=== PATIENT | female | born 1965 | race Caucasian/White ===

== ENCOUNTER 2016-08-20 13:19 | Inpatient (IN) | payer MEDICAID, OTHER ==
--- NOTE | 2016-08-20 13:56 | ED ---
General Adult HPI - General Chief complaint: Psychiatric Symptoms Stated complaint: suicidal Time Seen by Provider: 08/20/16 13:42 Source: patient, police, RN notes reviewed Mode of arrival: ambulatory - History of Present Illness Initial comments: Chief complaint history of present illness a 51-year-old female who states she is hearing voices the voices are telling her to hurt herself. The patient actually had a knife in her hand but did not hurt herself. She called 911 1 for help. Patient denies taking any drugs denies alcohol denies overdosing on aspirin or Tylenol that she has an the past taken medications. - Related Data Home Medications Medication Instructions Recorded Confirmed busPIRone HCl [Buspar] 20 mg PO TID@0800,1200,1600 03/04/16 08/20/16 traZODone HCL 150 mg PO HS 03/04/16 08/20/16 cloNIDine HCL [Catapres] 0.1 mg PO TID@0800,1200,1600 07/24/16 08/20/16 Haloperidol [Haldol] 20 mg PO HS 08/20/16 08/20/16 Multivitamins, Thera [Multivitamin] 1 tab PO DAILY@1200 08/20/16 08/20/16 Previous Rx's Medication Instructions Recorded LORazepam [Ativan] 0.5 mg PO BID #60 tab 08/01/16 Levothyroxine Sodium [Synthroid] 75 mcg PO DAILY@0630 #30 tab 08/01/16 QUEtiapine XR [SEROquel XR] 600 mg PO DAILY@1900 #120 08/01/16 tab.er.24h Venlafaxine HCl ER [Effexor XR] 112.5 mg PO DAILY #90 cap.er.24h 08/01/16 rOPINIRole HCL [Requip] 0.25 mg PO HS #30 tab 08/01/16 Allergies Allergy/AdvReac Type Severity Reaction Status Date / Time ibuprofen [From Motrin] Allergy Intermediate Rash/Hives Verified 08/20/16 13:24 tramadol HCl [From Ultram] Allergy Intermediate Itching Verified 08/20/16 13:24 Review of Systems ROS Statement: Those systems with pertinent positive or pertinent negative responses have been documented in the HPI. Review of systems. Patient denying any visual acuity or headache no chest pain shows breath GI/ problems this time no neuro deficits. Psychologically the patient reports she is depressed states she's a diagnosed schizophrenic sees a counselor. Takes several different medications which she states no significant working at this time. States that she hearing voices and the voices are telling her to herself with a knife. Patient denies taking medications. Past medical problems significant for hyperlipidemia, hypothyroidism. Patient' s had suicide attempts in the past. She's had followed by hysterectomy. The patient has ALLERGIES to ibuprofen and tramadol. Quit smoking 3 years ago denies alcohol use. States no significant family history problems. ROS Other: All systems not noted in ROS Statement are negative. Past Medical History Past Medical History: Hyperlipidemia, Thyroid Disorder Additional Past Medical History / Comment(s): suicide attempt History of Any Multi-Drug Resistant Organisms: None Reported Past Surgical History: Section, Hysterectomy Additional Past Surgical History / Comment(s): x 2; Pt. states she's had a colonoscopy done. Past Anesthesia/Blood Transfusion Reactions: No Reported Reaction Additional Past Anesthesia/Blood Transfusion Reaction / Comment(s): no previous blood transfusion Past Psychological History: Anxiety, Depression Additional Psychological History / Comment(s): Pt lives alone. She is independent. She uses no assistive devices. She has no home care agency. She has a lifelong problem with depression and has tried in the past to commit suicide with pills last time being 4 yrs ago. She has had 2 psychiatric admissions to [facility] and had been seen by Dr. Villarreal-last admission was 4 yrs ago. She is seen by Lilia Warner at [facility] a couple times a week and attends group therapy M/T/W. She did not renew her drivers license but states she has people who get her where she needs to go. She is currently trying to get disability. 07/24/16 pt. states she obtained disability in 2014; She is having auditory, command hallucinations to kill herself. Smoking Status: Former smoker Past Alcohol Use History: None Reported Additional Past Alcohol Use History / Comment(s): Pt states she quit smoking about 6 months ago. 07/24/16 pt. states she quit smoking 6 yrs. 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 at [facility] and hasn't drank since. Past Drug Use History: None Reported Additional Drug Use History / Comment(s): Pt. states she used MJ occasionally from [age] y.o. but hasn't used it since. - Past Family History Father Family Medical History: Cancer, Neurologic Disorder Additional Family Medical History / Comment(s): Pt's. father had colon cancer and Parkinson's. Mother Family Medical History: Congestive Heart Failure (CHF) Additional Family Medical History / Comment(s): states "weak heart" Sister(s) Family Medical History: Coronary Artery Disease (CAD), Myocardial Infarction ([place] ) Additional Family Medical History / Comment(s): 1 sister with hx of 2 cardiac stents, 1 other sister from heart related issues General Exam - General Exam Comments Initial Comments: General: The patient is awake and alert, appears depressed anxious and upset. Vital signs show temperature 98.5 pulse 127 respiratory rate 20 pulse ox 95% room air blood pressure elevated 160/85. The patient is anxious and upset. This be repeated. Eye: Pupils are equal, round and reactive to light, extra-ocular movements are intact ; there is normal conjunctiva bilaterally. No signs of icterus. Ears, nose, mouth and throat: There are moist mucous membranes and no oral lesions. Multiple teeth missing Neck: The neck is supple, there is no tenderness , no anterior cervical lymphadenopathy. Cardiovascular: There is a regular rate and rhythm. No murmur, rub or gallop is appreciated. Respiratory: Lungs are clear to auscultation, respirations are non-labored, breath sounds are equal. No wheezes, stridor, rales, or rhonchi. Gastrointestinal: Soft, non-distended, non-tender abdomen . There is no rebound or guarding present. No CVA tenderness. Bowel sounds are unremarkable. Back: There is no tenderness to palpation in the midline. There is no obvious deformity. No rashes noted. Musculoskeletal: Normal ROM, no tenderness, There is no pedal edema. There is no calf tenderness or swelling. Sensation intact. Pulses equal bilaterally 2+. Neurological: No complaint of any numbness or tingling. No evidence of any focal or lateralizing findings are none complained of. Skin: Skin is warm and dry and no rashes or lesions are noted. Psychiatric: Cooperative, appears depressed. States he is hearing voices, states past history of schizophrenia on medications. The voices are telling her to hurt herself. The patient states she had a knife in her hand and the voices told her to kill herself. She called 911 for help. Course Vital Signs 08/20/16 13:20 Temperature 98.5 F Pulse Rate 127 H Respiratory 20 Rate Blood Pressure 160/85 O2 Sat by Pulse 95 Oximetry Medical Decision Making - Medical Decision Making Rectal decision making. The patient's urinalysis was positive for tricyclic antidepressants, negative for aspirin or Tylenol. Patient was evaluated by psychiatric nurse. Has been decided the patient be admitted to [facility] for further evaluation for bipolar disorder with psychosis. Patient signing in voluntarily. A petition had been filled out. - Lab Data Lab Results 08/20/16 08/20/16 Range/Units 14:00 14:35 Salicylates <1.0 mg/dL Urine Opiates Screen Not Detected (NotDetected) Ur Oxycodone Screen Not Detected (NotDetected) Urine Methadone Screen Not Detected (NotDetected) Ur Propoxyphene Screen Not Detected (NotDetected) Acetaminophen <10.0 ug/mL Ur Barbiturates Screen Not Detected (NotDetected) U Tricyclic Antidepress Detected H (NotDetected) Ur Phencyclidine Scrn Not Detected (NotDetected) Ur Amphetamines Screen Not Detected (NotDetected) U Methamphetamines Scrn Not Detected (NotDetected) U Benzodiazepines Scrn Not Detected (NotDetected) Urine Cocaine Screen Not Detected (NotDetected) U Marijuana (THC) Screen Not Detected (NotDetected) Disposition Clinical Impression: Bipolar 1 disorder, depressed, Psychosis Disposition: TRANSFER TO PSYCH HOSP/UNIT Condition: Serious
[2016-08-20 14:35] LABS: Acetaminophen <10.0 ug/mL; Salicylate <1.0 mg/dL
[2016-08-20] MEDS ORDERED: LORazepam 1 MG TAB PO STA (15:22)
[2016-08-20] MEDS ORDERED: ACETAMINOPHEN TAB 325 MG TAB PO PRN (15:56)
[2016-08-20] MEDS ORDERED: MAG HYDROX/AL HYDROX/SIMETH 30 ML CUP PO PRN (15:56)
[2016-08-20] MEDS ORDERED: MAGNESIUM HYDROXIDE 2,400 MG/10 ML CUP PO PRN (15:56)
[2016-08-20] MEDS ORDERED: ZIPRASIDONE 20 MG VIAL IM PRN (15:56)
[2016-08-20 16:24] VITALS: BMI 29.7
[2016-08-20] MEDS: busPIRone HCl 10 MG TAB PO SCH (16:30)
[2016-08-20] MEDS: cloNIDine HCL 0.1 MG TAB PO SCH (16:30)
[2016-08-20] MEDS: QUEtiapine XR 200 MG TAB.ER.24H PO SCH (18:57)
[2016-08-20] MEDS: HALOPERIDOL 5 MG TAB PO SCH (21:47)
[2016-08-20] MEDS: traZODone HCL 50 MG TAB PO SCH (21:47)
[2016-08-20] MEDS: LORazepam 1 MG TAB PO PRN (21:50)
[2016-08-21] MEDS ORDERED: LEVOTHYROXINE 75 MCG TAB PO SCH (06:30)
[2016-08-21] MEDS: busPIRone HCl 10 MG TAB PO SCH ×3 (08:25→15:02)
[2016-08-21] MEDS: cloNIDine HCL 0.1 MG TAB PO SCH ×2 (08:26→12:03)
[2016-08-21] MEDS: LORazepam 1 MG TAB PO PRN ×2 (08:26→16:37)
[2016-08-21 08:59] LABS: Basophils # (A) 0.1 k/uL (0-0.2); Basophils % (A) 1 %; CH 31.8; CHCM 33.4; Eosinophils # (A) 0.1 k/uL (0-0.7); Eosinophils % (A) 2 %; HDW 2.16; HGB 15.6 gm/dL (11.4-16.0); Luc # (Auto) 0.31; Luc % (Auto) 4; Lymphocytes # (A) 3.8 k/uL (1.0-4.8); Lymphocytes % (A) 44 %; MCH 31.1 pg (25.0-35.0); MCHC 32.5 g/dL (31.0-37.0); MCV 95.7 fL (80.0-100.0); Mean Platelet Volume 7.1; Monocytes # (A) 0.6 k/uL (0-1.0); Monocytes % (A) 7 %; Neutrophils # (A) 3.8 k/uL (1.3-7.7); Neutrophils % (A) 43 %; RBC 5.01 m/uL (3.80-5.40); RDW 12.5 % (11.5-15.5); WBC 8.7 k/uL (3.8-10.6); WBC (Perox) 8.96
[2016-08-21 09:20] LABS: ALT 34 U/L (9-52); AST 32 U/L (14-36); Alkaline Phosphatase 94 U/L (38-126); Anion Gap 15 mmol/L; Blood Urea Nitrogen 15 mg/dL (7-17); Calcium 9.8 mg/dL (8.4-10.2); Carbon Dioxide 25 mmol/L (22-30); Chloride 99 mmol/L (98-107); Glucose 154 mg/dL (74-99); Non-African American GFR(MDRD) 55 (>60 ml/min/1.73 sqM); Potassium 4.6 mmol/L (3.5-5.1); Sodium 139 mmol/L (137-145); Total Bilirubin 0.8 mg/dL (0.2-1.3); Total Protein 7.8 g/dL (6.3-8.2)
[2016-08-21] MEDS: MULTIVITAMINS, THERA 1 EACH TAB PO SCH (12:03)
--- NOTE | 2016-08-21 12:53 | P.HP ---
Psychiatric H&P - . H&P Date: 08/21/16 History & Physical: IDENTIFYING DATA: Ms. Juarez is a 51-year-old woman who was discharged from this unit on 08/01/2016 with a diagnosis of major depressive disorder. HISTORY OF PRESENT ILLNESS: She presented to the unit voluntarily with complaints of auditory hallucination and suicidal ideation. She stated that she was doing well when she left the unit at the end of July. She denied that she was feeling depressed, anxious or having suicidal thoughts. She also stated that she was feeling well until 2 days prior to admission. She abruptly began experiencing a "voice" telling her to kill herself. Her description of this experience is consistent with a true auditory hallucination. However, she only experienced a single voice that only made a single statement. She denied multiple voices or an experience where "voices" were criticizing her or commenting on her behavior. She denied other psychotic symptoms such as visual or tactile hallucinations, ideas of reference, thought insertion, thought broadcasting or thought control. She feels sad (she rated her depression as a 4 on a 10 point Likert scale) but denied depressive symptoms such as pessimism, loss of pleasure, guilty feelings , self dislike, crying, loss of interest, worthlessness, loss of energy, impairment in sleep, changes in appetite, difficulty concentration were tiredness and fatigue. She feels anxious regarding the auditory experiences but denied persistent feelings of anxiety or apprehension. She denied symptoms suggestive of panic attack. She denied obsessions or compulsions. She denied recent stresses or disruptions in her relationships. She denied that she has had conflict with her children or her family. She stated that she has been compliant with her prescribed medications. She kept her initial appointment with her community mental health agency. PAST PSYCHIATRIC HISTORY: She has a history of major depressive disorder with multiple prior psychiatric hospitalizations. According to the EMR, this is her fifth admission to this unit. Her first admission of this facility was in 2011 was the result of an attempted suicide by ingesting rat poison. Her admission in December 2014 followed an overdose requiring intubation and ventilation. 2 suicide attempts appear to be related to interpersonal conflict or perceptions of abandonment. She presented voluntarily to this unit in July 2016 with complaints of increasing depression and auditory hallucination. Her discharge medications included Haldol 20 mg at bedtime, Ativan 0.5 mg twice daily, Seroquel XR 600 mg in the evening and Effexor 112.5 mg daily. PAST MEDICAL HISTORY: She has history of hyperlipidemia, thyroid disease ALLERGIES: Ibuprofen, tramadol SUBSTANCE USE HISTORY: She denied use of alcohol and drugs. She has history of alcohol use problems and was treated at [facility] in 2009. Tobacco use: She does not use tobacco products FAMILY PSYCHIATRIC/SUBSTANCE USE HISTORY: According to the record her mother may have had a history of bipolar disorder. There is no history of family suicides. LEGAL HISTORY: She is not on probation, parole or has pending charges. She has not been arrested or spent time in [facility]. SOCIAL HISTORY: She born and raised in [place] [facility] by an intact family. She graduated from high school. She began working after graduation. Her parents are . She was and twice. She has 3 children 2 by her first 1 by the second. The youngest is 14 years old. She currently lives alone in her family home. Her sister, who lives next door, is her primary support. She last worked in 2009. She is unemployed and receives security disability. MENTAL STATUS EXAM: She presented as a casually groomed short edentulous 51-year -old female who was pleasant on approach. She made eye contact and attended to the interview. She had no distinguishing features or prominent physical abnormalities. She had a sad facial expression. She was alert and oriented to person, place and time. She showed psychomotor retardation but no abnormal movements. She had an unstable gait. Her speech was spontaneous with decreased rate, rhythm and volume. Her affect was depressed but reactive. She denied current suicidal ideation or wishes. She denied homicidal ideation. She denied depressive cognitions such as hopelessness, helplessness and worthlessness. She denied obsessions or ruminations. She denied ideas of reference or paranoid ideation. Her thinking was concrete but her associations were coherent or logical. She did not demonstrate clang associations, perseveration, neologisms or blocking. She described auditory hallucinations but did not appear to be responding to internal stimuli. She described visual illusions but no depersonalization or derealization. Global impression of intellect is average to below. She is aware of her need for mental health treatment. STRENGTHS: Stable housing, stable income, supportive family, good physical health. WEAKNESSES: Chronic and recurrent mental illness. IMPRESSION: She is a 51-year-old female who presented with complaints of suicidal thoughts and command auditory hallucinations. She appears depressed but denies most of the symptoms of depression. Her descriptions of "voices" to appear consistent with true auditory hallucinations. However, she denies other symptoms of psychosis. She denied noncompliance with medication or use of alcohol or drugs. She denied specific stress or conflict preceding the recurrence of the "voices". She should best be treated on an inpatient basis with a combination of psychotropic medications and multimodal therapy. Her family may be of assistance in understanding the reason for the recurrence of her illness. 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 Hold Requip since it is a dopamine agonist and may be contributing to the psychotic symptoms. Evaluate the need for 2 antipsychotics. Suicide precautions with 15 minute checks. Interview her sister regarding her adjustment and overall functioning since her last discharge. Encourage participation in therapeutic groups and activities. Evaluate clinical status and response to treatment daily basis. Allergies Allergy/AdvReac Type Severity Reaction Status Date / Time ibuprofen [From Motrin] Allergy Intermediate Rash/Hives Verified 08/20/16 16:36 tramadol HCl [From Ultram] Allergy Intermediate Itching Verified 08/20/16 16:36 Vital Signs Temp 97.5 F L 08/21/16 06:56 Pulse 141 H 08/21/16 08:28 Resp 18 08/21/16 08:28 BP 116/56 08/21/16 08:28 Pulse Ox 95 08/20/16 16:03 Intake & Output 08/20/16 08/21/16 08/21/16 18:59 06:59 18:59 Weight 71.441 kg Laboratory Last Values WBC 8.7 k/uL (3.8-10.6) 08/21/16 08:30 RBC 5.01 m/uL (3.80-5.40) 08/21/16 08:30 Hgb 15.6 gm/dL (11.4-16.0) 08/21/16 08:30 Hct 48.0 % (34.0-46.0) H 08/21/16 08:30 MCV 95.7 fL (80.0-100.0) 08/21/16 08:30 MCH 31.1 pg (25.0-35.0) 08/21/16 08:30 MCHC 32.5 g/dL (31.0-37.0) 08/21/16 08:30 RDW 12.5 % (11.5-15.5) 08/21/16 08:30 Plt Count 347 k/uL (150-450) 08/21/16 08:30 Neutrophils % 43 % 08/21/16 08:30 Lymphocytes % 44 % 08/21/16 08:30 Monocytes % 7 % 08/21/16 08:30 Eosinophils % 2 % 08/21/16 08:30 Basophils % 1 % 08/21/16 08:30 Neutrophils # 3.8 k/uL (1.3-7.7) 08/21/16 08:30 Lymphocytes # 3.8 k/uL (1.0-4.8) 08/21/16 08:30 Monocytes # 0.6 k/uL (0-1.0) 08/21/16 08:30 Eosinophils # 0.1 k/uL (0-0.7) 08/21/16 08:30 Basophils # 0.1 k/uL (0-0.2) 08/21/16 08:30 Sodium 139 mmol/L (137-145) 08/21/16 08:30 Potassium 4.6 mmol/L (3.5-5.1) 08/21/16 08:30 Chloride 99 mmol/L (98-107) 08/21/16 08:30 Carbon Dioxide 25 mmol/L (22-30) 08/21/16 08:30 Anion Gap 15 mmol/L 08/21/16 08:30 BUN 15 mg/dL (7-17) 08/21/16 08:30 Creatinine 1.04 mg/dL (0.52-1.04) 08/21/16 08:30 Est GFR (MDRD) Af Amer >60 (>60 ml/min/1.73 sqM) 08/21/16 08:30 Est GFR (MDRD) Non-Af 55 (>60 ml/min/1.73 sqM) 08/21/16 08:30 Glucose 154 mg/dL (74-99) H 08/21/16 08:30 Calcium 9.8 mg/dL (8.4-10.2) 08/21/16 08:30 Total Bilirubin 0.8 mg/dL (0.2-1.3) 08/21/16 08:30 AST 32 U/L (14-36) 08/21/16 08:30 ALT 34 U/L (9-52) 08/21/16 08:30 Alkaline Phosphatase 94 U/L (38-126) 08/21/16 08:30 Total Protein 7.8 g/dL (6.3-8.2) 08/21/16 08:30 Albumin 4.9 g/dL (3.5-5.0) 08/21/16 08:30 TSH 12.400 mIU/L (0.465-4.680) H 08/21/16 08:30 Salicylates <1.0 mg/dL 08/20/16 14:00 Urine Opiates Screen Not Detected (NotDetected) 08/20/16 14:35 Ur Oxycodone Screen Not Detected (NotDetected) 08/20/16 14:35 Urine Methadone Screen Not Detected (NotDetected) 08/20/16 14:35 Ur Propoxyphene Screen Not Detected (NotDetected) 08/20/16 14:35 Acetaminophen <10.0 ug/mL 08/20/16 14:00 Ur Barbiturates Screen Not Detected (NotDetected) 08/20/16 14:35 U Tricyclic Antidepress Detected (NotDetected) H 08/20/16 14:35 Ur Phencyclidine Scrn Not Detected (NotDetected) 08/20/16 14:35 Ur Amphetamines Screen Not Detected (NotDetected) 08/20/16 14:35 U Methamphetamines Scrn Not Detected (NotDetected) 08/20/16 14:35 U Benzodiazepines Scrn Not Detected (NotDetected) 08/20/16 14:35 Urine Cocaine Screen Not Detected (NotDetected) 08/20/16 14:35 U Marijuana (THC) Screen Not Detected (NotDetected) 08/20/16 14:35 08/21/16 12:24
[2016-08-21] MEDS: METOPROLOL TARTRATE 50 MG TAB PO SCH ×2 (15:00→21:19)
[2016-08-21] MEDS: QUEtiapine XR 200 MG TAB.ER.24H PO SCH (18:55)
--- NOTE | 2016-08-21 19:30 | CONS ---
DATE OF CONSULTATION: REASON FOR CONSULTATION: Tachycardia and elevated TSH and patient was admitted to psychiatric floor because of suicidal ideations and acute psychosis that is being managed by psychiatry. Medicine was consulted for above-mentioned reasons as well as medical clearance. The patient is a 51 -year-old female, patient denied any fever, chills, the patient denied any nausea, vomiting, abdominal pain. The significant data I can obtain is the patient is tachycardic. I am obtaining an EKG to make sure it is sinus tachycardia and EKG results are not available yet and patient has an elevated TSH, T4 is essentially within normal limits because of which I am cutting down his thyroid medication from 75 mcg to 50 mcg. Regarding his tachycardia, patient takes clonidine appears to be secondary to blood pressure and patient is tachycardic primarily because of his anxiety along with withdrawal from clonidine, which I am switching to metoprolol as his blood pressure is on the low-normal side, considering that clonidine has multiple side effects that will be discontinued. For heart rate control I will go ahead and give him metoprolol. My suspicion is low for pulmonary embolism. ( ) probability is pretty low. PAST MEDICAL HISTORY: Significant for hypertension, hyperlipidemia, multiple anxiety, depression and psychosis in the past. History of hysterectomy, section. REVIEW OF SYSTEMS: CONSTITUTIONAL: No fever, no malaise, no fatigue. HEENT: No recent visual problems or hearing problems. Denied any sore throat. CARDIOVASCULAR: No chest pain, orthopnea, PND, no palpitations, no syncope. PULMONARY: No shortness of breath, no cough, no hemoptysis. GASTROINTESTINAL: No diarrhea, no nausea, no vomiting, no abdominal pain. Normoactive bowel sounds. NEUROLOGICAL: No headaches, no weakness, no numbness. HEMATOLOGICAL: Denies any bleeding or petechiae. GENITOURINARY: Denies any burning micturition, frequency, or urgency. MUSCULOSKELETAL/RHEUMATOLOGICAL: Denies any joint pain, swelling, or any muscle pain. ENDOCRINE: Denies any polyuria or polydipsia. The rest of the 14 point review of systems is negative. FAMILY HISTORY: Congestive heart failure. PHYSICAL EXAMINATION: Temperature 97.5, pulse of 141, her respiratory rate of 18, blood pressure is 116/56, saturating at 95% on room air. GENERAL: The patient is alert and oriented x3, not in any acute distress. Well developed, well nourished. HEENT: Pupils are round and equally reacting to light. EOMI. No scleral icterus. No conjunctival pallor. Normocephalic, atraumatic. No pharyngeal erythema. No thyromegaly. CARDIOVASCULAR: S1 and S2 present. Patient is tachycardic. No murmurs, rubs, or gallops are appreciated. PULMONARY: Chest is clear to auscultation, no wheezing or crackles. ABDOMEN: Soft, nontender, nondistended, normoactive bowel sounds. No palpable organomegaly. MUSCULOSKELETAL: No joint swelling or deformity. EXTREMITIES: No cyanosis, clubbing, or pedal edema. NEUROLOGICAL: Gross neurological examination did not reveal any focal deficits. SKIN: No rashes. LABORATORY DATA: CBC and CMP essentially within normal limits. Free T4 is 0.95. TSH is 12.4. ASSESSMENT AND PLAN: 1. Acute psychosis. Management as per primary services. 2. Hypothyroidism. Patient has elevated TSH with normal T4. I will cut down the levothyroxine to 50 mcg. 3. Tachycardia due to above-mentioned reasons. Management as mentioned above. Will continue to follow the patient on as-needed basis. ( ) if needed. Thank you for letting me participate in this patient's care. Patient's primary care physician is Dr. Chiqui Viramontes.
[2016-08-21] MEDS: traZODone HCL 50 MG TAB PO SCH (19:57)
[2016-08-21] MEDS: HALOPERIDOL 5 MG TAB PO SCH (19:57)
[2016-08-22] MEDS: LEVOTHYROXINE 50 MCG TAB PO SCH (06:01)
[2016-08-22] MEDS: METOPROLOL TARTRATE 50 MG TAB PO SCH ×2 (08:28→20:10)
[2016-08-22] MEDS: busPIRone HCl 10 MG TAB PO SCH ×3 (08:28→16:00)
[2016-08-22] MEDS: LORazepam 1 MG TAB PO PRN ×2 (08:30→16:35)
[2016-08-22] MEDS: HALOPERIDOL 5 MG TAB PO SCH ×2 (09:19→20:08)
[2016-08-22] MEDS: MULTIVITAMINS, THERA 1 EACH TAB PO SCH (13:08)
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
[2016-08-22] MEDS: traZODone HCL 50 MG TAB PO SCH (20:08)
[2016-08-22] MEDS: QUEtiapine XR 200 MG TAB.ER.24H PO SCH (20:09)
[2016-08-23] MEDS: LEVOTHYROXINE 50 MCG TAB PO SCH (06:48)
[2016-08-23] MEDS: METOPROLOL TARTRATE 50 MG TAB PO SCH ×2 (08:54→20:05)
[2016-08-23] MEDS: busPIRone HCl 10 MG TAB PO SCH ×3 (08:55→16:32)
[2016-08-23] MEDS: LORazepam 1 MG TAB PO PRN ×2 (08:56→16:32)
[2016-08-23] MEDS: VENLAFAXINE HCL ER 150 MG CAP PO SCH (10:10)
--- NOTE | 2016-08-23 12:41 | P.PN ---
Progress Note - Text SUBJECTIVE: Ms Juarez complained that she was not prescribed Effexor. She stated that she had been taking the medication after discharge and that the Effexor helped reduce her depression and anxiety. We also discussed her experience with Haldol. She described symptoms consistent with akathisia that persisted after discharge (an may have contributed to her readmission). We discussed treatment options and agreed to taper and discontinue the Haldol. She is denying experiencing auditory hallucinations. She denies feeling depressed or having thoughts of or suicide. OBJECTIVE: She presented as a casually groomed 51-year-old woman who was pleasant on approach. She made intermittent eye contact but appeared to attend to the interview. She had poor dentition but no prominent physical abnormalities. She was alert and oriented to person, place and time. She had slight psychomotor retardation but no abnormal movements. She didn't was not restless or fidgety in her chair. She is often seen pacing the unit internally preoccupied. Her speech was spontaneous with decreased rate and rhythm. Her affect appears depressed but was reactive. She denied suicidal ideation or wishes. She denied homicidal ideation. She denied depressive cognitions such as hopelessness, helplessness or worthlessness. She denied obsessions or ruminations. She denied ideas of reference and did not express paranoid ideation. Her thinking was concrete. Associations were coherent and logical. ASSESSMENT: She continues to appear depressed and expresses some symptoms of depression. She is denying auditory hallucinations or thoughts of suicide. I suspect that her rehospitalization may be related to a medication-induced akathisia. PLAN: Restart venlafaxine 150 mg daily, continue Seroquel XR 600 mg at bedtime, decrease Haldol to 5 mg at bedtime and continue to taper, encourage continued participation in therapeutic groups and activities, evaluate clinical status response to treatment on a daily basis. She may benefit from involvement in services to encourage and support social activities as an outpatient.
[2016-08-23] MEDS: MULTIVITAMINS, THERA 1 EACH TAB PO SCH (13:06)
[2016-08-23] MEDS: HALOPERIDOL 5 MG TAB PO SCH (20:05)
[2016-08-23] MEDS: QUEtiapine XR 200 MG TAB.ER.24H PO SCH (20:06)
[2016-08-23] MEDS: traZODone HCL 50 MG TAB PO SCH (20:06)
[2016-08-24] MEDS: LEVOTHYROXINE 50 MCG TAB PO SCH (05:38)
[2016-08-24] MEDS: VENLAFAXINE HCL ER 150 MG CAP PO SCH (08:25)
[2016-08-24] MEDS: busPIRone HCl 10 MG TAB PO SCH ×3 (08:25→15:39)
[2016-08-24] MEDS: METOPROLOL TARTRATE 50 MG TAB PO SCH ×2 (09:10→21:12)
[2016-08-24] MEDS: MULTIVITAMINS, THERA 1 EACH TAB PO SCH (12:51)
--- NOTE | 2016-08-24 13:42 | P.PN ---
Progress Note - Text SUBJECTIVE: Blank denied feeling depressed but described feeling anxious. She denied distinct auditory hallucination but hears "mumbling" where she is unable to identify words or sentences. She denied side effects to current medication and remains in agreement to plan to taper it and discontinue haloperidol. She denied feeling restless or having difficulty sitting still. She talked about her concerns with returning to her home. She feels her house is much too large for her and she would like to sell the home and moved to a smaller house or an apartment. She talked with her sister who is in agreement with this plan. OBJECTIVE: She presented as a neatly groomed short 51-year-old woman who was pleasant on approach. She was pacing the unit and appeared internally preoccupied. Her face brightened on approach. She maintained eye contact and attended to the interview. She had a blunted but bright facial expression. She showed slight psychomotor retardation but no abnormal involuntary movements. She had a slow but steady gait. Her speech was spontaneous with decreased volume and rhythm. Her affect was blunted but stable and appropriate. She denied suicidal ideation or wishes. She denied feelings of hopelessness or helplessness. She denied obsessions or ruminations. She denied ideas of reference and did not express paranoid ideation. Her thinking was concrete but his associations are coherent and logical. She described possible auditory hallucinations. ASSESSMENT: Overall she is improve from admission with decreased restlessness. PLAN: Discontinue haloperidol 5 mg per day, continue BuSpar 20 mg 3 times a day , lorazepam 1 mg by mouth 3 times a day when necessary, Seroquel XR 600 mg at bedtime, trazodone 150 mg at bedtime and venlafaxine ex are 150 mg daily. Encourage continued participation in therapeutic groups and activities. Evaluate clinical status response to treatment on a aily basis.
[2016-08-24] MEDS: LORazepam 1 MG TAB PO PRN (18:44)
[2016-08-24 21:11] LABS: Appearance,Urine Clear (Clear); Bacteria,Urine Many /hpf; Bilirubin,Urine Negative (Negative); Glucose,Urine (UA) Negative (Negative); Ketones,Urine Negative (Negative); Leukocyte Esterase,Urine Trace (Negative); Nitrite,Urine Negative (Negative); PH, Urine 5.5 (5.0-8.0); Particle Count 1715; Protein,Urine Negative (Negative); RBC,Urine 1 /hpf (0-5); Specific Gravity,Urine 1.008 (1.001-1.035); Squamous Epithelial Cell,Urine <1 /hpf (0-4); UA Billing (MACRO vs. MICRO) MICRO; Urobilinogen,Urine <2.0 mg/dL (<2.0); WBC,Urine 6 /hpf (0-5)
[2016-08-24] MEDS: HALOPERIDOL 5 MG TAB PO SCH (21:12)
[2016-08-24] MEDS: QUEtiapine XR 200 MG TAB.ER.24H PO SCH (21:12)
[2016-08-24] MEDS: traZODone HCL 50 MG TAB PO SCH (21:13)
[2016-08-25] MEDS: LEVOTHYROXINE 50 MCG TAB PO SCH (06:12)
[2016-08-25] MEDS: busPIRone HCl 10 MG TAB PO SCH ×3 (08:40→16:11)
[2016-08-25] MEDS: VENLAFAXINE HCL ER 150 MG CAP PO SCH (08:40)
[2016-08-25] MEDS: METOPROLOL TARTRATE 50 MG TAB PO SCH ×2 (08:41→20:31)
[2016-08-25] MEDS: MULTIVITAMINS, THERA 1 EACH TAB PO SCH (08:41)
[2016-08-25] MEDS: LORazepam 1 MG TAB PO PRN (12:24)
--- NOTE | 2016-08-25 15:49 | P.PN ---
Progress Note - Text SUBJECTIVE: I reviewed the medical record and interviewed Ms. Juarez. She is a 51-year-old woman who has a history of a recurrent depressive disorder. She presented to unit with increasing symptoms of akathisia, depression, suicidal ideation and "possible, auditory hallucinations. He been tapering her dose of haloperidol to reduce the akathisia. She complained of feeling depressed. She is unable to explain the change in her mood other than being alone when she returns home. She lives a large house along and expressed concern about being able to take care of the house. We talked about alternatives to her living alone and she stated that she couldn't live temporarily with her sister. She denied side effects from a decreased dose of haloperidol. She denied symptoms suggestive of akathisia OBJECTIVE: She presented as a casually groomed 51-year-old woman who was pleasant on approach. She was patient always and appears internally preoccupied. However, her face brightened on approach. She was not restless or agitated during interview. Her speech was not spontaneous but had normal rate, rhythm and volume. Her affect was blunted but stable and appropriate. She denied suicidal ideation or wishes. She denied depressive cognitions such as hopelessness, helplessness or worthlessness. She denied ideas of reference and did not express paranoid ideation or delusional thoughts. Her thinking was concrete but her associations were coherent and logical. She denied auditory hallucinations and did not appear to be responding to internal stimuli. Specifically, she denied hearing "voices" or "mumbling". ASSESSMENT: Overall she appears clinically improve from admission. She does not appear akathetic psychotic or overly depressed. PLAN: Discontinue Haldol, continue other medications as prescribed. Encourage participation in therapeutic groups and activities. Evaluate clinical status response to treatment on a daily basis. She asked her sister she may live with her temporarily after discharge.
[2016-08-25] MEDS: QUEtiapine XR 200 MG TAB.ER.24H PO SCH (20:31)
[2016-08-25] MEDS: traZODone HCL 50 MG TAB PO SCH (20:32)
[2016-08-26] MEDS: LEVOTHYROXINE 50 MCG TAB PO SCH (05:59)
[2016-08-26] MEDS: VENLAFAXINE HCL ER 150 MG CAP PO SCH (08:33)
[2016-08-26] MEDS: busPIRone HCl 10 MG TAB PO SCH ×3 (08:33→16:38)
[2016-08-26] MEDS: METOPROLOL TARTRATE 50 MG TAB PO SCH ×2 (08:35→21:37)
[2016-08-26] MEDS: LORazepam 1 MG TAB PO PRN ×2 (10:37→18:45)
[2016-08-26] MEDS: MULTIVITAMINS, THERA 1 EACH TAB PO SCH (12:15)
--- NOTE | 2016-08-26 14:41 | P.PN ---
Progress Note - Text SUBJECTIVE: She denied feeling depressed or having thoughts of or suicide. In her sponsor to questions about auditory hallucinations she replied that she heard a "voice earlier today." She denied experiencing auditory hallucinations during our interview. She is not spoken to her sister since our last interview. OBJECTIVE: She was neatly groomed and pleasant on approach. She is often pacing the unit and appears internally preoccupied. She had a blunted but bright facial expression. She was alert and oriented to person, place and time. She was intermittently restless but displayed no abnormal movements. Her speech was not spontaneous. Her affect was blunted but bright, stable and appropriate. She denied suicidal ideation or wishes. She denied homicidal ideation. She denied depressive cognitions such as hopelessness, helplessness and worthlessness. She did not express ideas reference or paranoid ideation. Her thinking was concrete but her associations were coherent and logical. She denied current auditory hallucinations and did not appear to be responding to internal stimuli. ASSESSMENT: She is moderately improved from admission and is denying auditory hallucinations or thoughts of or suicide. PLAN: He knew current treatment plan, social work to arrange a family meeting prior to discharge and discuss possibly living with her sister temporarily, encouraged continued participation in therapeutic groups and activities, evaluate clinical status response to treatment on a daily basis.
[2016-08-26] MEDS: traZODone HCL 50 MG TAB PO SCH (21:37)
[2016-08-26] MEDS: QUEtiapine XR 200 MG TAB.ER.24H PO SCH (21:37)
[2016-08-27] MEDS: LEVOTHYROXINE 50 MCG TAB PO SCH (06:08)
[2016-08-27] MEDS: LORazepam 1 MG TAB PO PRN ×2 (09:00→15:30)
[2016-08-27] MEDS: VENLAFAXINE HCL ER 150 MG CAP PO SCH (09:01)
[2016-08-27] MEDS: busPIRone HCl 10 MG TAB PO SCH ×3 (09:01→15:29)
[2016-08-27] MEDS: METOPROLOL TARTRATE 50 MG TAB PO SCH ×2 (09:02→20:48)
[2016-08-27] MEDS: HALOPERIDOL 5 MG TAB PO SCH (11:06)
[2016-08-27] MEDS: MULTIVITAMINS, THERA 1 EACH TAB PO SCH (12:11)
--- NOTE | 2016-08-27 14:12 | P.PN ---
Progress Note - Text SUBJECTIVE: She complained of waking up early this morning and hearing "mumbling". The experience was distressing and she was unable to return back to sleep. She denied experiencing auditory hallucinations during our interview. She denied feeling depressed or having thoughts of or suicide. She has not spoken to her sister about temporary living at her sister's home. OBJECTIVE: She presented as a casually groomed and neatly dressed 51-year-old woman with poor dentition. She is pleasant on approach and attended to the interview. She had a blunted facial expression. She was alert and oriented to person, place and time. Her speech was not spontaneous and had decreased rate, rhythm and volume. Her affect was blunted but stable and appropriate. She denied suicidal ideation or wishes. She denied depressive cognitions such as hopelessness, helplessness and worthlessness. She denied obsessions or ruminations. She did not express ideas reference or paranoid ideation. Her thinking was concrete but his associations were coherent and logical. She denied current hallucinations and did not appear to be responding to internal stimuli. We completed the [facility] Cognitive Assessment her total score was 24/30. This is below the usual threshold of 26 suggesting some cognitive impairment. She had difficulty with alternating trails but was able to copy a cube and draw the clock. She had no difficulty in naming. On the attention subcategory she was able to name 5 digits forward and 4 digits backwards. She successfully perform the vigilance test. On the serial sevens she counted backward correctly to 86. She correctly perform sentence repetition. She had very poor verbal fluency; only able to name 5 words that began with the letter "F". Abstraction was inconsistent. She provided a very concrete interpretation of the "train-bicycle " (both have wheels) similarity yet gave abstract interpretations of the "watch- ruler" similarity (both are for measurement). She named 4 out of 5 memory words. She did not know the date but knew the month, year, day, place and city. ASSESSMENT: The increase of apparent auditory hallucinations may be related to discontinuing the Haldol. She has some negative symptoms consistent with a schizophrenia. Performance on formal mental status testing is suggestive of cognitive impairment. PLAN: Restart Haldol 5 mg daily, continue other medications as prescribed (see MAR), investigated alternatives to returning to her family home at least temporarily, encourage participation in therapeutic groups and activities, evaluate clinical status response to treatment daily basis.
[2016-08-27] MEDS: traZODone HCL 50 MG TAB PO SCH (20:48)
[2016-08-27] MEDS: QUEtiapine XR 200 MG TAB.ER.24H PO SCH (20:48)
[2016-08-28] MEDS: LEVOTHYROXINE 50 MCG TAB PO SCH (05:52)
[2016-08-28] MEDS: busPIRone HCl 10 MG TAB PO SCH ×3 (09:23→16:30)
[2016-08-28] MEDS: HALOPERIDOL 5 MG TAB PO SCH (09:24)
[2016-08-28] MEDS: METOPROLOL TARTRATE 50 MG TAB PO SCH (09:24)
[2016-08-28] MEDS: VENLAFAXINE HCL ER 150 MG CAP PO SCH (09:24)
[2016-08-28] MEDS: LORazepam 1 MG TAB PO PRN ×2 (10:26→16:31)
[2016-08-28] MEDS ORDERED: METOPROLOL TARTRATE 50 MG TAB PO SCH (11:36)
[2016-08-28] MEDS: MULTIVITAMINS, THERA 1 EACH TAB PO SCH (12:14)
--- NOTE | 2016-08-28 13:36 | P.PN ---
Progress Note - Text SUBJECTIVE: Blank stated that she is "doing well". She described experiencing "mumbling" early this morning but denied that she became anxious or frightened. She feels more calm and control of her thoughts since we restarted Haldol. She spoke with her sister and they decided it would be best if she returned home rather than live with her sister temporarily. OBJECTIVE: She presented as a casually dressed and neatly groomed 51-year-old woman with poor dentition. She is pleasant on approach, maintained contact and attended the interview. She had a blunted facial expression. Her movements were slow. She had no abnormal involuntary movements. She is a slow but steady gait. Her affect was blunted. She appeared depressed but her affect brightened during the interview. She denied suicidal ideation or wishes. She denied feelings of hopelessness, helplessness or worthlessness. She denied obsessions or ruminations. She denied ideas of reference and did not express paranoid ideation. Her thinking was concrete and associations were coherent and goal directed. She denied current auditory hallucinations and did not appear to responding to internal stimuli. ASSESSMENT: She has shown a moderate response to treatment PLAN: Continue current including Haldol 5 mg daily. Continue participation in therapeutic groups and activities as tolerated. Evaluate clinical status response to treatment daily basis. Discharge on 08/29/2016 with follow-up to [facility].
[2016-08-28] MEDS: METOPROLOL TARTRATE 12.5 MG TAB PO SCH (20:41)
[2016-08-28] MEDS: QUEtiapine XR 200 MG TAB.ER.24H PO SCH (20:42)
[2016-08-28] MEDS: traZODone HCL 50 MG TAB PO SCH (20:42)
[2016-08-29 06:42] VITALS: BP 112/76; PULSE 89; RESP 20; TEMP 98.5
[2016-08-29] MEDS: LEVOTHYROXINE 50 MCG TAB PO SCH (07:55)
[2016-08-29] MEDS: busPIRone HCl 10 MG TAB PO SCH ×2 (08:30→13:28)
[2016-08-29] MEDS: HALOPERIDOL 5 MG TAB PO SCH (08:31)
[2016-08-29] MEDS: VENLAFAXINE HCL ER 150 MG CAP PO SCH (08:31)
[2016-08-29] MEDS: METOPROLOL TARTRATE 12.5 MG TAB PO SCH (08:31)
[2016-08-29] MEDS: LORazepam 1 MG TAB PO PRN (08:31)
[2016-08-29] MEDS: MULTIVITAMINS, THERA 1 EACH TAB PO SCH (13:28)
--- NOTE | 2016-08-29 14:54 | P.DS ---
Providers Date of admission: 08/20/16 15:47 Attending physician: Vasiliy Wilburn MD Consults: 08/20/16 15:56 Consult Physician Routine Consulting Provider: Kenzie Levy Consult Reason/Comments: H & P and medical care Do you want consulting provider notified?: Yes 08/28/16 11:28 Consult Physician Routine Consulting Provider: Kenzie Levy Consult Reason/Comments: Hypotension Do you want consulting provider notified?: Yes Primary care physician: Chiqui Viramontes - Discharge Diagnosis(es) (1) Schizoaffective disorder Status: Chronic Priority: Medium Hospital Course: Ms. Juarez is a 51-year-old woman who was discharged from this unit on 08/01/2016 with a diagnosis of major depressive disorder. She presented to the unit voluntarily with complaints of auditory hallucination and suicidal ideation. She stated that she was doing well when she left the unit at the end of July. She denied that she was feeling depressed, anxious or having suicidal thoughts. She also stated that she was feeling well until 2 days prior to admission. She abruptly began experiencing a "voice" telling her to kill herself. Her description of this experience is consistent with a true auditory hallucination. However, she only experienced a single voice that only made a single statement. She denied multiple voices or an experience where "voices" were criticizing her or commenting on her behavior. She denied other psychotic symptoms such as visual or tactile hallucinations, ideas of reference, thought insertion, thought broadcasting or thought control. She feels sad (she rated her depression as a 4 on a 10 point Likert scale) but denied depressive symptoms such as pessimism, loss of pleasure, guilty feelings , self dislike, crying, loss of interest, worthlessness, loss of energy, impairment in sleep, changes in appetite, difficulty concentration were tiredness and fatigue. She feels anxious regarding the auditory experiences but denied persistent feelings of anxiety or apprehension. She denied symptoms suggestive of panic attack. She denied obsessions or compulsions. She denied recent stresses or disruptions in her relationships. She denied that she has had conflict with her children or her family. She stated that she has been compliant with her prescribed medications. She kept her initial appointment with her community mental health agency. She purportedly has a history of major depressive disorder with multiple prior psychiatric hospitalizations. According to the EMR, this is her fifth admission to this unit. Her first admission of this facility was in 2011 was the result of an attempted suicide by ingesting rat poison. Her admission in December 2014 followed an overdose requiring intubation and ventilation. 2 suicide attempts appear to be related to interpersonal conflict or perceptions of abandonment. She presented voluntarily to this unit in July 2016 with complaints of increasing depression and auditory hallucination. Her discharge medications included Haldol 20 mg at bedtime, Ativan 0.5 mg twice daily, Seroquel XR 600 mg in the evening and Effexor 112.5 mg daily. Hospital Course: We admitted her to the psychiatric unit voluntarily under the care of this chief writer. We provided a biopsychosocial assessment. The consulting coil spring assembler completed the initial physical exam and medical history. He diagnosed hypothyroidism and tachycardia. We continued BuSpar 20 mg 3 times a day, Seroquel XR 600 mg and trazodone 150 mg at bedtime. We held the Requip concerned that the dopamine agonists may be contributing to her psychotic symptoms. We increasing Effexor 250 mg daily. We tapered down discontinued haloperidol concerned that her presentation may be related to akathisia. She participated in therapeutic activities and posed management problems. She reported increasing auditory hallucinations when we discontinued the Haldol. Her reported frequency of hallucinations decreased when we restarted Haldol 5 mg at bedtime. Her complaints of auditory hallucinations waxed and waned throughout the hospitalization. However, she never appeared to be responding to internal stimuli. The day of discharge she complained of increase in the auditory hallucinations. Her affect appeared more blunted than depressed. We discussed alternatives to returning to her home. She declined recommendation for placement in the adult foster [facility]. She wished to return to her home; her sister was her primary support lives next door. The time of discharge she denied thoughts of or suicide. She denied current auditory hallucinations. Her affect was flat and her thinking was concrete. She agreed to continue prescribed medications and follow-up with [facility]. Patient Condition at Discharge: Fair Plan - Discharge Summary New Discharge Prescriptions: Haloperidol [Haldol] 5 mg PO DAILY 30 Days Metoprolol Tartrate [Lopressor] 12.5 mg PO BID 30 Days Venlafaxine HCl ER [Effexor XR] 150 mg PO DAILY 30 Days Discharge Medication List busPIRone HCl [Buspar] 20 mg PO TID@0800,1200,1600 03/04/16 [History] traZODone HCL 150 mg PO HS 03/04/16 [History] Levothyroxine Sodium [Synthroid] 75 mcg PO DAILY@0630 #30 tab 08/01/16 [Rx] QUEtiapine XR [SEROquel XR] 600 mg PO DAILY@1900 #120 tab.er.24h 08/01/16 [Rx] Multivitamins, Thera [Multivitamin] 1 tab PO DAILY@1200 08/20/16 [History] Haloperidol [Haldol] 5 mg PO DAILY 30 Days 08/29/16 [Rx] Metoprolol Tartrate [Lopressor] 12.5 mg PO BID 30 Days 08/29/16 [Rx] Venlafaxine HCl ER [Effexor XR] 150 mg PO DAILY 30 Days 08/29/16 [Rx] Follow up Appointment(s)/Referral(s): [facility] [Outside] - 08/31/16 10:00 am (08/31/16 at 10 am with Jose Alexander in [facility] 09/17/16 at 3pm with Khalida Judd at [facility]) Chiqui Viramontes MD [Primary Care Provider] - 1-2 days Patient Instructions/Handouts: Depression (DC), Suicide Prevention for Adults ( DC) Activity/Diet/Wound Care/Special Instructions: No alcohol or street drugs, activity as tolerated, diet as tolerated, remove firearms from home. Follow up with outpatient counseling as set up at time of discharge, follow up with primary care physician in one week. Call crisis line number or [phone] if having thoughts to hurt self or anyone else. Discharge Disposition: HOME SELF-CARE
== END 2016-08-29 13:58 | disposition home or self-care (01) | DRG 885 ==
LOC: EC 13:19 → 3MHU 15:47
PROVIDERS: ADMIT Psychiatry & Neurology Psychiatry; ATTEND Psychiatry & Neurology Psychiatry
DX: F25.9 Schizoaffective disorder, unspecified (principal); R45.851 Suicidal ideations; I10 Essential (primary) hypertension; E03.9 Hypothyroidism, unspecified; E78.5 Hyperlipidemia, unspecified; R00.0 Tachycardia, unspecified; Z90.710 Acquired absence of both cervix and uterus; Z87.891 Personal history of nicotine dependence; F41.9 Anxiety disorder, unspecified; Z79.899 Other long term (current) drug therapy
CPT/HCPCS: 36415; 80053; 80306; 81001; 82075; 83520; 84439; 84443; 85025; 99285

== ENCOUNTER 2016-08-31 13:04 | Emergency (ER) | payer OTHER ==
--- NOTE | 2016-08-31 13:23 | ED ---
Chest Pain HPI - General Stated Complaint: chest pain Time Seen by Provider: 08/31/16 13:16 Source: patient, EMS, RN notes reviewed Mode of arrival: EMS Limitations: no limitations - History of Present Illness Initial Comments: 51-year-old female presents emergency Department chief complaint of chest pain. Patient states that this morning she started having nausea and vomiting. Patient states that she still continues to be nauseated but states after vomiting in which she states she started having chest pain. States it's pressure like. Patient denies any associated shortness of breath, diaphoretic episodes, paresthesias. Patient states that she's had chest pain in the past in which she was admitted last March 08. She states that she had a stress test , echo and was cleared by cardiology. Patient states that she is a smoker and has a history of hyperlipidemia but denies hypertension diabetes. Patient states that she just feels very anxious and believes this is mostly issue that she nor takes Ativan has not taken them. Patient had a chest pain prior to going to her [facility] appointment states he got worse so they called EMS. Patient denies any suicidal or homicidal thoughts. She does have a history of depression and anxiety. - Related Data Home Medications Medication Instructions Recorded Confirmed busPIRone HCl [Buspar] 20 mg PO TID@0800,1200,1600 03/04/16 08/31/16 traZODone HCL 150 mg PO HS 03/04/16 08/31/16 Multivitamins, Thera [Multivitamin] 1 tab PO DAILY@1200 08/20/16 08/31/16 Previous Rx's Medication Instructions Recorded Levothyroxine Sodium [Synthroid] 75 mcg PO DAILY@0630 #30 tab 08/01/16 QUEtiapine XR [SEROquel XR] 600 mg PO DAILY@1900 #120 08/01/16 tab.er.24h Haloperidol [Haldol] 5 mg PO DAILY 30 Days 08/29/16 Metoprolol Tartrate [Lopressor] 12.5 mg PO BID 30 Days 08/29/16 Venlafaxine HCl ER [Effexor XR] 150 mg PO DAILY 30 Days 08/29/16 Ondansetron Odt [Zofran Odt] 4 mg PO Q8HR PRN #10 tab 08/31/16 Allergies Allergy/AdvReac Type Severity Reaction Status Date / Time ibuprofen [From Motrin] Allergy Intermediate Rash/Hives Verified 08/31/16 13:40 tramadol HCl [From Ultram] Allergy Intermediate Itching Verified 08/31/16 13:40 Review of Systems ROS Statement: Those systems with pertinent positive or pertinent negative responses have been documented in the HPI. ROS Other: All systems not noted in ROS Statement are negative. EKG Findings - EKG Comments: EKG Findings:: EKG performed at 13:47 sinus tachycardia with a rate of 104 WV interval 154, QRS duration 66, QT/QTC 338/444 Past Medical History Past Medical History: Hyperlipidemia, Thyroid Disorder Additional Past Medical History / Comment(s): suicide attempt History of Any Multi-Drug Resistant Organisms: None Reported Past Surgical History: Section, Hysterectomy Additional Past Surgical History / Comment(s): x 2; Pt. states she's had a colonoscopy done. Past Anesthesia/Blood Transfusion Reactions: No Reported Reaction Additional Past Anesthesia/Blood Transfusion Reaction / Comment(s): no previous blood transfusion Past Psychological History: Anxiety, Depression Additional Psychological History / Comment(s): Pt lives alone. She is independent. She uses no assistive devices. She has no home care agency. She has a lifelong problem with depression and has tried in the past to commit suicide with pills last time being 4 yrs ago. She has had [address] [facility] [place] and had been seen by Dr. Villarreal-last admission was 4 yrs ago. She is seen by Lilia Warner at [facility] a couple times a week and attends group therapy M/T/W. She did not renew her drivers license but states she has people who get her where she needs to go. She is currently trying to get disability. 07/24/16 pt. states she obtained disability in 2014; She is having auditory, command hallucinations to kill herself. Smoking Status: Former smoker Past Alcohol Use History: None Reported Additional Past Alcohol Use History / Comment(s): Pt states she quit smoking about 6 months ago. 07/24/16 pt. states she quit smoking 6 yrs. 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 at [place] and hasn't drank since. Past Drug Use History: None Reported Additional Drug Use History / Comment(s): Pt. states she used MJ occasionally from [age] y.o. but hasn't used it since. - Past Family History Father Family Medical History: Cancer, Neurologic Disorder Additional Family Medical History / Comment(s): Pt's. father had colon cancer and Parkinson's. Mother Family Medical History: Congestive Heart Failure (CHF) Additional Family Medical History / Comment(s): states "weak heart" Sister(s) Family Medical History: Coronary Artery Disease (CAD), Myocardial Infarction ([place] ) Additional Family Medical History / Comment(s): 1 sister with hx of 2 cardiac stents, 1 other sister from heart related issues General Exam General appearance: alert, in no apparent distress, anxious Head exam: Present: atraumatic, normocephalic, normal inspection ENT exam: Present: mucous membranes moist. Absent: normal exam, normal oropharynx (Edentulous) Neck exam: Present: normal inspection, full ROM. Absent: tenderness, meningismus, lymphadenopathy Respiratory exam: Present: normal lung sounds bilaterally, chest wall tenderness (Moderate anterior chest wall tenderness). Absent: respiratory distress, wheezes, rales, rhonchi, stridor Cardiovascular Exam: Present: regular rate, normal rhythm, normal heart sounds. Absent: systolic murmur, diastolic murmur, rubs, gallop, clicks GI/Abdominal exam: Present: soft, tenderness (Mild epigastric), normal bowel sounds. Absent: distended, guarding, rebound, rigid Skin exam: Present: warm, dry, intact, normal color. Absent: rash Course Vital Signs 08/31/16 08/31/16 08/31/16 13:13 14:03 14:27 Temperature 97.0 F L Pulse Rate 110 H 101 H Pulse Rate [ 100 Environmental Monitoring Specialist ] Respiratory 18 15 15 Rate Blood Pressure 120/75 143/65 O2 Sat by Pulse 98 98 Oximetry - Reevaluation(s) Reevaluation #1: 08/31/16 14:48 Patient was reevaluated. She states that her anxiety is much improved. She states her nausea is resolved and most of her chest pain though she states she still has some burning sensation. Patient was given GI cocktail and she is requesting IV pain meds. Patient was given morphine at this time. Patient was updated on results Chest Pain [facility] 51-year-old female presented emergency department for nausea vomiting chest discomfort. Patient said recent cardiac workup included SS/Rx echo which was normal. Patient's EKG unchanged. Patient states pain is reproducible over her chest wall is her only after her episodes of vomiting. Patient will be discharged at this time return parameters were discussed patient agrees to plan. Disposition Clinical Impression: Chest wall pain, Nausea & vomiting Disposition: HOME SELF-CARE Condition: Stable Instructions: Acute Nausea and Vomiting (ED) Additional Instructions: Please return to the Emergency Department if symptoms worsen or any other concerns. Prescriptions: Ondansetron Odt [Zofran Odt] 4 mg PO Q8HR PRN #10 tab PRN Reason: Nausea Time of Disposition: 14:50
[2016-08-31] MEDS: LORazepam 2 MG/ML SYRINGE IV STA (13:39)
[2016-08-31] MEDS: ONDANSETRON 4 MG/2 ML VIAL IVP STA (13:39)
[2016-08-31 14:02] LABS: Basophils # (A) 0.2 k/uL (0-0.2); Basophils % (A) 2 %; CH 32.1; CHCM 34.3; Eosinophils # (A) 0.1 k/uL (0-0.7); Eosinophils % (A) 1 %; HCT 43.4 % (34.0-46.0); HDW 2.35; HGB 14.4 gm/dL (11.4-16.0); Luc # (Auto) 0.15; Luc % (Auto) 2; Lymphocytes # (A) 1.7 k/uL (1.0-4.8); Lymphocytes % (A) 17 %; MCH 31.2 pg (25.0-35.0); MCHC 33.1 g/dL (31.0-37.0); MCV 94.2 fL (80.0-100.0); Mean Platelet Volume 8.1; Monocytes # (A) 0.5 k/uL (0-1.0); Monocytes % (A) 5 %; Neutrophils # (A) 7.5 k/uL (1.3-7.7); Neutrophils % (A) 74 %; RBC 4.61 m/uL (3.80-5.40); RDW 12.8 % (11.5-15.5); WBC 10.1 k/uL (3.8-10.6); WBC (Perox) 10.34
[2016-08-31 14:06] LABS: INR 1.1 (<1.1); Partial Thromboplastin Time 23.2 sec (22.0-30.0); Prothrombin Time 10.8 sec (9.0-12.0)
[2016-08-31 14:07] LABS: ALT 51 U/L (9-52); AST 50 U/L (14-36); Alkaline Phosphatase 90 U/L (38-126); Anion Gap 15 mmol/L; Blood Urea Nitrogen 12 mg/dL (7-17); Calcium 10.1 mg/dL (8.4-10.2); Carbon Dioxide 24 mmol/L (22-30); Chloride 103 mmol/L (98-107); Glucose 116 mg/dL (74-99); Magnesium 1.8 mg/dL (1.6-2.3); Non-African American GFR(MDRD) >60 (>60 ml/min/1.73 sqM); Potassium 4.8 mmol/L (3.5-5.1); Sodium 142 mmol/L (137-145); Total Bilirubin 0.4 mg/dL (0.2-1.3); Total Protein 7.6 g/dL (6.3-8.2)
[2016-08-31 14:19] LABS: Creatine Kinase 526 U/L (30-135)
[2016-08-31 14:32] LABS: Troponin I <0.012 ng/mL (0.000-0.034)
[2016-08-31 14:41] LABS: Creatine Kinase MB 6.5 ng/mL (0.0-2.4)
--- NOTE | 2016-08-31 14:41 | XR ---
EXAMINATION TYPE: XR chest 2V DATE OF EXAM: 08/31/2016 2:24 PM COMPARISON: 03/04/2016 HISTORY: Chest pain FINDINGS: The lungs are clear and there is no pneumothorax, pleural effusion, or focal pneumonia. Hyperinflati on suggests COPD. No overt failure. Hypertrophic change of the spine. IMPRESSION: 1. No acute process.
[2016-08-31 15:00] VITALS: PULSE 107; TEMP 98
[2016-08-31] MEDS: MAG HYDROX/AL HYDROX/SIMETH 30 ML, HYOSCYAMINE ELIXIR 10 ML, CIMETIDINE HCL 300 MG PO STA ×3 (15:22)
[2016-08-31] MEDS: MORPHINE SULFATE 4 MG/ML SYRINGE IVP STA (15:23)
[2016-08-31 15:32] VITALS: BP 158/91; RESP 15
== END 2016-08-31 15:45 | disposition home or self-care (01) ==
LOC: EC 13:04
DX: R07.89 Other chest pain (principal); R11.2 Nausea with vomiting, unspecified; F41.9 Anxiety disorder, unspecified; F32.9 Major depressive disorder, single episode, unspecified; Z87.891 Personal history of nicotine dependence; Z79.899 Other long term (current) drug therapy; Z88.8 Allergy status to other drugs, medicaments and biological substances; Z91.5 Personal history of self-harm
CPT/HCPCS: 36415; 93005; 80053; 82550; 82553; 83690; 83735; 84484; 85025; 85610; 85730; 71020; 96374; 96375 ×2; 99285; J2060; J2270; J2405

== ENCOUNTER 2016-09-01 16:54 | Emergency (ER) | payer OTHER ==
[2016-09-01] MEDS ORDERED: SODIUM CHLORIDE 0.9% 1,000 ML IV STA (16:56)
[2016-09-01] MEDS ORDERED: ONDANSETRON 4 MG/2 ML VIAL IVP STA (16:56)
[2016-09-01] MEDS ORDERED: RX INFO: IV CONTRAST WAS GIVEN 1 EACH MISC MISCELLANE PRN (16:56)
[2016-09-01] MEDS ORDERED: PANTOPRAZOLE 40 MG/10 ML VIAL IVP STA (16:59)
[2016-09-01 17:01] VITALS: RESP 16
--- NOTE | 2016-09-01 17:01 | ED ---
Abdominal Pain HPI - General Stated Complaint: abd pain Time Seen by Provider: 09/01/16 16:55 Source: patient, EMS, RN notes reviewed Mode of arrival: EMS Limitations: no limitations - History of Present Illness Initial Comments: 51-year-old female presents emergency department via EMS chief complaint abdominal pain, vomiting. Patient states started at 8 AM this morning. Though she has not vomited recently. Patient was seen in emergency department yesterday for chest pain, vomiting. Patient lab work or within normal limits yesterday. She's had a recent stress test, stress echo. Patient states that she does have some burning again after she vomited. Patient states she tried a Zofran states it did not help initially. Patient denies fever, chills, dysuria , hematuria. Patient states she believes that she vomited one time and there was bright red blood. Patient states she's had prior hysterectomy. Patient also complains of anxiety though she was given anti-anxiety medication just.. - Related Data Home Medications Medication Instructions Recorded Confirmed busPIRone HCl [Buspar] 20 mg PO TID@0800,1200,1600 03/04/16 09/01/16 traZODone HCL 150 mg PO HS 03/04/16 09/01/16 Multivitamins, Thera [Multivitamin] 1 tab PO DAILY@1200 08/20/16 09/01/16 Previous Rx's Medication Instructions Recorded Levothyroxine Sodium [Synthroid] 75 mcg PO DAILY@0630 #30 tab 08/01/16 QUEtiapine XR [SEROquel XR] 600 mg PO DAILY@1900 #120 08/01/16 tab.er.24h Haloperidol [Haldol] 5 mg PO DAILY 30 Days 08/29/16 Metoprolol Tartrate [Lopressor] 12.5 mg PO BID 30 Days 08/29/16 Venlafaxine HCl ER [Effexor XR] 150 mg PO DAILY 30 Days 08/29/16 LORazepam [Ativan] 0.5 mg PO BID #6 tab 08/31/16 Ondansetron Odt [Zofran Odt] 4 mg PO Q8HR PRN #10 tab 08/31/16 Ranitidine HCl [Zantac] 150 mg PO BID #28 tab 09/01/16 Allergies Allergy/AdvReac Type Severity Reaction Status Date / Time ibuprofen [From Motrin] Allergy Intermediate Rash/Hives Verified 09/01/16 17:16 tramadol HCl [From Ultram] Allergy Intermediate Itching Verified 09/01/16 17:16 Review of Systems ROS Statement: Those systems with pertinent positive or pertinent negative responses have been documented in the HPI. ROS Other: All systems not noted in ROS Statement are negative. Past Medical History Past Medical History: Hyperlipidemia, Thyroid Disorder Additional Past Medical History / Comment(s): suicide attempt History of Any Multi-Drug Resistant Organisms: None Reported Past Surgical History: Section, Hysterectomy Additional Past Surgical History / Comment(s): x 2; Pt. states she's had a colonoscopy done. Past Anesthesia/Blood Transfusion Reactions: No Reported Reaction Additional Past Anesthesia/Blood Transfusion Reaction / Comment(s): no previous blood transfusion Past Psychological History: Anxiety, Depression Additional Psychological History / Comment(s): Pt lives alone. She is independent. She uses no assistive devices. She has no home care agency. She has a lifelong problem with depression and has tried in the past to commit suicide with pills last time being 4 yrs ago. She has had 2 psychiatric admissions to [facility] and had been seen by Dr. Villarreal-last admission was 4 yrs ago. She is seen by Lilia Warner at [facility] a couple times a week and attends group therapy M/T/W. She did not renew her drivers license but states she has people who get her where she needs to go. She is currently trying to get disability. 07/24/16 pt. states she obtained disability in 2014; She is having auditory, command hallucinations to kill herself. Smoking Status: Former smoker Past Alcohol Use History: None Reported Additional Past Alcohol Use History / Comment(s): Pt states she quit smoking about 6 months ago. 07/24/16 pt. states she quit smoking 6 yrs. 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 at [place] and hasn't drank since. Past Drug Use History: None Reported Additional Drug Use History / Comment(s): Pt. states she used MJ occasionally from [age] y.o. but hasn't used it since. - Past Family History Father Family Medical History: Cancer, Neurologic Disorder Additional Family Medical History / Comment(s): Pt's. father had colon cancer and Parkinson's. Mother Family Medical History: Congestive Heart Failure (CHF) Additional Family Medical History / Comment(s): states "weak heart" Sister(s) Family Medical History: Coronary Artery Disease (CAD), Myocardial Infarction ([place] ) Additional Family Medical History / Comment(s): 1 sister with hx of 2 cardiac stents, 1 other sister from heart related issues General Exam General appearance: alert, in no apparent distress Head exam: Present: atraumatic, normocephalic, normal inspection Respiratory exam: Present: normal lung sounds bilaterally. Absent: respiratory distress, wheezes, rales, rhonchi, stridor Cardiovascular Exam: Present: regular rate, normal rhythm, normal heart sounds. Absent: systolic murmur, diastolic murmur, rubs, gallop, clicks GI/Abdominal exam: Present: soft, tenderness (Minimal diffuse), normal bowel sounds. Absent: distended, guarding, rebound, rigid Back exam: Absent: CVA tenderness (R), CVA tenderness (L) Skin exam: Present: warm, dry, intact, normal color. Absent: rash Course Vital Signs 09/01/16 16:56 Temperature 97.1 F L Pulse Rate 90 Respiratory 16 Rate Blood Pressure 146/74 O2 Sat by Pulse 97 Oximetry Medical Decision Making - Medical Decision Making 51-year-old female presents emergency Department chief complaint abdominal pain. Patient's lab work, CT was normal limits. Patient states that she thought she had some blood in her vomit though she's had no emesis here. Patient abdomen is very minimally tender. Patient we discharged with he and antacids at this time with follow-up with GI if symptoms persist. Return parameters were discussed. - Lab Data Result diagrams: 09/01/16 17:16 09/01/16 17:16 Lab Results 09/01/16 09/01/16 09/01/16 Range/Units 17:16 17:16 17:16 WBC 10.2 (3.8-10.6) k/uL RBC 4.43 (3.80-5.40) m/uL Hgb 13.9 (11.4-16.0) gm/dL Hct 41.1 (34.0-46.0) % MCV 92.7 (80.0-100.0) fL MCH 31.4 (25.0-35.0) pg MCHC 33.9 (31.0-37.0) g/dL RDW 12.7 (11.5-15.5) % Plt Count 301 (150-450) k/uL Neutrophils % 64 % Lymphocytes % 27 % Monocytes % 7 % Eosinophils % 1 % Basophils % 1 % Neutrophils # 6.5 (1.3-7.7) k/uL Lymphocytes # 2.8 (1.0-4.8) k/uL Monocytes # 0.7 (0-1.0) k/uL Eosinophils # 0.1 (0-0.7) k/uL Basophils # 0.1 (0-0.2) k/uL PT 10.8 (9.0-12.0) sec INR 1.1 (<1.1) APTT 24.0 (22.0-30.0) sec Sodium 138 (137-145) mmol/L Potassium 4.4 (3.5-5.1) mmol/L Chloride 100 (98-107) mmol/L Carbon Dioxide 24 (22-30) mmol/L Anion Gap 14 mmol/L BUN 11 (7-17) mg/dL Creatinine 0.97 (0.52-1.04) mg/dL Est GFR (MDRD) Af Amer >60 (>60 ml/min/1.73 sqM) Est GFR (MDRD) Non-Af >60 (>60 ml/min/1.73 sqM) Glucose 101 H (74-99) mg/dL Calcium 9.7 (8.4-10.2) mg/dL Total Bilirubin 0.6 (0.2-1.3) mg/dL AST 48 H (14-36) U/L ALT 52 (9-52) U/L Alkaline Phosphatase 79 (38-126) U/L Total Protein 7.5 (6.3-8.2) g/dL Albumin 4.6 (3.5-5.0) g/dL Amylase 94 (30-110) U/L Lipase 137 (23-300) U/L Urine Color Urine Appearance (Clear) Urine pH (5.0-8.0) Ur Specific [place] (1.001-1.035) Urine Protein (Negative) Urine Glucose (UA) (Negative) Urine Ketones (Negative) Urine Blood (Negative) Urine Nitrate (Negative) Urine Bilirubin (Negative) Urine Urobilinogen (<2.0) mg/dL Ur Leukocyte Esterase (Negative) 09/01/16 Range/Units 17:16 WBC (3.8-10.6) k/uL RBC (3.80-5.40) m/uL Hgb (11.4-16.0) gm/dL Hct (34.0-46.0) % MCV (80.0-100.0) fL MCH (25.0-35.0) pg MCHC (31.0-37.0) g/dL RDW (11.5-15.5) % Plt Count (150-450) k/uL Neutrophils % % Lymphocytes % % Monocytes % % Eosinophils % % Basophils % % Neutrophils # (1.3-7.7) k/uL Lymphocytes # (1.0-4.8) k/uL Monocytes # (0-1.0) k/uL Eosinophils # (0-0.7) k/uL Basophils # (0-0.2) k/uL PT (9.0-12.0) sec INR (<1.1) APTT (22.0-30.0) sec Sodium (137-145) mmol/L Potassium (3.5-5.1) mmol/L Chloride (98-107) mmol/L Carbon Dioxide (22-30) mmol/L Anion Gap mmol/L BUN (7-17) mg/dL Creatinine (0.52-1.04) mg/dL Est GFR (MDRD) Af Amer (>60 ml/min/1.73 sqM) Est GFR (MDRD) Non-Af (>60 ml/min/1.73 sqM) Glucose (74-99) mg/dL Calcium (8.4-10.2) mg/dL Total Bilirubin (0.2-1.3) mg/dL AST (14-36) U/L ALT (9-52) U/L Alkaline Phosphatase (38-126) U/L Total Protein (6.3-8.2) g/dL Albumin (3.5-5.0) g/dL Amylase (30-110) U/L Lipase (23-300) U/L Urine Color Light Yellow Urine Appearance Clear (Clear) Urine pH 5.5 (5.0-8.0) Ur Specific [place] 1.008 (1.001-1.035) Urine Protein Negative (Negative) Urine Glucose (UA) Negative (Negative) Urine Ketones Negative (Negative) Urine Blood Negative (Negative) Urine Nitrate Negative (Negative) Urine Bilirubin Negative (Negative) Urine Urobilinogen <2.0 (<2.0) mg/dL Ur Leukocyte Esterase Negative (Negative) Disposition Clinical Impression: Abdominal pain, Nausea & vomiting Disposition: HOME SELF-CARE Condition: Stable Instructions: Abdominal Pain (ED) Additional Instructions: Please return to the Emergency Department if symptoms worsen or any other concerns. Prescriptions: Ranitidine HCl [Zantac] 150 mg PO BID #28 tab Referrals: Chiqui Viramontes MD [Primary Care Provider] - 1-2 days Lauren Villeda MD [STAFF PHYSICIAN] - 1-2 days Time of Disposition: 18:01
[2016-09-01 17:28] LABS: Appearance,Urine Clear (Clear); Bilirubin,Urine Negative (Negative); Glucose,Urine (UA) Negative (Negative); Ketones,Urine Negative (Negative); Leukocyte Esterase,Urine Negative (Negative); Nitrite,Urine Negative (Negative); PH, Urine 5.5 (5.0-8.0); Protein,Urine Negative (Negative); Specific Gravity,Urine 1.008 (1.001-1.035); UA Billing (MACRO vs. MICRO) CHEM; Urobilinogen,Urine <2.0 mg/dL (<2.0)
[2016-09-01 17:29] LABS: Basophils # (A) 0.1 k/uL (0-0.2); Basophils % (A) 1 %; CHCM 34.7; Eosinophils # (A) 0.1 k/uL (0-0.7); Eosinophils % (A) 1 %; HCT 41.1 % (34.0-46.0); HGB 13.9 gm/dL (11.4-16.0); Luc # (Auto) 0.15; Luc % (Auto) 2; Lymphocytes # (A) 2.8 k/uL (1.0-4.8); Lymphocytes % (A) 27 %; MCH 31.4 pg (25.0-35.0); MCHC 33.9 g/dL (31.0-37.0); MCV 92.7 fL (80.0-100.0); Mean Platelet Volume 7.8; Monocytes # (A) 0.7 k/uL (0-1.0); Monocytes % (A) 7 %; Neutrophils # (A) 6.5 k/uL (1.3-7.7); Neutrophils % (A) 64 %; RBC 4.43 m/uL (3.80-5.40); RDW 12.7 % (11.5-15.5); WBC 10.2 k/uL (3.8-10.6); WBC (Perox) 9.84
[2016-09-01 17:37] LABS: ALT 52 U/L (9-52); AST 48 U/L (14-36); Alkaline Phosphatase 79 U/L (38-126); Amylase 94 U/L (30-110); Anion Gap 14 mmol/L; Blood Urea Nitrogen 11 mg/dL (7-17); Calcium 9.7 mg/dL (8.4-10.2); Carbon Dioxide 24 mmol/L (22-30); Chloride 100 mmol/L (98-107); Glucose 101 mg/dL (74-99); Non-African American GFR(MDRD) >60 (>60 ml/min/1.73 sqM); Potassium 4.4 mmol/L (3.5-5.1); Sodium 138 mmol/L (137-145); Total Bilirubin 0.6 mg/dL (0.2-1.3); Total Protein 7.5 g/dL (6.3-8.2)
[2016-09-01 17:39] LABS: INR 1.1 (<1.1); Prothrombin Time 10.8 sec (9.0-12.0)
--- NOTE | 2016-09-01 17:52 | CT ---
EXAMINATION TYPE: CT abdomen pelvis w con DATE OF EXAM: 09/01/2016 5:42 PM COMPARISON: NONE HISTORY: Patient complains of RLQ pain, nausea, and vomiting. CT DLP: 447.5 mGycm Automated exposure control for dose reduction was used. TECHNIQUE: Helical acquisition of images was performed from the lung bases through the pelvis. CONTRAST: Performed without Oral Contrast and with IV Contrast, patient injected with 100 mL of Omnipaque 300. FINDINGS: Lung bases are clear. There is no pleural effusion. Heart size is normal. Liver spleen pancreas gallbladder appear normal. Bile ducts are not dilated. There is no adrenal mass . Kidneys show satisfactory contrast opacification. There is no hydronephrosis. There is no retroperi toneal adenopathy. There is a retroperitoneal 3 mm calcification adjacent to the right psoas muscle t hat is thought to be a phlebolith. This is seen on image 44. There is a small umbilical hernia that contains omental fat. Appendix appears normal. I see no intest inal wall thickening. There are no dilated loops. There is no evidence of a bowel obstruction. There is no ascites. Bladder distends smoothly. There is no sign of a pelvic mass. I see no bony destructiv e process. IMPRESSION: NO SIGN OF ACUTE ABDOMEN AND PELVIS. NO RENAL STONE OR OBSTRUCTION. NORMAL APPENDIX. UMBILICAL HERNIA NOTED.
[2016-09-01] MEDS ORDERED: Acetaminophen-Codeine 300-30mg TAB PO STA (18:04)
[2016-09-01 18:14] VITALS: BP 138/87; PULSE 88; TEMP 97.4
== END 2016-09-01 18:13 | disposition home or self-care (01) ==
LOC: EC 16:54
DX: R10.9 Unspecified abdominal pain (principal); R11.2 Nausea with vomiting, unspecified; K42.9 Umbilical hernia without obstruction or gangrene; F41.9 Anxiety disorder, unspecified; F32.9 Major depressive disorder, single episode, unspecified; Z79.899 Other long term (current) drug therapy; Z88.5 Allergy status to narcotic agent; E07.9 Disorder of thyroid, unspecified; Z88.6 Allergy status to analgesic agent; Z87.891 Personal history of nicotine dependence
CPT/HCPCS: 36415; 80053; 82150; 83690; 85025; 85610; 85730; 81003; 74177; 99284; 96374; 96375; 96361; J2405; Q9967; C9113

== ENCOUNTER 2016-09-06 23:22 | Emergency (ER) | payer OTHER ==
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
[2016-09-07 01:11] VITALS: BP 121/65; PULSE 89; RESP 20; TEMP 97.5
== END 2016-09-07 01:11 | disposition home or self-care (01) ==
LOC: EC 23:22
DX: F15.10 Other stimulant abuse, uncomplicated (principal); F31.9 Bipolar disorder, unspecified; F41.9 Anxiety disorder, unspecified; E07.9 Disorder of thyroid, unspecified; Z79.899 Other long term (current) drug therapy; Z88.5 Allergy status to narcotic agent; Z88.6 Allergy status to analgesic agent; Z91.5 Personal history of self-harm; Z87.891 Personal history of nicotine dependence
CPT/HCPCS: 80306; 82075; 99284

== ENCOUNTER 2016-09-07 03:46 | Emergency (ER) | payer OTHER ==
[2016-09-07 04:11] VITALS: TEMP 97.9
--- NOTE | 2016-09-07 04:20 | ED ---
General Adult HPI - General Chief complaint: Psychiatric Symptoms Stated complaint: mental health Time Seen by Provider: 09/07/16 04:00 Source: patient, EMS, RN notes reviewed Mode of arrival: EMS - History of Present Illness Initial comments: This is a 51-year-old female presents to the emergency department stating that she has been suicidal all day. Patient states she came to the emergency room earlier and they discharged her home. Patient states she still is feeling suicidal when she got home and she wanted to cut her throat so she came in to get help before she cut her throat. Patient denies any actual attempt. Patient denies any drug use per patient denies any alcohol use. Patient denies any physical complaints today. Patient denies headache patient denies numbness weakness. Patient denies chest pain palpitations difficulty breathing shortness of breath per patient denies abdominal pain patient denies nausea vomiting or diarrhea. - Related Data Home Medications Medication Instructions Recorded Confirmed busPIRone HCl [Buspar] 20 mg PO TID@0800,1200,1600 03/04/16 09/06/16 traZODone HCL 150 mg PO HS 03/04/16 09/06/16 Multivitamins, Thera [Multivitamin] 1 tab PO DAILY@1200 08/20/16 09/06/16 Previous Rx's Medication Instructions Recorded Levothyroxine Sodium [Synthroid] 75 mcg PO DAILY@0630 #30 tab 08/01/16 QUEtiapine XR [SEROquel XR] 600 mg PO DAILY@1900 #120 08/01/16 tab.er.24h Haloperidol [Haldol] 5 mg PO DAILY 30 Days 08/29/16 Metoprolol Tartrate [Lopressor] 12.5 mg PO BID 30 Days 08/29/16 Venlafaxine HCl ER [Effexor XR] 150 mg PO DAILY 30 Days 08/29/16 LORazepam [Ativan] 0.5 mg PO BID #6 tab 08/31/16 Ondansetron Odt [Zofran Odt] 4 mg PO Q8HR PRN #10 tab 08/31/16 Ranitidine HCl [Zantac] 150 mg PO BID #28 tab 09/01/16 Allergies Allergy/AdvReac Type Severity Reaction Status Date / Time ibuprofen [From Motrin] Allergy Intermediate Rash/Hives Verified 09/06/16 23:39 tramadol HCl [From Ultram] Allergy Intermediate Itching Verified 09/06/16 23:39 Review of Systems ROS Statement: Those systems with pertinent positive or pertinent negative responses have been documented in the HPI. ROS Other: All systems not noted in ROS Statement are negative. Past Medical History Past Medical History: Hyperlipidemia, Thyroid Disorder Additional Past Medical History / Comment(s): suicide attempt History of Any Multi-Drug Resistant Organisms: None Reported Past Surgical History: Section, Hysterectomy Additional Past Surgical History / Comment(s): x 2; Pt. states she's had a colonoscopy done. Past Anesthesia/Blood Transfusion Reactions: No Reported Reaction Additional Past Anesthesia/Blood Transfusion Reaction / Comment(s): no previous blood transfusion Past Psychological History: Anxiety, Bipolar, Depression Additional Psychological History / Comment(s): Pt lives alone. She is independent. She uses no assistive devices. She has no home care agency. She has a lifelong problem with depression and has tried in the past to commit suicide with pills last time being 4 yrs ago. She has had 2 psychiatric admissions to [facility] and had been seen by Dr. Villarreal-last admission was 4 yrs ago. She is seen by Lilia Warner at [facility] a couple times a week and attends group therapy M/T/W. She did not renew her drivers license but states she has people who get her where she needs to go. She is currently trying to get disability. 07/24/16 pt. states she obtained disability in 2014; She is having auditory, command hallucinations to kill herself. Smoking Status: Former smoker Past Alcohol Use History: None Reported Additional Past Alcohol Use History / Comment(s): Pt states she quit smoking about 6 months ago. 07/24/16 pt. states she quit smoking 6 yrs. 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 at [place] and hasn't drank since. Past Drug Use History: None Reported Additional Drug Use History / Comment(s): Pt. states she used MJ occasionally from [age] y.o. but hasn't used it since. - Past Family History Father Family Medical History: Cancer, Neurologic Disorder Additional Family Medical History / Comment(s): Pt's. father had colon cancer and Parkinson's. Mother Family Medical History: Congestive Heart Failure (CHF) Additional Family Medical History / Comment(s): states "weak heart" Sister(s) Family Medical History: Coronary Artery Disease (CAD), Myocardial Infarction ([place] ) Additional Family Medical History / Comment(s): 1 sister with hx of 2 cardiac stents, 1 other sister from heart related issues General Exam - General Exam Comments Initial Comments: GENERAL: Patient is well-developed and well-nourished. Patient is nontoxic and well- hydrated and is in no acute distress. ENT: Neck is soft and supple. No significant lymphadenopathy is noted. Oropharynx is clear. Moist mucous membranes. Neck has full range of motion without eliciting any pain. EYES: The sclera were anicteric and conjunctiva were pink and moist. Extraocular movements were intact and pupils were equal round and reactive to light. Eyelids were unremarkable. PULMONARY: Unlabored respirations. Good breath sounds bilaterally. No audible rales rhonchi or wheezing was noted. CARDIOVASCULAR: There is a regular rate and rhythm without any murmurs gallops or rubs. ABDOMEN: Soft and nontender with normal bowel sounds. SKIN: Skin is clear with no lesions or rashes and otherwise unremarkable. NEUROLOGIC: Patient is alert and oriented x3. Cranial nerves II through XII are grossly intact. Motor and sensory are also intact. MUSCULOSKELETAL: Normal extremities with adequate strength and full range of motion. PSYCHIATRIC: Patient states she is depressed and wants to kill herself. Course Vital Signs 09/07/16 09/07/16 04:08 05:22 Temperature 97.9 F Pulse Rate 88 81 Respiratory 16 16 Rate Blood Pressure 148/78 129/77 O2 Sat by Pulse 97 95 Oximetry Procedures - Restraint - Face to Face Restraint Occurrence 1 Patient's Immediate Situation: Endangers self safety, Endangers others' safety, Endangers staff safety Patient's Reaction to the Intervention: Uncooperative, Other (see comment) ( Patient was trying to escape the ER after she indicated she was suicidal) Patient's Medical & Behavioral Condition: Awake, Alert, Suicidal thoughts Face to Face Eval of Restraint Date: 09/07/16 Face to Face Eval of Restraint Time: 04:35 Medical Decision Making - Lab Data Lab Results 09/07/16 Range/Units 04:20 Urine Opiates Screen Not Detected (NotDetected) Ur Oxycodone Screen Not Detected (NotDetected) Urine Methadone Screen Not Detected (NotDetected) Ur Propoxyphene Screen Not Detected (NotDetected) Ur Barbiturates Screen Not Detected (NotDetected) U Tricyclic Antidepress Not Detected (NotDetected) Ur Phencyclidine Scrn Not Detected (NotDetected) Ur Amphetamines Screen Not Detected (NotDetected) U Methamphetamines Scrn Not Detected (NotDetected) U Benzodiazepines Scrn Not Detected (NotDetected) Urine Cocaine Screen Not Detected (NotDetected) U Marijuana (THC) Screen Not Detected (NotDetected) Disposition Clinical Impression: Situational depression Disposition: HOME SELF-CARE Referrals: Chiqui Viramontes MD [Primary Care Provider] - 1-2 days Time of Disposition: 06:18
[2016-09-07 11:03] VITALS: BP 124/70; PULSE 87; RESP 18
== END 2016-09-07 11:03 | disposition home or self-care (01) ==
LOC: EC 03:46
DX: F43.21 Adjustment disorder with depressed mood (principal); F32.9 Major depressive disorder, single episode, unspecified; F41.9 Anxiety disorder, unspecified; Z88.5 Allergy status to narcotic agent; E78.5 Hyperlipidemia, unspecified; E07.9 Disorder of thyroid, unspecified; Z87.891 Personal history of nicotine dependence; Z79.899 Other long term (current) drug therapy; Z88.6 Allergy status to analgesic agent
CPT/HCPCS: 80306; 82075; 99285

== ENCOUNTER 2016-10-28 11:21 | Inpatient (IN) | payer MEDICAID, OTHER ==
[2016-10-28] MEDS ORDERED: SODIUM CHLORIDE 0.9% 1,000 ML IV STA (11:53)
[2016-10-28 12:07] LABS: Basophils # (A) 0.1 k/uL (0-0.2); Basophils % (A) 1 %; CH 31.8; CHCM 33.9; Eosinophils # (A) 0.1 k/uL (0-0.7); Eosinophils % (A) 1 %; HCT 46.5 % (34.0-46.0); HDW 2.43; Luc # (Auto) 0.19; Luc % (Auto) 2; Lymphocytes # (A) 1.9 k/uL (1.0-4.8); Lymphocytes % (A) 24 %; MCH 32.4 pg (25.0-35.0); MCHC 34.3 g/dL (31.0-37.0); MCV 94.3 fL (80.0-100.0); Mean Platelet Volume 8.5; Monocytes # (A) 0.3 k/uL (0-1.0); Monocytes % (A) 4 %; Neutrophils # (A) 5.2 k/uL (1.3-7.7); Neutrophils % (A) 68 %; RBC 4.93 m/uL (3.80-5.40); WBC 7.8 k/uL (3.8-10.6); WBC (Perox) 7.42
[2016-10-28 12:30] LABS: ALT 27 U/L (9-52); AST 29 U/L (14-36); Alcohol <10 mg/dL; Alkaline Phosphatase 79 U/L (38-126); Anion Gap 15 mmol/L; Blood Urea Nitrogen 11 mg/dL (7-17); Calcium 10.3 mg/dL (8.4-10.2); Carbon Dioxide 23 mmol/L (22-30); Chloride 105 mmol/L (98-107); Glucose 123 mg/dL (74-99); Non-African American GFR(MDRD) 56 (>60 ml/min/1.73 sqM); Salicylate <1.0 mg/dL; Sodium 143 mmol/L (137-145); Total Bilirubin 0.6 mg/dL (0.2-1.3); Total Protein 7.9 g/dL (6.3-8.2)
[2016-10-28 12:35] LABS: Acetaminophen 44.1 ug/mL
--- NOTE | 2016-10-28 14:50 | ED ---
Overdose HPI - General Chief Complaint: Overdose Stated Complaint: Overdose Time Seen by Provider: 10/28/16 11:49 Source: patient Mode of arrival: ambulatory - History of Present Illness Initial Comments: He been feeling depressed, wanted to end her life in the suicidal ideation got worse over the last 2 days and she drank 2 bottles of NyQuil she denies any alcohol there are no street drugs on the board and she denies any triggering factor is no fight with them the family as she does have a history of psych disorders and now had tried to harming herself in the past. Denies any headaches no chest pain or shortness of breath no abdominal pain no frequency urgency dysuria - Related Data Previous Rx's Medication Instructions Recorded Atorvastatin [Lipitor] 40 mg PO DAILY 30 Days 11/28/16 Gabapentin [Neurontin] 300 mg PO AC-BRKFST 30 Days 11/28/16 Gabapentin [Neurontin] 300 mg PO AC-LUNCH 30 Days 11/28/16 Gabapentin [Neurontin] 600 mg PO HS 30 Days 11/28/16 Levothyroxine Sodium [Synthroid] 100 mcg PO DAILY@0630 30 Days 11/28/16 Gravity Carbonate 300 mg PO TID 30 Days 11/28/16 Nicotine 14Mg/24Hr Patch [Habitrol] 1 patch TRANSDERM DAILY 14 Days 11/28/16 QUEtiapine XR [SEROquel XR] 600 mg PO DAILY@1900 30 Days 11/28/16 buPROPion XL [Wellbutrin XL] 300 mg PO DAILY 30 Days 11/28/16 Allergies Allergy/AdvReac Type Severity Reaction Status Date / Time ibuprofen [From Motrin] Allergy Intermediate Rash/Hives Verified 10/29/16 10:33 tramadol HCl [From Ultram] Allergy Intermediate Itching Verified 10/29/16 10:33 Review of Systems ROS Statement: Those systems with pertinent positive or pertinent negative responses have been documented in the HPI. ROS Other: All systems not noted in ROS Statement are negative. Past Medical History Past Medical History: Hyperlipidemia, Thyroid Disorder Additional Past Medical History / Comment(s): suicide attempt History of Any Multi-Drug Resistant Organisms: None Reported Past Surgical History: Section, Hysterectomy Additional Past Surgical History / Comment(s): x 2; Pt. states she's had a colonoscopy done. Past Anesthesia/Blood Transfusion Reactions: No Reported Reaction Additional Past Anesthesia/Blood Transfusion Reaction / Comment(s): no previous blood transfusion Past Psychological History: Anxiety, Bipolar, Depression Additional Psychological History / Comment(s): Pt lives alone. She is independent. She uses no assistive devices. She has no home care agency. She has a lifelong problem with depression and has tried in the past to commit suicide with pills last time being 4 yrs ago. She has had [address] [facility] [place] and had been seen by Dr. Villarreal-last admission was 4 yrs ago. She is seen by Lilia Warner at [facility] a couple times a week and attends group therapy M/T/W. She did not renew her drivers license but states she has people who get her where she needs to go. She is currently trying to get disability. 07/24/16 pt. states she obtained disability in 2014; She is having auditory, command hallucinations to kill herself. Smoking Status: Former smoker Past Alcohol Use History: Abuse, Daily Additional Past Alcohol Use History / Comment(s): Pt states she quit smoking about 6 months ago. 07/24/16 pt. states she quit smoking 6 yrs. 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 at [place] and hasn't drank since. Past Drug Use History: None Reported Additional Drug Use History / Comment(s): Pt. states she used MJ occasionally from [age] y.o. but hasn't used it since. - Past Family History Father Family Medical History: Cancer, Neurologic Disorder Additional Family Medical History / Comment(s): Pt's. father had colon cancer and Parkinson's. Mother Family Medical History: Congestive Heart Failure (CHF) Additional Family Medical History / Comment(s): states "weak heart" Sister(s) Family Medical History: Coronary Artery Disease (CAD), Myocardial Infarction (IA ) Additional Family Medical History / Comment(s): 1 sister with hx of 2 cardiac stents, 1 other sister from heart related issues General Exam - General Exam Comments Initial Comments: General: The patient is awake and alert, in no distress, and does not appear acutely ill. GCS is 15 Skin: Skin is warm and dry and no rashes or lesions are noted. Eye: Pupils are equal, round and reactive to light, extra-ocular movements are intact; there is normal conjunctiva bilaterally. Ears, nose, mouth and throat: There are moist mucous membranes and no oral lesions. Neck: The neck is supple, there is no tenderness or JVD. Cardiovascular: There is a regular rate and rhythm. No murmur, rub or gallop is appreciated. Respiratory: To auscultation bilateral, no wheezing no rhonchi no distress respiratory murray noticed Gastrointestinal: Soft, non-distended, non-tender abdomen without masses or organomegaly noted. There is no rebound or guarding present. Bowel sounds are unremarkable. Back: There is no tenderness to palpation in the midline. There is no obvious deformity. Musculoskeletal: Normal ROM, no tenderness, There is no pedal edema. There is no calf tenderness or swelling. No cords were appreciated. Neurological: CN II-XII intact, Cranial nerves III through XII are intact. There are no obvious motor or sensory deficits. Coordination appears grossly intact. Speech is normal. Psychiatric: Cooperative, he does admit that she wants to end her life and she does admit that she took those medications with intention to harm herself Course Vital Signs 10/28/16 10/28/16 10/28/16 11:52 12:21 12:51 Temperature 97.8 F Pulse Rate 113 H 94 88 Respiratory 16 18 18 Rate Blood Pressure 154/77 149/72 134/76 O2 Sat by Pulse 100 97 97 Oximetry 10/28/16 10/28/16 10/28/16 13:57 15:28 16:45 Temperature 98.2 F Pulse Rate 84 84 89 Respiratory 18 20 20 Rate Blood Pressure 150/71 133/65 136/69 O2 Sat by Pulse 97 98 97 Oximetry EKG is sinus tachycardia at rate is 1:30 MI interval is 152 QRS duration is 66 QT/QTc is 332/455 review of this EKG reveal no ST elevation or ST depression Will call consult psychiatry for their input Medical Decision Making - Lab Data Result diagrams: 10/28/16 11:45 10/30/16 09:21 Lab Results 10/28/16 10/28/16 10/28/16 Range/Units 11:45 11:45 11:45 WBC 7.8 (3.8-10.6) k/uL RBC 4.93 (3.80-5.40) m/uL Hgb 16.0 (11.4-16.0) gm/dL Hct 46.5 H (34.0-46.0) % MCV 94.3 (80.0-100.0) fL MCH 32.4 (25.0-35.0) pg MCHC 34.3 (31.0-37.0) g/dL RDW 13.0 (11.5-15.5) % Plt Count 294 (150-450) k/uL Neutrophils % 68 % Lymphocytes % 24 % Monocytes % 4 % Eosinophils % 1 % Basophils % 1 % Neutrophils # 5.2 (1.3-7.7) k/uL Lymphocytes # 1.9 (1.0-4.8) k/uL Monocytes # 0.3 (0-1.0) k/uL Eosinophils # 0.1 (0-0.7) k/uL Basophils # 0.1 (0-0.2) k/uL Sodium 143 (137-145) mmol/L Potassium 4.0 (3.5-5.1) mmol/L Chloride 105 (98-107) mmol/L Carbon Dioxide 23 (22-30) mmol/L Anion Gap 15 mmol/L BUN 11 (7-17) mg/dL Creatinine 1.03 (0.52-1.04) mg/dL Est GFR (MDRD) Af Amer >60 (>60 ml/min/1.73 sqM) Est GFR (MDRD) Non-Af 56 (>60 ml/min/1.73 sqM) Glucose 123 H (74-99) mg/dL Calcium 10.3 H (8.4-10.2) mg/dL Total Bilirubin 0.6 (0.2-1.3) mg/dL AST 29 (14-36) U/L ALT 27 (9-52) U/L Alkaline Phosphatase 79 (38-126) U/L Total Protein 7.9 (6.3-8.2) g/dL Albumin 4.9 (3.5-5.0) g/dL TSH 40.900 H (0.465-4.680) mIU/L Urine Color Urine Appearance (Clear) Urine pH (5.0-8.0) Ur Specific [place] (1.001-1.035) Urine Protein (Negative) Urine Glucose (UA) (Negative) Urine Ketones (Negative) Urine Blood (Negative) Urine Nitrite (Negative) Urine Bilirubin (Negative) Urine Urobilinogen (<2.0) mg/dL Ur Leukocyte Esterase (Negative) Urine RBC (0-5) /hpf Ur Squamous Epith Cells (0-4) /hpf Calcium Oxalate Crystal (None) /hpf Urine Bacteria (None) /hpf Hyaline Casts (0-2) /lpf Urine Mucus (None) /hpf Urine HCG, Qual (Not Detectd) Salicylates <1.0 mg/dL Urine Opiates Screen (NotDetected) Ur Oxycodone Screen (NotDetected) Urine Methadone Screen (NotDetected) Ur Propoxyphene Screen (NotDetected) Acetaminophen 44.1 H* ug/mL Ur Barbiturates Screen (NotDetected) U Tricyclic Antidepress (NotDetected) Ur Phencyclidine Scrn (NotDetected) Ur Amphetamines Screen (NotDetected) U Methamphetamines Scrn (NotDetected) U Benzodiazepines Scrn (NotDetected) Urine Cocaine Screen (NotDetected) U Marijuana (THC) Screen (NotDetected) Serum Alcohol <10 mg/dL 10/28/16 10/28/16 10/28/16 Range/Units 12:55 12:55 12:55 WBC (3.8-10.6) k/uL RBC (3.80-5.40) m/uL Hgb (11.4-16.0) gm/dL Hct (34.0-46.0) % MCV (80.0-100.0) fL MCH (25.0-35.0) pg MCHC (31.0-37.0) g/dL RDW (11.5-15.5) % Plt Count (150-450) k/uL Neutrophils % % Lymphocytes % % Monocytes % % Eosinophils % % Basophils % % Neutrophils # (1.3-7.7) k/uL Lymphocytes # (1.0-4.8) k/uL Monocytes # (0-1.0) k/uL Eosinophils # (0-0.7) k/uL Basophils # (0-0.2) k/uL Sodium (137-145) mmol/L Potassium (3.5-5.1) mmol/L Chloride (98-107) mmol/L Carbon Dioxide (22-30) mmol/L Anion Gap mmol/L BUN (7-17) mg/dL Creatinine (0.52-1.04) mg/dL Est GFR (MDRD) Af Amer (>60 ml/min/1.73 sqM) Est GFR (MDRD) Non-Af (>60 ml/min/1.73 sqM) Glucose (74-99) mg/dL Calcium (8.4-10.2) mg/dL Total Bilirubin (0.2-1.3) mg/dL AST (14-36) U/L ALT (9-52) U/L Alkaline Phosphatase (38-126) U/L Total Protein (6.3-8.2) g/dL Albumin (3.5-5.0) g/dL TSH (0.465-4.680) mIU/L Urine Color Yellow Urine Appearance Slightly Cloudy H (Clear) Urine pH 5.5 (5.0-8.0) Ur Specific [place] 1.045 H (1.001-1.035) Urine Protein 1+ H (Negative) Urine Glucose (UA) Negative (Negative) Urine Ketones Negative (Negative) Urine Blood Negative (Negative) Urine Nitrite Negative (Negative) Urine Bilirubin Negative (Negative) Urine Urobilinogen <2.0 (<2.0) mg/dL Ur Leukocyte Esterase Negative (Negative) Urine RBC 6 H (0-5) /hpf Ur Squamous Epith Cells 15 H (0-4) /hpf Calcium Oxalate Crystal Many H (None) /hpf Urine Bacteria Moderate H (None) /hpf Hyaline Casts 4 H (0-2) /lpf Urine Mucus Rare H (None) /hpf Urine HCG, Qual Not Detected (Not Detectd) Salicylates mg/dL Urine Opiates Screen Detected H (NotDetected) Ur Oxycodone Screen Not Detected (NotDetected) Urine Methadone Screen Not Detected (NotDetected) Ur Propoxyphene Screen Not Detected (NotDetected) Acetaminophen ug/mL Ur Barbiturates Screen Not Detected (NotDetected) U Tricyclic Antidepress Detected H (NotDetected) Ur Phencyclidine Scrn Not Detected (NotDetected) Ur Amphetamines Screen Not Detected (NotDetected) U Methamphetamines Scrn Not Detected (NotDetected) U Benzodiazepines Scrn Not Detected (NotDetected) Urine Cocaine Screen Not Detected (NotDetected) U Marijuana (THC) Screen Not Detected (NotDetected) Serum Alcohol mg/dL 10/28/16 Range/Units 15:00 WBC (3.8-10.6) k/uL RBC (3.80-5.40) m/uL Hgb (11.4-16.0) gm/dL Hct (34.0-46.0) % MCV (80.0-100.0) fL MCH (25.0-35.0) pg MCHC (31.0-37.0) g/dL RDW (11.5-15.5) % Plt Count (150-450) k/uL Neutrophils % % Lymphocytes % % Monocytes % % Eosinophils % % Basophils % % Neutrophils # (1.3-7.7) k/uL Lymphocytes # (1.0-4.8) k/uL Monocytes # (0-1.0) k/uL Eosinophils # (0-0.7) k/uL Basophils # (0-0.2) k/uL Sodium (137-145) mmol/L Potassium (3.5-5.1) mmol/L Chloride (98-107) mmol/L Carbon Dioxide (22-30) mmol/L Anion Gap mmol/L BUN (7-17) mg/dL Creatinine (0.52-1.04) mg/dL Est GFR (MDRD) Af Amer (>60 ml/min/1.73 sqM) Est GFR (MDRD) Non-Af (>60 ml/min/1.73 sqM) Glucose (74-99) mg/dL Calcium (8.4-10.2) mg/dL Total Bilirubin (0.2-1.3) mg/dL AST (14-36) U/L ALT (9-52) U/L Alkaline Phosphatase (38-126) U/L Total Protein (6.3-8.2) g/dL Albumin (3.5-5.0) g/dL TSH (0.465-4.680) mIU/L Urine Color Urine Appearance (Clear) Urine pH (5.0-8.0) Ur Specific [place] (1.001-1.035) Urine Protein (Negative) Urine Glucose (UA) (Negative) Urine Ketones (Negative) Urine Blood (Negative) Urine Nitrite (Negative) Urine Bilirubin (Negative) Urine Urobilinogen (<2.0) mg/dL Ur Leukocyte Esterase (Negative) Urine RBC (0-5) /hpf Ur Squamous Epith Cells (0-4) /hpf Calcium Oxalate Crystal (None) /hpf Urine Bacteria (None) /hpf Hyaline Casts (0-2) /lpf Urine Mucus (None) /hpf Urine HCG, Qual (Not Detectd) Salicylates mg/dL Urine Opiates Screen (NotDetected) Ur Oxycodone Screen (NotDetected) Urine Methadone Screen (NotDetected) Ur Propoxyphene Screen (NotDetected) Acetaminophen 27.6 ug/mL Ur Barbiturates Screen (NotDetected) U Tricyclic Antidepress (NotDetected) Ur Phencyclidine Scrn (NotDetected) Ur Amphetamines Screen (NotDetected) U Methamphetamines Scrn (NotDetected) U Benzodiazepines Scrn (NotDetected) Urine Cocaine Screen (NotDetected) U Marijuana (THC) Screen (NotDetected) Serum Alcohol mg/dL Disposition Clinical Impression: Suicidal ideation, Planning to commit suicide, Suicide attempt Disposition: TRANSFER TO PSYCH HOSP/UNIT
[2016-10-28] MEDS ORDERED: ACETAMINOPHEN TAB 325 MG TAB PO PRN (17:04)
[2016-10-28] MEDS ORDERED: MAG HYDROX/AL HYDROX/SIMETH 30 ML CUP PO PRN (17:04)
[2016-10-28] MEDS ORDERED: MAGNESIUM HYDROXIDE 2,400 MG/10 ML CUP PO PRN (17:04)
[2016-10-28] MEDS ORDERED: FAMOTIDINE 20 MG TAB PO SCH (17:30)
[2016-10-28] MEDS: NICOTINE 14MG/24HR PATCH TRANSDERM SCH (17:33)
[2016-10-28] MEDS ORDERED: LORazepam 2 MG/ML SYRINGE IM PRN (17:42)
[2016-10-28] MEDS ORDERED: ZIPRASIDONE 20 MG VIAL IM PRN (17:44)
[2016-10-28 19:00] LABS: Bacteria,Urine Moderate /hpf; Calcium Oxalate Crystals,Urine Many /hpf; Mucus,Urine Rare /hpf; Particle Count 17797; RBC,Urine 6 /hpf (0-5); Squamous Epithelial Cell,Urine 15 /hpf (0-4)
[2016-10-28] MEDS: QUEtiapine XR 200 MG TAB.ER.24H PO SCH (19:12)
[2016-10-28 19:35] LABS: Appearance,Urine Slightly Cloudy (Clear); PH, Urine 5.5 (5.0-8.0); Protein,Urine 1+ (Negative); Specific Gravity,Urine 1.045 (1.001-1.035)
[2016-10-28 19:36] LABS: Bilirubin,Urine Negative (Negative); Glucose,Urine (UA) Negative (Negative); Ketones,Urine Negative (Negative)
[2016-10-28 19:37] LABS: Nitrite,Urine Negative (Negative); Urobilinogen,Urine <2.0 mg/dL (<2.0)
[2016-10-28 19:38] LABS: Leukocyte Esterase,Urine Negative (Negative); UA Billing (MACRO vs. MICRO) MICRO
[2016-10-28] MEDS ORDERED: METOPROLOL TARTRATE 12.5 MG TAB PO SCH (21:00)
[2016-10-28] MEDS: traZODone HCL 50 MG TAB PO SCH (21:13)
[2016-10-29] MEDS ORDERED: LEVOTHYROXINE 75 MCG TAB PO SCH (06:30)
[2016-10-29] MEDS ORDERED: busPIRone HCl 10 MG TAB PO SCH (08:00)
[2016-10-29] MEDS: NICOTINE 14MG/24HR PATCH TRANSDERM SCH (08:12)
[2016-10-29] MEDS: VENLAFAXINE HCL ER 150 MG CAP PO SCH (08:12)
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
[2016-10-29] MEDS: MULTIVITAMINS, THERA 1 EACH TAB PO SCH (14:45)
[2016-10-29] MEDS: QUEtiapine XR 200 MG TAB.ER.24H PO SCH (18:47)
[2016-10-29] MEDS: traZODone HCL 50 MG TAB PO SCH (20:59)
[2016-10-30] MEDS ORDERED: LEVOTHYROXINE 75 MCG TAB PO SCH (06:30)
[2016-10-30] MEDS: LEVOTHYROXINE 100 MCG TAB PO SCH (07:00)
[2016-10-30] MEDS: NICOTINE 14MG/24HR PATCH TRANSDERM SCH (08:47)
[2016-10-30] MEDS: VENLAFAXINE HCL ER 150 MG CAP PO SCH (08:47)
[2016-10-30] MEDS: GABAPENTIN 300 MG CAP PO SCH ×3 (08:48→20:50)
[2016-10-30 10:09] LABS: ALT 24 U/L (9-52); AST 24 U/L (14-36); Acetaminophen <10.0 ug/mL; Alkaline Phosphatase 64 U/L (38-126); Anion Gap 9 mmol/L; Blood Urea Nitrogen 18 mg/dL (7-17); Calcium 9.5 mg/dL (8.4-10.2); Carbon Dioxide 27 mmol/L (22-30); Chloride 105 mmol/L (98-107); Glucose 95 mg/dL (74-99); Non-African American GFR(MDRD) >60 (>60 ml/min/1.73 sqM); Potassium 4.4 mmol/L (3.5-5.1); Sodium 141 mmol/L (137-145); Total Bilirubin 0.6 mg/dL (0.2-1.3); Total Protein 6.6 g/dL (6.3-8.2)
--- NOTE | 2016-10-30 10:09 | CONS ---
DATE OF CONSULTATION: REASON FOR CONSULTATION: Medical management of Tylenol overdose and hypothyroidism and other medical problems. HISTORY OF PRESENT ILLNESS: Ms. Juarez is a 51-year-old female with known history of hypothyroidism, major depression disorder and history of suicide attempt in the past presented to the ER via ambulance and after she took a handful of Tylenol pills as well as NyQuil syrup. Patient drank 2 bottles of NyQuil syrup. Patient says that she felt very depressed and wanted to end her life. No ( ) as per the patient. Patient was found to have elevated acetaminophen level at 44.1 on admission, improved to 27.6 now. Patient also has elevated TSH level of 40.9. Currently patient denied any complaints of chest pain or short of breath. No nausea or vomiting, abdominal pain. No dysuria. Patient admits to weight gain and feels very depressed. REVIEW OF SYSTEMS: CONSTITUTIONAL: No fever. No chills. RESPIRATORY: No cough or sputum production. CARDIOVASCULAR: No chest pain or short of breath. ABDOMEN: No nausea, vomiting or abdominal pain. GENITOURINARY: Negative. ENDOCRINE: Patient does have ( ). PSYCHIATRY: Patient seems very depressed. PAST MEDICAL HISTORY: Hypothyroidism, hyperlipidemia, history of suicide attempt, major depressive disorder. PSYCHOSOCIAL HISTORY: Depression, bipolar, anxiety. PAST SURGICAL HISTORY: x2 and hysterectomy and also colonoscopy. SOCIAL HISTORY: Patient lives alone, independent. Patient is a former smoker. She says she quit smoking about 6 months ago. Patient also has alcohol abuse from 2008 to 2009, but she went to rehab at [facility] and has not drank since. Remote history of marijuana use. FAMILY HISTORY: Father had colon cancer and Parkinson's disease. Mother has congestive heart failure. Sister has coronary artery disease with stent placement and myocardial infarction. Allergies include IBUPROFEN and TRAMADOL. HOME MEDICATIONS: 1. BuSpar. 2. Trazodone. 3. Multivitamins. 4. Levothyroxine. 5. Seroquel. 6. Haloperidol. 7. Metoprolol. 8. Venlafaxine, Effexor. 9. Ativan. 10. Ondansetron. 11. Ranitidine. PHYSICAL EXAMINATION: A 51-year-old female sitting on the chair comfortably; awake, alert, oriented x3. Appears to be in no apparent distress. VITALS: Blood pressure is 150/85, pulse is 89, respirations 15, temperature afebrile, pulse ox 95% on room air. HEENT: Atraumatic, normocephalic. Neck is supple. No JVD. CVS EXAM: S1, S2 heard. No murmurs, no gallop. LUNGS: Bilateral air entry is present. No wheezing, no crackles. ABDOMEN: Soft, nontender. Bowel sounds present. [employer]NF[employer]CEMENT: Awake, alert and oriented x3. No focal deficit. EXTREMITIES: No edema. Pulses palpable bilaterally. No clubbing or cyanosis. PSYCHIATRIC: Cooperative. Patient seems depressed. Denied any suicidal ideation now. LABORATORY DATA: WBC 7.8, hemoglobin 16.0, platelets 294. Sodium 143, potassium 4.0, chloride 105, bicarb is 23, BUN 1, creatinine 1.03. Calcium 10.3. AST 29, ALT 27, alk phos 79. TSH level 40.9. UA possible contaminant sample, negative for infection. UDS is positive for opiates and tricyclic antidepressants. Alcohol level is less 10. Acetaminophen level is 44.1 and 27.6. IMPRESSION: 1. Acute Tylenol and cough syrup, NyQuil, overdose. Acetaminophen level is trending downwards at 27.6. Will follow up acetaminophen level tomorrow. No elevated liver enzymes. No complaints of abdominal pain. Will follow up closely. 2. Hypothyroidism with elevated TSH level to 40.9. Will increase dose to ( ) mcg daily and repeat TSH level in 6 weeks. 3. Hyperlipidemia. 4. Major depressive disorder. 5. Acute suicide attempt. 6. History of suicide attempt in the past. 7. Schizoaffective disorder. DISCUSSION AND PLAN: Patient acetaminophen level will be ordered for tomorrow. Increase the dose of levothyroxine. The patient is noncompliant at home. Continue with the psychiatric management and follow up closely. Further recommendations based on clinical course. Thank you for the consult.
--- NOTE | 2016-10-30 11:47 | P.PN ---
Progress Note - Text SUBJECTIVE: I reviewed the medical record, interviewed Blank and discussed her treatment and treatment plan during team meeting. She continues to feel depressed and sad. "I don't want to be here anymore." She was much more communicative today than yesterday. She talked about feeling alone. She felt less alone when she was in the substance abuse rehabilitation program and while she is on the psychiatric unit. She talked about her youngest daughter who lives with the daughter's father. Although she is frequently speaks to her daughter on the telephone her daughter seldom visits because of Blank's mental illness; "she was afraid of me." She complained of anxiety. She reported benefit from Neurontin prescribed for her anxiety at the rehabilitation program. She requested to restart the Neurontin. OBJECTIVE: She presented as a disheveled appearing edentulous 51-year-old moderately obese woman who was pleasant on approach. She made intermittent eye contact. She had a depressed facial expression and cried intermittently during the interview. She rocked back and forth in her seat. Her speech was spontaneous with decreased rate, rhythm and volume. She had no articulation difficulties. Her affect was depressed and not reactive. She describes suicidal ideation and wishes. She denied current plan or intent. She described depressive cognitions including hopelessness, helplessness and worthlessness. She ruminated about her anxiety and feelings of hopelessness and helplessness. She did not express ideas reference or paranoid ideation. Her thinking was concrete but her associations were coherent and logical. She did not demonstrate perseveration, neologisms or blocking. She denied current hallucinations and did not appear to be responding to internal stimuli. ASSESSMENT: She continues to report suicidal ideation without intent or plan. She continues to feel depressed, anxious, hopeless and helpless. Overall, she is severely mentally ill and minimally improve from admission. PLAN: Continue inpatient psychiatric hospitalization. Continue suicide precautions with 15 minute checks. Continue Seroquel XR 600 mg at bedtime and venlafaxine ex are 150 mg daily. Taper then discontinue trazodone. Restart gabapentin 300 mg before breakfast and lunch and 600 mg at bedtime. Encourage participation in therapeutic groups and activities. Evaluate clinical status response to treatment daily basis.
[2016-10-30] MEDS: MULTIVITAMINS, THERA 1 EACH TAB PO SCH (12:36)
[2016-10-30] MEDS: QUEtiapine XR 200 MG TAB.ER.24H PO SCH (18:36)
[2016-10-30] MEDS ORDERED: traZODone HCL 100 MG TAB PO SCH (21:00)
[2016-10-31] MEDS: LEVOTHYROXINE 100 MCG TAB PO SCH (05:48)
[2016-10-31] MEDS: VENLAFAXINE HCL ER 150 MG CAP PO SCH (08:18)
[2016-10-31] MEDS: GABAPENTIN 300 MG CAP PO SCH ×3 (08:18→20:34)
[2016-10-31] MEDS: NICOTINE 14MG/24HR PATCH TRANSDERM SCH (08:18)
--- NOTE | 2016-10-31 11:55 | P.PN ---
Progress Note - Text SUBJECTIVE: I reviewed the medical record, interviewed Blank and discussed her treatment and treatment plan during team meeting. She complained of continued feelings depression and thoughts of suicide. She described recurrent thought that she "does not want to be here." She denied specific suicidal intent or plan. She rated her depression as a "8" and her anxiety as a "5" on a 10 point Likert scale. She completed the Vu Depression Inventory. Her Total Score was 30 consistent with severe symptoms of depression. On the Inventory she indicated sadness, pessimism, past failure, loss of pleasure, guilty feelings, punishment feelings , self dislike, self criticalness, suicidal thoughts or wishes, crying, agitation, loss of interest, indecisiveness, worthlessness, loss of energy, changes in sleeping pattern, irritability, changes in appetite, concentration difficulty, tiredness or fatigue and loss of interest in sex. On the Suicidal Thoughts or Wishes question she responded "I would like to kill myself." She denied psychotic symptoms such as auditory or visual hallucinations, ideas reference, thought insertion, thought broadcasting or thought control. She described anxiety but denied symptoms consistent with panic attack. There are anxiety symptoms including subjective feelings of anxiety as well as restlessness. She talked about the effect of her illness on friends or family. Both her son and youngest daughter are "afraid" of her. Apparently both children have witnessed past suicide attempts. Her daughter will only visit if she is accompanied by another sibling. Likewise, friends have distanced himself from her due to her suicidal behaviors. We discussed treatment options and agreed to a trial of Wellbutrin. She reported a moderate risk decrease of anxiety with gabapentin at the current dose. OBJECTIVE: She presented as a casually groomed edentulous 51-year-old moderately obese woman who was pleasant on approach. She made eye contact and attended to the interview . She had a depressed facial expression. As during prior interviews, she rocked back and forth in her seat. Her speech was spontaneous with decreased rate, rhythm and volume. She had no articulation difficulties. Her affect was depressed and not reactive. She describes suicidal ideation and wishes. She denied current plan or intent. She described depressive cognitions including hopelessness, helplessness and worthlessness. She ruminated about her anxiety and feelings of hopelessness and helplessness. She did not express ideas reference or paranoid ideation. Her thinking was concrete but her associations were coherent and logical. She did not demonstrate perseveration, neologisms or blocking. She denied current hallucinations and did not appear to be responding to internal stimuli. ASSESSMENT: She has severe symptoms of depression with continued suicidal ideation. There is no current evidence of psychosis. Overall, she is severely mentally ill and minimally improve from admission. PLAN: Continue inpatient psychiatric hospitalization. Continue suicide precautions with 15 minute checks. Continue Seroquel XR 600 mg at bedtime. Begin Wellbutrin XL 150 mg daily and titrated according to clinical response and tolerance. Taper then discontinue Effexor. Continue to taper trazodone. Restart gabapentin 300 mg before breakfast and lunch and 600 mg at bedtime. Encourage participation in therapeutic groups and activities. Evaluate clinical status response to treatment daily basis.
[2016-10-31] MEDS: MULTIVITAMINS, THERA 1 EACH TAB PO SCH (11:57)
[2016-10-31] MEDS: QUEtiapine XR 200 MG TAB.ER.24H PO SCH (18:33)
[2016-10-31] MEDS: traZODone HCL 50 MG TAB PO SCH (20:34)
[2016-11-01] MEDS: LEVOTHYROXINE 100 MCG TAB PO SCH (05:57)
[2016-11-01] MEDS: GABAPENTIN 300 MG CAP PO SCH ×3 (08:18→20:11)
[2016-11-01] MEDS: NICOTINE 14MG/24HR PATCH TRANSDERM SCH (08:18)
[2016-11-01] MEDS: buPROPion XL 150 MG TAB.ER.24H PO SCH (08:18)
[2016-11-01] MEDS: VENLAFAXINE HCL ER 75 MG CAP PO SCH (08:18)
[2016-11-01] MEDS: MULTIVITAMINS, THERA 1 EACH TAB PO SCH (12:27)
[2016-11-01] MEDS: CIPROFLOXACIN HCL 500 MG TAB PO SCH ×2 (13:47→20:11)
--- NOTE | 2016-11-01 13:52 | P.PN ---
Progress Note - Text SUBJECTIVE: I reviewed the medical record, interviewed Blank and discussed her treatment and treatment plan during team meeting. The patient stated that she is feeling "a bit" better today. She finds it easier to concentrate and attend when she speaks with others or participates in therapeutic groups and activities. She described "occasional" thoughts of suicide were she has the thought "I wish I were ." She denied suicidal intent or plan. However, she continues to feel "anxious and worthlessness." She is feeling more hopeful that she would recover and be able to return to her former life. We talked about ECT. She stated that she is aware of the treatment because one of her friends has received ECT for chronic and severe depression. OBJECTIVE: She presented as a casually groomed edentulous 51-year-old moderately obese woman who was pleasant on approach. She made eye contact and appeared to attendt o the interview. She had a depressed facial expression. As during prior interviews, she rocked back and forth in her seat. Her speech was spontaneous with decreased rate, rhythm and volume. She had no articulation difficulties. Her affect was depressed and not reactive. She describes suicidal ideation and wishes. She denied current plan or intent. She described depressive cognitions including helplessness and worthlessness. She ruminated about her anxiety and feelings of hopelessness and helplessness. She did not express ideas reference or paranoid ideation. Her thinking was concrete but her associations were coherent and logical. She did not demonstrate perseveration, neologisms or blocking. She denied current hallucinations and did not appear to be responding to internal stimuli. ASSESSMENT: She has severe symptoms of depression with continued suicidal ideation. There is no current evidence of psychosis. Overall, she is severely mentally ill and minimally improve from admission. PLAN: Continue inpatient psychiatric hospitalization. Continue suicide precautions with 15 minute checks. Continue Seroquel XR 600 mg at bedtime. Continue Wellbutrin XL 150 mg daily and titrated according to clinical response and tolerance. Taper then discontinue Effexor. Continue to taper trazodone. Continue gabapentin 300 mg before breakfast and lunch and 600 mg at bedtime. Encourage participation in therapeutic groups and activities. Evaluate clinical status response to treatment daily basis.
[2016-11-01] MEDS: QUEtiapine XR 200 MG TAB.ER.24H PO SCH (18:28)
[2016-11-01] MEDS: traZODone HCL 50 MG TAB PO SCH (20:11)
[2016-11-02] MEDS: LEVOTHYROXINE 100 MCG TAB PO SCH (05:39)
[2016-11-02] MEDS: GABAPENTIN 300 MG CAP PO SCH ×3 (08:41→21:08)
[2016-11-02] MEDS: CIPROFLOXACIN HCL 500 MG TAB PO SCH ×2 (08:41→21:08)
[2016-11-02] MEDS: VENLAFAXINE HCL ER 75 MG CAP PO SCH (08:41)
[2016-11-02] MEDS: NICOTINE 14MG/24HR PATCH TRANSDERM SCH (08:41)
[2016-11-02] MEDS: buPROPion XL 150 MG TAB.ER.24H PO SCH (08:41)
[2016-11-02] MEDS: MULTIVITAMINS, THERA 1 EACH TAB PO SCH (12:31)
--- NOTE | 2016-11-02 16:15 | P.PN ---
Progress Note - Text SUBJECTIVE: I reviewed the medical record, interviewed Blank and discussed her treatment and treatment plan during team meeting. She reported that she is feeling less depressed. Her appetite is returning. However, she described experiencing visual hallucinations. She talked about seeing her mother and friends who are . She alleged the visual experiences are identical to a visual perception. She "sees" her mother and her friend's standing in a room or in the hallways looking at her. She described occasional thoughts of suicide but again take the form of an intrusive thought where she wishes that she were or that she would join her friends. She denied side effects to the Wellbutrin. OBJECTIVE: She presented as a casually groomed edentulous 51-year-old moderately obese woman who was pleasant on approach. She made eye contact and appeared to attend to the interview. She had a depressed facial expression. As during prior interviews, she rocked back and forth in her seat. Her speech was spontaneous with decreased rate, rhythm and volume. She had no articulation difficulties. Her affect was depressed but more reactive than on prior interviews . She described suicidal ideation and wishes. She denied current plan or intent. She described depressive cognitions including helplessness and worthlessness. She did not express ideas reference or paranoid ideation. Her thinking was concrete but her associations were coherent and logical. She did not demonstrate perseveration, neologisms or blocking. She denied current hallucinations and did not appear to be responding to internal stimuli. ASSESSMENT: She has psychotic symptoms, continued symptoms of depression and continued suicidal ideation. Overall, she is moderately mentally ill and moderately improve from admission. PLAN: Continue inpatient psychiatric hospitalization. Continue suicide precautions with 15 minute checks. Continue Seroquel XR 600 mg at bedtime. Continue Wellbutrin XL 150 mg daily and titrated according to clinical response and tolerance. Taper then discontinue Effexor. Discontinue trazodone. Continue gabapentin 300 mg before breakfast and lunch and 600 mg at bedtime. Encourage participation in therapeutic groups and activities. Evaluate clinical status response to treatment daily basis.
[2016-11-02] MEDS: QUEtiapine XR 200 MG TAB.ER.24H PO SCH (18:42)
[2016-11-03] MEDS: LEVOTHYROXINE 100 MCG TAB PO SCH (06:04)
[2016-11-03] MEDS: buPROPion XL 150 MG TAB.ER.24H PO SCH (08:50)
[2016-11-03] MEDS: GABAPENTIN 300 MG CAP PO SCH ×3 (08:50→20:19)
[2016-11-03] MEDS: CIPROFLOXACIN HCL 500 MG TAB PO SCH ×2 (08:50→20:19)
[2016-11-03] MEDS: NICOTINE 14MG/24HR PATCH TRANSDERM SCH (08:50)
[2016-11-03] MEDS: VENLAFAXINE HCL ER 75 MG CAP PO SCH (08:50)
[2016-11-03] MEDS ORDERED: buPROPion XL 300 MG TAB.ER.24H PO SCH (12:21)
[2016-11-03] MEDS ORDERED: buPROPion XL 150 MG TAB.ER.24H PO ONE (12:30)
[2016-11-03] MEDS: MULTIVITAMINS, THERA 1 EACH TAB PO SCH (12:46)
--- NOTE | 2016-11-03 17:43 | P.PN ---
Progress Note - Text SUBJECTIVE: I reviewed the medical record and interviewed Blank. She stated that she continues to feel "a little" depressed and suicidal. She again experienced visual hallucinations yesterday evening where she saw her mother and friends standing always in her room looking at her. On a 10 point Likert scale she rated her depression as a "7" and her anxiety is a "5". She denied side effects to the Wellbutrin. OBJECTIVE: She presented as a casually groomed edentulous 51-year-old woman who was pleasant on approach. She made eye contact and appeared to attend to the interview. She had a depressed facial expression. As during prior interviews, she rocked back and forth in her seat. Her speech was spontaneous with decreased rate, rhythm and volume. She had no articulation difficulties. Her affect was depressed but more reactive than on prior interviews . She described suicidal ideation and wishes. She denied current plan or intent. She described depressive cognitions including helplessness and worthlessness. She did not express ideas reference or paranoid ideation. Her thinking was concrete but her associations were coherent and logical. She did not demonstrate perseveration, neologisms or blocking. She denied current hallucinations and did not appear to be responding to internal stimuli. ASSESSMENT: She continued to described psychotic symptoms, depression and continued suicidal ideation. Overall, she is moderately mentally ill and moderately improve from admission. PLAN: Continue inpatient psychiatric hospitalization. Continue suicide precautions with 15 minute checks. Continue Seroquel XR 600 mg at bedtime. Increase Wellbutrin XL to 300 mg daily and discontinue Effexor. Continue gabapentin 300 mg before breakfast and lunch and 600 mg at bedtime. Encourage participation in therapeutic groups and activities. Evaluate clinical status response to treatment daily basis.
[2016-11-03] MEDS: QUEtiapine XR 200 MG TAB.ER.24H PO SCH (18:41)
[2016-11-04] MEDS: LEVOTHYROXINE 100 MCG TAB PO SCH (06:27)
[2016-11-04] MEDS: GABAPENTIN 300 MG CAP PO SCH ×3 (08:44→21:39)
[2016-11-04] MEDS: buPROPion XL 300 MG TAB.ER.24H PO SCH (08:44)
[2016-11-04] MEDS: CIPROFLOXACIN HCL 500 MG TAB PO SCH ×2 (08:44→21:39)
[2016-11-04] MEDS: NICOTINE 14MG/24HR PATCH TRANSDERM SCH (08:45)
--- NOTE | 2016-11-04 10:09 | P.PN ---
Progress Note - Text SUBJECTIVE: I reviewed the medical record and interviewed Blank. She stated that she continues to feel depressed and have thoughts of suicide. The suicidal thoughts take the form "I wish I were ". She feels hopeless and worthless. She again experienced visual hallucinations yesterday evening where she saw her mother standing in her room looking at her. She denied side effects to the increased dose of Wellbutrin. OBJECTIVE: She presented as a casually groomed edentulous 51-year-old woman who was pleasant on approach. She made eye contact and appeared to attend to the interview. She had a depressed facial expression. As during prior interviews, she rocked back and forth in her seat. Her speech was spontaneous with decreased rate, rhythm and volume. She had no articulation difficulties. Her affect was depressed but more reactive. She described suicidal ideation and wishes. She denied current plan or intent. She described depressive cognitions including helplessness and worthlessness. She did not express ideas reference or paranoid ideation. Her thinking was concrete but her associations were coherent and logical. She did not demonstrate perseveration, neologisms or blocking. She denied current hallucinations and did not appear to be responding to internal stimuli. ASSESSMENT: She continued to described psychotic symptoms, depression and continued suicidal ideation. Overall, she is moderately to severely mentally ill and moderately improved from admission. PLAN: Continue inpatient psychiatric hospitalization. Continue suicide precautions with 15 minute checks. Continue Seroquel XR 600 mg at bedtime. Continue Wellbutrin XL 300 mg daily. Continue gabapentin 300 mg before breakfast and lunch and 600 mg at bedtime. Consider referral for ECT. Encourage participation in therapeutic groups and activities. Evaluate clinical status response to treatment daily basis.
[2016-11-04] MEDS: MULTIVITAMINS, THERA 1 EACH TAB PO SCH (13:25)
[2016-11-04] MEDS: QUEtiapine XR 200 MG TAB.ER.24H PO SCH (18:25)
[2016-11-05] MEDS: LEVOTHYROXINE 100 MCG TAB PO SCH (05:50)
[2016-11-05] MEDS: GABAPENTIN 300 MG CAP PO SCH ×4 (08:54→20:33)
[2016-11-05] MEDS: NICOTINE 14MG/24HR PATCH TRANSDERM SCH (08:54)
[2016-11-05] MEDS: buPROPion XL 300 MG TAB.ER.24H PO SCH (08:55)
[2016-11-05] MEDS: CIPROFLOXACIN HCL 500 MG TAB PO SCH ×2 (08:55→20:33)
[2016-11-05] MEDS: MULTIVITAMINS, THERA 1 EACH TAB PO SCH (12:14)
--- NOTE | 2016-11-05 12:33 | P.PN ---
Progress Note - Text SUBJECTIVE: I reviewed the medical record, discussed her treatment and treatment plan during team meeting and interviewed Blank. She complained of feeling anxious and restless. She talked about having a nightmare last night where she saw herself lying in a coffin. She feels hopeless, helpless and described continued thoughts of suicide. The suicidal thoughts take the form " I wish I were ". She feels hopeless and worthless. She described a experiencing "voices" that tell her "just do it" (attempt suicide). We discussed treatment options. She consented to a referral for ECT and a trial of lithium. She denied side effects to the increased dose of Wellbutrin. OBJECTIVE: She presented as a casually groomed edentulous 51-year-old woman who was pleasant on approach. She made eye contact and appeared to attend to the interview. She had a depressed facial expression. As during prior interviews, she rocked back and forth in her seat. Her speech was spontaneous with decreased rate, rhythm and volume. She had no articulation difficulties. Her affect was depressed but more reactive. She described suicidal ideation and wishes. She denied current plan or intent. She described depressive cognitions including helplessness and worthlessness. She did not express ideas reference or paranoid ideation. Her thinking was concrete but her associations were coherent and logical. She did not demonstrate perseveration, neologisms or blocking. She denied current hallucinations and did not appear to be responding to internal stimuli. ASSESSMENT: She continued have psychotic symptoms, depression and suicidal ideation. Overall, she is moderately to severely mentally ill and moderately improved from admission. PLAN: Continue inpatient psychiatric hospitalization. Continue suicide precautions with 15 minute checks. Begin lithium 300mgs by mouth twice a day and titrated according to clinical effect and tolerance. Continue Seroquel XR 600 mg at bedtime, Wellbutrin XL 300 mg daily, gabapentin 300 mg before breakfast and lunch and 600 mg at bedtime. athletic turf worker to contact [facility] regarding referral for ECT. Encourage participation in therapeutic groups and activities. Evaluate clinical status response to treatment daily basis.
[2016-11-05] MEDS: QUEtiapine XR 200 MG TAB.ER.24H PO SCH (18:48)
[2016-11-05] MEDS: LITHIUM CARBONATE 300 MG CAP PO SCH (20:34)
[2016-11-06] MEDS: LEVOTHYROXINE 100 MCG TAB PO SCH (05:46)
[2016-11-06] MEDS: buPROPion XL 300 MG TAB.ER.24H PO SCH (09:17)
[2016-11-06] MEDS: NICOTINE 14MG/24HR PATCH TRANSDERM SCH (09:17)
[2016-11-06] MEDS: LITHIUM CARBONATE 300 MG CAP PO SCH ×2 (09:18→21:00)
[2016-11-06] MEDS: CIPROFLOXACIN HCL 500 MG TAB PO SCH ×2 (09:18→20:59)
[2016-11-06] MEDS: GABAPENTIN 300 MG CAP PO SCH ×2 (12:16→20:59)
[2016-11-06] MEDS: MULTIVITAMINS, THERA 1 EACH TAB PO SCH (12:16)
--- NOTE | 2016-11-06 13:45 | P.PN ---
Progress Note - Text SUBJECTIVE: I reviewed the medical record, discussed her treatment and treatment plan during team meeting and interviewed Blank. She stated that she is "feeling better"; "I'm beginning to feel emotions again." She reported a decrease in suicidal thoughts and the "voices" instructing her to "just do it ( kill herself)". She again alleged she saw her mother and her friend standing alf yesterday evening. She slept well and denied side effects to the lithium. She talked about wanting to live with her daughter temporarily after discharge. She remains opposed to placement in an [facility]. She thinks she may not need ECT because she is feeling better with the lithium. OBJECTIVE: She presented as a casually groomed edentulous 51-year-old woman who was pleasant on approach. She were was wearing eye shadow. She made eye contact and appeared to attend to the interview. She had a depressed facial expression. She did not correct [id number] chair and she done during prior interviews.. Her speech was spontaneous with decreased rate, rhythm and volume. She had no articulation difficulties. Her affect was depressed but more reactive. She continues to have suicidal ideation and wishes. She denied current plan or intent. She feels less hopeless and helpless. She did not express ideas reference or paranoid ideation. Her thinking was concrete but her associations were coherent and logical. She did not demonstrate perseveration, neologisms or blocking. She denied current hallucinations and did not appear to be responding to internal stimuli. ASSESSMENT: She appears to have had initial positive response to the addition of lithium to her current psychopharmacology regimen. Overall, she is moderately to severely mentally ill and moderately improved from admission. PLAN: Continue inpatient psychiatric hospitalization. Continue suicide precautions with 15 minute checks. Continue lithium 300mgs by mouth twice a day and obtain a lithium level on Saturday.. Continue Seroquel XR 600 mg at bedtime, Wellbutrin XL 300 mg daily, gabapentin 300 mg before breakfast and lunch and 600 mg at bedtime. grommet worker to contact [facility] regarding referral for ECT. Encourage participation in therapeutic groups and activities. Evaluate clinical status response to treatment daily basis.
[2016-11-06] MEDS: QUEtiapine XR 200 MG TAB.ER.24H PO SCH (18:23)
[2016-11-07] MEDS: LEVOTHYROXINE 100 MCG TAB PO SCH (06:33)
[2016-11-07] MEDS: buPROPion XL 300 MG TAB.ER.24H PO SCH (09:25)
[2016-11-07] MEDS: GABAPENTIN 300 MG CAP PO SCH ×3 (09:25→20:45)
[2016-11-07] MEDS: NICOTINE 14MG/24HR PATCH TRANSDERM SCH (09:25)
[2016-11-07] MEDS: CIPROFLOXACIN HCL 500 MG TAB PO SCH ×2 (09:25→20:45)
[2016-11-07] MEDS: LITHIUM CARBONATE 300 MG CAP PO SCH ×2 (09:25→20:45)
[2016-11-07] MEDS: MULTIVITAMINS, THERA 1 EACH TAB PO SCH (13:07)
--- NOTE | 2016-11-07 15:46 | P.PN ---
Progress Note - Text SUBJECTIVE: I reviewed the medical record, discussed her treatment and treatment plan during team meeting and interviewed Blank. She stated that she is feeling better. She talked about enjoying a [employer] game yesterday evening. "I'm starting to feel emotions again." She is no longer interested in referral for ECT. I attempted to engage her discussion about interventions to prevent recurrence of her depression and rehospitalizationn. She declined consideration of an [facility] home. She wishes to return back to her house and reengage with [facility]. She believes that the addition of lithium to her current medications is adequate to prevent recurrence of depression and rehospitalization. OBJECTIVE: She presented as a casually groomed 51-year-old woman who was pleasant on approach. She were was wearing eye shadow. She made eye contact and appeared to attend to the interview. She had a blunted but bright facial expression. She did not rock [id number] chair and she done during prior interviews. Her speech was more assertive. She had no articulation difficulties. Her affect was depressed but more reactive. She continues to have suicidal ideation and wishes. She denied current plan or intent. She feels less hopeless and helpless. She did not express ideas reference or paranoid ideation. Her thinking was concrete but her associations were coherent and logical. She did not demonstrate perseveration, neologisms or blocking. She denied current hallucinations and did not appear to be responding to internal stimuli. The social secretary contacted the [facility] line and was informed that we would have to arrange a referral for ECT through [facility] medical equipment technician. ASSESSMENT: She is reporting significant improvement of depressive symptoms. Overall, she is moderately to severely mentally ill and moderately improved from admission. PLAN: Continue inpatient psychiatric hospitalization. Continue suicide precautions with 15 minute checks. Continue lithium 300mgs by mouth twice a day and obtain a lithium level on Saturday. Continue Seroquel XR 600 mg at bedtime, Wellbutrin XL 300 mg daily, gabapentin 300 mg before breakfast and lunch and 600 mg at bedtime. Discontinue referral for ECT. Encourage participation in therapeutic groups and activities. Evaluate clinical status response to treatment daily basis.
[2016-11-07] MEDS: QUEtiapine XR 200 MG TAB.ER.24H PO SCH (18:34)
[2016-11-08] MEDS: LEVOTHYROXINE 100 MCG TAB PO SCH (06:03)
[2016-11-08] MEDS: GABAPENTIN 300 MG CAP PO SCH ×3 (08:49→20:42)
[2016-11-08] MEDS: CIPROFLOXACIN HCL 500 MG TAB PO SCH ×2 (08:49→20:42)
[2016-11-08] MEDS: LITHIUM CARBONATE 300 MG CAP PO SCH ×2 (08:49→20:42)
[2016-11-08] MEDS: NICOTINE 14MG/24HR PATCH TRANSDERM SCH (08:49)
[2016-11-08] MEDS: buPROPion XL 300 MG TAB.ER.24H PO SCH (08:49)
[2016-11-08] MEDS: MULTIVITAMINS, THERA 1 EACH TAB PO SCH (13:09)
--- NOTE | 2016-11-08 14:56 | P.PN ---
Progress Note - Text SUBJECTIVE: I reviewed the medical record, discussed her treatment and treatment plan during team meeting and interviewed Blank. She feels much better. "I don't feel numb like I did before. ... I'm starting to feel emotions again." In response to questions about depression and suicidality she replied "a little bit". She states she occasionally has thoughts of suicide but they are not persistent. Similarly, the "auditory hallucinations" and the "visions" of her mother and girlfriend are infrequent and not persistent. She stated she spoke with her sister yesterday. Her sister told her that she thinks she should go to a custodial temporarily before she comes home. She announced that she is willing to consider a custodial. OBJECTIVE: She presented as a casually groomed 51-year-old woman who was pleasant on approach. She were was wearing eye shadow. She made eye contact and appeared to attend to the interview. She had a blunted but bright facial expression. She did not rock [id number] chair and she done during prior interviews. Her speech was more assertive. She had no articulation difficulties. Her affect was blunted but bright. She continues to have suicidal ideation and wishes. But thoughts are fleeting. She feels less hopeless and helpless. She did not express ideas reference or paranoid ideation. Her thinking was concrete but her associations were coherent and logical. She did not demonstrate perseveration, neologisms or blocking. She denied current hallucinations and did not appear to be responding to internal stimuli. I spoke with social work nurse. Patient will need to reengage with [facility] to be eligible for one of their group homes. ASSESSMENT: She is reporting significant improvement of depressive symptoms. Overall, she is moderately to severely mentally ill and moderately improved from admission. PLAN: Continue inpatient psychiatric hospitalization. Continue suicide precautions with 15 minute checks. Continue lithium 300mgs by mouth twice a day and obtain a lithium level on Saturday. Continue Seroquel XR 600 mg at bedtime, Wellbutrin XL 300 mg daily, gabapentin 300 mg before breakfast and lunch and 600 mg at bedtime. housekeeping worker to refer her to [facility] and request custodial placement. Encourage participation in therapeutic groups and activities. Evaluate clinical status response to treatment daily basis.
[2016-11-08] MEDS: QUEtiapine XR 200 MG TAB.ER.24H PO SCH (18:28)
[2016-11-09] MEDS: LEVOTHYROXINE 100 MCG TAB PO SCH (06:01)
[2016-11-09] MEDS: buPROPion XL 300 MG TAB.ER.24H PO SCH (09:11)
[2016-11-09] MEDS: CIPROFLOXACIN HCL 500 MG TAB PO SCH ×2 (09:11→20:30)
[2016-11-09] MEDS: NICOTINE 14MG/24HR PATCH TRANSDERM SCH (09:11)
[2016-11-09] MEDS: GABAPENTIN 300 MG CAP PO SCH ×3 (09:11→20:30)
[2016-11-09] MEDS: LITHIUM CARBONATE 300 MG CAP PO SCH ×2 (09:12→20:30)
[2016-11-09] MEDS: MULTIVITAMINS, THERA 1 EACH TAB PO SCH (12:30)
[2016-11-09] MEDS ORDERED: BACLOFEN 10 MG TAB PO PRN (15:05)
--- NOTE | 2016-11-09 16:05 | P.PN ---
Progress Note - Text SUBJECTIVE: I reviewed the medical record, discussed her treatment and treatment plan during team meeting and interviewed Blank. She again stated that she feels much better. "I'm starting to feel emotions again. ... I cried yesterday something I haven't done in a while " In response to questions about depression and suicidality she replied "a little bit ... Nothing like I used to ". She states she occasionally has thoughts of suicide but they are not persistent. Similarly, She denied "visions" or "voices". We talked about the referral to a penitentiary. Since she is not enrolled with [facility] we do not have access to a penitentiary. OBJECTIVE: She presented as a casually groomed 51-year-old woman who was pleasant on approach. She were was wearing eye shadow and lipstick. She made eye contact and appeared to attend to the interview. She had a blunted but bright facial expression. She showed no abnormality of psychomotor activity. Her speech was assertive. She had no articulation difficulties. Her affect was blunted but bright. She continues to have suicidal ideation and wishes. But thoughts are fleeting. She feels less hopeless and helpless. She did not express ideas reference or paranoid ideation. Her thinking was concrete but her associations were coherent and logical. She did not demonstrate perseveration, neologisms or blocking. She denied current hallucinations and did not appear to be responding to internal stimuli. ASSESSMENT: She is reporting significant improvement of depressive symptoms. Overall, she is minimally to moderately ill and watch improved from admission. PLAN: Continue inpatient psychiatric hospitalization. Continue suicide precautions with 15 minute checks. Continue lithium 300mgs by mouth twice a day and obtain a lithium level on Saturday. Continue Seroquel XR 600 mg at bedtime, Wellbutrin XL 300 mg daily, gabapentin 300 mg before breakfast and lunch and 600 mg at bedtime. housekeeping laundry worker to refer her to [facility] and request penitentiary placement. Encourage participation in therapeutic groups and activities. Evaluate clinical status response to treatment daily basis.
[2016-11-09] MEDS: QUEtiapine XR 200 MG TAB.ER.24H PO SCH (18:00)
[2016-11-10] MEDS: LEVOTHYROXINE 100 MCG TAB PO SCH (06:31)
[2016-11-10] MEDS: NICOTINE 14MG/24HR PATCH TRANSDERM SCH (08:35)
[2016-11-10] MEDS: buPROPion XL 300 MG TAB.ER.24H PO SCH (08:35)
[2016-11-10] MEDS: GABAPENTIN 300 MG CAP PO SCH ×3 (08:35→20:49)
[2016-11-10] MEDS: CIPROFLOXACIN HCL 500 MG TAB PO SCH ×2 (08:36→20:49)
[2016-11-10] MEDS: LITHIUM CARBONATE 300 MG CAP PO SCH ×2 (08:36→20:49)
[2016-11-10] MEDS: MULTIVITAMINS, THERA 1 EACH TAB PO SCH (12:31)
[2016-11-10] MEDS: QUEtiapine XR 200 MG TAB.ER.24H PO SCH (18:00)
--- NOTE | 2016-11-10 19:01 | P.PN ---
Progress Note - Text Date of service: 11/10/2016 Chief complaint: "I feel slightly better" Subjective: The patient has been seeing today as follow-up, chart reviewed, case discussed with the treatment team. Patient reported to still feeling depressed and at times feels hopeless with intermittent suicidal ideation. She reports her anxiety is about 6 out of 10 with 10 the worst. She reports has poor sleep, but her appetite is average. The patient denies any manic symptoms including sustained period of time with elevated or irritable mood. The patient denies any auditory or visual hallucinations. Also the patient denies any paranoid ideation. Review of other systems: Patient denies any physical symptoms besides what has been mentioned above. No problems was presenting no chest pain reported today. Objective: Vitals has been reviewed. Mental status examination; Appearance: The patient appears stated age, adequately groomed and dressed, no specific features. Gait/posture: Normal gait and posture, Normal arm was swinging: No abnormal movements. Attitude and behavior: engaged, cooperative, normal eye contact. Motor activity: No psychomotor agitation or perturbation Speech: Soft, slow, not pressured . Mood: Depressed, anxious Affect: Constricted Thought form: goal-directed, linear, coherent. Thought content: Non-delusional, denies suicidal thoughts, denies homicidal thoughts, denies intentions or plans. Perception: Denies any auditory or visual hallucinations Attention: No impairment. Patient was able to repeat serial 7. Orientation: Patient patient was fully oriented to time place person and situation. Insight: Patient has limited insight about his psychiatric disorder. Judgment: Patient has limited judgment about his psychiatric treatment. Assessment: Schizoaffective disorder,depressive type Plan: Continue current management. Wellbutrin for depression symptoms. [place] and Seroquel as a mood stabilizers Neurontin for pain and anxiety.
[2016-11-11] MEDS: LEVOTHYROXINE 100 MCG TAB PO SCH (06:44)
[2016-11-11] MEDS: CIPROFLOXACIN HCL 500 MG TAB PO SCH ×2 (09:01→20:44)
[2016-11-11] MEDS: NICOTINE 14MG/24HR PATCH TRANSDERM SCH (09:01)
[2016-11-11] MEDS: buPROPion XL 300 MG TAB.ER.24H PO SCH (09:01)
[2016-11-11] MEDS: LITHIUM CARBONATE 300 MG CAP PO SCH ×2 (09:01→20:44)
[2016-11-11] MEDS: GABAPENTIN 300 MG CAP PO SCH ×3 (09:01→20:44)
[2016-11-11] MEDS: MULTIVITAMINS, THERA 1 EACH TAB PO SCH (12:00)
--- NOTE | 2016-11-11 16:31 | P.PN ---
Progress Note - Text Date of service: 11/11/2016 Chief complaint: "I still have suicidal ideation" Subjective: The patient has been seen today as follow-up, chart reviewed, case discussed with the treatment team. Patient reports is still feeling depressed and has intermittent suicidal ideation. She denies any auditory hallucination but reports sometimes see people. Patient denies paranoid ideation, and he denies any severe mood swings or severe agitation. Patient reports poor sleep last night and wake up frequently. Patient denies any appetite problems. Review of other systems: Patient denies any physical symptoms besides what has been mentioned above. No breathing problems, no chest pain reported today. Objective: Vitals has been reviewed. Mental status examination; Appearance: The patient appears stated age, adequately groomed and dressed, no specific features. Gait/posture: Normal gait and posture, Normal arm was swinging: No abnormal movements. Attitude and behavior: engaged, cooperative, normal eye contact. Motor activity: No psychomotor agitation or perturbation Speech: Soft, slow, not pressured . Mood: Depressed, anxious Affect: Constricted Thought form: goal-directed, linear, coherent. Thought content: Non-delusional, intermittent suicidal thoughts, denies homicidal thoughts, denies intentions or plans. Perception: Denies any auditory or visual hallucinations Attention: No impairment. Patient was able to repeat serial 7. Orientation: Patient patient was fully oriented to time place person and situation. Insight: Patient has limited insight about his psychiatric disorder. Judgment: Patient has limited judgment about his psychiatric treatment. Assessment: Schizoaffective disorder,depressive type Plan: Continue current management. Wellbutrin for depression symptoms. [place] and Seroquel as a mood stabilizers Neurontin for pain and anxiety. Start trazodone 50 mg by mouth at bedtime when necessary for insomnia
[2016-11-11] MEDS: QUEtiapine XR 200 MG TAB.ER.24H PO SCH (18:08)
[2016-11-11] MEDS: traZODone HCL 50 MG TAB PO PRN (20:45)
[2016-11-12] MEDS: LEVOTHYROXINE 100 MCG TAB PO SCH (06:12)
[2016-11-12] MEDS: CIPROFLOXACIN HCL 500 MG TAB PO SCH ×2 (08:41→21:05)
[2016-11-12] MEDS: buPROPion XL 300 MG TAB.ER.24H PO SCH (08:41)
[2016-11-12] MEDS: GABAPENTIN 300 MG CAP PO SCH ×3 (08:41→21:05)
[2016-11-12] MEDS: NICOTINE 14MG/24HR PATCH TRANSDERM SCH (08:41)
[2016-11-12] MEDS: LITHIUM CARBONATE 300 MG CAP PO SCH ×3 (08:41→21:05)
[2016-11-12] MEDS: MULTIVITAMINS, THERA 1 EACH TAB PO SCH (12:19)
--- NOTE | 2016-11-12 15:28 | P.PN ---
Progress Note - Text SUBJECTIVE: I reviewed the medical record, discussed her treatment and treatment plan during team meeting and interviewed Blank. She feels much less depressed and again talked about being able to experience emotions. She has occasional thoughts of suicide but denied plan or intent. She alleged that she "occasionally" hears a voice telling her to "do it" and has "visions" where she sees her mother standing in the hallway smiling. OBJECTIVE: She presented as a casually groomed 51-year-old woman who was pleasant on approach. She made eye contact and appeared to attend to the interview. She had a blunted but bright facial expression. She showed no abnormality of psychomotor activity. Her speech was spontaneous with decreased rate, rhythm and volume.. She had no articulation difficulties. Her affect was blunted but bright. She continues to have suicidal ideation and wishes. But thoughts are fleeting. She feels less hopeless and helpless. She did not express ideas reference or paranoid ideation. Her thinking was concrete but her associations were coherent and logical. She did not demonstrate perseveration, neologisms or blocking. She denied current hallucinations and did not appear to be responding to internal stimuli. [place] level 0.5 ASSESSMENT: She continues to express feelings of depression and intermittent psychotic symptoms. Overall, she is minimally to moderately ill and much improved from admission. PLAN: Continue inpatient psychiatric hospitalization. Continue suicide precautions with 15 minute checks. [place] lithium 300mgs by mouth 3 times a day. Continue Seroquel XR 600 mg at bedtime, Wellbutrin XL 300 mg daily, gabapentin 300 mg before breakfast and lunch and 600 mg at bedtime. fly worker to refer her to [facility] and request custodial placement. Encourage participation in therapeutic groups and activities. Evaluate clinical status response to treatment daily basis.
[2016-11-12] MEDS: QUEtiapine XR 200 MG TAB.ER.24H PO SCH (18:51)
[2016-11-12] MEDS: traZODone HCL 50 MG TAB PO PRN (21:05)
[2016-11-13] MEDS: LEVOTHYROXINE 100 MCG TAB PO SCH (06:42)
[2016-11-13] MEDS: GABAPENTIN 300 MG CAP PO SCH ×3 (09:18→21:11)
[2016-11-13] MEDS: LITHIUM CARBONATE 300 MG CAP PO SCH ×3 (09:18→21:38)
[2016-11-13] MEDS: CIPROFLOXACIN HCL 500 MG TAB PO SCH (09:18)
[2016-11-13] MEDS: buPROPion XL 300 MG TAB.ER.24H PO SCH (09:18)
[2016-11-13] MEDS: NICOTINE 14MG/24HR PATCH TRANSDERM SCH (09:18)
[2016-11-13] MEDS: MULTIVITAMINS, THERA 1 EACH TAB PO SCH (13:05)
--- NOTE | 2016-11-13 15:36 | P.PN ---
Progress Note - Text SUBJECTIVE: I reviewed the medical record, discussed her treatment and treatment plan during team meeting and interviewed Blank. Similar to yesterday , Blank stated that she is feeling better. However, she does not feel "back to normal." She described "occasional" thoughts of suicide but denied intent or plan. She was ambivalent today about temporary placement in a residential. He also talked about a referral to a partial hospital program. OBJECTIVE: She presented as a casually groomed 51-year-old woman who was pleasant on approach. She made eye contact and appeared to attend to the interview. She had a blunted but bright facial expression. She showed no abnormality of psychomotor activity. Her speech was spontaneous with decreased rate, rhythm and volume. She had no articulation difficulties. Her affect was blunted but bright. She continues to have suicidal ideation and wishes. But the thoughts are fleeting. She feels less hopeless and helpless. She did not express ideas reference or paranoid ideation. Her thinking was concrete but her associations were coherent and logical. She did not demonstrate perseveration, neologisms or blocking. She denied current hallucinations and did not appear to be responding to internal stimuli. ASSESSMENT: She continues to express feelings of depression and intermittent psychotic symptoms. Overall, she is minimally to moderately ill and much improved from admission. PLAN: Continue inpatient psychiatric hospitalization. Continue suicide precautions with 15 minute checks. Continue lithium 300mgs by mouth 3 times a day. Continue Seroquel XR 600 mg at bedtime, Wellbutrin XL 300 mg daily, gabapentin 300 mg before breakfast and lunch and 600 mg at bedtime. Possible placement [facility] temporarily after discharge also consider referral to partial hospital. Encourage participation in therapeutic groups and activities. Evaluate clinical status response to treatment daily basis.
[2016-11-13] MEDS: QUEtiapine XR 200 MG TAB.ER.24H PO SCH (18:02)
[2016-11-13] MEDS: traZODone HCL 50 MG TAB PO PRN (21:12)
[2016-11-14] MEDS: LEVOTHYROXINE 100 MCG TAB PO SCH (06:13)
[2016-11-14] MEDS: GABAPENTIN 300 MG CAP PO SCH ×3 (09:33→20:02)
[2016-11-14] MEDS: LITHIUM CARBONATE 300 MG CAP PO SCH ×3 (09:33→21:31)
[2016-11-14] MEDS: buPROPion XL 300 MG TAB.ER.24H PO SCH (09:33)
[2016-11-14] MEDS: NICOTINE 14MG/24HR PATCH TRANSDERM SCH (09:34)
[2016-11-14] MEDS: MULTIVITAMINS, THERA 1 EACH TAB PO SCH (12:48)
--- NOTE | 2016-11-14 15:10 | P.PN ---
Progress Note - Text SUBJECTIVE: I reviewed the medical record, discussed her treatment and treatment plan during team meeting and interviewed Blank. Similar to yesterday , Blank stated that she is feeling better but no "back to normal." She described "occasional" thoughts of suicide but denied intent or plan. She spoke with the liaison to [facility] about temporary halfway placement. She stated that she would be interested in the halfway as long as she can afford the room and board. If the halfway is not an option than she is interested in the partial hospital program. OBJECTIVE: She presented as a casually groomed 51-year-old woman who was pleasant on approach. She made eye contact and appeared to attend to the interview. She had a blunted but bright facial expression. She showed no abnormality of psychomotor activity. Her speech was spontaneous with normal rate , rhythm and volume. She had no articulation difficulties. Her affect was blunted but bright. She continues to report suicidal ideation and wishes but the thoughts "are fleeting". She feels less hopeless and helpless. She did not express ideas reference or paranoid ideation. Her thinking was concrete but her associations were coherent and logical. She did not demonstrate perseveration, neologisms or blocking. She denied current hallucinations and did not appear to be responding to internal stimuli. ASSESSMENT: She continues to express feelings of depression and intermittent psychotic symptoms. Overall, she is minimally to moderately ill and much improved from admission. PLAN: Continue inpatient psychiatric hospitalization. Continue suicide precautions with 15 minute checks. Continue lithium 300mgs by mouth 3 times a day; repeat the lithium level on 11/18/2016. Continue Seroquel XR 600 mg at bedtime, Wellbutrin XL 300 mg daily, gabapentin 300 mg before breakfast and lunch and 600 mg at bedtime. Possible placement [facility] temporarily after discharge; also consider referral to [facility]. Encourage participation in therapeutic groups and activities. Evaluate clinical status response to treatment daily basis.
[2016-11-14] MEDS: QUEtiapine XR 200 MG TAB.ER.24H PO SCH (18:47)
[2016-11-15] MEDS: LEVOTHYROXINE 100 MCG TAB PO SCH (06:09)
[2016-11-15] MEDS: LITHIUM CARBONATE 300 MG CAP PO SCH ×3 (08:16→20:18)
[2016-11-15] MEDS: GABAPENTIN 300 MG CAP PO SCH ×3 (08:16→20:19)
[2016-11-15] MEDS: buPROPion XL 300 MG TAB.ER.24H PO SCH (08:16)
[2016-11-15] MEDS: NICOTINE 14MG/24HR PATCH TRANSDERM SCH (08:17)
--- NOTE | 2016-11-15 12:28 | P.PN ---
Progress Note - Text SUBJECTIVE: I reviewed the medical record, discussed her treatment and treatment plan during team meeting and interviewed Blank. Similar to yesterday , Blank stated that she is feeling better but not "back to normal." She described "occasional" thoughts of suicide but denied intent or plan. She is most interested in temporary long-term placement. She was awaiting feedback from [facility] about the possibility. She completed the Vu Depression Inventory her total sleep core was 31 consistent with severe symptoms of depression. This score is unchanged from . On the suicidal thoughts or wishes question she replied "I have thoughts of killing myself, but I would not carry them out." OBJECTIVE: She presented as a casually groomed 51-year-old woman who was pleasant on approach. She made eye contact and appeared to attend to the interview. She had a blunted but bright facial expression. She showed no abnormality of psychomotor activity. Her speech was spontaneous with normal rate , rhythm and volume. She had no articulation difficulties. Her affect was blunted but bright. She continues to report suicidal ideation and wishes but the thoughts "are fleeting". She feels less hopeless and helpless. She did not express ideas reference or paranoid ideation. Her thinking was concrete but her associations were coherent and logical. She did not demonstrate perseveration, neologisms or blocking. She denied current hallucinations and did not appear to be responding to internal stimuli. ASSESSMENT: She continues to have significant symptoms of depression. Overall, she is moderately ill and much moderately from admission. PLAN: Continue inpatient psychiatric hospitalization. Continue suicide precautions with 15 minute checks. Continue lithium 300mgs by mouth 3 times a day; repeat the lithium level on 11/18/2016. Continue Seroquel XR 600 mg at bedtime, Wellbutrin XL 300 mg daily, gabapentin 300 mg before breakfast and lunch and 600 mg at bedtime. [facility]. Encourage participation in therapeutic groups and activities. Evaluate clinical status response to treatment daily basis.
[2016-11-15] MEDS: MULTIVITAMINS, THERA 1 EACH TAB PO SCH (13:09)
[2016-11-15] MEDS: QUEtiapine XR 200 MG TAB.ER.24H PO SCH (18:56)
[2016-11-16] MEDS: LEVOTHYROXINE 100 MCG TAB PO SCH (06:02)
[2016-11-16] MEDS: buPROPion XL 300 MG TAB.ER.24H PO SCH (08:45)
[2016-11-16] MEDS: LITHIUM CARBONATE 300 MG CAP PO SCH ×3 (08:45→20:52)
[2016-11-16] MEDS: GABAPENTIN 300 MG CAP PO SCH ×3 (08:45→20:52)
[2016-11-16] MEDS: NICOTINE 14MG/24HR PATCH TRANSDERM SCH (08:46)
--- NOTE | 2016-11-16 11:23 | P.PN ---
Progress Note - Text SUBJECTIVE: I reviewed the medical record, discussed her treatment and treatment plan during team meeting and interviewed Blank. She remains interested in retirement placement. She spoke with the liaison to [facility] this morning regarding placement. She described feeling depressed much of the time but the severity of the depressive feelings have lessened from admission. She feels anxious about the future but denied feeling helpless. She is able to enjoy herself and enjoys socializing with staff and peers and participating in therapeutic groups and activities. She denied problems with sleep. OBJECTIVE: She presented as a casually groomed 51-year-old woman who was pleasant on approach. She made eye contact and appeared to attend to the interview. She had a blunted but facial expression. She showed no abnormality of psychomotor activity. Her speech was spontaneous with normal rate, rhythm and volume. She had no articulation difficulties. Her affect was depressed but reactive. She has intermittent suicidal ideation and wishes but the thoughts "are fleeting". She feels less hopeless and helpless. She did not express ideas reference or paranoid ideation. Her thinking was concrete but her associations were coherent and logical. She did not demonstrate perseveration, neologisms or blocking. She denied current hallucinations and did not appear to be responding to internal stimuli. ASSESSMENT: She continues to have symptoms of depression, thoughts of suicide but no suicide intent or plan. Overall, she is moderately ill and much moderately from admission. PLAN: Continue inpatient psychiatric hospitalization. Continue suicide precautions with 15 minute checks. Continue lithium 300mgs by mouth 3 times a day; repeat the lithium level on 11/18/2016. Continue Seroquel XR 600 mg at bedtime, Wellbutrin XL 300 mg daily, gabapentin 300 mg before breakfast and lunch and 600 mg at bedtime. [facility]. Encourage participation in therapeutic groups and activities. Evaluate clinical status response to treatment daily basis.
[2016-11-16] MEDS: MULTIVITAMINS, THERA 1 EACH TAB PO SCH (12:15)
[2016-11-16] MEDS: QUEtiapine XR 200 MG TAB.ER.24H PO SCH (18:54)
[2016-11-16] MEDS: traZODone HCL 50 MG TAB PO PRN (20:52)
[2016-11-17] MEDS: LEVOTHYROXINE 100 MCG TAB PO SCH (05:50)
[2016-11-17] MEDS: GABAPENTIN 300 MG CAP PO SCH ×3 (09:22→20:51)
[2016-11-17] MEDS: LITHIUM CARBONATE 300 MG CAP PO SCH ×3 (09:23→20:51)
[2016-11-17] MEDS: NICOTINE 14MG/24HR PATCH TRANSDERM SCH (09:23)
[2016-11-17] MEDS: buPROPion XL 300 MG TAB.ER.24H PO SCH (09:23)
[2016-11-17] MEDS: MULTIVITAMINS, THERA 1 EACH TAB PO SCH (12:56)
[2016-11-17] MEDS: QUEtiapine XR 200 MG TAB.ER.24H PO SCH (19:15)
[2016-11-17] MEDS: traZODone HCL 50 MG TAB PO PRN (20:51)
--- NOTE | 2016-11-17 21:33 | P.PN ---
Progress Note - Text Interval history: Patient is seen in cross coverage today for Dr. Wilburn. She relays that she is sleeping okay and is taking the trazodone only as needed. She seems to be eating well. She does describe that she's had some on and off thoughts of suicide today, when she has a thoughts of suicide she is able to distract herself and forget about it. She has been attending groups. She feels like her thoughts of suicide are less frequent than they were when she was admitted. Mental status exam: She is alert and cooperative with the interview. Her speech is fluent, rapid or pressured. Her thought processes are organized. She admits to some on and off thoughts of suicide today but reports she feels safe on the unit. She denies any thoughts of harm to others. No evidence of psychosis or agitation. Plan: Patient will be maintained on current psychotropic medication regimen. She will be monitored for any medication side effects. Continue to cover for Dr. Wilburn through the weekend.
[2016-11-18] MEDS: LEVOTHYROXINE 100 MCG TAB PO SCH (06:11)
[2016-11-18] MEDS: GABAPENTIN 300 MG CAP PO SCH ×4 (08:51→20:10)
[2016-11-18] MEDS: NICOTINE 14MG/24HR PATCH TRANSDERM SCH (08:51)
[2016-11-18] MEDS: LITHIUM CARBONATE 300 MG CAP PO SCH ×3 (08:51→20:07)
[2016-11-18] MEDS: buPROPion XL 300 MG TAB.ER.24H PO SCH (08:51)
[2016-11-18] MEDS: MULTIVITAMINS, THERA 1 EACH TAB PO SCH (12:00)
--- NOTE | 2016-11-18 12:13 | P.PN ---
Progress Note - Text Interval history: Patient states her sleep is somewhat interrupted last night. She says she would wake up and then she would be able to fall back asleep. She does not seem to voice any adverse psychotropic medication side effects. She does state that she has for the trazodone last night. She does plan on eating lunch. She is seen in cross coverage today for Dr. Wilburn. Mental status exam: She is alert and cooperative with the interview. She describes her mood is feeling like she is not here. She says she has had this feeling before. She admits to having some thoughts of suicide earlier this morning but distracted herself from that and denies any current thoughts of suicide. She denies any thoughts of harm to others. No evidence of psychosis or agitation. Plan: We'll maintain current psychotropic medications. We'll monitor for any medication side effects and continue to monitor regarding thoughts of suicide. Dr. Wilburn will be resuming care this patient starting tomorrow.
[2016-11-18] MEDS: QUEtiapine XR 200 MG TAB.ER.24H PO SCH (20:06)
[2016-11-19] MEDS: LEVOTHYROXINE 100 MCG TAB PO SCH (06:41)
[2016-11-19] MEDS: NICOTINE 14MG/24HR PATCH TRANSDERM SCH (09:23)
[2016-11-19] MEDS: buPROPion XL 300 MG TAB.ER.24H PO SCH (09:23)
[2016-11-19] MEDS: LITHIUM CARBONATE 300 MG CAP PO SCH ×3 (09:23→20:15)
[2016-11-19] MEDS: GABAPENTIN 300 MG CAP PO SCH ×3 (09:28→20:15)
[2016-11-19] MEDS: MULTIVITAMINS, THERA 1 EACH TAB PO SCH (12:00)
--- NOTE | 2016-11-19 14:47 | P.PN ---
Progress Note - Text SUBJECTIVE: I reviewed the medical record, discussed her treatment and treatment plan during team meeting and interviewed Blank. She is less depressed than on admission but has "occasional" thoughts of suicide. She feels anxious about the future but denied feeling helpless. She is able to enjoy herself and enjoys socializing with staff and peers and participating in therapeutic groups and activities. She denied problems with sleep. She perseverated on placement at the [facility]. She would not agree to plan to discharge her home, refer to a partial hospital program and be placed from home when a vacancy is available at the [facility] OBJECTIVE: She presented as a casually groomed 51-year-old woman who was pleasant on approach. She made eye contact and appeared to attend to the interview. She had a blunted but facial expression. She showed no abnormality of psychomotor activity. Her speech was spontaneous with normal rate, rhythm and volume. She had no articulation difficulties. Her affect was depressed but reactive. She has intermittent suicidal ideation and wishes but the thoughts "are fleeting". She feels less hopeless and helpless. She did not express ideas reference or paranoid ideation. Her thinking was concrete but her associations were coherent and logical. She did not demonstrate perseveration, neologisms or blocking. She denied current hallucinations and did not appear to be responding to internal stimuli. ASSESSMENT: She continues to report suicidal thoughts. Overall, she is moderately ill and much moderately from admission. PLAN: Continue inpatient psychiatric hospitalization. Continue suicide precautions with 15 minute checks. Continue lithium 300mgs by mouth 3 times a day; repeat the lithium level on 11/18/2016. Continue Seroquel XR 600 mg at bedtime, Wellbutrin XL 300 mg daily, gabapentin 300 mg before breakfast and lunch and 600 mg at bedtime. Discharge to the [facility] when a vacancy is available. Encourage participation in therapeutic groups and activities. Evaluate clinical status response to treatment daily basis.
[2016-11-19] MEDS: QUEtiapine XR 200 MG TAB.ER.24H PO SCH (21:04)
[2016-11-19] MEDS: traZODone HCL 50 MG TAB PO PRN (21:05)
[2016-11-20] MEDS: LEVOTHYROXINE 100 MCG TAB PO SCH (06:25)
[2016-11-20] MEDS: NICOTINE 14MG/24HR PATCH TRANSDERM SCH (09:17)
[2016-11-20] MEDS: buPROPion XL 300 MG TAB.ER.24H PO SCH (09:17)
[2016-11-20] MEDS: LITHIUM CARBONATE 300 MG CAP PO SCH ×3 (09:17→20:38)
[2016-11-20] MEDS: GABAPENTIN 300 MG CAP PO SCH ×3 (09:17→20:38)
[2016-11-20] MEDS: MULTIVITAMINS, THERA 1 EACH TAB PO SCH (12:06)
--- NOTE | 2016-11-20 13:36 | P.PN ---
Progress Note - Text SUBJECTIVE: I reviewed the medical record, discussed her treatment and treatment plan during team meeting and interviewed Blank. She stated that she "continues to to better" but has "occasional" thoughts of suicide. She has a heart set on entering the [facility] after discharge but understands the difficulty with placement. She is able to enjoy herself and enjoys socializing with staff and peers and participating in therapeutic groups and activities. She denied problems with sleep. He does not want to attend the [facility] hospital program. She will return home and continue with outpatient treatment through [facility] waiting for a bed open at [facility] OBJECTIVE: She presented as a casually groomed 51-year-old woman who was pleasant on approach. She made eye contact and appeared to attend to the interview. She had a blunted but facial expression. She showed no abnormality of psychomotor activity. Her speech was spontaneous with normal rate, rhythm and volume. She had no articulation difficulties. Her affect was depressed but reactive. She has intermittent suicidal ideation and wishes but the thoughts "are fleeting". She feels less hopeless and helpless. She did not express ideas reference or paranoid ideation. Her thinking was concrete but her associations were coherent and logical. She did not demonstrate perseveration, neologisms or blocking. She denied current hallucinations and did not appear to be responding to internal stimuli. ASSESSMENT: She continues to report suicidal thoughts. Overall, she is moderately ill and much moderately from admission. PLAN: Continue inpatient psychiatric hospitalization. Continue suicide precautions with 15 minute checks. Continue lithium 300mgs by mouth 3 times a day. Continue Seroquel XR 600 mg at bedtime, Wellbutrin XL 300 mg daily, gabapentin 300 mg before breakfast and lunch and 600 mg at bedtime. Discharge to the [facility] when a vacancy is available. Encourage participation in therapeutic groups and activities. Evaluate clinical status response to treatment daily basis.
[2016-11-20] MEDS: QUEtiapine XR 200 MG TAB.ER.24H PO SCH (19:00)
[2016-11-20] MEDS: traZODone HCL 50 MG TAB PO PRN (20:39)
[2016-11-21] MEDS: LEVOTHYROXINE 100 MCG TAB PO SCH (06:02)
[2016-11-21] MEDS: LITHIUM CARBONATE 300 MG CAP PO SCH ×3 (08:56→21:04)
[2016-11-21] MEDS: NICOTINE 14MG/24HR PATCH TRANSDERM SCH (08:56)
[2016-11-21] MEDS: buPROPion XL 300 MG TAB.ER.24H PO SCH (08:56)
[2016-11-21] MEDS: GABAPENTIN 300 MG CAP PO SCH ×3 (08:56→20:10)
[2016-11-21] MEDS: MULTIVITAMINS, THERA 1 EACH TAB PO SCH (12:31)
--- NOTE | 2016-11-21 13:27 | P.PN ---
Progress Note - Text SUBJECTIVE: I reviewed the medical record, discussed her treatment and treatment plan during team meeting and interviewed Blank. Her subjective reports are unchanged from yesterday her prior meetings; she feels better but continues to have "occasional" thoughts of suicide. She wishes to remain in the hospital until Saturday because the patient security representative from [facility] told her that "there is a good chance" that she would be admitted to the [facility] by Saturday. She talked about how her sister and her children want her to be discharged to the correction. She also talked about long-term planning will begin to a single bedroom apartment near where her daughter lives. She is able to enjoy herself and enjoys socializing with staff and peers and participating in therapeutic groups and activities. She denied problems with sleep. OBJECTIVE: She presented as a casually groomed 51-year-old woman who was pleasant on approach. She made eye contact and appeared to attend to the interview. She had a depressed facial expression. She showed no abnormality of psychomotor activity. Her speech was spontaneous with normal rate, rhythm and volume. She had no articulation difficulties. Her affect was depressed but reactive. She has intermittent suicidal ideation and wishes but the thoughts "are fleeting". She feels less hopeless and helpless. She did not express ideas reference or paranoid ideation. Her thinking was concrete but her associations were coherent and logical. She did not demonstrate perseveration, neologisms or blocking. She denied current hallucinations and did not appear to be responding to internal stimuli. ASSESSMENT: She continues to report suicidal thoughts. Overall, she is moderately ill and much moderately from admission. PLAN: Continue inpatient psychiatric hospitalization. Continue suicide precautions with 15 minute checks. Continue lithium 300mgs by mouth 3 times a day. Continue Seroquel XR 600 mg at bedtime, Wellbutrin XL 300 mg daily, gabapentin 300 mg before breakfast and lunch and 600 mg at bedtime. Discharge to the [facility] when a vacancy is available. Encourage participation in therapeutic groups and activities. Evaluate clinical status response to treatment daily basis.
[2016-11-21] MEDS: QUEtiapine XR 200 MG TAB.ER.24H PO SCH (18:46)
[2016-11-21] MEDS: traZODone HCL 50 MG TAB PO PRN (20:10)
[2016-11-22] MEDS: LEVOTHYROXINE 100 MCG TAB PO SCH (06:11)
[2016-11-22] MEDS: GABAPENTIN 300 MG CAP PO SCH ×3 (08:40→21:11)
[2016-11-22] MEDS: LITHIUM CARBONATE 300 MG CAP PO SCH ×3 (08:40→21:11)
[2016-11-22] MEDS: buPROPion XL 300 MG TAB.ER.24H PO SCH (08:40)
[2016-11-22] MEDS: NICOTINE 14MG/24HR PATCH TRANSDERM SCH (08:40)
[2016-11-22] MEDS: MULTIVITAMINS, THERA 1 EACH TAB PO SCH (12:23)
--- NOTE | 2016-11-22 13:56 | P.PN ---
Progress Note - Text SUBJECTIVE: Her mental health social worker and met with her. I reviewed the medical record and discussed her treatment and treatment plan during team meeting. We met with her to discuss discharge and discharge planning. We explained that we have no control over retirement placement. We attempted to engage her in a discussion of alternatives to have her weight in the hospital on 2 able to find a retirement. She maintained position that she would not be safe if she returned home. She stated she has no one with whom she may live or good comfortable home to care for her. OBJECTIVE: She presented as a casually groomed 51-year-old woman who was pleasant on approach. She made eye contact and appeared to attend to the interview. She had a depressed facial expression. She showed no abnormality of psychomotor activity. Her speech was spontaneous with normal rate, rhythm and volume. She had no articulation difficulties. Her affect was depressed but reactive. She continues to report intermittent suicidal ideation and wishes. She feels less hopeless and helpless. She did not express ideas reference or paranoid ideation. Her thinking was concrete but her associations were coherent and logical. She did not demonstrate perseveration, neologisms or blocking. She denied current hallucinations and did not appear to be responding to internal stimuli. ASSESSMENT: She continues to report suicidal thoughts. Overall, she is moderately ill and much moderately from admission. PLAN: Continue inpatient psychiatric hospitalization. Continue suicide precautions with 15 minute checks. Continue lithium 300mgs by mouth 3 times a day. Continue Seroquel XR 600 mg at bedtime, Wellbutrin XL 300 mg daily, gabapentin 300 mg before breakfast and lunch and 600 mg at bedtime. Discharge to the [facility] when a vacancy is available. Encourage participation in therapeutic groups and activities. Evaluate clinical status response to treatment daily basis.
[2016-11-22] MEDS: QUEtiapine XR 200 MG TAB.ER.24H PO SCH (19:08)
[2016-11-22] MEDS: traZODone HCL 50 MG TAB PO PRN (21:46)
[2016-11-23] MEDS: LEVOTHYROXINE 100 MCG TAB PO SCH (05:39)
[2016-11-23] MEDS: NICOTINE 14MG/24HR PATCH TRANSDERM SCH (08:55)
[2016-11-23] MEDS: LITHIUM CARBONATE 300 MG CAP PO SCH ×3 (08:55→20:42)
[2016-11-23] MEDS: buPROPion XL 300 MG TAB.ER.24H PO SCH (08:55)
[2016-11-23] MEDS: GABAPENTIN 300 MG CAP PO SCH ×3 (08:55→20:42)
[2016-11-23] MEDS: MULTIVITAMINS, THERA 1 EACH TAB PO SCH (11:59)
--- NOTE | 2016-11-23 14:22 | P.PN ---
Progress Note - Text SUBJECTIVE: Her executive secretary social welfare and met with her. I reviewed the medical record and discussed her treatment and treatment plan during team meeting. She stated that she is feeling better. She believes that her mood has improved since she started lithium. We talked about nursing home placement. She understands that unless she is admitted to [facility] on Saturday we plan to discharge her home. She agreed to the recommendation for partial hospitalization. OBJECTIVE: She presented as a casually groomed 51-year-old woman who was pleasant on approach. She made eye contact and appeared to attend to the interview. She had a sad facial expression. She showed no abnormality of psychomotor activity. Her speech was spontaneous with normal rate, rhythm and volume. She had no articulation difficulties. Her affect was depressed but reactive. She continues to report intermittent suicidal ideation and wishes. She did not express ideas reference or paranoid ideation. Her thinking was concrete but her associations were coherent and logical. She did not demonstrate perseveration, neologisms or blocking. She denied current hallucinations and did not appear to be responding to internal stimuli. ASSESSMENT: She continues to report suicidal thoughts but denies plan or intent. Overall, she is moderately ill and much moderately from admission. PLAN: Continue inpatient psychiatric hospitalization. Continue suicide precautions with 15 minute checks. Continue lithium 300mgs by mouth 3 times a day. Continue Seroquel XR 600 mg at bedtime, Wellbutrin XL 300 mg daily, gabapentin 300 mg before breakfast and lunch and 600 mg at bedtime. Unless a bed at the [facility] is available on 11/26/2016 discharged home with referral to a partial hospital program. Encourage participation in therapeutic groups and activities. Evaluate clinical status response to treatment daily basis.
[2016-11-23] MEDS: QUEtiapine XR 200 MG TAB.ER.24H PO SCH (18:13)
[2016-11-23] MEDS: traZODone HCL 50 MG TAB PO PRN (20:42)
[2016-11-24] MEDS: LEVOTHYROXINE 100 MCG TAB PO SCH (06:35)
[2016-11-24 07:44] VITALS: BMI 31.9
[2016-11-24] MEDS: NICOTINE 14MG/24HR PATCH TRANSDERM SCH (09:06)
[2016-11-24] MEDS: GABAPENTIN 300 MG CAP PO SCH ×3 (09:06→20:38)
[2016-11-24] MEDS: LORazepam 1 MG TAB PO PRN ×2 (09:06→17:44)
[2016-11-24] MEDS: buPROPion XL 300 MG TAB.ER.24H PO SCH (09:06)
[2016-11-24] MEDS: LITHIUM CARBONATE 300 MG CAP PO SCH ×3 (09:06→20:39)
[2016-11-24] MEDS: MULTIVITAMINS, THERA 1 EACH TAB PO SCH (12:11)
[2016-11-24] MEDS: QUEtiapine XR 200 MG TAB.ER.24H PO SCH (18:49)
[2016-11-24] MEDS: traZODone HCL 50 MG TAB PO PRN (20:39)
[2016-11-25] MEDS: LEVOTHYROXINE 100 MCG TAB PO SCH (06:42)
[2016-11-25] MEDS: NICOTINE 14MG/24HR PATCH TRANSDERM SCH (08:45)
[2016-11-25] MEDS: LITHIUM CARBONATE 300 MG CAP PO SCH ×3 (08:45→20:50)
[2016-11-25] MEDS: LORazepam 1 MG TAB PO PRN ×2 (08:45→17:19)
[2016-11-25] MEDS: buPROPion XL 300 MG TAB.ER.24H PO SCH (08:45)
[2016-11-25] MEDS: GABAPENTIN 300 MG CAP PO SCH ×3 (08:46→20:50)
--- NOTE | 2016-11-25 10:35 | PN ---
DATE OF SERVICE: 11/24/2016 CHIEF COMPLAINT: The patient was admitted due to depression with suicidal thinking. She drank 2 bottles of Nyquil. She had alcohol and other drug use. She had a report of trauma all leading up to her hospitalization. INTERVAL HISTORY: Patient has been doing fairly well. She had a quiet evening last night. She reports sleeping fairly well. She has been attending groups. She comes out in the day area. She does not interact too much with others. She reports that her mood has been improving. She is hopeful to be discharged early in the week. She has not had problems with her medications. She has been cooperative with care. She has not had change in her general health. She tolerates her psychotropic medications. MENTAL STATUS: Patient had fair eye contact. Psychomotor activity was a little slow. Speech was somewhat monotone. She answered questions with brief responses. Her thoughts were clear. She was not spontaneous or too interactive. Her affect was a little constricted, though not significantly so. Her mood was quiet. She did not appear to be distressed. She was pleasant in her manner. ASSESSMENT: I will continue the current diagnosis and treatment plan. Will continue to make efforts to engage the patient in individual and group therapeutic activities. She will continue psychotropic medications the same. We will continue to monitor for mood-related issues. We will focus on stabilization and discharge planning.
[2016-11-25] MEDS: MULTIVITAMINS, THERA 1 EACH TAB PO SCH (12:23)
[2016-11-25] MEDS: QUEtiapine XR 200 MG TAB.ER.24H PO SCH (18:58)
[2016-11-25] MEDS: traZODone HCL 50 MG TAB PO PRN (21:27)
[2016-11-26] MEDS: LEVOTHYROXINE 100 MCG TAB PO SCH (06:26)
[2016-11-26] MEDS: buPROPion XL 300 MG TAB.ER.24H PO SCH (09:08)
[2016-11-26] MEDS: LITHIUM CARBONATE 300 MG CAP PO SCH ×3 (09:08→20:07)
[2016-11-26] MEDS: NICOTINE 14MG/24HR PATCH TRANSDERM SCH (09:08)
[2016-11-26] MEDS: LORazepam 1 MG TAB PO PRN ×2 (09:08→17:19)
[2016-11-26] MEDS: GABAPENTIN 300 MG CAP PO SCH ×3 (09:08→20:07)
--- NOTE | 2016-11-26 09:23 | PN ---
DATE OF SERVICE: 11/25/2016 CHIEF COMPLAINT: The patient was admitted due to depression with suicidal thinking. She had trauma leading to her hospitalization. INTERVAL HISTORY: Patient has been doing fairly well overall by her report. She says that she had some thoughts of suicide coming to her head today. She cannot identify anything that set it off. She said that is not uncommon for her. That kind of thinking will "pop in my head." When I saw her later in the day, she said she was doing fine. She was not having thoughts of self-harm. She denied any impulses in that direction. She feels that she has been making progress. She sees her mood as improving. She seems to have more energy. She gets out on the unit. She has been attending groups. She slept well last night. She has not had change in her general health. She tolerates her psychotropic medications. MENTAL STATUS: Patient gave fairly good eye contact. Psychomotor activity was a little restless. Speech was clear. She answered questions with direct responses. She was somewhat spontaneous. Her affect was in a reasonable range. She smiled a little. Her mood was even. She did not appear to be distressed. There was no outward evidence of thought disorder. ASSESSMENT: I will continue the current diagnosis and treatment plan. Will continue psychotropic medications the same. Patient appears to be making progress it is unclear what the issues seemed to relate to when she describes suicide thinking just invading her consciousness. This may be something to be worked on in outpatient therapy. Will continue to focus on stabilization and discharge planning.
[2016-11-26] MEDS: MULTIVITAMINS, THERA 1 EACH TAB PO SCH (12:19)
--- NOTE | 2016-11-26 15:06 | P.PN ---
Progress Note - Text SUBJECTIVE: I reviewed the medical record, interviewed Ms. Juarez and discussed her treatment and treatment plan during team meeting. On Saturday we had met and agreed to a discharge for today. If a bed is not available at the [facility] then she would go home and participate in the [facility] hospital program. I wrote the discharge orders the morning anticipating to follow through with this plan. When I spoke to this afternoon she was acutely distraught. She cried and stated that she "cannot go home". She talked about having more suicidal thoughts when she returns home and struggles with her urge to use alcohol. When I told her that if she finds that she could not manage at home she could return to the hospital she replied "I'm not coming back to the hospital." When I asked her to explain herself she began to bawl and talked about suicidal thoughts. OBJECTIVE: She presented as a casually groomed 51-year-old woman who was pleasant on approach. She did not make eye contact. She rocked back and forth in her seat. She cried throughout the interview. She described continued thoughts of suicide. She perseverated on the topic that she could not go home and that she cannot live alone. ASSESSMENT: She appears to have regressed to her status at time of admission. PLAN: Discontinue discharge. Continue with current medications and review of discharge plan tomorrow.
[2016-11-26] MEDS: QUEtiapine XR 200 MG TAB.ER.24H PO SCH (19:06)
[2016-11-26] MEDS: traZODone HCL 50 MG TAB PO PRN (20:07)
[2016-11-27 06:41] VITALS: RESP 16
[2016-11-27] MEDS: LEVOTHYROXINE 100 MCG TAB PO SCH (07:01)
[2016-11-27] MEDS: NICOTINE 14MG/24HR PATCH TRANSDERM SCH (09:41)
[2016-11-27] MEDS: GABAPENTIN 300 MG CAP PO SCH ×3 (09:41→21:06)
[2016-11-27] MEDS: LORazepam 1 MG TAB PO PRN ×2 (09:42→18:55)
[2016-11-27] MEDS: buPROPion XL 300 MG TAB.ER.24H PO SCH (09:42)
[2016-11-27] MEDS: LITHIUM CARBONATE 300 MG CAP PO SCH ×3 (09:42→21:06)
[2016-11-27] MEDS: MULTIVITAMINS, THERA 1 EACH TAB PO SCH (12:52)
--- NOTE | 2016-11-27 14:46 | P.PN ---
Progress Note - Text SUBJECTIVE: I reviewed the medical record, interviewed Mr. Juarez and discussed her treatment and treatment plan during team meeting. Because of failed discharge yesterday the clinical social worker, Nuvia, and our [facility] liaison, Maryan, met with her to discuss treatment, discharge planning and aftercare. Blank cried during most of the interview and repeatedly stated that she could not go home. When we asked why she could not go home she replied that she is afraid. Maryan explained that a fci bed is not imminent because she is not enrolled in [facility] services. After discharge and once she reestablish with [facility] she would have access to the full spectrum of services including fci placement. Nuvia reviewed the costs of a private AFC home. Vanesa stated that she and her family would notafford the cost of a private AFC home. We informed her that if she does not wish to return home and has no family or friends with whom she may live, the only option would be a detention. She replied that she "cannot go to a detention." She would not engage in discussion about aftercare planning or development of a safety plan. She told the clinical social worker and the liaison that they should develop the safety plan and given to her. OBJECTIVE: She presented as a casually groomed angry and distressed 51-year- old female. She made little eye contact. However, she appeared to attend to the interview. She had a distressed facial expression and cried frequently during the interview. She showed psychomotor retardation but no abnormal involuntary movements. Her speech was not spontaneous. Her affect was dysphoric, labile, depressed and angry. She did not express suicidal ideation or wishes. She feels hopeless and helpless. She ruminated about discharge and aftercare particularly her inability to return to her home. She did not express ideas reference or paranoid ideation. Her thinking was concrete. Associations were logical. She denied hallucinations and did not appear to be responding to internal stimuli. ASSESSMENT: She is angry that she is unable to be discharged to a fci. She is refusing to return to her home, cannot live with friends or family and refusing discharged to a detention. PLAN: Continue inpatient psychiatric hospitalization until we find some resolution of the failed discharge. Continue baclofen 5 mg 4 times a day when necessary for pain. Continue Wellbutrin XL 300 mg daily, Neurontin 300 mg twice a day and 600 mg at bedtime, Synthroid 100 mg daily, lithium 300 mg 3 times a day, Seroquel XR 600 mg daily and trazodone 50 mg at bedtime when necessary for sleep. The clinical social worker and [facility] liaison to meet with her to develop a safety plan. If she will not return to her home we may have to discharge her to a detention. Encourage participation in group therapeutic groups and activities as tolerated. Evaluate clinical status response to treatment on a daily basis.
[2016-11-27] MEDS: QUEtiapine XR 200 MG TAB.ER.24H PO SCH (18:07)
[2016-11-27] MEDS: traZODone HCL 50 MG TAB PO PRN (21:06)
[2016-11-28 05:01] VITALS: BP 99/52; PULSE 74; TEMP 98.2
[2016-11-28] MEDS: LEVOTHYROXINE 100 MCG TAB PO SCH (05:31)
[2016-11-28] MEDS: GABAPENTIN 300 MG CAP PO SCH ×2 (08:16→14:04)
[2016-11-28] MEDS: LITHIUM CARBONATE 300 MG CAP PO SCH (09:08)
[2016-11-28] MEDS: buPROPion XL 300 MG TAB.ER.24H PO SCH (09:08)
[2016-11-28] MEDS: NICOTINE 14MG/24HR PATCH TRANSDERM SCH (09:09)
[2016-11-28] MEDS: LORazepam 1 MG TAB PO PRN (09:11)
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
[2016-11-28] MEDS: MULTIVITAMINS, THERA 1 EACH TAB PO SCH (14:04)
== END 2016-11-28 16:28 | disposition home or self-care (01) | DRG 885 ==
LOC: EC 11:21 → 3MHU 16:26 → UNDODISIN 11-28 14:15
PROVIDERS: ADMIT Psychiatry & Neurology Psychiatry; ATTEND Psychiatry & Neurology Psychiatry
DX: F33.2 Major depressive disorder, recurrent severe without psychotic features (principal); Z91.19 Patient's noncompliance with other medical treatment and regimen; E03.9 Hypothyroidism, unspecified; T39.1X2A Poisoning by 4-Aminophenol derivatives, intentional self-harm, initial encounter; T48.4X2A Poisoning by expectorants, intentional self-harm, initial encounter; T14.91 Suicide attempt; F15.90 Other stimulant use, unspecified, uncomplicated; F10.10 Alcohol abuse, uncomplicated; F60.9 Personality disorder, unspecified; E78.5 Hyperlipidemia, unspecified; Z87.891 Personal history of nicotine dependence; Z90.710 Acquired absence of both cervix and uterus; Z91.5 Personal history of self-harm; Z79.899 Other long term (current) drug therapy
CPT/HCPCS: 36415; 80053; 80178; 80306; 80320; 81001; 81025; 83520; 84443; 85025; 87077; 87086; 87186; 93005; 96360; 96361; 99285

== ENCOUNTER → 2017-03-26 | Outpatient (CLI) | payer OTHER ==
[2017-03-26 13:18] LABS: Basophils % (A) 1 %; CH 30.8; CHCM 32.4; Eosinophils # (A) 0.4 k/uL (0-0.7); Eosinophils % (A) 4 %; HCT 38.9 % (34.0-46.0); HDW 2.31; HGB 12.8 gm/dL (11.4-16.0); Luc # (Auto) 0.27; Luc % (Auto) 3; Lymphocytes # (A) 2.1 k/uL (1.0-4.8); Lymphocytes % (A) 26 %; MCH 31.4 pg (25.0-35.0); MCHC 32.9 g/dL (31.0-37.0); MCV 95.7 fL (80.0-100.0); Mean Platelet Volume 7.6; Monocytes # (A) 0.5 k/uL (0-1.0); Monocytes % (A) 5 %; Neutrophils % (A) 61 %; RBC 4.06 m/uL (3.80-5.40); RDW 13.3 % (11.5-15.5); WBC 8.3 k/uL (3.8-10.6); WBC (Perox) 8.81
[2017-03-26 13:27] LABS: Lithium 0.9 mmol/L
== END | disposition home or self-care (01) ==
LOC: LABWHC1 13:00
PROVIDERS: ATTEND Internal Medicine
DX: Z51.81 Encounter for therapeutic drug level monitoring (principal); Z79.899 Other long term (current) drug therapy
CPT/HCPCS: 36415; 80178; 82565; 84439; 84443; 84520; 85025

== ENCOUNTER 2017-04-30 06:15 | Observation (INO) | payer OTHER ==
--- NOTE | 2017-04-30 06:50 | ED ---
Chest Pain HPI - General Source: EMS Mode of arrival: EMS Limitations: no limitations <Pablito Anglin - Last Filed: 04/30/17 07:08> <Ramez Andres - Last Filed: 04/30/17 10:33> - General Chief Complaint: Chest Pain Stated Complaint: nausea,vomiting,chest pain Time Seen by Provider: 04/30/17 06:32 - History of Present Illness Initial Comments: 52 years old female chest pain, it started around 1 AM she is also complaining about shortness of breath and shortness of breath is worse with a deep breaths. She been feeling nauseous for the last 2 days since she vomited 4 times every day for the last 3 days. Eyes any headache no neck stiffness or chest pain and shortness of breath no abdominal pain no frequency urgency dysuria. No symptoms of TIA or CVA (Pablito Anglin) - Related Data Home Medications Medication Instructions Recorded Confirmed Gabapentin [Neurontin] 300 mg PO BID@0700,1200 04/30/17 04/30/17 [place] Carbonate 300 mg PO HS 04/30/17 04/30/17 QUEtiapine FUMARATE [Seroquel Xr] 600 mg PO DAILY@1900 04/30/17 04/30/17 Previous Rx's Medication Instructions Recorded Atorvastatin [Lipitor] 40 mg PO DAILY 30 Days 11/28/16 Gabapentin [Neurontin] 600 mg PO HS 30 Days 11/28/16 Levothyroxine Sodium [Synthroid] 100 mcg PO DAILY@0630 30 Days 11/28/16 buPROPion XL [Wellbutrin XL] 300 mg PO DAILY 30 Days 11/28/16 Allergies Allergy/AdvReac Type Severity Reaction Status Date / Time ibuprofen [From Motrin] Allergy Intermediate Rash/Hives Verified 04/30/17 07:10 tramadol HCl [From Ultram] Allergy Intermediate Itching Verified 04/30/17 07:10 Review of Systems ROS Other: All systems not noted in ROS Statement are negative. <Pablito Anglin - Last Filed: 04/30/17 07:08> ROS Other: All systems not noted in ROS Statement are negative. <Ramez Andres - Last Filed: 04/30/17 10:33> ROS Statement: Those systems with pertinent positive or pertinent negative responses have been documented in the HPI. EKG Findings - EKG Comments: EKG Findings:: EKG is normal sinus rhythm ventricular rate is 68 UT interval is 142 QRS duration is 64 QT/QTc is 46/431, review of this EKG reveals flattening of the T-wave in lead [address] elevation or ST depression noticed the rest of the leads <DerrekPablito - Last Filed: 04/30/17 07:08> Past Medical History Past Medical History: Hyperlipidemia, Thyroid Disorder Additional Past Medical History / Comment(s): suicide attempt History of Any Multi-Drug Resistant Organisms: None Reported Past Surgical History: Section, Hysterectomy Additional Past Surgical History / Comment(s): x 2; Pt. states she's had a colonoscopy done. Past Anesthesia/Blood Transfusion Reactions: No Reported Reaction Additional Past Anesthesia/Blood Transfusion Reaction / Comment(s): no previous blood transfusion Past Psychological History: Anxiety, Bipolar, Depression Smoking Status: Former smoker Past Alcohol Use History: Abuse Past Drug Use History: None Reported - Past Family History Father Family Medical History: Cancer, Neurologic Disorder Additional Family Medical History / Comment(s): Pt's. father had colon cancer and Parkinson's. Mother Family Medical History: Congestive Heart Failure (CHF) Additional Family Medical History / Comment(s): states "weak heart" Sister(s) Family Medical History: Coronary Artery Disease (CAD), Myocardial Infarction ([place] ) Additional Family Medical History / Comment(s): 1 sister with hx of 2 cardiac stents, 1 other sister from heart related issues <Derrek,Pablito - Last Filed: 04/30/17 07:08> General Exam Limitations: no limitations <Derrek,Pablito - Last Filed: 04/30/17 07:08> General appearance: alert, in no apparent distress Head exam: Present: atraumatic, normocephalic, normal inspection Eye exam: Present: normal appearance, PERRL, EOMI. Absent: scleral icterus, conjunctival injection, periorbital swelling ENT exam: Present: normal exam, mucous membranes moist Neck exam: Present: normal inspection. Absent: tenderness, meningismus, lymphadenopathy Respiratory exam: Present: normal lung sounds bilaterally. Absent: respiratory distress, wheezes, rales, rhonchi, stridor Cardiovascular Exam: Present: regular rate, normal rhythm, normal heart sounds. Absent: systolic murmur, diastolic murmur, rubs, gallop, clicks GI/Abdominal exam: Present: soft, normal bowel sounds. Absent: distended, tenderness, guarding, rebound, rigid Extremities exam: Present: normal inspection, full ROM, normal capillary refill. Absent: tenderness, pedal edema, joint swelling, calf tenderness Back exam: Present: normal inspection Neurological exam: Present: alert, oriented X3, CN II-XII intact Psychiatric exam: Present: normal affect, normal mood Skin exam: Present: warm, dry, intact, normal color. Absent: rash <Ramez Andres - Last Filed: 04/30/17 10:33> - General Exam Comments Initial Comments: General: The patient is awake and alert, in no distress, and does not appear acutely ill. Is quite anxious Skin: Skin is warm and dry and no rashes or lesions are noted. Eye: Pupils are equal, round and reactive to light, extra-ocular movements are intact; there is normal conjunctiva bilaterally. Ears, nose, mouth and throat: There are moist mucous membranes and no oral lesions. Neck: The neck is supple, there is no tenderness or JVD. Cardiovascular: There is a regular rate and rhythm. No murmur, rub or gallop is appreciated. Respiratory: To auscultation bilateral, noticed decreased breath sounds at the bases Gastrointestinal: Soft, non-distended, non-tender abdomen without masses or organomegaly noted. There is no rebound or guarding present. Bowel sounds are unremarkable. Back: There is no tenderness to palpation in the midline. There is no obvious deformity. Musculoskeletal: Normal ROM, no tenderness, There is no pedal edema. There is no calf tenderness or swelling. No cords were appreciated. Neurological: CN II-XII intact, Cranial nerves III through XII are intact. There are no obvious motor or sensory deficits. Coordination appears grossly intact. Speech is normal. Psychiatric: Cooperative, appropriate mood & affect, normal judgment. (Pablito Anglin) Course <Pablito Anglin - Last Filed: 04/30/17 07:08> <Ramez Andres - Last Filed: 04/30/17 10:33> Vital Signs 04/30/17 04/30/17 04/30/17 06:18 07:15 08:35 Temperature 98.1 F Pulse Rate 72 63 55 L Respiratory 18 17 17 Rate Blood Pressure 155/68 128/58 131/60 O2 Sat by Pulse 100 100 100 Oximetry 04/30/17 09:24 Temperature Pulse Rate 61 Respiratory 17 Rate Blood Pressure 125/65 O2 Sat by Pulse 100 Oximetry Patient is endorsed to Dr. Moscoso called morning doctor to follow-up with the labs and imaging (Pablito Anglin) - Reevaluation(s) Reevaluation #1: 04/30/17 10:33 [place] today patient still is chest pain at this time, states she feels, he does not feel herself (Ramez Andres) Chest Pain MDM <Pablito Anglin - Last Filed: 04/30/17 07:08> <Ramez Andres - Last Filed: 04/30/17 10:33> - MDM 52-year-old female here for evaluation of chest pain. Patient has continued chest pain at this time. (Ramez Andres) Critical Care Time Critical Care Time: Yes Total Critical Care Time: 31 <Ramez Andres - Last Filed: 04/30/17 10:33> Disposition <Pablito Anglin - Last Filed: 04/30/17 07:08> <Ramez Andres - Last Filed: 04/30/17 10:33> Clinical Impression: Chest pain, Pleuritic chest pain Disposition: ADMITTED IP TO THIS [facility] Condition: Fair Referrals: None,Stated [REFERRING] - 1-2 days
[2017-04-30] MEDS ORDERED: SODIUM CHLORIDE 0.9% 1,000 ML IV STA (08:10)
[2017-04-30] MEDS ORDERED: ONDANSETRON 4 MG/2 ML VIAL IVP STA (08:37)
[2017-04-30] MEDS ORDERED: MORPHINE SULFATE 4 MG/ML SYRINGE IVP STA (08:37)
[2017-04-30 08:43] LABS: Basophils % (A) 1 %; CH 32.1; CHCM 33.3; Eosinophils # (A) 0.1 k/uL (0-0.7); Eosinophils % (A) 1 %; HCT 43.1 % (34.0-46.0); HDW 2.38; HGB 14.1 gm/dL (11.4-16.0); Luc # (Auto) 0.07; Luc % (Auto) 1; Lymphocytes # (A) 1.6 k/uL (1.0-4.8); Lymphocytes % (A) 20 %; MCH 31.7 pg (25.0-35.0); MCHC 32.6 g/dL (31.0-37.0); Mean Platelet Volume 8.1; Monocytes # (A) 0.4 k/uL (0-1.0); Monocytes % (A) 5 %; Neutrophils # (A) 5.8 k/uL (1.3-7.7); Neutrophils % (A) 72 %; RBC 4.45 m/uL (3.80-5.40); RDW 13.4 % (11.5-15.5); WBC (Perox) 8.26
[2017-04-30 08:53] LABS: ALT 42 U/L (9-52); AST 24 U/L (14-36); Alkaline Phosphatase 77 U/L (38-126); Anion Gap 12 mmol/L; Blood Urea Nitrogen 7 mg/dL (7-17); Calcium 9.5 mg/dL (8.4-10.2); Carbon Dioxide 19 mmol/L (22-30); Chloride 111 mmol/L (98-107); Glucose 91 mg/dL (74-99); Magnesium 2.1 mg/dL (1.6-2.3); Non-African American GFR(MDRD) 57 (>60 ml/min/1.73 sqM); Potassium 4.1 mmol/L (3.5-5.1); Sodium 142 mmol/L (137-145); Total Bilirubin 0.4 mg/dL (0.2-1.3); Total Protein 6.7 g/dL (6.3-8.2)
[2017-04-30 08:56] LABS: INR 1.1 (<1.2); Partial Thromboplastin Time 23.6 sec (22.0-30.0); Prothrombin Time 11.1 sec (9.0-12.0)
--- NOTE | 2017-04-30 09:06 | XR ---
EXAMINATION TYPE: XR chest 2V DATE OF EXAM: 04/30/2017 COMPARISON: Chest x-ray August 31, 2016. HISTORY: Chest pain with nausea TECHNIQUE: Frontal and lateral views of the chest are obtained. FINDINGS: There is chronic left basilar opacity or scarring. There is no new air space opacity, pleu ral effusion, or pneumothorax seen. The cardiac silhouette size is within normal limits. The osseo us structures are intact. IMPRESSION: No acute cardiopulmonary process. No significant change from prior.
[2017-04-30 09:13] LABS: Creatine Kinase 150 U/L (30-135)
[2017-04-30 09:26] LABS: Troponin I <0.012 ng/mL (0.000-0.034)
[2017-04-30] MEDS ORDERED: NITROGLYCERIN SL TABS 0.4 MG TAB SUBLINGUAL PRN (10:27)
[2017-04-30] MEDS ORDERED: HEPARIN SODIUM,PORCINE 5,000 UNIT/ML 1 ML VIAL IV ONE (10:27)
[2017-04-30] MEDS ORDERED: HEPARIN SODIUM,PORCINE 5,000 UNIT/ML 1 ML VIAL IV PRN (10:27)
[2017-04-30] MEDS ORDERED: HEPARIN SODIUM,PORCINE/D5W PMX 25,000 UNIT in DEXTROSE/WATER 1 500ML.BAG IV SCH (10:30)
[2017-04-30] MEDS ORDERED: SODIUM CHLORIDE 0.9% 1,000 ML IV SCH (10:30)
[2017-04-30 14:24] VITALS: RESP 16
--- NOTE | 2017-04-30 15:06 | P.HPIM ---
History of Present Illness Patient is a 52-year-old pleasant female came in with compensative chest pain which started around 1 AM today morning woke up from sleep pressure-like centered sensation retrosternal, nonradiating associated with some nausea denied any lightheadedness denied any diaphoresis, about 7 x 10 in severity constant lasted for 3 hours still has the chest pain no aggravating or relieving factors. Doesn't change with movement, does have some pleuritic competent although d-dimer and chest x-ray are essentially within normal limits denied any shortness of breath. Patient denied any fever chills cough. Patient had a stress test about any ago which was essentially within normal limits patient does have family history of premature coronary artery disease in her sister and had coronary artery disease history in mother patient is not a smoker although is on multiple antipsychotic medications and patient is also on lithium carbonate for bipolar disorder. Patient first the 2 sets of troponins are negative EKG did not show any acute ST-T wave changes Review of Systems REVIEW OF SYSTEMS: CONSTITUTIONAL: No fever, no malaise, no fatigue. HEENT: No recent visual problems or hearing problems. Denied any sore throat. CARDIOVASCULAR: No chest pain, orthopnea, PND, no palpitations, no syncope. PULMONARY: No shortness of breath, no cough, no hemoptysis. GASTROINTESTINAL: No diarrhea, no nausea, no vomiting, no abdominal pain. Normoactive bowel sounds. NEUROLOGICAL: No headaches, no weakness, no numbness. HEMATOLOGICAL: Denies any bleeding or petechiae. GENITOURINARY: Denies any burning micturition, frequency, or urgency. MUSCULOSKELETAL/RHEUMATOLOGICAL: Denies any joint pain, swelling, or any muscle pain. ENDOCRINE: Denies any polyuria or polydipsia. The rest of the 14-point review of systems is negative. Past Medical History Past Medical History: Hyperlipidemia, Thyroid Disorder Additional Past Medical History / Comment(s): suicide attempt History of Any Multi-Drug Resistant Organisms: None Reported Past Surgical History: Section, Hysterectomy Additional Past Surgical History / Comment(s): x 2; Pt. states she's had a colonoscopy done. Past Anesthesia/Blood Transfusion Reactions: No Reported Reaction Additional Past Anesthesia/Blood Transfusion Reaction / Comment(s): no previous blood transfusion Smoking Status: Former smoker - Past Family History Father Family Medical History: Cancer, Neurologic Disorder Additional Family Medical History / Comment(s): Pt's. father had colon cancer and Parkinson's. Father at the age of 80yrs. Mother Family Medical History: Congestive Heart Failure (CHF) Additional Family Medical History / Comment(s): states "weak heart" Mother at the age of 90yrs. Sister(s) Family Medical History: Coronary Artery Disease (CAD), Myocardial Infarction ([place] ) Additional Family Medical History / Comment(s): 1 sister with hx of 2 cardiac stents, 1 other sister from heart related issues Medications and Allergies Home Medications Medication Instructions Recorded Confirmed Type Atorvastatin [Lipitor] 40 mg PO DAILY 30 Days 11/28/16 04/30/17 Rx Gabapentin [Neurontin] 600 mg PO HS 30 Days 11/28/16 04/30/17 Rx Levothyroxine Sodium [Synthroid] 100 mcg PO DAILY@0630 30 Days 11/28/16 Rx buPROPion XL [Wellbutrin XL] 300 mg PO DAILY 30 Days 11/28/16 04/30/17 Rx Gabapentin [Neurontin] 300 mg PO BID@0700,1200 04/30/17 04/30/17 History [place] Carbonate 300 mg PO HS 04/30/17 04/30/17 History QUEtiapine FUMARATE [Seroquel Xr] 600 mg PO DAILY@1900 04/30/17 04/30/17 History Allergies Allergy/AdvReac Type Severity Reaction Status Date / Time ibuprofen [From Motrin] Allergy Intermediate Rash/Hives Verified 04/30/17 07:10 tramadol HCl [From Ultram] Allergy Intermediate Itching Verified 04/30/17 07:10 Physical Exam Vitals: Vital Signs Temp Pulse Pulse Resp BP BP Pulse Ox 04/30/17 14:22 98 F 62 16 135/52 100 04/30/17 12:51 97.9 F 64 18 128/59 99 04/30/17 11:11 66 18 140/63 99 04/30/17 09:24 61 17 125/65 100 04/30/17 08:35 55 L 17 131/60 100 04/30/17 07:15 63 17 128/58 100 04/30/17 06:18 98.1 F 72 18 155/68 100 Intake and Output 09/26/17 09/26/17 09/26/17 06:59 14:59 22:59 Other: Weight 65.771 kg PHYSICAL EXAMINATION: GENERAL: The patient is alert and oriented x3, not in any acute distress. Well developed, well nourished. HEENT: Pupils are round and equally reacting to light. EOMI. No scleral icterus. No conjunctival pallor. Normocephalic, atraumatic. No pharyngeal erythema. No thyromegaly. CARDIOVASCULAR: S1 and S2 present. No murmurs, rubs, or gallops. PULMONARY: Chest is clear to auscultation, no wheezing or crackles. ABDOMEN: Soft, nontender, nondistended, normoactive bowel sounds. No palpable organomegaly. MUSCULOSKELETAL: No joint swelling or deformity. EXTREMITIES: No cyanosis, clubbing, or pedal edema. NEUROLOGICAL: Gross neurological examination did not reveal any focal deficits. SKIN: No rashes. Results CBC & Chem 7: 04/30/17 08:33 04/30/17 08:33 Labs: Abnormal Lab Results - Last 24 Hours (Table) 04/30/17 04/30/17 Range/Units 08:33 08:33 Chloride 111 H (98-107) mmol/L Carbon Dioxide 19 L (22-30) mmol/L Total Creatine Kinase 150 H (30-135) U/L Thrombosis Risk Factor Assmnt - Choose All That Apply Any of the Below Risk Factors Present?: Yes Each Factor Represents 1 point: Age 41-60 years, Obesity (BMI >25) Other Risk Factors: No Other congenital or acquired thrombophilia - If yes, enter type in comment: No Thrombosis Risk Factor Assessment Total Risk Factor Score: 2 Thrombosis Risk Factor Assessment Level: Low Risk Assessment and Plan Plan: #1 chest pain, constant May be musculoskeletal unsure of the exact etiology at this point of time will rule out acute coronary syndromes and unstable angina 1 more set of troponin cardiology was consulted. May need a stress test #2 non-anion gap metabolic acidosis: Secondary to hyperchloremia IV fluids will be discussed in your. #3 hyperlipidemia #4 hypothyroidism #5 bipolar disorder For above-mentioned chronic medical problems patient will be started at back on her home medications
[2017-04-30 16:32] LABS: Creatine Kinase 118 U/L (30-135)
[2017-04-30 16:46] LABS: Creatine Kinase MB 1.5 ng/mL (0.0-2.4); Troponin I <0.012 ng/mL (0.000-0.034)
[2017-04-30] MEDS: MORPHINE SULFATE 4 MG/ML SYRINGE IV PRN ×2 (17:18→20:35)
[2017-04-30 20:46] LABS: Creatine Kinase 120 U/L (30-135)
[2017-04-30 20:59] LABS: Creatine Kinase MB 1.6 ng/mL (0.0-2.4); Troponin I <0.012 ng/mL (0.000-0.034)
[2017-04-30] MEDS ORDERED: GABAPENTIN 300 MG CAP PO SCH (21:00)
[2017-04-30] MEDS ORDERED: LITHIUM CARBONATE 300 MG CAP PO SCH (21:00)
[2017-05-01] MEDS ORDERED: LEVOTHYROXINE 100 MCG TAB PO SCH (06:30)
[2017-05-01 08:02] LABS: Cholesterol 165 mg/dL (<200); HDL Cholesterol 50 mg/dL (40-60)
--- NOTE | 2017-05-01 08:48 | P.CRDCN ---
History of Present Illness History of present illness: Patient interviewed and examined. Presenting with atypical localized chest discomfort that gets better when she takes a deep breath. Recurrent in nature. 3 normal cardiac enzymes. ECG is normal Heart sounds are normal no murmurs or gallops. Due to his stress echo last year was normal. She has a history of dyslipidemia but is compliant with atorvastatin. Nondiabetic, current smoker Suggest Stop heparin after 3 normal cardiac enzymes No nitroglycerin If patient has any chest discomfort a repeat ECG stat should be performed and compared to the baseline If there are any ECG changes we will repeat a dobutamine stress echo Past Medical History Past Medical History: Hyperlipidemia, Thyroid Disorder Additional Past Medical History / Comment(s): suicide attempt History of Any Multi-Drug Resistant Organisms: None Reported Past Surgical History: Section, Hysterectomy Additional Past Surgical History / Comment(s): x 2; Pt. states she's had a colonoscopy done. Past Anesthesia/Blood Transfusion Reactions: No Reported Reaction Additional Past Anesthesia/Blood Transfusion Reaction / Comment(s): no previous blood transfusion Smoking Status: Former smoker - Past Family History Father Family Medical History: Cancer, Neurologic Disorder Additional Family Medical History / Comment(s): Pt's. father had colon cancer and Parkinson's. Father at the age of 80yrs. Mother Family Medical History: Congestive Heart Failure (CHF) Additional Family Medical History / Comment(s): states "weak heart" Mother at the age of 90yrs. Sister(s) Family Medical History: Coronary Artery Disease (CAD), Myocardial Infarction ([place] ) Additional Family Medical History / Comment(s): 1 sister with hx of 2 cardiac stents, 1 other sister from heart related issues Medications and Allergies Home Medications Medication Instructions Recorded Confirmed Type Atorvastatin [Lipitor] 40 mg PO DAILY 30 Days 11/28/16 04/30/17 Rx Gabapentin [Neurontin] 600 mg PO HS 30 Days 11/28/16 04/30/17 Rx Levothyroxine Sodium [Synthroid] 100 mcg PO DAILY@0630 30 Days 11/28/16 Rx buPROPion XL [Wellbutrin XL] 300 mg PO DAILY 30 Days 11/28/16 04/30/17 Rx Gabapentin [Neurontin] 300 mg PO BID@0700,1200 04/30/17 04/30/17 History [place] Carbonate 300 mg PO HS 04/30/17 04/30/17 History QUEtiapine FUMARATE [Seroquel Xr] 600 mg PO DAILY@1900 04/30/17 04/30/17 History Allergies Allergy/AdvReac Type Severity Reaction Status Date / Time ibuprofen [From Motrin] Allergy Intermediate Rash/Hives Verified 04/30/17 07:10 tramadol HCl [From Ultram] Allergy Intermediate Itching Verified 04/30/17 07:10 Physical Exam Vitals: Vital Signs Temp Pulse Pulse Resp BP BP Pulse Ox 05/01/17 08:00 97.6 F 60 16 106/68 99 05/01/17 04:00 66 16 83/49 100 05/01/17 00:00 16 04/30/17 23:50 97.7 F 72 16 127/68 98 04/30/17 20:00 16 04/30/17 19:40 97.9 F 47 L 16 130/62 98 04/30/17 14:22 98 F 62 16 135/52 100 04/30/17 12:51 97.9 F 64 18 128/59 99 04/30/17 11:11 66 18 140/63 99 04/30/17 09:24 61 17 125/65 100 Intake and Output 04/30/17 05/01/17 05/01/17 22:59 06:59 14:59 Intake Total 309.695 Balance 309.695 Intake: Intake, IV Titration 69.695 Amount Heparin Sodium,Porcine/ 69.695 D5w Pmx 25,000 unit In Dextrose/Water 1 500ml. bag @ 12 UNITS/KG/HR 15. 78 mls/hr IV .Q24H [facility] Rx #:[id number] Oral 240 Other: Voiding Method Toilet Toilet Results 05/01/17 06:46 04/30/17 08:33 Cardiac Enzymes 04/30/17 04/30/17 04/30/17 Range/Units 08:33 08:33 15:47 AST 24 (14-36) U/L CK-MB (CK-2) 2.0 1.5 (0.0-2.4) ng/mL Troponin I <0.012 <0.012 (0.000-0.034) ng/mL 04/30/17 Range/Units 20:10 AST (14-36) U/L CK-MB (CK-2) 1.6 (0.0-2.4) ng/mL Troponin I <0.012 (0.000-0.034) ng/mL Coagulation 04/30/17 04/30/17 04/30/17 Range/Units 08:33 15:47 23:26 PT 11.1 (9.0-12.0) sec APTT 23.6 124.6 H* 49.2 H (22.0-30.0) sec Lipids 05/01/17 Range/Units 06:34 Triglycerides 146 (<150) mg/dL Cholesterol 165 (<200) mg/dL HDL Cholesterol 50 (40-60) mg/dL CBC 05/01/17 Range/Units 06:46 Plt Count 245 (150-450) k/uL Comprehensive Metabolic Panel 04/30/17 Range/Units 08:33 Sodium 142 (137-145) mmol/L Potassium 4.1 (3.5-5.1) mmol/L Chloride 111 H (98-107) mmol/L Carbon Dioxide 19 L (22-30) mmol/L BUN 7 (7-17) mg/dL Creatinine 1.01 (0.52-1.04) mg/dL Glucose 91 (74-99) mg/dL Calcium 9.5 (8.4-10.2) mg/dL AST 24 (14-36) U/L ALT 42 (9-52) U/L Alkaline Phosphatase 77 (38-126) U/L Total Protein 6.7 (6.3-8.2) g/dL Albumin 4.2 (3.5-5.0) g/dL Current Medications Generic Name Dose Route Start Last Admin Trade Name Freq PRN Reason Stop Dose Admin Aspirin 325 mg 05/01/17 09:00 Aspirin PO DAILY [facility] Atorvastatin Calcium 40 mg 05/01/17 09:00 Lipitor PO DAILY [facility] Bupropion HCl 300 mg 05/01/17 09:00 Wellbutrin Xl PO DAILY [facility] Gabapentin 300 mg 05/01/17 07:00 Neurontin PO BID@0700,1200 [facility] Gabapentin 600 mg 04/30/17 21:00 04/30/17 20:35 Neurontin PO 600 mg HS [facility] Administration Heparin Sodium (Porcine) 0 unit 04/30/17 10:27 Heparin IV Q6HR PRN Low PTT Protocol Levothyroxine Sodium 100 mcg 05/01/17 06:30 05/01/17 06:03 Synthroid PO 100 mcg DAILY@0630 [facility] Administration [place] Carbonate 300 mg 04/30/17 21:00 04/30/17 20:35 [place] Carbonate PO 300 mg HS [facility] Administration Nitroglycerin 0.4 mg 04/30/17 10:27 Nitrostat SUBLINGUAL Q5M PRN Chest Pain Quetiapine Fumarate 600 mg 04/30/17 19:00 04/30/17 20:35 Seroquel Xr PO 600 mg DAILY@1900 [facility] Administration Intake and Output 04/30/17 05/01/17 05/01/17 22:59 06:59 14:59 Intake Total 309.695 Balance 309.695 Intake: Intake, IV Titration 69.695 Amount Heparin Sodium,Porcine/ 69.695 D5w Pmx 25,000 unit In Dextrose/Water 1 500ml. bag @ 12 UNITS/KG/HR 15. 78 mls/hr IV .Q24H [facility] Rx #:[id number] Oral 240 Other: Voiding Method Toilet Toilet 05/01/17 06:46 04/30/17 08:33
[2017-05-01] MEDS ORDERED: ATORVASTATIN 40 MG TAB PO SCH (09:00)
[2017-05-01] MEDS ORDERED: ASPIRIN 325 MG TAB PO SCH (09:00)
[2017-05-01] MEDS ORDERED: buPROPion XL 300 MG TAB.ER.24H PO SCH (09:00)
[2017-05-01] MEDS: GABAPENTIN 300 MG CAP PO SCH ×2 (09:36→14:39)
[2017-05-01 12:25] VITALS: BP 95/54; PULSE 87; TEMP 97.4
--- NOTE | 2017-05-01 13:21 | P.CRDCN ---
History of Present Illness Consult date: 05/01/17 History of present illness: This is a 52-year-old female. She presents with complaints of chest tightness midsternal region. This first occurred while she was sleeping and woke her up out of sleep. The pain persisted for a few hours and subsided on its own. It is recurrent in nature with no specific aggravating or alleviating factors verbalized. The pain actually gets better when she takes a deep breath. Troponin normal 3 EKG indicates sinus mechanism. She has a history of hyperlipidemia and takes Lipitor daily. Review of Systems Extensive review of systems performed, negative except mentioned in HPI. Past Medical History Past Medical History: Hyperlipidemia, Thyroid Disorder Additional Past Medical History / Comment(s): suicide attempt History of Any Multi-Drug Resistant Organisms: None Reported Past Surgical History: Section, Hysterectomy Additional Past Surgical History / Comment(s): x 2; Pt. states she's had a colonoscopy done. Past Anesthesia/Blood Transfusion Reactions: No Reported Reaction Additional Past Anesthesia/Blood Transfusion Reaction / Comment(s): no previous blood transfusion Smoking Status: Former smoker - Past Family History Father Family Medical History: Cancer, Neurologic Disorder Additional Family Medical History / Comment(s): Pt's. father had colon cancer and Parkinson's. Father at the age of 80yrs. Mother Family Medical History: Congestive Heart Failure (CHF) Additional Family Medical History / Comment(s): states "weak heart" Mother at the age of 90yrs. Sister(s) Family Medical History: Coronary Artery Disease (CAD), Myocardial Infarction ([place] ) Additional Family Medical History / Comment(s): 1 sister with hx of 2 cardiac stents, 1 other sister from heart related issues Medications and Allergies Home Medications Medication Instructions Recorded Confirmed Type Atorvastatin [Lipitor] 40 mg PO DAILY 30 Days 11/28/16 04/30/17 Rx Gabapentin [Neurontin] 600 mg PO HS 30 Days 11/28/16 04/30/17 Rx Levothyroxine Sodium [Synthroid] 100 mcg PO DAILY@0630 30 Days 11/28/16 Rx buPROPion XL [Wellbutrin XL] 300 mg PO DAILY 30 Days 11/28/16 04/30/17 Rx Gabapentin [Neurontin] 300 mg PO BID@0700,1200 04/30/17 04/30/17 History [place] Carbonate 300 mg PO HS 04/30/17 04/30/17 History QUEtiapine FUMARATE [Seroquel Xr] 600 mg PO DAILY@1900 04/30/17 04/30/17 History Allergies Allergy/AdvReac Type Severity Reaction Status Date / Time ibuprofen [From Motrin] Allergy Intermediate Rash/Hives Verified 04/30/17 07:10 tramadol HCl [From Ultram] Allergy Intermediate Itching Verified 04/30/17 07:10 Physical Exam Vitals: Vital Signs Temp Pulse Resp BP Pulse Ox 05/01/17 12:00 97.4 F L 87 16 95/54 97 05/01/17 08:00 97.6 F 60 16 106/68 99 05/01/17 04:00 66 16 83/49 100 05/01/17 00:00 16 04/30/17 23:50 97.7 F 72 16 127/68 98 04/30/17 20:00 16 04/30/17 19:40 97.9 F 47 L 16 130/62 98 04/30/17 14:22 98 F 62 16 135/52 100 Intake and Output 04/30/17 05/01/17 05/01/17 22:59 06:59 14:59 Intake Total 309.695 640 Balance 309.695 640 Intake: Intake, IV Titration 69.695 Amount Heparin Sodium,Porcine/ 69.695 D5w Pmx 25,000 unit In Dextrose/Water 1 500ml. bag @ 12 UNITS/KG/HR 15. 78 mls/hr IV .Q24H [facility] Rx #:[id number] Oral 240 640 Other: Voiding Method Toilet Toilet Toilet GENERAL: This is a 52-year-old female in no apparent distress at the time of my examination. HEENT: Head is atraumatic, normocephalic. Pupils are equal, round. Sclerae anicteric. Conjunctivae are clear. Mucous membranes of the mouth are moist. Neck is supple. There is no jugular venous distention. No carotid bruit is heard. LUNGS: Clear to auscultation no wheezes, rales or rhonchi. No chest wall tenderness is noted on palpation or with deep breathing. HEART: Regular rate and rhythm without murmurs, rubs or gallops. S1 and S2 heard. ABDOMEN: Soft, nontender. Bowel sounds are heard. No organomegaly noted. EXTREMITIES: 2+ peripheral pulses with no evidence of peripheral edema and no calf tenderness noted. NEUROLOGIC: Patient is awake, alert and oriented x3. Results 05/01/17 06:46 04/30/17 08:33 Cardiac Enzymes 04/30/17 04/30/17 Range/Units 15:47 20:10 CK-MB (CK-2) 1.5 1.6 (0.0-2.4) ng/mL Troponin I <0.012 <0.012 (0.000-0.034) ng/mL Coagulation 04/30/17 04/30/17 Range/Units 15:47 23:26 APTT 124.6 H* 49.2 H (22.0-30.0) sec Lipids 05/01/17 Range/Units 06:34 Triglycerides 146 (<150) mg/dL Cholesterol 165 (<200) mg/dL HDL Cholesterol 50 (40-60) mg/dL CBC 05/01/17 Range/Units 06:46 Plt Count 245 (150-450) k/uL Current Medications Generic Name Dose Route Start Last Admin Trade Name Freq PRN Reason Stop Dose Admin Aspirin 325 mg 05/01/17 09:00 05/01/17 09:36 Aspirin PO 325 mg DAILY [facility]AN Administration Atorvastatin Calcium 40 mg 05/01/17 09:00 05/01/17 09:36 Lipitor PO 40 mg DAILY MIAN Administration Bupropion HCl 300 mg 05/01/17 09:00 05/01/17 09:36 Wellbutrin Xl PO 300 mg DAILY MIAN Administration Gabapentin 300 mg 05/01/17 07:00 05/01/17 09:36 Neurontin PO 300 mg BID@0700,1200 [facility] Administration Gabapentin 600 mg 04/30/17 21:00 04/30/17 20:35 Neurontin PO 600 mg HS MIAN Administration Heparin Sodium (Porcine) 0 unit 04/30/17 10:27 Heparin IV Q6HR PRN Low PTT Protocol Levothyroxine Sodium 100 mcg 05/01/17 06:30 05/01/17 06:03 Synthroid PO 100 mcg DAILY@0630 MIAN Administration [place] Carbonate 300 mg 04/30/17 21:00 04/30/17 20:35 [place] Carbonate PO 300 mg HS MIAN Administration Nitroglycerin 0.4 mg 04/30/17 10:27 Nitrostat SUBLINGUAL Q5M PRN Chest Pain Quetiapine Fumarate 600 mg 04/30/17 19:00 04/30/17 20:35 Seroquel Xr PO 600 mg DAILY@1900 MIAN Administration Intake and Output 04/30/17 05/01/17 05/01/17 22:59 06:59 14:59 Intake Total 309.695 640 Balance 309.695 640 Intake: Intake, IV Titration 69.695 Amount Heparin Sodium,Porcine/ 69.695 D5w Pmx 25,000 unit In Dextrose/Water 1 500ml. bag @ 12 UNITS/KG/HR 15. 78 mls/hr IV .Q24H [facility] Rx #:[id number] Oral 240 640 Other: Voiding Method Toilet Toilet Toilet 05/01/17 06:46 04/30/17 08:33 EKG Interpretations (text) EKG indicates sinus mechanism with no acute ST or T-wave abnormalities. Assessment and Plan Plan: ASSESSMENT 1. Chest pain, atypical 2. Dyslipidemia 3. Tobacco abuse PLAN Discontinue heparin and remove nitroglycerin patch. Continue to observe patient for the next few hours and advised her to increase her activity. If she should experience any further episodes of chest pain a stat EKG should be performed. If there are any EKG changes we'll repeat a dobutamine stress echo. If she continues to be chest pain-free from a cardiac standpoint she is stable for discharge home to follow-up with her primary care doctor. Smoking cessation was discussed at length. Nurse Practitioner note has been reviewed, I agree with a documented findings and plan of care. Patient was seen and examined.
--- NOTE | 2017-05-01 13:29 | P.DS ---
Providers Date of admission: 04/30/17 10:31 Attending physician: Kenzie Levy Consults: 04/30/17 10:27 Consult Physician Urgent Consulting Provider: Crow Resendiz Consult Reason/Comments: cp Do you want consulting provider notified?: Yes Primary care physician: Chiqui Viramontes [facility] Course: 52-year-old female was admitted for chest pain rule out acute coronary syndromes rule out acute coronary syndromes and unstable angina and cardiology valid the patient and patient appears to have your musculoskeletal chest pain are her chest pain may be psychosomatic in nature she is still complaining of chest and was asked to take Tylenol at home for pain and patient will be discharged today. PHYSICAL EXAMINATION: GENERAL: The patient is alert and oriented x3, not in any acute distress. Well developed, well nourished. HEENT: Pupils are round and equally reacting to light. EOMI. No scleral icterus. No conjunctival pallor. Normocephalic, atraumatic. No pharyngeal erythema. No thyromegaly. CARDIOVASCULAR: S1 and S2 present. No murmurs, rubs, or gallops. PULMONARY: Chest is clear to auscultation, no wheezing or crackles. ABDOMEN: Soft, nontender, nondistended, normoactive bowel sounds. No palpable organomegaly. MUSCULOSKELETAL: No joint swelling or deformity. EXTREMITIES: No cyanosis, clubbing, or pedal edema. NEUROLOGICAL: Gross neurological examination did not reveal any focal deficits. SKIN: No rashes. #1 chest pain, May be musculoskeletal patient was evaluated by cardiology #2 non-anion gap metabolic acidosis: Due to hyperchloremia #3 hyperlipidemia #4 hypothyroidism #5 bipolar disorder Patient Condition at Discharge: Fair Plan - Discharge Summary New Discharge Prescriptions: No Action Atorvastatin [Lipitor] 40 mg PO DAILY 30 Days Gabapentin [Neurontin] 600 mg PO HS 30 Days Levothyroxine Sodium [Synthroid] 100 mcg PO DAILY@0630 30 Days buPROPion XL [Wellbutrin XL] 300 mg PO DAILY 30 Days QUEtiapine FUMARATE [Seroquel Xr] 600 mg PO DAILY@1900 [place] Carbonate 300 mg PO HS Gabapentin [Neurontin] 300 mg PO BID@0700,1200 Discharge Medication List Atorvastatin [Lipitor] 40 mg PO DAILY 30 Days 11/28/16 [Rx] Gabapentin [Neurontin] 600 mg PO HS 30 Days 11/28/16 [Rx] Levothyroxine Sodium [Synthroid] 100 mcg PO DAILY@0630 30 Days 11/28/16 [Rx] buPROPion XL [Wellbutrin XL] 300 mg PO DAILY 30 Days 11/28/16 [Rx] Gabapentin [Neurontin] 300 mg PO BID@0700,1200 04/30/17 [History] [place] Carbonate 300 mg PO HS 04/30/17 [History] QUEtiapine FUMARATE [Seroquel Xr] 600 mg PO DAILY@1900 04/30/17 [History] Follow up Appointment(s)/Referral(s): None,Stated [REFERRING] - 1-2 days Discharge Disposition: HOME SELF-CARE
== END 2017-05-01 14:44 | disposition home or self-care (01) ==
LOC: EC 06:15 → 3OBS 10:31
PROVIDERS: ADMIT Hospitalist; ATTEND Hospitalist
DX: R07.89 Other chest pain (principal); R07.81 Pleurodynia; E87.2 Acidosis; E87.8 Other disorders of electrolyte and fluid balance, not elsewhere classified; E78.5 Hyperlipidemia, unspecified; E03.9 Hypothyroidism, unspecified; F31.9 Bipolar disorder, unspecified; F17.200 Nicotine dependence, unspecified, uncomplicated; E66.9 Obesity, unspecified; Z68.27 Body mass index [BMI] 27.0-27.9, adult; Z79.899 Other long term (current) drug therapy; Z88.8 Allergy status to other drugs, medicaments and biological substances; Z88.5 Allergy status to narcotic agent; F10.10 Alcohol abuse, uncomplicated; Z82.0 Family history of epilepsy and other diseases of the nervous system; Z80.0 Family history of malignant neoplasm of digestive organs; Z82.49 Family history of ischemic heart disease and other diseases of the circulatory system
CPT/HCPCS: 36415; 71020; 80053; 80061; 80178; 82550; 82553; 83690; 83735; 84484; 85025; 85049; 85379; 85610; 85730; 93005; 96365; 96366; 96375; 96376; 99291

== ENCOUNTER 2019-01-22 08:48 | Emergency (ER) | payer OTHER ==
[2019-01-22] MEDS ORDERED: PANTOPRAZOLE 40 MG/10 ML VIAL IVP STA (08:57)
[2019-01-22] MEDS ORDERED: MAG HYDROX/AL HYDROX/SIMETH 30 ML, HYOSCYAMINE ELIXIR 10 ML, CIMETIDINE HCL 300 MG, LID... PO STA ×4 (08:57)
[2019-01-22] MEDS ORDERED: SODIUM CHLORIDE 0.9% 1,000 ML IV STA (08:57)
--- NOTE | 2019-01-22 09:27 | ED ---
Abdominal Pain HPI - General Chief Complaint: Abdominal Pain Stated Complaint: Epigastric Pain Time Seen by Provider: 01/22/19 08:54 Source: patient, EMS, RN notes reviewed Mode of arrival: EMS Limitations: no limitations - History of Present Illness Initial Comments: 53-year-old female presents emergency department via EMS chief complaint abdominal pain, nausea. Patient that she had this pain a few days ago and alleviated but returned this morning. Patient states that she had no vomiting today but did have vomiting the past. She's had normal bowel movements denies constipation, diarrhea, dysuria or hematuria. Patient has no current complaints of chest pain, shortness breath, headache, focal weakness. She was dizzy a few days ago but that also has resolved. Patient was given Zofran by EMS which has helped. - Related Data Home Medications Medication Instructions Recorded Confirmed Gabapentin [Neurontin] 300 mg PO BID@0700,1200 04/30/17 01/22/19 [place] Carbonate 300 mg PO HS 04/30/17 01/22/19 QUEtiapine FUMARATE [Seroquel Xr] 600 mg PO DAILY@1900 04/30/17 01/22/19 Previous Rx's Medication Instructions Recorded Atorvastatin [Lipitor] 40 mg PO DAILY 30 Days tab 11/28/16 Gabapentin [Neurontin] 600 mg PO HS 30 Days cap 11/28/16 Levothyroxine Sodium [Synthroid] 100 mcg PO DAILY@0630 30 Days tab 11/28/16 buPROPion XL [Wellbutrin XL] 300 mg PO DAILY 30 Days tab.er.24h 11/28/16 Cephalexin [Keflex] 500 mg PO Q8HR #21 cap 01/22/19 Omeprazole 40 mg PO DAILY #14 capsule. 01/22/19 Ondansetron Odt [Zofran Odt] 4 mg PO Q8HR PRN #10 tab 01/22/19 Allergies Allergy/AdvReac Type Severity Reaction Status Date / Time ibuprofen [From Motrin] Allergy Intermediate Rash/Hives Verified 01/22/19 09:18 tramadol HCl [From Ultram] Allergy Intermediate Itching Verified 01/22/19 09:18 Review of Systems ROS Statement: Those systems with pertinent positive or pertinent negative responses have been documented in the HPI. ROS Other: All systems not noted in ROS Statement are negative. Past Medical History Past Medical History: Hyperlipidemia, Thyroid Disorder Additional Past Medical History / Comment(s): suicide attempt History of Any Multi-Drug Resistant Organisms: None Reported Past Surgical History: Section, Hysterectomy Additional Past Surgical History / Comment(s): x 2; Pt. states she's had a colonoscopy done. Past Anesthesia/Blood Transfusion Reactions: No Reported Reaction Additional Past Anesthesia/Blood Transfusion Reaction / Comment(s): no previous blood transfusion Past Psychological History: Anxiety, Bipolar, Depression Smoking Status: Former smoker - Past Family History Father Family Medical History: Cancer, Neurologic Disorder Additional Family Medical History / Comment(s): Pt's. father had colon cancer and Parkinson's. Father at the age of 80yrs. Mother Family Medical History: Congestive Heart Failure (CHF) Additional Family Medical History / Comment(s): states "weak heart" Mother at the age of 90yrs. Sister(s) Family Medical History: Coronary Artery Disease (CAD), Myocardial Infarction ([place]) Additional Family Medical History / Comment(s): 1 sister with hx of 2 cardiac stents, 1 other sister from heart related issues General Exam Limitations: no limitations General appearance: alert, in no apparent distress Head exam: Present: atraumatic, normocephalic, normal inspection Eye exam: Present: normal appearance, PERRL, EOMI. Absent: scleral icterus, conjunctival injection, periorbital swelling ENT exam: Present: mucous membranes moist. Absent: normal exam, normal oropharynx (Edentulous) Neck exam: Present: normal inspection, full ROM. Absent: tenderness, meningismus, lymphadenopathy Respiratory exam: Present: normal lung sounds bilaterally. Absent: respiratory distress, wheezes, rales, rhonchi, stridor Cardiovascular Exam: Present: regular rate, normal rhythm, normal heart sounds. Absent: systolic murmur, diastolic murmur, rubs, gallop, clicks GI/Abdominal exam: Present: soft, tenderness (Left upper quadrant, epigastric tenderness), normal bowel sounds. Absent: distended, guarding, rebound, rigid Back exam: Absent: CVA tenderness (R), CVA tenderness (L) Neurological exam: Present: alert, oriented X3, CN II-XII intact Skin exam: Present: warm, dry, intact, normal color. Absent: rash Course Vital Signs 01/22/19 09:07 Temperature 98.0 F Pulse Rate 85 Respiratory 16 Rate Blood Pressure 116/67 O2 Sat by Pulse 98 Oximetry Medical Decision Making - Medical Decision Making 53-year-old female presented from it went of abdominal pain. Patient lab, x-ray urinalysis. X-ray shows moderate stool burden, urinalysis reveals evidence of urinary tract infection and patient clinically has symptoms of gastritis. Patient will be discharged with antiemetics, antibiotics. Patient return for any worsening symptoms or follow-up PCP in 2 days. - Lab Data Result diagrams: 01/22/19 09:00 01/22/19 09:00 Lab Results 01/22/19 01/22/19 01/22/19 Range/Units 09:00 09:00 09:00 WBC 9.7 (3.8-10.6) k/uL RBC 3.97 (3.80-5.40) m/uL Hgb 12.3 (11.4-16.0) gm/dL Hct 38.1 (34.0-46.0) % MCV 96.0 (80.0-100.0) fL MCH 30.9 (25.0-35.0) pg MCHC 32.2 (31.0-37.0) g/dL RDW 13.6 (11.5-15.5) % Plt Count 329 (150-450) k/uL Neutrophils % 79 % Lymphocytes % 12 % Monocytes % 5 % Eosinophils % 3 % Basophils % 0 % Neutrophils # 7.7 (1.3-7.7) k/uL Lymphocytes # 1.1 (1.0-4.8) k/uL Monocytes # 0.5 (0-1.0) k/uL Eosinophils # 0.3 (0-0.7) k/uL Basophils # 0.0 (0-0.2) k/uL Sodium 142 (137-145) mmol/L Potassium 4.2 (3.5-5.1) mmol/L Chloride 111 H (98-107) mmol/L Carbon Dioxide 22 (22-30) mmol/L Anion Gap 9 mmol/L BUN 22 H (7-17) mg/dL Creatinine 1.24 H (0.52-1.04) mg/dL Est GFR (CKD-EPI)AfAm 57 (>60 ml/min/1.73 sqM) Est GFR (CKD-EPI)NonAf 49 (>60 ml/min/1.73 sqM) Glucose 102 H (74-99) mg/dL Calcium 9.9 (8.4-10.2) mg/dL Magnesium 2.0 (1.6-2.3) mg/dL Total Bilirubin 0.3 (0.2-1.3) mg/dL AST 34 (14-36) U/L ALT 47 (9-52) U/L Alkaline Phosphatase 74 (38-126) U/L Troponin I (0.000-0.034) ng/mL Total Protein 7.1 (6.3-8.2) g/dL Albumin 4.5 (3.5-5.0) g/dL Amylase 125 H (30-110) U/L Lipase 236 (23-300) U/L Urine Color Colorless Urine Appearance Clear (Clear) Urine pH 6.5 (5.0-8.0) Ur Specific [place] 1.008 (1.001-1.035) Urine Protein Negative (Negative) Urine Glucose (UA) Negative (Negative) Urine Ketones Negative (Negative) Urine Blood Negative (Negative) Urine Nitrite Negative (Negative) Urine Bilirubin Negative (Negative) Urine Urobilinogen <2.0 (<2.0) mg/dL Ur Leukocyte Esterase Large H (Negative) Urine RBC <1 (0-5) /hpf Urine WBC 93 H (0-5) /hpf Ur Squamous Epith Cells <1 (0-4) /hpf Urine Bacteria Many H (None) /hpf 01/22/19 Range/Units 09:00 WBC (3.8-10.6) k/uL RBC (3.80-5.40) m/uL Hgb (11.4-16.0) gm/dL Hct (34.0-46.0) % MCV (80.0-100.0) fL MCH (25.0-35.0) pg MCHC (31.0-37.0) g/dL RDW (11.5-15.5) % Plt Count (150-450) k/uL Neutrophils % % Lymphocytes % % Monocytes % % Eosinophils % % Basophils % % Neutrophils # (1.3-7.7) k/uL Lymphocytes # (1.0-4.8) k/uL Monocytes # (0-1.0) k/uL Eosinophils # (0-0.7) k/uL Basophils # (0-0.2) k/uL Sodium (137-145) mmol/L Potassium (3.5-5.1) mmol/L Chloride (98-107) mmol/L Carbon Dioxide (22-30) mmol/L Anion Gap mmol/L BUN (7-17) mg/dL Creatinine (0.52-1.04) mg/dL Est GFR (CKD-EPI)AfAm (>60 ml/min/1.73 sqM) Est GFR (CKD-EPI)NonAf (>60 ml/min/1.73 sqM) Glucose (74-99) mg/dL Calcium (8.4-10.2) mg/dL Magnesium (1.6-2.3) mg/dL Total Bilirubin (0.2-1.3) mg/dL AST (14-36) U/L ALT (9-52) U/L Alkaline Phosphatase (38-126) U/L Troponin I <0.012 (0.000-0.034) ng/mL Total Protein (6.3-8.2) g/dL Albumin (3.5-5.0) g/dL Amylase (30-110) U/L Lipase (23-300) U/L Urine Color Urine Appearance (Clear) Urine pH (5.0-8.0) Ur Specific [place] (1.001-1.035) Urine Protein (Negative) Urine Glucose (UA) (Negative) Urine Ketones (Negative) Urine Blood (Negative) Urine Nitrite (Negative) Urine Bilirubin (Negative) Urine Urobilinogen (<2.0) mg/dL Ur Leukocyte Esterase (Negative) Urine RBC (0-5) /hpf Urine WBC (0-5) /hpf Ur Squamous Epith Cells (0-4) /hpf Urine Bacteria (None) /hpf - EKG Data EKG Comments: EKG performed at 9:13 normal sinus rhythm rate of 94 MI 186 QRS 74 QT/QTC 386/482 Disposition Clinical Impression: UTI (urinary tract infection), Abdominal pain, Gastritis Disposition: HOME SELF-CARE Condition: Stable Instructions (If sedation given, give patient instructions): Abdominal Pain (ED) Additional Instructions: Please return to the Emergency Department if symptoms worsen or any other concerns. Prescriptions: Cephalexin [Keflex] 500 mg PO Q8HR #21 cap Omeprazole 40 mg PO DAILY #14 capsule. Ondansetron Odt [Zofran Odt] 4 mg PO Q8HR PRN #10 tab PRN Reason: Nausea Is patient prescribed a controlled substance at d/c from ED?: No Referrals: Chiqui Viramontes MD [Primary Care Provider] - 1-2 days Time of Disposition: 11:37
--- NOTE | 2019-01-22 09:44 | XR ---
EXAMINATION TYPE: XR KUB DATE OF EXAM: 01/22/2019 COMPARISON: NONE HISTORY: Chest pain and vomiting TECHNIQUE: One view abdominal series FINDINGS: Left lower lobe consolidation noted. Calcification the right abdomen measuring 3 mm could be related to renal stone. Hypertrophic and degenerative changes spine. Bowel gas pattern nonspecific. IMPRESSION: 1. Correlate for left lower lobe pneumonia. 2. Possible small right renal stone.
[2019-01-22 09:46] LABS: Basophils % (A) 0 %; Eosinophils # (A) 0.3 k/uL (0-0.7); Eosinophils % (A) 3 %; HCT 38.1 % (34.0-46.0); HGB 12.3 gm/dL (11.4-16.0); Lymphocytes # (A) 1.1 k/uL (1.0-4.8); Lymphocytes % (A) 12 %; MCH 30.9 pg (25.0-35.0); MCHC 32.2 g/dL (31.0-37.0); Mean Platelet Volume 7.6; Monocytes # (A) 0.5 k/uL (0-1.0); Monocytes % (A) 5 %; Neutrophils # (A) 7.7 k/uL (1.3-7.7); Neutrophils % (A) 79 %; Platelet Count 329 k/uL (150-450); RBC 3.97 m/uL (3.80-5.40); RDW 13.6 % (11.5-15.5); WBC 9.7 k/uL (3.8-10.6)
[2019-01-22 09:52] LABS: Appearance,Urine Clear (Clear); Bacteria,Urine Many /hpf; Bilirubin,Urine Negative (Negative); Blood,Urine Negative (Negative); Color,Urine Colorless; Glucose,Urine (UA) Negative (Negative); Ketones,Urine Negative (Negative); Leukocyte Esterase,Urine Large (Negative); Nitrite,Urine Negative (Negative); PH, Urine 6.5 (5.0-8.0); Protein,Urine Negative (Negative); RBC,Urine <1 /hpf (0-5); Specific Gravity,Urine 1.008 (1.001-1.035); Squamous Epithelial Cell,Urine <1 /hpf (0-4); Urobilinogen,Urine <2.0 mg/dL (<2.0); WBC,Urine 93 /hpf (0-5)
[2019-01-22] MEDS ORDERED: cefTRIAXone IN SWFI 1,000 MG/10 ML SYRINGE IVP STA (09:53)
[2019-01-22 10:10] LABS: Albumin 4.5 g/dL (3.5-5.0); Calcium 9.9 mg/dL (8.4-10.2); Potassium 4.2 mmol/L (3.5-5.1); Total Bilirubin 0.3 mg/dL (0.2-1.3); Total Protein 7.1 g/dL (6.3-8.2)
[2019-01-22 11:53] VITALS: BP 125/69; PULSE 91; RESP 18; TEMP 97.8
== END 2019-01-22 11:52 | disposition home or self-care (01) ==
LOC: EC 08:48
DX: K29.70 Gastritis, unspecified, without bleeding (principal); N39.0 Urinary tract infection, site not specified; F31.9 Bipolar disorder, unspecified; F41.9 Anxiety disorder, unspecified; Z87.891 Personal history of nicotine dependence; Z88.5 Allergy status to narcotic agent; Z88.6 Allergy status to analgesic agent; Z79.899 Other long term (current) drug therapy; Z80.0 Family history of malignant neoplasm of digestive organs
CPT/HCPCS: 36415; 93005; 80053; 82150; 83690; 83735; 84484; 85025; 81001; 87086; 74018; 99284; 96374; 96375; 96361; J0696; C9113

== ENCOUNTER 2019-06-04 10:13 | Emergency (ER) | payer OTHER ==
[2019-06-04 10:21] VITALS: BP 133/64; PULSE 83; RESP 20; TEMP 97.7
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
--- NOTE | 2019-06-04 11:28 | XR ---
EXAMINATION TYPE: XR chest 2V DATE OF EXAM: 06/04/2019 COMPARISON: 04/30/17 HISTORY: Shortness of breath TECHNIQUE: Frontal and lateral views of the chest are obtained. FINDINGS: Scattered senescent parenchymal changes noted. Hyperinflation compatible with COPD. No evidence for infiltrate. No evidence for atelectasis. Heart size is stable. Mediastinal structures are stable and grossly unremarkable. No evidence for hilar prominence. Degenerative changes dorsal spine. IMPRESSION: 1. No evidence for acute pulmonary disease.
[2019-06-04] MEDS ORDERED: LIDOCAINE 5% PATCH TOPICAL STA (11:55)
== END 2019-06-04 12:00 | disposition home or self-care (01) ==
LOC: EC 10:13
DX: S20.212A Contusion of left front wall of thorax, initial encounter (principal); E78.5 Hyperlipidemia, unspecified; E07.9 Disorder of thyroid, unspecified; F41.9 Anxiety disorder, unspecified; F31.9 Bipolar disorder, unspecified; Z79.890 Hormone replacement therapy; Z79.899 Other long term (current) drug therapy; Z88.5 Allergy status to narcotic agent; Z88.6 Allergy status to analgesic agent; Z87.891 Personal history of nicotine dependence; W51.XXXA Accidental striking against or bumped into by another person, initial encounter; Y92.512 Supermarket, store or market as the place of occurrence of the external cause
CPT/HCPCS: 71046; 93005; 99285

== ENCOUNTER 2019-06-04 16:39 | Emergency (ER) | payer OTHER ==
[2019-06-04] MEDS ORDERED: SODIUM CHLORIDE 0.9% 500 ML 500 ML IV STA (17:02)
[2019-06-04 18:04] LABS: Basophils # (A) 0.1 k/uL (0-0.2); Basophils % (A) 1 %; Eosinophils # (A) 0.3 k/uL (0-0.7); Eosinophils % (A) 4 %; HGB 13.8 gm/dL (11.4-16.0); Lymphocytes # (A) 1.7 k/uL (1.0-4.8); Lymphocytes % (A) 25 %; MCH 31.8 pg (25.0-35.0); MCHC 32.9 g/dL (31.0-37.0); MCV 96.5 fL (80.0-100.0); Mean Platelet Volume 7.1; Monocytes # (A) 0.5 k/uL (0-1.0); Monocytes % (A) 7 %; Neutrophils # (A) 4.2 k/uL (1.3-7.7); Neutrophils % (A) 61 %; Platelet Count 335 k/uL (150-450); RBC 4.36 m/uL (3.80-5.40); RDW 12.4 % (11.5-15.5); WBC 6.9 k/uL (3.8-10.6)
[2019-06-04 18:17] LABS: D-Dimer <0.17 mg/L FEU (<0.60); Partial Thromboplastin Time 23.6 sec (22.0-30.0); Prothrombin Time 10.4 sec (9.0-12.0)
[2019-06-04 18:18] LABS: Albumin 4.5 g/dL (3.5-5.0); Calcium 11.4 mg/dL (8.4-10.2); Potassium 4.1 mmol/L (3.5-5.1); Total Bilirubin 0.3 mg/dL (0.2-1.3); Total Protein 7.4 g/dL (6.3-8.2)
--- NOTE | 2019-06-04 18:51 | XR ---
EXAMINATION TYPE: XR chest 2V DATE OF EXAM: 06/04/2019 COMPARISON: Today HISTORY: Left-sided rib pain TECHNIQUE: Frontal and lateral views of the chest are obtained. FINDINGS: Heart and mediastinum are normal. There is small linear density at the left lung base. The re is no pleural effusion or pneumothorax. There are chest leads. I see no definite rib fracture. IMPRESSION: Minimal subsegmental atelectasis left lung base unchanged. Normal heart. No pneumothorax .
[2019-06-04] MEDS ORDERED: Acetaminophen-Codeine 300-30mg TAB PO STA (19:35)
[2019-06-04] MEDS ORDERED: ACET/COD 300 MG/30 MG STARTER PACK 6 TAB BTL PO STA (19:35)
--- NOTE | 2019-06-04 19:41 | ED ---
General Adult HPI - General Chief complaint: Recheck/Abnormal Lab/Rx Stated complaint: RIB PAIN Time Seen by Provider: 06/04/19 16:44 Source: patient, RN notes reviewed, old records reviewed Mode of arrival: EMS Limitations: no limitations - History of Present Illness Initial comments: 54 old female patient presents ED chief complaint of pain, hematemesis. Patient reports that yesterday she stumbled in a store, fell into a shelving unit. Patient has pain in that region on her left parasternal left rib region. Patient was that she was seen here earlier today and had a negative x-ray and EKG. Patient puts that she went home, felt nauseous had approximately 2 episodes of nausea vomiting. Patient proceeded this is blood streaked. Patient denies any other complaints. Patient was of the pain she is experiencing is reproducible and it is in the area of the minor trauma she experienced. Systemic: Pt denies fatigue, fever/chills, rash. Pt denies weakness, night sweats, weight loss. Neuro: Pt denies headache, visual disturbances, syncope or pre-syncope. HEENT: Pt denies ocular discharge or irritation, otalgia, rhinorrhea, pharyngitis or notable lymphadenopathy. Cardiopulmonary: Pt denies SOB, heart palpitations, dyspnea on exertion. Abdominal/GI: Pt denies abdominal pain, n/v/d. : Pt denies dysuria, burning w/ urination, frequency/urgency. Denies new onset urinary or bowel incontinence. MSK: Pt denies myalgia, loss of strength or function in extremities. Neuro: Pt denies new onset weakness, paresthesias. - Related Data Home Medications Medication Instructions Recorded Confirmed Gabapentin [Neurontin] 300 mg PO TID 04/30/17 06/04/19 [place] Carbonate 300 mg PO TID 04/30/17 06/04/19 QUEtiapine FUMARATE [Seroquel Xr] 600 mg PO HS 04/30/17 06/04/19 Albuterol Nebulized [Ventolin 2.5 mg INHALATION RT-Q6H PRN 06/04/19 06/04/19 Nebulized] Atorvastatin [Lipitor] 40 mg PO HS 06/04/19 06/04/19 Levothyroxine Sodium [Synthroid] 125 mcg PO DAILY 06/04/19 06/04/19 cloNIDine HCL [Catapres] 0.1 mg PO DAILY PRN 06/04/19 06/04/19 Previous Rx's Medication Instructions Recorded buPROPion XL [Wellbutrin XL] 300 mg PO DAILY 30 Days tab.er.24h 11/28/16 valACYclovir HCL [Valtrex] 1,000 mg PO Q8HR 7 Days #21 tablet 06/04/19 Allergies Allergy/AdvReac Type Severity Reaction Status Date / Time ibuprofen [From Motrin] Allergy Intermediate Rash/Hives Verified 06/04/19 10:42 tramadol HCl [From Ultram] Allergy Intermediate Itching Verified 06/04/19 10:42 Review of Systems ROS Statement: Those systems with pertinent positive or pertinent negative responses have been documented in the HPI. ROS Other: All systems not noted in ROS Statement are negative. Past Medical History Past Medical History: Hyperlipidemia, Thyroid Disorder Additional Past Medical History / Comment(s): suicide attempt History of Any Multi-Drug Resistant Organisms: None Reported Past Surgical History: Section, Hysterectomy Additional Past Surgical History / Comment(s): x 2; Pt. states she's h ad a colonoscopy done. Past Anesthesia/Blood Transfusion Reactions: No Reported Reaction Additional Past Anesthesia/Blood Transfusion Reaction / Comment(s): no previous blood transfusion Past Psychological History: Anxiety, Bipolar, Depression Smoking Status: Former smoker Past Alcohol Use History: None Reported Past Drug Use History: None Reported - Past Family History Father Family Medical History: Cancer, Neurologic Disorder Additional Family Medical History / Comment(s): Pt's. father had colon cancer and Parkinson's. Father at the age of 80yrs. Mother Family Medical History: Congestive Heart Failure (CHF) Additional Family Medical History / Comment(s): states "weak heart" Mother at the age of 90yrs. Sister(s) Family Medical History: Coronary Artery Disease (CAD), Myocardial Infarction ([place]) Additional Family Medical History / Comment(s): 1 sister with hx of 2 cardiac stents, 1 other sister from heart related issues General Exam - General Exam Comments Initial Comments: Constitutional: NAD, AOX3, Pt has pleasant affect. HEENT: NC/AT, trachea midline, neck supple, no lymphadenopathy. Posterior pharynx non erythematous, without exudates. External ears appear normal, without discharge. Mucous membranes moist. Eyes PERRLA, EOM intact. There is no scleral icterus. No pallor noted. Cardiopulmonary: RRR, no murmurs, rubs or gallops, no JVD noted. Lungs CTAB in anterior and posterior celeste. No peripheral edema. Pain reproducible upon palpation. Patient was that this is the pain that she is experiencing. Abdominal exam: Abdomen soft and non-distended. Abdomen non-tender to palpation in all 4 quadrants. Bowel sounds active in LLQ. No hepatosplenomegaly. No ecchymosis Neuro: CN II-XII grossly intact. No nuchal rigidity. No raccon eyes, no basilio sign, no hemotympanum. No cervical spinal tenderness. MSK: No posterior calf tenderness bilaterally, homans sign negative bilaterally. Posterior tibialis and radial pulse +2 bilaterally. Sensation intact in upper and lower extremities. Full active ROM in upper and lower extremities, 5/5 stregnth. Limitations: no limitations Course Vital Signs 06/04/19 06/04/19 16:41 19:42 Temperature 98.0 F 98.1 F Pulse Rate 88 71 Respiratory 20 17 Rate Blood Pressure 153/81 148/92 O2 Sat by Pulse 99 100 Oximetry Medical Decision Making - Medical Decision Making 54-year-old female patient in chief complaint of pain after stumbling into a shelving unit yesterday. Patient reports that the pain that she is having is strictly in the area where she ran into the shelving unit. Denies any pain in any other regions. Patient reports that this pain has been going on since this morning. Patient was seen previously that had a negative chest x-ray and EKG. Physical exam displayed a physical pain. Vital signs are stable. Vital signs blood mild hypercalcemia of 11.4. Patient bolused. 4 negative. D-dimer undetectable. EKG nonischemic. Chest x-ray negative. Patient likely experiencing musculoskeletal pain. Patient was offered admission the hospital for serial troponins. Patient declined. Chart review from previous physician that saw patient reveal that patient did have a rash. This rash was examined. Consistent with shingles. This is the area where patient is complaining of pain. This likely etiology for patient's pain as well as possible muscular skeletal pain from minor trauma. Patient will be treated for shingles. Will be discharged with follow-up with primary care provider. Case discussed with Dr. Cabrera. - Lab Data Result diagrams: 06/04/19 17:49 06/04/19 17:49 Lab Results 06/04/19 06/04/19 06/04/19 Range/Units 17:49 17:49 17:49 WBC 6.9 (3.8-10.6) k/uL RBC 4.36 (3.80-5.40) m/uL Hgb 13.8 (11.4-16.0) gm/dL Hct 42.0 (34.0-46.0) % MCV 96.5 (80.0-100.0) fL MCH 31.8 (25.0-35.0) pg MCHC 32.9 (31.0-37.0) g/dL RDW 12.4 (11.5-15.5) % Plt Count 335 (150-450) k/uL Neutrophils % 61 % Lymphocytes % 25 % Monocytes % 7 % Eosinophils % 4 % Basophils % 1 % Neutrophils # 4.2 (1.3-7.7) k/uL Lymphocytes # 1.7 (1.0-4.8) k/uL Monocytes # 0.5 (0-1.0) k/uL Eosinophils # 0.3 (0-0.7) k/uL Basophils # 0.1 (0-0.2) k/uL PT 10.4 (9.0-12.0) sec INR 1.0 (<1.2) APTT 23.6 (22.0-30.0) sec D-Dimer <0.17 (<0.60) mg/L FEU Sodium 142 (137-145) mmol/L Potassium 4.1 (3.5-5.1) mmol/L Chloride 107 (98-107) mmol/L Carbon Dioxide 27 (22-30) mmol/L Anion Gap 8 mmol/L BUN 10 (7-17) mg/dL Creatinine 1.02 (0.52-1.04) mg/dL Est GFR (CKD-EPI)AfAm 71 (>60 ml/min/1.73 sqM) Est GFR (CKD-EPI)NonAf 62 (>60 ml/min/1.73 sqM) Glucose 93 (74-99) mg/dL Calcium 11.4 H (8.4-10.2) mg/dL Magnesium 2.0 (1.6-2.3) mg/dL Total Bilirubin 0.3 (0.2-1.3) mg/dL AST 28 (14-36) U/L ALT 37 (9-52) U/L Alkaline Phosphatase 89 (38-126) U/L Troponin I (0.000-0.034) ng/mL Total Protein 7.4 (6.3-8.2) g/dL Albumin 4.5 (3.5-5.0) g/dL 06/04/19 Range/Units 17:49 WBC (3.8-10.6) k/uL RBC (3.80-5.40) m/uL Hgb (11.4-16.0) gm/dL Hct (34.0-46.0) % MCV (80.0-100.0) fL MCH (25.0-35.0) pg MCHC (31.0-37.0) g/dL RDW (11.5-15.5) % Plt Count (150-450) k/uL Neutrophils % % Lymphocytes % % Monocytes % % Eosinophils % % Basophils % % Neutrophils # (1.3-7.7) k/uL Lymphocytes # (1.0-4.8) k/uL Monocytes # (0-1.0) k/uL Eosinophils # (0-0.7) k/uL Basophils # (0-0.2) k/uL PT (9.0-12.0) sec INR (<1.2) APTT (22.0-30.0) sec D-Dimer (<0.60) mg/L FEU Sodium (137-145) mmol/L Potassium (3.5-5.1) mmol/L Chloride (98-107) mmol/L Carbon Dioxide (22-30) mmol/L Anion Gap mmol/L BUN (7-17) mg/dL Creatinine (0.52-1.04) mg/dL Est GFR (CKD-EPI)AfAm (>60 ml/min/1.73 sqM) Est GFR (CKD-EPI)NonAf (>60 ml/min/1.73 sqM) Glucose (74-99) mg/dL Calcium (8.4-10.2) mg/dL Magnesium (1.6-2.3) mg/dL Total Bilirubin (0.2-1.3) mg/dL AST (14-36) U/L ALT (9-52) U/L Alkaline Phosphatase (38-126) U/L Troponin I <0.012 (0.000-0.034) ng/mL Total Protein (6.3-8.2) g/dL Albumin (3.5-5.0) g/dL - EKG Data -: EKG Interpreted by Me (and Dr. Cabrera ) EKG Comments: Ventricular rate 71, SOLOMON 160, QRS 68, QTC/QTc 386/419. Normal sensory rhythm. Low voltage QRS, borderline ekg. No concern for acute ischemia. Disposition Clinical Impression: Musculoskeletal pain, Shingles Disposition: HOME SELF-CARE Condition: Stable Instructions (If sedation given, give patient instructions): Musculoskeletal Pain (ED), Shingles (ED) Additional Instructions: Patient to adhere to previously discussed treatment plan and will take medication(s) as directed. Patient to follow up with PCP in 1-2 days. Patient to return to ED if symptoms do not improve. Follow up with primary care provider tomorrow. Return immediately to ER if condition worsens. Prescriptions: valACYclovir HCL [Valtrex] 1,000 mg PO Q8HR 7 Days #21 tablet Is patient prescribed a controlled substance at d/c from ED?: No Referrals: Chiqui Viramontes MD [Primary Care Provider] - 1-2 days
[2019-06-04 19:42] VITALS: BP 148/92; PULSE 71; RESP 17; TEMP 98.1
== END 2019-06-04 20:34 | disposition home or self-care (01) ==
LOC: EC 16:39
DX: B02.9 Zoster without complications (principal); R07.81 Pleurodynia; E83.52 Hypercalcemia; K92.0 Hematemesis; E78.5 Hyperlipidemia, unspecified; E07.9 Disorder of thyroid, unspecified; F31.9 Bipolar disorder, unspecified; F41.9 Anxiety disorder, unspecified; Z82.49 Family history of ischemic heart disease and other diseases of the circulatory system; Z80.0 Family history of malignant neoplasm of digestive organs; Z87.891 Personal history of nicotine dependence; Z88.5 Allergy status to narcotic agent; Z88.6 Allergy status to analgesic agent; Z79.890 Hormone replacement therapy; Z79.899 Other long term (current) drug therapy; W01.198A Fall on same level from slipping, tripping and stumbling with subsequent striking against other object, initial encounter; Y92.512 Supermarket, store or market as the place of occurrence of the external cause
CPT/HCPCS: 36415; 71046; 80053; 83735; 84484; 85025; 85379; 85610; 85730; 93005; 96360; 99284

== ENCOUNTER 2021-08-22 06:56 | Observation (INO) | payer OTHER ==
[2021-08-22] MEDS ORDERED: PANTOPRAZOLE 40 MG/10 ML VIAL IVP STA (07:15)
--- NOTE | 2021-08-22 07:21 | ED ---
General Adult HPI - General Chief complaint: Chest Pain Stated complaint: Chest pain Time Seen by Provider: 08/22/21 07:04 Source: patient, EMS Mode of arrival: EMS Limitations: no limitations - History of Present Illness Initial comments: Dictation was produced using Yidio dictation software. please excuse any grammatical, word or spelling errors. Chief Complaint: Patient is a 56-year-old female presents with multiple complaints History of Present Illness: Patient is a 56-year-old female with alleged history of bipolar disease, dyslipidemia and thyroid disorder. Patient states she was complaining of chest pain for the last 48 hours. She is brought in by EMS. Patient states that she lives at home by herself. States that she has difficulty taking care of herself due to solitary living situation. Patient may complaints include chest pain, left chest numbness, paresthesias to the left lower extremity, hematemesis. EMS was called by the patient. Patient was very by EMS. She was given nitroglycerin and aspirin. Patient denies any history of heart attacks. She states that she does have some chest pain. States that it's achy pain that radiates down her bilateral upper extremities. States that this pain has been ongoing for the last 48 hours. No associated diaphoresis. She does complain of nausea. She had 2 bouts of hematemesis this morning. She states that it was mahesh blood. She also complains of left abdominal pain. The ROS documented in this emergency department record has been reviewed and con firmed by me. Those systems with pertinent positive or negative responses have been documented in the HPI. All other systems are other negative and/or noncontributory. PHYSICAL EXAM: General Impression: Alert and oriented x3, not in acute distress, malodorous, disheveled, skin covered in dirt HEENT: Normocephalic atraumatic, extra-ocular movements intact, pupils equal and reactive to light bilaterally, mucous membranes moist, poor dentition Cardiovascular: Heart regular rate and rhythm Chest: Able to complete full sentences, no retractions, no tachypnea Abdomen: abdomen soft, mild palpatory tenderness to the left quadrants, non- distended, no organomegaly Musculoskeletal: Pulses present and equal in all extremities, no peripheral edema Motor: no focal deficits noted Neurological: CN II-XII grossly intact, patient states she has diminished light touch to her entire left side of her body. Skin: Intact with no visualized rashes Psych: Normal affect and mood ED course: 52-year-old well-appearing female presents to the emergency department for multiple complaints. Vital signs upon arrival are within acceptable limits. Physical examination is benign. Chart review was performed. Patient was admitted to the hospital with cardiology consultation for ACS symptoms back in 2017. She was admitted to the hospital and seen by cardiology discharged. Patient had stress echo from 2016 that was negative.Patient reports she does have a primary care physician. Patient has multiple complaints. She has complaints of chest pain concerning for ACS, hematemesis and left-sided paresthesias. EKG interpretation: Ventricular rate 61, normal sinus rhythm, SC interval 166, QRS 76, QTC 424. No SC prolongation, no QTC prolongation, no ST or T-wave changes noted. EKG compared to 06/04/2019 showing no changes. Overall, this EKG is unremarkable Was notified by nurse at 7:40 AM the patient states that her leg is improving however she started here voices telling her to harm herself. At 8:15 AM patient refused computed tomography scan of the brain to evaluate for paresthesias of the left side of the body. Laboratory evaluation obtained. CBC, coag panel is unremarkable. Metabolic panel shows mild non-gap acidosis. Creatinine is 1.5. Rest was within acceptable limits. Chest x-ray is nonacute. Patient be admitted to the hospital for cardiac monitoring, serial troponins, cardiology consultation and psychiatric consultation for chest pain and suicidal ideation. - Related Data Home Medications Medication Instructions Recorded Confirmed Gabapentin [Neurontin] 300 mg PO QID 04/30/17 08/22/21 [place] Carbonate 300 mg PO DAILY 04/30/17 08/22/21 Levothyroxine Sodium [Synthroid] 125 mcg PO DAILY 06/04/19 08/22/21 cloNIDine HCL [Catapres] 0.05 - 0.1 mg PO BID PRN 06/04/19 08/22/21 [place] Carbonate 600 mg PO HS 08/22/21 08/22/21 Multivitamins, Thera [Multivitamin 1 tab PO DAILY 08/22/21 08/22/21 (formulary)] Previous Rx's Medication Instructions Recorded buPROPion XL [Wellbutrin XL] 300 mg PO DAILY 30 Days tab.er.24h 11/28/16 Allergies Allergy/AdvReac Type Severity Reaction Status Date / Time ibuprofen [From Motrin] Allergy Intermediate Rash/Hives Verified 08/22/21 08:52 tramadol HCl [From Ultram] Allergy Intermediate Itching Verified 08/22/21 08:52 Review of Systems ROS Statement: Those systems with pertinent positive or pertinent negative responses have been documented in the HPI. ROS Other: All systems not noted in ROS Statement are negative. Past Medical History Past Medical History: Hyperlipidemia, Thyroid Disorder Additional Past Medical History / Comment(s): suicide attempt History of Any Multi-Drug Resistant Organisms: None Reported Past Surgical History: Section, Hysterectomy Additional Past Surgical History / Comment(s): x 2; Pt. states she's had a colonoscopy done. Past Anesthesia/Blood Transfusion Reactions: No Reported Reaction Additional Past Anesthesia/Blood Transfusion Reaction / Comment(s): no previous blood transfusion Past Psychological History: Anxiety, Bipolar, Depression Smoking Status: Former smoker Past Alcohol Use History: None Reported Past Drug Use History: None Reported - Past Family History Father Family Medical History: Cancer, Neurologic Disorder Additional Family Medical History / Comment(s): Pt's. father had colon cancer and Parkinson's. Father at the age of 80yrs. Mother Family Medical History: Congestive Heart Failure (CHF) Additional Family Medical History / Comment(s): states "weak heart" Mother at the age of 90yrs. Sister(s) Family Medical History: Coronary Artery Disease (CAD), Myocardial Infarction ([place]) Additional Family Medical History / Comment(s): 1 sister with hx of 2 cardiac s tents, 1 other sister from heart related issues General Exam Limitations: no limitations Course Vital Signs 08/22/21 08/22/21 06:57 07:36 Temperature 98.3 F Pulse Rate 60 Pulse Rate [ 54 L Bug Trimmer ] Respiratory 18 Rate Blood Pressure 133/74 O2 Sat by Pulse 100 Oximetry Medical Decision Making - Lab Data Result diagrams: 08/22/21 07:29 08/22/21 07:29 Lab Results 08/22/21 08/22/21 08/22/21 Range/Units 07:29 07:29 07:29 WBC 9.2 (3.8-10.6) k/uL RBC 3.67 L (3.80-5.40) m/uL Hgb 12.1 (11.4-16.0) gm/dL Hct 36.9 (34.0-46.0) % MCV 100.4 H (80.0-100.0) fL MCH 33.0 (25.0-35.0) pg MCHC 32.9 (31.0-37.0) g/dL RDW 14.2 (11.5-15.5) % Plt Count 271 (150-450) k/uL MPV 8.5 Neutrophils % 74 % Lymphocytes % 17 % Monocytes % 5 % Eosinophils % 3 % Basophils % 0 % Neutrophils # 6.7 (1.3-7.7) k/uL Lymphocytes # 1.5 (1.0-4.8) k/uL Monocytes # 0.5 (0-1.0) k/uL Eosinophils # 0.2 (0-0.7) k/uL Basophils # 0.0 (0-0.2) k/uL Macrocytosis Slight PT 11.6 (9.0-12.0) sec INR 1.1 (<1.2) APTT 21.1 L (22.0-30.0) sec Sodium 137 (137-145) mmol/L Potassium 3.9 (3.5-5.1) mmol/L Chloride 109 H (98-107) mmol/L Carbon Dioxide 16 L (22-30) mmol/L Anion Gap 12 mmol/L BUN 9 (7-17) mg/dL Creatinine 1.50 H (0.52-1.04) mg/dL Est GFR (CKD-EPI)AfAm 44 (>60 ml/min/1.73 sqM) Est GFR (CKD-EPI)NonAf 38 (>60 ml/min/1.73 sqM) Glucose 104 H (74-99) mg/dL Calcium 10.0 (8.4-10.2) mg/dL Magnesium 2.0 (1.6-2.3) mg/dL Total Bilirubin 1.0 (0.2-1.3) mg/dL AST 25 (14-36) U/L ALT 21 (4-34) U/L Alkaline Phosphatase 77 (38-126) U/L Troponin I (0.000-0.034) ng/mL Total Protein 7.1 (6.3-8.2) g/dL Albumin 4.3 (3.5-5.0) g/dL Lipase 415 H (23-300) U/L Blood Type Blood Type Recheck Bld Type Recheck Status Antibody Screen Spec Expiration Date 08/22/21 08/22/21 Range/Units 07:29 07:29 WBC (3.8-10.6) k/uL RBC (3.80-5.40) m/uL Hgb (11.4-16.0) gm/dL Hct (34.0-46.0) % MCV (80.0-100.0) fL MCH (25.0-35.0) pg MCHC (31.0-37.0) g/dL RDW (11.5-15.5) % Plt Count (150-450) k/uL MPV Neutrophils % % Lymphocytes % % Monocytes % % Eosinophils % % Basophils % % Neutrophils # (1.3-7.7) k/uL Lymphocytes # (1.0-4.8) k/uL Monocytes # (0-1.0) k/uL Eosinophils # (0-0.7) k/uL Basophils # (0-0.2) k/uL Macrocytosis PT (9.0-12.0) sec INR (<1.2) APTT (22.0-30.0) sec Sodium (137-145) mmol/L Potassium (3.5-5.1) mmol/L Chloride (98-107) mmol/L Carbon Dioxide (22-30) mmol/L Anion Gap mmol/L BUN (7-17) mg/dL Creatinine (0.52-1.04) mg/dL Est GFR (CKD-EPI)AfAm (>60 ml/min/1.73 sqM) Est GFR (CKD-EPI)NonAf (>60 ml/min/1.73 sqM) Glucose (74-99) mg/dL Calcium (8.4-10.2) mg/dL Magnesium (1.6-2.3) mg/dL Total Bilirubin (0.2-1.3) mg/dL AST (14-36) U/L ALT (4-34) U/L Alkaline Phosphatase (38-126) U/L Troponin I <0.012 (0.000-0.034) ng/mL Total Protein (6.3-8.2) g/dL Albumin (3.5-5.0) g/dL Lipase (23-300) U/L Blood Type A Positive Blood Type Recheck A Pos Bld Type Recheck Status No Antibody Screen NEGATIVE Spec Expiration Date 08/25/20212328 Disposition Clinical Impression: Chest pain, Suicidal ideation Disposition: ADMITTED IP TO THIS [facility] Condition: Fair Referrals: None,Stated [Primary Care Provider] - 1-2 days
[2021-08-22 07:44] LABS: Basophils % (A) 0 %; Eosinophils # (A) 0.2 k/uL (0-0.7); Eosinophils % (A) 3 %; HCT 36.9 % (34.0-46.0); HGB 12.1 gm/dL (11.4-16.0); Lymphocytes # (A) 1.5 k/uL (1.0-4.8); Lymphocytes % (A) 17 %; MCHC 32.9 g/dL (31.0-37.0); MCV 100.4 fL (80.0-100.0); Macrocytosis Slight; Mean Platelet Volume 8.5; Monocytes # (A) 0.5 k/uL (0-1.0); Monocytes % (A) 5 %; Neutrophils # (A) 6.7 k/uL (1.3-7.7); Neutrophils % (A) 74 %; Platelet Count 271 k/uL (150-450); RBC 3.67 m/uL (3.80-5.40); RDW 14.2 % (11.5-15.5); WBC 9.2 k/uL (3.8-10.6)
--- NOTE | 2021-08-22 07:51 | XR ---
EXAMINATION TYPE: XR chest 1V portable DATE OF EXAM: 08/22/2021 COMPARISON: Chest x-ray June 04, 2019 HISTORY: Chest pain this morning TECHNIQUE: Single frontal view of the chest is obtained. FINDINGS: There is no suspicious new focal air space opacity, pleural effusion, or pneumothorax seen . The cardiac silhouette size remains within normal limits. The osseous structures are intact. IMPRESSION: No acute process. No significant change from prior.
[2021-08-22 07:56] LABS: Albumin 4.3 g/dL (3.5-5.0); Potassium 3.9 mmol/L (3.5-5.1); Total Protein 7.1 g/dL (6.3-8.2)
[2021-08-22 08:03] LABS: INR 1.1 (<1.2); Prothrombin Time 11.6 sec (9.0-12.0)
[2021-08-22 08:09] LABS: Partial Thromboplastin Time 21.1 sec (22.0-30.0)
[2021-08-22] MEDS ORDERED: NITROGLYCERIN SL TABS 0.4 MG TAB SUBLINGUAL PRN (09:18)
[2021-08-22 10:01] LABS: Amphetamine Screen,Urine Not Detected (NotDetected); Barbiturate Screen,Urine Not Detected (NotDetected); Benzodiazepines Screen,Urine Not Detected (NotDetected); Cocaine Screen,Urine Not Detected (NotDetected); Methadone Screen, Urine Not Detected (NotDetected); Opiate Screen,Urine Not Detected (NotDetected); Oxycodone Screen, Urine Not Detected (NotDetected); Phencyclidine Screen,Urine Not Detected (NotDetected); Tricyclic Antidepressant,Urine Not Detected (NotDetected); Urn Cannabinoid Scrn Not Detected (NotDetected)
--- NOTE | 2021-08-22 11:38 | P.CRDCN ---
History of Present Illness Consult date: 08/22/21 History of present illness: HISTORY OF PRESENT ILLNESS: This is a 56-year-old female with a past medical history significant for hypothyroidism, anxiety, bipolar disorder, and depression. Patient does not follow with a retail sales consultant. We have been asked to see the patient in consultation for chest pain. Patient apparently presented to the hospital due to chest pain and left sided numbness. She has also developed suicidal ideations while in the emergency room. Patient examined at the bedside in the emergency room. The patient states she was having chest discomfort yesterday. She denies having any chest pain or pressure at the time of my examination. She denied any shortness of breath. Denied any radiation of the pain yesterday. She denies any previous cardiac history. She did undergo a dobutamine stress test in 2016 which was negative for ischemia. EKG reveals sinus mechanism with no signs of acute ischemia. Low voltage QRS. Chest xray no acute process. Laboratory data: WBC 9.2. Hemoglobin 12.1. Platelet count 271. Sodium 137. Potassium 3.9. BUN 9. Creatinine 1.50. Magnesium 2.0. Troponin negative 2. Current home cardiac medications include none REVIEW OF SYSTEMS: At the time of my exam: CONSTITUTIONAL: Denies fever or chills. HEENT: Denies blurred vision, vision changes, or eye pain. Denies hemoptysis CARDIOVASCULAR: Denies chest pain. Denies orthopnea. Denies PND. Denies palpitations RESPIRATORY: Denies shortness of breath. GASTROINTESTINAL: Denies abdominal pain. Denies nausea or vomiting. HEMATOLOGIC: Denies bleeding disorders. GENITOURINARY: Denies any blood in urine. SKIN: Denies pruitis. Denies rash. PHYSICAL EXAM: VITAL SIGNS: Reviewed. GENERAL: Well-developed in no acute distress. HEENT: Head is normocephalic. Pupils are equal, round. Sclerae anicteric. Mucous membranes of the mouth are moist. Neck supple. No JVD or thyromegaly LUNGS: Respirations even and unlabored. Lungs essentially clear to auscultation bilaterally. HEART: Regular rate and rhythm. S1 and S2 heard. ABDOMEN: Soft. Nondistended. Nontender. EXTREMITIES: Normal range of motion. No clubbing or cyanosis. Peripheral pulses intact. No lower extremity edema NEUROLOGIC: Awake and alert. Oriented x 3. ASSESSMENT: Chest pain, troponin negative x 2 Left-sided paresthesias Acute kidney injury Suicidal ideation Hypothyroidism Anxiety Bipolar disorder Depression PLAN: An acute coronary event has been ruled out Decrease aspirin to 81mg daily Obtain 2D echo to assess cardiac structure and function Management of MARK per internal medicine. Recommend IVF. If 2D echo does not reveal any significant abnormalities, no further inpatient recommendations from a cardiac standpoint Patient may follow up in the office for possible outpatient stress testing Nurse practitioner note has been reviewed by physician. Signing provider agrees with the documented findings, assessment, and plan of care. Past Medical History Past Medical History: Hyperlipidemia, Thyroid Disorder Additional Past Medical History / Comment(s): suicide attempt History of Any Multi-Drug Resistant Organisms: None Reported Past Surgical History: Section, Hysterectomy Additional Past Surgical History / Comment(s): x 2; Pt. states she's had a colonoscopy done. Past Anesthesia/Blood Transfusion Reactions: No Reported Reaction Additional Past Anesthesia/Blood Transfusion Reaction / Comment(s): no previous blood transfusion Past Psychological History: Anxiety, Bipolar, Depression Smoking Status: Former smoker Past Alcohol Use History: None Reported Past Drug Use History: None Reported - Past Family History Father Family Medical History: Cancer, Neurologic Disorder Additional Family Medical History / Comment(s): Pt's. father had colon cancer and Parkinson's. Father at the age of 80yrs. Mother Family Medical History: Congestive Heart Failure (CHF) Additional Family Medical History / Comment(s): states "weak heart" Mother at the age of 90yrs. Sister(s) Family Medical History: Coronary Artery Disease (CAD), Myocardial Infarction ([place]) Additional Family Medical History / Comment(s): 1 sister with hx of 2 cardiac stents, 1 other sister from heart related issues Medications and Allergies Home Medications Medication Instructions Recorded Confirmed Type buPROPion XL [Wellbutrin XL] 300 mg PO DAILY 30 Days tab.er.24h 11/28/16 08/22/21 Rx Gabapentin [Neurontin] 300 mg PO QID 04/30/17 08/22/21 History [place] Carbonate 300 mg PO DAILY 04/30/17 08/22/21 History Levothyroxine Sodium [Synthroid] 125 mcg PO DAILY 06/04/19 08/22/21 History cloNIDine HCL [Catapres] 0.05 - 0.1 mg PO BID PRN 06/04/19 08/22/21 History [place] Carbonate 600 mg PO HS 08/22/21 08/22/21 History Multivitamins, Thera [Multivitamin 1 tab PO DAILY 08/22/21 08/22/21 History (formulary)] Allergies Allergy/AdvReac Type Severity Reaction Status Date / Time ibuprofen [From Motrin] Allergy Intermediate Rash/Hives Verified 08/22/21 08:52 tramadol HCl [From Ultram] Allergy Intermediate Itching Verified 08/22/21 08:52 Physical Exam Vitals: Vital Signs Temp Pulse Pulse Resp BP Pulse Ox 08/22/21 07:36 54 L 08/22/21 06:57 98.3 F 60 18 133/74 100 Intake and Output 08/21/21 08/22/21 08/22/21 22:59 06:59 14:59 Other: Weight 64.41 kg Results 08/22/21 07:29 08/22/21 07:29 Cardiac Enzymes 08/22/21 08/22/21 08/22/21 Range/Units 07:29 07:29 09:56 AST 25 (14-36) U/L Troponin I <0.012 <0.012 (0.000-0.034) ng/mL Coagulation 08/22/21 Range/Units 07:29 PT 11.6 (9.0-12.0) sec APTT 21.1 L (22.0-30.0) sec CBC 08/22/21 Range/Units 07:29 WBC 9.2 (3.8-10.6) k/uL RBC 3.67 L (3.80-5.40) m/uL Hgb 12.1 (11.4-16.0) gm/dL Hct 36.9 (34.0-46.0) % Plt Count 271 (150-450) k/uL Comprehensive Metabolic Panel 08/22/21 Range/Units 07:29 Sodium 137 (137-145) mmol/L Potassium 3.9 (3.5-5.1) mmol/L Chloride 109 H (98-107) mmol/L Carbon Dioxide 16 L (22-30) mmol/L BUN 9 (7-17) mg/dL Creatinine 1.50 H (0.52-1.04) mg/dL Glucose 104 H (74-99) mg/dL Calcium 10.0 (8.4-10.2) mg/dL AST 25 (14-36) U/L ALT 21 (4-34) U/L Alkaline Phosphatase 77 (38-126) U/L Total Protein 7.1 (6.3-8.2) g/dL Albumin 4.3 (3.5-5.0) g/dL Current Medications Generic Name Dose Route Start Last Admin Trade Name Freq PRN Reason Stop Dose Admin Aspirin 81 mg 08/23/21 09:00 Aspirin 81 Mg PO DAILY MIAN Nitroglycerin 0.4 mg 08/22/21 09:18 Nitroglycerin Sl Tabs 0.4 Mg Tab SUBLINGUAL Q5M PRN Chest Pain Intake and Output 08/21/21 08/22/21 08/22/21 22:59 06:59 14:59 Other: Weight 64.41 kg 08/22/21 07:29 08/22/21 07:29
--- NOTE | 2021-08-22 14:30 | ECHOF ---
Referral Reason:lv function MEASUREMENTS -------- HEIGHT: 154.9 cm WEIGHT: 64.4 kg BP: 133/74 RVIDd: 2.7 cm (< 3.3) IVSd: 1.1 cm (0.6 - 1.1) LVIDd: 3.7 cm (3.9 - 5.3) LVPWd: 0.9 cm (0.6 - 1.1) IVSs: 1.5 cm LVIDs: 2.0 cm LVPWs: 1.4 cm LAESV Index (A-L): 17.40 ml/m Ao Diam: 2.6 cm (2.0 - 3.7) AV Cusp: 1.8 cm (1.5 - 2.6) LA Diam: 2.9 cm (2.7 - 3.8) MV EXCURSION: 16.486 mm (> 18.000) MV EF SLOPE: 45 mm/s (70 - 150) EPSS: 0.3 cm MV E Brandan: 0.83 m/s MV DecT: 221 ms MV A Brandan: 0.73 m/s MV E/A Ratio: 1.15 RAP: 5.00 mmHg RVSP: 20.74 mmHg FINDINGS -------- Sinus rhythm. This was a technically adequate study. The left ventricular size is normal. Left ventricular wall thickness is normal. Overall left vent ricular systolic function is normal with, an EF between 55 - 60 %. The diastolic filling pattern is normal for the age of the patient 9.55. The right ventricle is normal in size. Normal LA size by volume 22+/-6 ml/m2. The right atrial size is normal. Interatrial and interventricular septum intact. The aortic valve is trileaflet and appears structurally normal. There is no evidence of aortic regu rgitation. There is no evidence of aortic stenosis. Mild mitral regurgitation is present. Mild tricuspid regurgitation present. Trace/mild (physiologic) pulmonic regurgitation. The aortic root size is normal. IVC Not well visulized. There is no pericardial effusion. CONCLUSIONS -------- 1. The left ventricular size is normal. 2. Left ventricular wall thickness is normal. 3. Overall left ventricular systolic function is normal with, an EF between 55 - 60 %. 4. The diastolic filling pattern is normal for the age of the patient 9.55 5. Mild mitral regurgitation is present. 6. Mild tricuspid regurgitation present. 7. Trace/mild (physiologic) pulmonic regurgitation. PUBLIC HEALTH ENGINEER: Kim Gan RDCS
[2021-08-22] MEDS ORDERED: OLANZapine 5 MG TAB PO ONE (14:35)
--- NOTE | 2021-08-22 14:45 | P.CN ---
Psychiatric Consult - . Consult date: 08/22/21 Consult:: 08/22/21 13:19 IDENTIFYING DATA: This patient is a 56-year-old female with a history of depression and anxiety and multiple suicide attempts, currently lives alone in a house is single as 3 kids currently collects disability. REASON FOR REFERRAL: Psychiatry was consulted for "hearing voices". HISTORY OF PRESENT ILLNESS: The patient presented to the hospital on for chest pain. Apparently patient was having chest pain for the past 48 hours before coming into the hospital. She also endorses paresthesias and hematemesis. Patient also endorsed having difficulty taking care of herself at home. She was seen by cardiology and cleared and began having and stating that she was having thoughts of suicide. She claims that the voices were telling her to harm herself. She was unable to contract for safety. She claims that she refused the computed tomography scan of her head. She patient was seen at the bedside and was clenching her stomach. She claims that she is feeling agitated and anxious. She states that she was dealing with a lot of "psychic stuff". She is fairly nonspecific and vague. She claims that she has been having thoughts of wanting to hang herself at home. She states that she has been hearing voices and seeing things. She claims that the voice of an telling her to kill herself for the past several days. She states that "it's hard to explain". She states that she is having severe anxiety at this time. She claims that she's been having poor sleep and has been taking her medications. Fair appetite. Endorsing paranoia. Denying any triggers or stressors at home. At this time patient denies any homical ideations, intent or plan. Patient denies any visual hallucinations. Patients admits to using no recreational drugs or cigarettes PAST PSYCHIATRIC HISTORY: Patient has a a history of bipolar, anxiety. Patient was previously on lithium. She has been admitted psychiatrically several times in the past the last admission to the mental health unit isn't 2017. She claims that she has been following up at [facility] in [place]. She claims that she has had multiple overdoses and suicide attempts in the past. PAST MEDICAL HISTORY: Hyperlipidemia, Thyroid Disorder ALLERGIES: as per EMR. CHEMICAL DEPENDENCY HISTORY: as per HPI. FAMILY PSYCHIATRIC/SUBSTANCE USE HISTORY: denies SOCIAL HISTORY: Patient was born and raised in [place]. She states that she played high school. She denies any legal history. 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 She currently lives alone is single and a house. She has 3 kids. She collects Social Security disability MENTAL STATUS EXAM: General Appearance: Patient appears to be overweight, short in stature, stated age is alert, anxious and in distress. Patient appears to have poor hygiene and grooming wearing hospital gown with poor eye contact. Behavior: Anxious and in distress. Agitated. Speech: Patient's speech is fluent and nonpressured. [place] Mood/Affect: Patient reports their mood is "depressed and anxious", affect is congruent Suicidality/Homicidality: Patient denies having any homicidal ideation intent or plan. Endorsing suicidal thoughts with a plan to hang herself. Perceptions: Patient denies any visual hallucinations and endorsing auditory hallucinations telling her to kill herself. Though content/process: There is no evidence of any delusional thought content and thought process is linear and goal-directed. Memory and concentration: AOX3, grossly intact for the purposes of this session. Can spell "WORLD" backwards Judgment and insight: poor IMPRESSIONS: Bipolar disorder, current episode depressed Generalized anxiety disorder PLAN: -At this time patient DOES meet criteria for inpatient psychiatric admission. -Would recommend the following medication changes/additions: Zyprexa 5 mg 1 dose now, 5 mg daily at bedtime for mood stabilization/psychosis. Continue with lithium 300 mg daily +600 mg daily at bedtime. -Start one-to-one sitter for safety. Informed nurse and placed order. -Cannot leave AMA at this time. Patient will need a petition and certification if attempting to leave AMA. -When medically stable, patient is eligible for transfer to a psych bed when available. -Communicated plan to patient's nurse -Psychiatry will sign off at this time -Please contact with any questions. 08/22/21 14:37
[2021-08-22] MEDS ORDERED: LITHIUM CARBONATE 150 MG CAP PO SCH (15:00)
[2021-08-22 19:13] VITALS: BP 105/70; PULSE 58; RESP 16; TEMP 99
--- NOTE | 2021-08-22 19:51 | HP ---
HISTORY AND PHYSICAL This is a 56-year-old white female with a history of hypothyroidism, anxiety, bipolar depression. She does not follow with a school commissioner. She came in with atypical chest pain, has left-sided numbness, suicidal ideations in the ER. Cardiology saw her test and she had a stress test last in 2016. EKG shows sinus rhythm. Chest x-ray is negative. LABS: Sodium 137, potassium 3.9, BUN , creatinine 1.5, magnesium 2.0. Troponins are negative. REVIEW OF SYSTEMS: Fourteen-point review of systems negative except for suicidal ideations. PHYSICAL EXAMINATION: Vital signs reviewed. Head normocephalic, atraumatic. Lungs clear. GI soft. Hematology negative Homans. Psych fair mood and affect. ASSESSMENT: 1. Atypical chest pain. 2. Left-sided paresthesia. 3. Acute kidney injury. 4. Suicidal ideation. 5. Hypothyroid. 6. Anxiety. 7. Bipolar depression. Acute coronary event has been ruled out. Cardiology cut her aspirin to 81 mg. They are going to do an echo. Acute kidney injury possibly rehydrate with IV fluids. Check echo. Possible psych consult for psychiatric admission, as she is suicidal at times. MMODL / IJN: [id number] /
[2021-08-22] MEDS ORDERED: OLANZapine 5 MG TAB PO SCH (21:00)
[2021-08-23] MEDS ORDERED: ASPIRIN 325 MG TAB PO SCH (09:00)
[2021-08-23] MEDS ORDERED: ASPIRIN 81 MG PO SCH (09:00)
== END 2021-08-22 21:17 ==
LOC: EC 06:56 → 6NMEDSUR 09:20
PROVIDERS: ADMIT Family Medicine; ATTEND Family Medicine
DX: R07.89 Other chest pain (principal); R20.0 Anesthesia of skin; R20.2 Paresthesia of skin; N17.9 Acute kidney failure, unspecified; R45.851 Suicidal ideations; F31.30 Bipolar disorder, current episode depressed, mild or moderate severity, unspecified; F41.1 Generalized anxiety disorder; K92.0 Hematemesis; R10.9 Unspecified abdominal pain; F22 Delusional disorders; E78.5 Hyperlipidemia, unspecified; G47.9 Sleep disorder, unspecified; E03.9 Hypothyroidism, unspecified; E87.2 Acidosis; I08.1 Rheumatic disorders of both mitral and tricuspid valves; Z60.2 Problems related to living alone; Z91.51 Personal history of suicidal behavior; Z20.822 Contact with and (suspected) exposure to COVID-19; Z74.3 Need for continuous supervision; Z87.891 Personal history of nicotine dependence; Z90.710 Acquired absence of both cervix and uterus; Z79.899 Other long term (current) drug therapy; Z79.890 Hormone replacement therapy; Z88.5 Allergy status to narcotic agent; Z88.8 Allergy status to other drugs, medicaments and biological substances; Z80.0 Family history of malignant neoplasm of digestive organs; Z82.0 Family history of epilepsy and other diseases of the nervous system; Z82.49 Family history of ischemic heart disease and other diseases of the circulatory system
CPT/HCPCS: 82075; 96374; 99285; 36415; 93005; 93306; 86900; 86901; 80053; 83690; 83735; 84484; 85025; 85610; 85730; 86850; 80306; 87635; 71045; G0378; C9113

== ENCOUNTER 2021-08-22 20:14 | Inpatient (IN) | payer MEDICAID, OTHER ==
[2021-08-22] MEDS ORDERED: MAG HYDROX/AL HYDROX/SIMETH 30 ML CUP PO PRN (20:25)
[2021-08-22] MEDS ORDERED: MAGNESIUM HYDROXIDE 2,400 MG/10 ML CUP PO PRN (20:25)
[2021-08-22] MEDS ORDERED: ACETAMINOPHEN TAB 325 MG TAB PO PRN (20:25)
[2021-08-22] MEDS ORDERED: LORazepam 1 MG TAB PO PRN (20:25)
[2021-08-22] MEDS ORDERED: HALOPERIDOL LACTATE 5 MG/ML 1 ML VIAL IM PRN (20:25)
[2021-08-22] MEDS ORDERED: LORazepam 2 MG/ML INJ IM PRN (20:27)
[2021-08-22] MEDS ORDERED: haloperidoL 5 MG TAB PO PRN (20:27)
[2021-08-22] MEDS ORDERED: OLANZapine 5 MG TAB PO SCH (21:00)
[2021-08-22 21:26] VITALS: BP 113/61
[2021-08-23] MEDS: LITHIUM CARBONATE 150 MG CAP PO SCH ×3 (00:47→20:49)
[2021-08-23] MEDS: GABAPENTIN 300 MG CAP PO SCH ×5 (00:47→20:49)
[2021-08-23] MEDS: LEVOTHYROXINE 125 MCG TAB PO SCH (06:29)
[2021-08-23] MEDS: ASPIRIN 81 MG PO SCH (08:12)
[2021-08-23] MEDS: MULTIVITAMINS, THERA 1 EACH TAB PO SCH (08:13)
[2021-08-23] MEDS: DULoxetine HCL 30 MG CAPSULE.DR PO SCH (13:25)
--- NOTE | 2021-08-23 13:43 | P.HP ---
Psychiatric H&P - . H&P Date: 08/23/21 History & Physical: Allergies Allergy/AdvReac Type Severity Reaction Status Date / Time ibuprofen [From Motrin] Allergy Intermediate Rash/Hives Verified 08/22/21 08:52 tramadol HCl [From Ultram] Allergy Intermediate Itching Verified 08/22/21 08:52 Vital Signs Temp 98.7 F 08/22/21 21:21 Pulse 63 08/22/21 21:21 Resp 18 08/22/21 21:21 BP 113/61 08/22/21 21:21 Pulse Ox Intake & Output 08/22/21 08/23/21 08/23/21 18:59 06:59 18:59 Weight 63.503 kg Laboratory Last Values Estimated Ave Glu mg/dL 115 08/22/21 17:01 Hemoglobin A1c 5.6 % (0.0-6.0) 08/22/21 17:01 TSH >100.000 mIU/L (0.465-4.680) H 08/22/21 17:01 08/23/21 12:04 IDENTIFYING DATA: This patient is a 56-year-old female with a history of depression and anxiety and multiple suicide attempts, currently lives alone in a house is single as 3 kids currently collects disability. HISTORY OF PRESENT ILLNESS: The patient presented to the hospital on 08/22 for chest pain. Apparently patient was having chest pain for the past 48 hours before coming into the hospital. She also endorses paresthesias and hematemesis. Patient also endorsed having difficulty taking care of herself at home. She was seen by cardiology and cleared and began having and stating that she was having thoughts of suicide. She claims that the voices were telling her to harm herself. She was unable to contract for safety. She claims that she refused the computed tomography scan of her head. She patient was seen at the bedside and was clenching her stomach. She claims that she is feeling agitated and anxious. She states that she was dealing with a lot of "psychic stuff". She is fairly nonspecific and vague. She claims that she has been having thoughts of wanting to hang herself at home. She states that she has been hearing voices and seeing things. She claims that the voice of an telling her to kill herself for the past several days. She states that "it's hard to explain". She states that she is having severe anxiety at this time. She claims that she's been having poor sleep and has been taking her medications. Fair appetite. Endorsing paranoia. Denying any triggers or stressors at home. Patient was cleared by Cardiology and medicine and admitted to the MHU on voluntary status. Patient was seen again this morning and agreeable to speak to leader writer. Patient appears to be less anxious and agitated today. She was calm and directable. She claims that she feels a bit better today overall. She continues to endorse some depression and significant anxiety. She states that she was only on Wellbutrin in the past and has not tried any other antidepressant. She is agreeable to take Cymbalta today. She states that she slept significantly during the day yesterday after taking Zyprexa and also throughout the night. She claims she has a fair appetite. She is not having any more chest pain. At this time patient denies any homical ideations, intent or plan. She claims that she is still having some suicidal thoughts however these have been decreasing in nature. No intent or plan. She states that she does still hear voices however they have become "quieter". Patient denies any visual hallucinations. Patients admits to using no recreational drugs or cigarettes PAST PSYCHIATRIC HISTORY: Patient has a a history of bipolar, anxiety. Patient was previously on lithium. She has been admitted psychiatrically several times in the past the last admission to the mental health unit isn't 2017. She claims that she has been following up at [facility] in [place] with Khalida Judd. last seen in june 2021. She claims that she has had multiple overdoses and suicide attempts in the past. PAST MEDICAL HISTORY: Hyperlipidemia, Thyroid Disorder ALLERGIES: as per EMR. CHEMICAL DEPENDENCY HISTORY: as per HPI. FAMILY PSYCHIATRIC/SUBSTANCE USE HISTORY: denies SOCIAL HISTORY: Patient was born and raised in [facility]. She states that she played high school. She denies any legal history. 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 She currently lives alone is single and a house. She has 3 kids. She collects Social Security disability MENTAL STATUS EXAM: General Appearance: Patient appears to be overweight, short in stature, stated age is alert, less anxious today, directable. Patient appears to have poor hygiene and grooming wearing hospital gown with poor eye contact. Behavior: Patient is sitting in chair, appears less anxious and in distress today. More directable today. Speech: Patient's speech is fluent and nonpressured. [place] Mood/Affect: Patient reports their mood is "a bit better", affect is congruent Suicidality/Homicidality: Patient denies having any homicidal ideation intent or plan. Endorsing suicidal thoughts with a plan to hang herself. Perceptions: Patient denies any visual hallucinations and endorsing auditory hallucinations telling her to kill herself. Though content/process: There is no evidence of any delusional thought content and thought process is linear and goal-directed. Focused on her symptoms. Memory and concentration: AOX3, grossly intact for the purposes of this session. Can spell "WORLD" backwards Judgment and insight: poor STRENGTHS/WEAKNESSES: strength is that patient is [resilient]. Weakness is that patient [has poor judgment and is impulsive] INTELLECT: [average] IMPRESSIONS: Major depressive disorder, severe, recurrent with psychotic features borderline personality disorder Generalized anxiety disorder PLAN: -Patient is admitted under [voluntary] status to MHU for stabilization of psychiatric symptoms and safety. Patient has signed [adult voluntary form and] [medication consent] and is placed in patient's chart. -Medications : Will start patient on cymbalta 30 mg daily for mood/anxiety. continue with lithium 450 mg bid for mood stabilization/suicidal thoughts. zyprexa increased to 7.5 mg qhs for mood stabilization/psychosis. -Ativan [and Haldol] PRN for agitation/aggression -TSH came back elevated over 100, restarted back on synthroid 125 mcg daily. -Patient was informed of the risks, benefits and side effects of the medication and patient verbally consented to taking the medications. Patient signed med consent form and was placed in chart. -Internal Medicine consult to perform medical evaluation and physical. -NRT - not needed as patient does not smoke. -SW on board for discharge planning. Encourage patient to participate in groups to work on coping skills. 08/23/21 13:42 08/23/21 13:42
[2021-08-23] MEDS: OLANZapine 7.5 MG TAB PO SCH (20:49)
[2021-08-24] MEDS: LEVOTHYROXINE 125 MCG TAB PO SCH (06:39)
[2021-08-24] MEDS: MULTIVITAMINS, THERA 1 EACH TAB PO SCH (08:07)
[2021-08-24] MEDS: ASPIRIN 81 MG PO SCH (08:07)
[2021-08-24] MEDS: GABAPENTIN 300 MG CAP PO SCH ×4 (08:07→21:08)
[2021-08-24] MEDS: LITHIUM CARBONATE 150 MG CAP PO SCH ×2 (08:07→21:08)
[2021-08-24] MEDS: DULoxetine HCL 30 MG CAPSULE.DR PO SCH (08:07)
--- NOTE | 2021-08-24 10:03 | P.PN ---
Progress Note - Text Progress Note Date: 08/24/21 Interval History: Patient was seen sitting in on group today and was directable and agreeable to speak with junior copywriter in the office. She claims that she feels a bit better with regarding her depression. She states that her anxiety is still elevated. She claims that she has been trying to go to groups and participate as best as she can. She states that she does not feel safe to go home today. She claims that she has been taking the medications and denying any side effects. She states that she was able to sleep fairly well throughout the night. She claims that the voices have been gradually decreasing. She has a fair appetite. At this time patient denies any homical ideations, intent or plan. Patient denies any visual hallucinations and denies any paranoia or delusions. She did state that she does have mild suicidal thoughts today however no intent or plan. Patient denies any side effects from the medications and has been compliant with meds. Mental Status Exam: General Appearance: Patient appears to be overweight, short in stature, stated age is alert, less anxious today, directable. Patient appears to have improving hygiene and grooming wearing hospital gown with improving eye contact. Behavior: Patient is sitting in chair, appears less anxious. More directable today. Speech: Patient's speech is fluent and nonpressured. [place] Mood/Affect: Patient reports their mood is "better", affect is congruent and constricted Suicidality/Homicidality: Patient denies having any homicidal ideation intent or plan. Endorsing suicidal thoughts with a plan to hang herself. Perceptions: Patient denies any visual hallucinations and improving auditory hallucinations. Though content/process: There is no evidence of any delusional thought content and thought process is linear and goal-directed. Memory and concentration: AOX3, grossly intact for the purposes of this session. Judgment and insight: Improving mildly Assessment Major depressive disorder, severe, recurrent with psychotic features borderline personality disorder Generalized anxiety disorder Hypothyroidism Plan: -Patient continues to meet criteria for inpatient psychiatric admission for symptom stabilization and safety. Patient has signed adult voluntary form and medication consent and was placed in patient's chart. -Medications: Increase Cymbalta to 60 mg daily for mood/anxiety. [place] 450 mg twice a day for mood stabilization/suicidal thoughts. Zyprexa 7.5 mg daily at bedtime for mood stabilization/psychosis. -When necessary Ativan and Haldol for agitation/aggression. -NRT - not needed as patient does not smoke. -SW on board for discharge planning. Encouraged the patient to participate in yesi. Likely discharge tomorrow.
[2021-08-24] MEDS: OLANZapine 7.5 MG TAB PO SCH (21:08)
--- NOTE | 2021-08-25 02:45 | P.CONS ---
History of Present Illness - Reason for Consult Consult date: 08/24/21 - History of Present Illness This is a 56-year-old female with a PMH of hypothyroidism, hyperlipidemia, and depression who presented to the emergency room with complaints of chest pain and depression and suicidal ideation. The patient was admitted to the medical unit and was seen by cardiology and was subsequently transferred to the mental health unit where she was seen and evaluated. The patient reports that she has been struggling with her mental health for the past several years and that it has been difficult for her to cope recently. She denied any specific plans to harm herself. She reports taking her medications at home including her levothyroxine and never missing a dose. She denied chest, shortness of breath, fever, chills, cough, nausea, vomiting, abdominal pain, diarrhea. Laboratory evaluation was reviewed with TSH greater than 100 and free T4 0.29. Review of systems: Pertinent positives and negatives as discussed in HPI, a complete review of systems was performed and all other systems are negative. Physical examination: General: non toxic, no distress, appears at stated age, normal weight Derm: no unusual rashes/lesions no unusual ecchymoses, warm, dry Head: atraumatic, normocephalic, symmetric Eyes: EOMI, no lid lag, anicteric sclera, pupils equal round reactive to light ENT: Nose and ears atraumatic, no thrush, no pharyngeal erythema Neck: No thyromegaly, no cervical lymphadenopathy, trachea midline, supple Mouth: no lip lesion, mucus membranes moist Cardiovascular: S1S2 reg, no murmur, positive posterior tibial pulse bilateral, no edema, capillary refill less than 2 seconds Lungs: CTA bilateral, no rhonchi, no rales , no accessory muscle use Abdominal: soft, nontender to palpation, no guarding, no appreciable organomegaly, normal bowel sounds Ext: no gross muscle atrophy, muscle strength 5 out of 5 in all 4 extremities grossly, no contractures, Neuro: CN II-XI grossly intact, light touch intact all 4 extremities, finger to nose within normal limits, Psych: Alert, oriented, appropriate affect Assessment/plan Hypothyroidism, currently on levothyroxine -Increase dose to 200 mcg Depression with suicidal ideation -As per psychiatry Past Medical History Past Medical History: Chest Pain / Angina, Hyperlipidemia, Thyroid Disorder Additional Past Medical History / Comment(s): suicide attempt History of Any Multi-Drug Resistant Organisms: None Reported Past Surgical History: Section, Hysterectomy Additional Past Surgical History / Comment(s): x 2, colonoscopy Past Anesthesia/Blood Transfusion Reactions: No Reported Reaction Additional Past Anesthesia/Blood Transfusion Reaction / Comm: no previous blood transfusion Smoking Status: Former smoker - Past Family History Father Family Medical History: Cancer, Neurologic Disorder Additional Family Medical History / Comment(s): Pt's. father had colon cancer and Parkinson's. Father at the age of 80yrs. Mother Family Medical History: Congestive Heart Failure (CHF) Additional Family Medical History / Comment(s): states "weak heart" Mother at the age of 90yrs. Sister(s) Family Medical History: Coronary Artery Disease (CAD), Myocardial Infarction (MS) Additional Family Medical History / Comment(s): 1 sister with hx of 2 cardiac stents, 1 other sister from heart related issues Medications and Allergies Home Medications Medication Instructions Recorded Confirmed Type buPROPion XL [Wellbutrin XL] 300 mg PO DAILY 30 Days tab.er.24h 11/28/16 08/22/21 Rx Gabapentin [Neurontin] 300 mg PO QID 04/30/17 08/22/21 History [place] Carbonate 300 mg PO DAILY 04/30/17 08/22/21 History Levothyroxine Sodium [Synthroid] 125 mcg PO DAILY 06/04/19 08/22/21 History cloNIDine HCL [Catapres] 0.05 - 0.1 mg PO BID PRN 06/04/19 08/22/21 History [place] Carbonate 600 mg PO HS 08/22/21 08/22/21 History Multivitamins, Thera [Multivitamin 1 tab PO DAILY 08/22/21 08/22/21 History (formulary)] Allergies Allergy/AdvReac Type Severity Reaction Status Date / Time ibuprofen [From Motrin] Allergy Intermediate Rash/Hives Verified 08/22/21 08:52 tramadol HCl [From Ultram] Allergy Intermediate Itching Verified 08/22/21 08:52 Results Labs: Abnormal Lab Results - Last 24 Hours (Table) 08/22/21 Range/Units 17:01 Free T4 0.29 L (0.78-2.19) ng/dL
[2021-08-25] MEDS ORDERED: LEVOTHYROXINE 100 MCG TAB PO SCH (06:30)
[2021-08-25] MEDS: ASPIRIN 81 MG PO SCH (07:58)
[2021-08-25] MEDS: MULTIVITAMINS, THERA 1 EACH TAB PO SCH (07:58)
[2021-08-25] MEDS: LITHIUM CARBONATE 150 MG CAP PO SCH (07:58)
[2021-08-25] MEDS: GABAPENTIN 300 MG CAP PO SCH ×2 (07:58→12:29)
[2021-08-25] MEDS ORDERED: DULoxetine HCL 60 MG CAPSULE.DR PO SCH (09:00)
--- NOTE | 2021-08-25 09:59 | P.DS ---
Providers Date of admission: 08/22/21 21:18 Expected date of discharge: 08/25/21 Attending physician: Sang Ricci MD Consults: 08/22/21 20:25 Consult Physician Routine Consulting Provider: Sanna Physician Consult Reason/Comments: H&P and medical Do you want consulting provider notified?: Yes Primary care physician: Stated None - Discharge Diagnosis(es) (1) Major depressive disorder, recurrent, severe with psychotic features Current Visit: Yes Status: Acute Priority: High (2) Borderline personality disorder Current Visit: Yes Status: Acute Priority: Medium (3) Generalized anxiety disorder Current Visit: Yes Status: Acute Priority: Medium (4) Hypothyroidism Current Visit: Yes Status: Acute Priority: Medium Hospital Course: Admission HPI: Admission note was completed by clinical writer "This patient is a 56-year-old female with a history of depression and anxiety and multiple suicide attempts, currently lives alone in a house is single as 3 kids currently collects disability. The patient presented to the hospital on 08/22 for chest pain. Apparently patient was having chest pain for the past 48 hours before coming into the hospital. She also endorses paresthesias and hematemesis. Patient also endorsed having difficulty taking care of herself at home. She was seen by cardiology and cleared and began having and stating that she was having thoughts of suicide. She claims that the voices were telling her to harm herself. She was unable to contract for safety. She claims that she refused the computed tomography scan of her head. She patient was seen at the bedside and was clenching her stomach. She claims that she is feeling agitated and anxious. She states that she was dealing with a lot of "psychic stuff". She is fairly nonspecific and vague. She claims that she has been having thoughts of wanting to hang herself at home. She states that she has been hearing voices and seeing things. She claims that the voice of an telling her to kill herself for the past several days. She states that "it's hard to explain". She states that she is having severe anxiety at this time. She claims that she's been having poor sleep and has been taking her medications. Fair appetite. Endorsing paranoia. Denying any triggers or stressors at home. Patient was cleared by Cardiology and medicine and admitted to the MHU on voluntary status. Patient was seen again this morning and agreeable to speak to clinical writer. Patient appears to be less anxious and agitated today. She was calm and directable. She claims that she feels a bit better today overall. She continues to endorse some depression and significant anxiety. She states that she was only on Wellbutrin in the past and has not tried any other antidepressant. She is agreeable to take Cymbalta today. She states that she slept significantly during the day yesterday after taking Zyprexa and also throughout the night. She claims she has a fair appetite. She is not having any more chest pain. At this time patient denies any homical ideations, intent or plan. She claims that she is still having some suicidal thoughts however these have been decreasing in nature. No intent or plan. She states that she does still hear voices however they have become "quieter". Patient denies any visual hallucinations. Patients admits to using no recreational drugs or cigarettes" Hospital course: Upon admission to the unit patient was directable and agreeable to commence treatment and signed adult voluntary form. Patient got along well with other patients on the unit and followed unit protocol. Patient was compliant with the medications and denied any side effects throughout hospital course. Patient was started on Cymbalta and increased to a dose of 60 mg daily for mood/anxiety. Sw itch lithium to 450 mg twice a day for mood stabilization/suicidal thoughts. Increase Zyprexa to 7.5 mg daily at bedtime for mood stabilization/psychosis. Patient spoke of her stressors and engaged in therapy both group and individual. Patient was also seen by medical team for history and physical exam. Throughout the course of the hospitalization patient gradually improved with regards to mood, anxiety, sleep and became more future oriented with improved insight and judgment. On the day of discharge patient denied any suicidal or homicidal ideations intent or plan denied any auditory or visual hallucinations. Patient endorsed wanting to live for her health and her future. The patient denied any access to guns or weapons. Patient denied any paranoia and did not endorse any delusions. Patient does not have a significant history of substance abuse however was counseled on abstaining from all substances including alcohol and marijuana. Patient was also counseled on the medications and need for regular compliance and was encouraged to follow-up with their outpatient appointment for mental health and also for primary care. Prior to discharge a family meeting will be arranged by high school social studies teacher to answer any questions and ensure safety upon discharge. Mental status exam: General Appearance: Patient appears to be short in stature, stated age is alert, pleasant, and cooperative. Patient is in no acute distress and has improved hygiene and grooming Behavior: Patient is calmly seated without any agitated behavior. Speech: Patient's speech is fluent and nonpressured. Mood/Affect: Patient reports their mood is "much better", affect is congruent and euthymic. Suicidality/Homicidality: Patient denies having any suicidal or homicidal ideation intent or plan. Perceptions: Patient denies any auditory or visual hallucinations. Though content/process: There is no evidence of any delusional thought content and thought process is linear and goal-directed. more future oriented Memory and concentration: AOX3, grossly intact for the purposes of this session. Can spell "WORLD" backwards correctly. Judgment and insight: chronically poor, however has improved with guarded prognosis Impression: Major depressive disorder, severe, recurrent with psychotic features Borderline personality disorder Generalized anxiety disorder Hypothyroidism Plan: -Continue with discharge today as patient has improved and stabilized psychiatrically and is not currently an imminent threat to herself and/or others. -Continue medications: Zyprexa 7.5 mg daily at bedtime for mood stabili zation/psychosis. Cymbalta 60 mg daily for mood/anxiety, lithium 450 mg twice a day for mood stabilization/suicidal thoughts. -Patient was counseled on the need for medication compliance and appropriate follow-up at mental health and also primary care for medical issues. Patient verbalized understanding and agreed. -Social work to arrange for and conduct family meeting to ensure safety upon discharge and answer any questions/concerns. Social work also to arrange for patients follow up appointments with [facility] for psychiatric care along with follow up with primary care provider. -Patient counseled on abstaining from recreational drugs and marijuana and alcohol. Was informed/educated on the adverse effects on their physical and mental health. Patient verbally agreed and understood. -Patient was instructed to return to the hospital or seek immediate medical care if their psychiatric or medical symptoms do worsen or reoccur. Allergies Allergy/AdvReac Type Severity Reaction Status Date / Time ibuprofen [From Motrin] Allergy Intermediate Rash/Hives Verified 08/22/21 08:52 tramadol HCl [From Ultram] Allergy Intermediate Itching Verified 08/22/21 08:[address] Glu mg/dL 115 08/22/21 17:01 Hemoglobin A1c 5.6 % (0.0-6.0) 08/22/21 17:01 TSH >100.000 mIU/L (0.465-4.680) H 08/22/21 17:01 Free T4 0.29 ng/dL (0.78-2.19) L 08/22/21 17:01 Vital Signs Temp 98.7 F 08/22/21 21:21 Pulse 63 08/22/21 21:21 Resp 18 08/22/21 21:21 BP 113/61 08/22/21 21:21 Pulse Ox Patient Condition at Discharge: Stable Plan - Discharge Summary Discharge Rx Participant: No New Discharge Prescriptions: New Aspirin 81 mg PO DAILY tab DULoxetine HCL [Cymbalta] 60 mg PO DAILY 30 Days capsule [place] Carbonate 450 mg PO BID 30 Days cap OLANZapine [ZyPREXA] 7.5 mg PO HS 30 Days tab Continue Gabapentin [Neurontin] 300 mg PO QID Multivitamins, Thera [Multivitamin (formulary)] 1 tab PO DAILY Levothyroxine Sodium [Synthroid] 125 mcg PO DAILY 30 Days tab Discontinued buPROPion XL [Wellbutrin XL] 300 mg PO DAILY 30 Days tab.er.24h [place] Carbonate 300 mg PO DAILY cloNIDine HCL [Catapres] 0.05 - 0.1 mg PO BID PRN PRN Reason: Anxiety [place] Carbonate 600 mg PO HS Discharge Medication List Gabapentin [Neurontin] 300 mg PO QID 04/30/17 [History] Multivitamins, Thera [Multivitamin (formulary)] 1 tab PO DAILY 08/22/21 [History] Aspirin 81 mg PO DAILY tab 08/25/21 [Rx] DULoxetine HCL [Cymbalta] 60 mg PO DAILY 30 Days capsule 08/25/21 [Rx] Levothyroxine Sodium [Synthroid] 125 mcg PO DAILY 30 Days tab 08/25/21 [Rx] [place] Carbonate 450 mg PO BID 30 Days cap 08/25/21 [Rx] OLANZapine [ZyPREXA] 7.5 mg PO HS 30 Days tab 08/25/21 [Rx] Follow up Appointment(s)/Referral(s): [facility] [place] [Outside] - 08/28/21 1:00 pm (08-28-21 @ 1:00 group with Bunny at [place] office 09-06-21 @ 12:30 with SHERRON Judd at [place] Office ) [facility] [NON-STAFF] - 1 Week Patient Instructions/Handouts: Depression (DC) Activity/Diet/Wound Care/Special Instructions: Activity and diet as tolerated. Avoid the use of street drugs and alcohol. Take all medications as prescribed. When you are in need of refills on your medications please contact your medical provider and/or outpatient psychiatrist to have this done. Please go to scheduled outpatient appointment for aftercare treatment. If symptoms return or become worse, call the crisis line at and/or go to the nearest emergency room for evaluation Discharge Disposition: HOME SELF-CARE
[2021-08-25 12:16] VITALS: PULSE 113; RESP 16; TEMP 98.6
== END 2021-08-25 14:05 | disposition home or self-care (01) | DRG 885 ==
LOC: 3MHU 21:18
PROVIDERS: ADMIT Psychiatry & Neurology Psychiatry; ATTEND Psychiatry & Neurology Psychiatry
DX: F33.3 Major depressive disorder, recurrent, severe with psychotic symptoms (principal); K92.0 Hematemesis; R45.851 Suicidal ideations; E03.9 Hypothyroidism, unspecified; E78.5 Hyperlipidemia, unspecified; F41.1 Generalized anxiety disorder; F60.3 Borderline personality disorder; Z79.890 Hormone replacement therapy; Z79.899 Other long term (current) drug therapy; Z80.0 Family history of malignant neoplasm of digestive organs; Z82.0 Family history of epilepsy and other diseases of the nervous system; Z82.49 Family history of ischemic heart disease and other diseases of the circulatory system; Z87.891 Personal history of nicotine dependence; Z90.710 Acquired absence of both cervix and uterus; Z60.2 Problems related to living alone; Z88.6 Allergy status to analgesic agent; Z88.5 Allergy status to narcotic agent; Z79.82 Long term (current) use of aspirin; Z98.890 Other specified postprocedural states
CPT/HCPCS: 83036; 84439; 84443

== ENCOUNTER 2021-09-04 06:54 | Inpatient (IN) | payer MEDICAID, OTHER ==
--- NOTE | 2021-09-04 07:00 | ED ---
Psych HPI - General Stated Complaint: Mental Health Time Seen by Provider: 09/04/21 06:55 Source: patient, RN notes reviewed Mode of arrival: ambulatory Limitations: no limitations - History of Present Illness Initial Comments: 56-year-old female presents emergency department via EMS for psychiatric evaluation. Patient was recently admitted started a new medications. Patient states that she's been hearing voices which are getting worse telling her to harm herself. She has not tried to harm herself in any way she is concerned that his been worse and she does not feel safe at home. Patient has a history of bipolar schizophrenia. Patient denies any physical complaints. Patient denies here shows cough congestion or complaints. - Related Data Home Medications Medication Instructions Recorded Confirmed Gabapentin [Neurontin] 300 mg PO QID 04/30/17 09/04/21 Multivitamins, Thera [Multivitamin 1 tab PO DAILY 08/22/21 09/04/21 (formulary)] [place] Carbonate 450 mg PO DIRECTED 09/04/21 09/04/21 Previous Rx's Medication Instructions Recorded Aspirin 81 mg PO DAILY tab 08/25/21 DULoxetine HCL [Cymbalta] 60 mg PO DAILY 30 Days capsule 08/25/21 Levothyroxine Sodium [Synthroid] 125 mcg PO DAILY 30 Days tab 08/25/21 OLANZapine [ZyPREXA] 7.5 mg PO HS 30 Days tab 08/25/21 Allergies Allergy/AdvReac Type Severity Reaction Status Date / Time ibuprofen [From Motrin] Allergy Intermediate Rash/Hives Verified 08/22/21 08:52 tramadol HCl [From Ultram] Allergy Intermediate Itching Verified 08/22/21 08:52 Review of Systems ROS Statement: Those systems with pertinent positive or pertinent negative responses have been documented in the HPI. ROS Other: All systems not noted in ROS Statement are negative. Past Medical History Past Medical History: Chest Pain / Angina, Hyperlipidemia, Thyroid Disorder Additional Past Medical History / Comment(s): suicide attempt History of Any Multi-Drug Resistant Organisms: None Reported Past Surgical History: Section, Hysterectomy Additional Past Surgical History / Comment(s): x 2, colonoscopy Past Anesthesia/Blood Transfusion Reactions: No Reported Reaction Additional Past Anesthesia/Blood Transfusion Reaction / Comment(s): no previous blood transfusion Smoking Status: Former smoker - Past Family History Father Family Medical History: Cancer, Neurologic Disorder Additional Family Medical History / Comment(s): Pt's. father had colon cancer and Parkinson's. Father at the age of 80yrs. Mother Family Medical History: Congestive Heart Failure (CHF) Additional Family Medical History / Comment(s): states "weak heart" Mother at the age of 90yrs. Sister(s) Family Medical History: Coronary Artery Disease (CAD), Myocardial Infarction ([place]) Additional Family Medical History / Comment(s): 1 sister with hx of 2 cardiac stents, 1 other sister from heart related issues General Exam General appearance: alert, in no apparent distress Head exam: Present: atraumatic, normocephalic, normal inspection Eye exam: Present: normal appearance, PERRL, EOMI. Absent: scleral icterus, conjunctival injection, periorbital swelling ENT exam: Present: mucous membranes moist. Absent: normal exam, normal oropharynx (Poor dentition) Neck exam: Present: normal inspection, full ROM. Absent: tenderness, meningismus, lymphadenopathy Respiratory exam: Present: normal lung sounds bilaterally. Absent: respiratory distress, wheezes, rales, rhonchi, stridor Cardiovascular Exam: Present: regular rate, normal rhythm, normal heart sounds. Absent: systolic murmur, diastolic murmur, rubs, gallop, clicks Neurological exam: Present: alert, oriented X3 Psychiatric exam: Present: depressed, flat affect Course Vital Signs 09/04/21 09/04/21 07:26 15:30 Temperature 97.5 F L 98.7 F Pulse Rate 96 72 Respiratory 16 16 Rate Blood Pressure 139/81 111/56 O2 Sat by Pulse 99 97 Oximetry Medical Decision Making - Lab Data Result diagrams: 09/04/21 09:29 09/04/21 09:29 Lab Results 09/04/21 09/04/21 09/04/21 Range/Units 09:29 09:29 09:29 WBC 10.6 (3.8-10.6) k/uL RBC 3.93 (3.80-5.40) m/uL Hgb 13.0 (11.4-16.0) gm/dL Hct 39.5 (34.0-46.0) % MCV 100.6 H (80.0-100.0) fL MCH 33.0 (25.0-35.0) pg MCHC 32.8 (31.0-37.0) g/dL RDW 13.4 (11.5-15.5) % Plt Count 296 (150-450) k/uL MPV 9.2 Neutrophils % 76 % Lymphocytes % 16 % Monocytes % 6 % Eosinophils % 1 % Basophils % 0 % Neutrophils # 8.0 H (1.3-7.7) k/uL Lymphocytes # 1.7 (1.0-4.8) k/uL Monocytes # 0.6 (0-1.0) k/uL Eosinophils # 0.1 (0-0.7) k/uL Basophils # 0.0 (0-0.2) k/uL Macrocytosis Slight Sodium (137-145) mmol/L Potassium (3.5-5.1) mmol/L Chloride (98-107) mmol/L Carbon Dioxide (22-30) mmol/L Anion Gap mmol/L BUN (7-17) mg/dL Creatinine (0.52-1.04) mg/dL Est GFR (CKD-EPI)AfAm (>60 ml/min/1.73 sqM) Est GFR (CKD-EPI)NonAf (>60 ml/min/1.73 sqM) Glucose (74-99) mg/dL Calcium (8.4-10.2) mg/dL Total Bilirubin (0.2-1.3) mg/dL AST (14-36) U/L ALT (4-34) U/L Alkaline Phosphatase (38-126) U/L Total Protein (6.3-8.2) g/dL Albumin (3.5-5.0) g/dL Urine Opiates Screen Not Detected (NotDetected) Ur Oxycodone Screen Not Detected (NotDetected) Urine Methadone Screen Not Detected (NotDetected) Ur Propoxyphene Screen Not Detected (NotDetected) Ur Barbiturates Screen Not Detected (NotDetected) U Tricyclic Antidepress Not Detected (NotDetected) Ur Phencyclidine Scrn Not Detected (NotDetected) Ur Amphetamines Screen Not Detected (NotDetected) U Methamphetamines Scrn Not Detected (NotDetected) U Benzodiazepines Scrn Not Detected (NotDetected) [place] mmol/L Urine Cocaine Screen Not Detected (NotDetected) U Marijuana (THC) Screen Not Detected (NotDetected) Coronavirus (PCR) Not Detected (Not Detectd) 09/04/21 Range/Units 09:29 WBC (3.8-10.6) k/uL RBC (3.80-5.40) m/uL Hgb (11.4-16.0) gm/dL Hct (34.0-46.0) % MCV (80.0-100.0) fL MCH (25.0-35.0) pg MCHC (31.0-37.0) g/dL RDW (11.5-15.5) % Plt Count (150-450) k/uL MPV Neutrophils % % Lymphocytes % % Monocytes % % Eosinophils % % Basophils % % Neutrophils # (1.3-7.7) k/uL Lymphocytes # (1.0-4.8) k/uL Monocytes # (0-1.0) k/uL Eosinophils # (0-0.7) k/uL Basophils # (0-0.2) k/uL Macrocytosis Sodium 139 (137-145) mmol/L Potassium 3.7 (3.5-5.1) mmol/L Chloride 109 H (98-107) mmol/L Carbon Dioxide 21 L (22-30) mmol/L Anion Gap 9 mmol/L BUN 9 (7-17) mg/dL Creatinine 0.83 (0.52-1.04) mg/dL Est GFR (CKD-EPI)AfAm >90 (>60 ml/min/1.73 sqM) Est GFR (CKD-EPI)NonAf 78 (>60 ml/min/1.73 sqM) Glucose 96 (74-99) mg/dL Calcium 10.8 H (8.4-10.2) mg/dL Total Bilirubin 0.5 (0.2-1.3) mg/dL AST 24 (14-36) U/L ALT 22 (4-34) U/L Alkaline Phosphatase 70 (38-126) U/L Total Protein 7.3 (6.3-8.2) g/dL Albumin 4.5 (3.5-5.0) g/dL Urine Opiates Screen (NotDetected) Ur Oxycodone Screen (NotDetected) Urine Methadone Screen (NotDetected) Ur Propoxyphene Screen (NotDetected) Ur Barbiturates Screen (NotDetected) U Tricyclic Antidepress (NotDetected) Ur Phencyclidine Scrn (NotDetected) Ur Amphetamines Screen (NotDetected) U Methamphetamines Scrn (NotDetected) U Benzodiazepines Scrn (NotDetected) [place] 1.0 mmol/L Urine Cocaine Screen (NotDetected) U Marijuana (THC) Screen (NotDetected) Coronavirus (PCR) (Not Detectd) Disposition Clinical Impression: Psychosis, Bipolar 1 disorder, depressed, Schizoaffective disorder Disposition: TRANSFER TO PSYCH HOSP/UNIT Referrals: None,Stated [Primary Care Provider] - 1-2 days
[2021-09-04 09:58] LABS: Basophils % (A) 0 %; Eosinophils # (A) 0.1 k/uL (0-0.7); Eosinophils % (A) 1 %; HCT 39.5 % (34.0-46.0); Lymphocytes # (A) 1.7 k/uL (1.0-4.8); Lymphocytes % (A) 16 %; MCHC 32.8 g/dL (31.0-37.0); MCV 100.6 fL (80.0-100.0); Macrocytosis Slight; Mean Platelet Volume 9.2; Monocytes # (A) 0.6 k/uL (0-1.0); Monocytes % (A) 6 %; Neutrophils % (A) 76 %; Platelet Count 296 k/uL (150-450); RBC 3.93 m/uL (3.80-5.40); RDW 13.4 % (11.5-15.5); WBC 10.6 k/uL (3.8-10.6)
[2021-09-04 10:12] LABS: ALT 22 U/L (4-34); AST 24 U/L (14-36); African American GFR (CKD) >90 (>60 ml/min/1.73 sqM); Albumin 4.5 g/dL (3.5-5.0); Alkaline Phosphatase 70 U/L (38-126); Anion Gap 9 mmol/L; Blood Urea Nitrogen 9 mg/dL (7-17); Calcium 10.8 mg/dL (8.4-10.2); Carbon Dioxide 21 mmol/L (22-30); Chloride 109 mmol/L (98-107); Glucose 96 mg/dL (74-99); Non-African American GFR(CKD) 78 (>60 ml/min/1.73 sqM); Potassium 3.7 mmol/L (3.5-5.1); Sodium 139 mmol/L (137-145); Total Bilirubin 0.5 mg/dL (0.2-1.3); Total Protein 7.3 g/dL (6.3-8.2)
[2021-09-04 10:14] LABS: Amphetamine Screen,Urine Not Detected (NotDetected); Barbiturate Screen,Urine Not Detected (NotDetected); Benzodiazepines Screen,Urine Not Detected (NotDetected); Cocaine Screen,Urine Not Detected (NotDetected); Methadone Screen, Urine Not Detected (NotDetected); Opiate Screen,Urine Not Detected (NotDetected); Oxycodone Screen, Urine Not Detected (NotDetected); Phencyclidine Screen,Urine Not Detected (NotDetected); Tricyclic Antidepressant,Urine Not Detected (NotDetected); Urn Cannabinoid Scrn Not Detected (NotDetected)
[2021-09-04] MEDS ORDERED: LORazepam 2 MG/ML INJ IM PRN (16:38)
[2021-09-04] MEDS ORDERED: ACETAMINOPHEN TAB 325 MG TAB PO PRN (16:40)
[2021-09-04] MEDS ORDERED: MAGNESIUM HYDROXIDE 2,400 MG/10 ML CUP PO PRN (16:40)
[2021-09-04] MEDS ORDERED: MAG HYDROX/AL HYDROX/SIMETH 30 ML CUP PO PRN (16:40)
[2021-09-04] MEDS: GABAPENTIN 300 MG CAP PO SCH ×2 (17:35→21:26)
[2021-09-04] MEDS ORDERED: OLANZapine 7.5 MG TAB PO SCH (21:00)
[2021-09-04] MEDS: LITHIUM CARBONATE ER 450 MG TABLET.ER PO SCH (21:26)
--- NOTE | 2021-09-04 23:27 | P.CONS ---
History of Present Illness - Reason for Consult Consult date: 09/04/21 - History of Present Illness Patient is a 56-year-old female with a PMH of depression, hyperlipidemia, and hypothyroidism who had presented to the emergency room with complaints of depression with suicidal ideation. The patient reports that she had been struggling with multiple social issues which have caused her mental health to deteriorate. She was unwilling to go into further detail with regards to the exact issues. The patient denied any physical complaints however. She denied chest discomfort, shortness of breath, fever, chills, cough, nausea, vomiting, abdominal pain, diarrhea. Review of systems: Pertinent positives and negatives as discussed in HPI, a complete review of systems was performed and all other systems are negative. Physical examination: General: non toxic, no distress, appears at stated age, normal weight Derm: no unusual rashes/lesions no unusual ecchymoses, warm, dry Head: atraumatic, normocephalic, symmetric Eyes: EOMI, no lid lag, anicteric sclera, pupils equal round reactive to light ENT: Nose and ears atraumatic, no thrush, no pharyngeal erythema Neck: No thyromegaly, no cervical lymphadenopathy, trachea midline, supple Mouth: no lip lesion, mucus membranes moist Cardiovascular: S1S2 reg, no murmur, positive posterior tibial pulse bilateral, no edema, capillary refill less than 2 seconds Lungs: CTA bilateral, no rhonchi, no rales , no accessory muscle use Abdominal: soft, nontender to palpation, no guarding, no appreciable organomegaly, normal bowel sounds Ext: no gross muscle atrophy, muscle strength 5 out of 5 in all 4 extremities grossly, no contractures, Neuro: CN II-XI grossly intact, light touch intact all 4 extremities, finger to nose within normal limits, Psych: Alert, oriented, appropriate affect Assessment/plan Hypothyroidism -Patient reports compliance with her levothyroxine at home -Obtain repeat TSH due to significantly elevated TSH levels on previous admission -Continue with home levothyroxine dose at this time Hyperlipidemia -Continue with home meds Depression and suicidal ideation -As per psychiatry Thank you for allowing us to participate in the care of this patient. We will follow peripherally. Do not hesitate to contact us with questions. Someone can be reached from the [facility] hospitalist group at all hours of the day at [phone]. Past Medical History Past Medical History: Chest Pain / Angina, Hyperlipidemia, Thyroid Disorder Additional Past Medical History / Comment(s): suicide attempt History of Any Multi-Drug Resistant Organisms: None Reported Past Surgical History: Section, Hysterectomy Additional Past Surgical History / Comment(s): x 2, colonoscopy Past Anesthesia/Blood Transfusion Reactions: No Reported Reaction Additional Past Anesthesia/Blood Transfusion Reaction / Comm: no previous blood transfusion Past Psychological History: Anxiety, Bipolar, Depression Additional Psychological History / Comment(s): pt reports that she lives by herself at home. pt states that she is afraid to be at home alone right now as she is concerned that she may act on suicidal thoughts. pt reports auditory hallucinations that are also command in nature telling her to harm herself. Smoking Status: Never smoker Past Alcohol Use History: None Reported Additional Past Alcohol Use History / Comment(s): pt states that she used to drink, but has not had alcohol in almost 5 years. 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 - Past Family History Father Family Medical History: Cancer, Neurologic Disorder Additional Family Medical History / Comment(s): Pt's. father had colon cancer and Parkinson's. Father at the age of 80yrs. Mother Family Medical History: Congestive Heart Failure (CHF) Additional Family Medical History / Comment(s): states "weak heart" Mother at the age of 90yrs. Sister(s) Family Medical History: Coronary Artery Disease (CAD), Myocardial Infarction ([place]) Additional Family Medical History / Comment(s): 1 sister with hx of 2 cardiac stents, 1 other sister from heart related issues Medications and Allergies Home Medications Medication Instructions Recorded Confirmed Type Gabapentin [Neurontin] 300 mg PO QID 04/30/17 09/04/21 History Multivitamins, Thera [Multivitamin 1 tab PO DAILY 08/22/21 09/04/21 History (formulary)] Aspirin 81 mg PO DAILY tab 08/25/21 09/04/21 Rx DULoxetine HCL [Cymbalta] 60 mg PO DAILY 30 Days capsule 08/25/21 09/04/21 Rx Levothyroxine Sodium [Synthroid] 125 mcg PO DAILY 30 Days tab 08/25/21 09/04/21 Rx OLANZapine [ZyPREXA] 7.5 mg PO HS 30 Days tab 08/25/21 09/04/21 Rx [place] Carbonate 450 mg PO DIRECTED 09/04/21 09/04/21 History Allergies Allergy/AdvReac Type Severity Reaction Status Date / Time ibuprofen [From Motrin] Allergy Intermediate Rash/Hives Verified 08/22/21 08:52 tramadol HCl [From Ultram] Allergy Intermediate Itching Verified 08/22/21 08:52 Physical Exam Vitals: Vital Signs Temp Pulse Pulse Resp BP BP Pulse Ox 09/04/21 17:49 97.7 F 99 22 118/62 98 09/04/21 15:30 98.7 F 72 16 111/56 97 09/04/21 07:26 97.5 F L 96 16 139/81 99 Intake and Output 09/04/21 09/04/21 09/05/21 14:59 22:59 06:59 Other: Weight 64.436 kg 63.049 kg Results CBC & Chem 7: 09/04/21 09:29 09/04/21 09:29 Labs: Abnormal Lab Results - Last 24 Hours (Table) 09/04/21 09/04/21 Range/Units 09:29 09:29 MCV 100.6 H (80.0-100.0) fL Neutrophils # 8.0 H (1.3-7.7) k/uL Chloride 109 H (98-107) mmol/L Carbon Dioxide 21 L (22-30) mmol/L Calcium 10.8 H (8.4-10.2) mg/dL
[2021-09-05] MEDS: LEVOTHYROXINE 125 MCG TAB PO SCH (06:40)
[2021-09-05] MEDS: MULTIVITAMINS, THERA 1 EACH TAB PO SCH (08:26)
[2021-09-05] MEDS: ASPIRIN 81 MG PO SCH (08:26)
[2021-09-05] MEDS: GABAPENTIN 300 MG CAP PO SCH ×4 (08:26→21:15)
[2021-09-05] MEDS: LITHIUM CARBONATE ER 450 MG TABLET.ER PO SCH ×2 (08:26→21:14)
[2021-09-05] MEDS ORDERED: DULoxetine HCL 60 MG CAPSULE.DR PO SCH (09:00)
[2021-09-05 09:22] LABS: Chol/HDL Ratio 6.54 Ratio; LDL Cholesterol,Calculated 184.8 mg/dL (0.0-131.0)
--- NOTE | 2021-09-05 12:00 | P.HP ---
Psychiatric H&P - . H&P Date: 09/05/21 History & Physical: Allergies Allergy/AdvReac Type Severity Reaction Status Date / Time ibuprofen From Motrin Allergy Intermediate Rash/Hives Verified 08/22/21 08:52 tramadol HCl From Ultram Allergy Intermediate Itching Verified 08/22/21 08:52 Vital Signs Temp 97.7 F 09/04/21 17:49 Pulse 99 09/04/21 17:49 Resp 22 09/04/21 17:49 BP 118/62 09/04/21 17:49 Pulse Ox 98 09/04/21 17:49 Intake & Output 09/04/21 09/05/21 09/05/21 18:59 06:59 18:59 Weight 63.049 kg Laboratory Last Values WBC 10.6 k/uL (3.8-10.6) 09/04/21 09:29 RBC 3.93 m/uL (3.80-5.40) 09/04/21 09:29 Hgb 13.0 gm/dL (11.4-16.0) 09/04/21 09:29 Hct 39.5 % (34.0-46.0) 09/04/21 09:29 MCV 100.6 fL (80.0-100.0) H 09/04/21 09:29 MCH 33.0 pg (25.0-35.0) 09/04/21 09:29 MCHC 32.8 g/dL (31.0-37.0) 09/04/21 09:29 RDW 13.4 % (11.5-15.5) 09/04/21 09:29 Plt Count 296 k/uL (150-450) 09/04/21 09:29 MPV 9.2 09/04/21 09:29 Neutrophils % 76 % 09/04/21 09:29 Lymphocytes % 16 % 09/04/21 09:29 Monocytes % 6 % 09/04/21 09:29 Eosinophils % 1 % 09/04/21 09:29 Basophils % 0 % 09/04/21 09:29 Neutrophils # 8.0 k/uL (1.3-7.7) H 09/04/21 09:29 Lymphocytes # 1.7 k/uL (1.0-4.8) 09/04/21 09:29 Monocytes # 0.6 k/uL (0-1.0) 09/04/21 09:29 Eosinophils # 0.1 k/uL (0-0.7) 09/04/21 09:29 Basophils # 0.0 k/uL (0-0.2) 09/04/21 09:29 Macrocytosis Slight 09/04/21 09:29 Sodium 139 mmol/L (137-145) 09/04/21 09:29 Potassium 3.7 mmol/L (3.5-5.1) 09/04/21 09:29 Chloride 109 mmol/L (98-107) H 09/04/21 09:29 Carbon Dioxide 21 mmol/L (22-30) L 09/04/21 09:29 Anion Gap 9 mmol/L 09/04/21 09:29 BUN 9 mg/dL (7-17) 09/04/21 09:29 Creatinine 0.83 mg/dL (0.52-1.04) 09/04/21 09:29 Est GFR (CKD-EPI)AfAm >90 (>60 ml/min/1.73 sqM) 09/04/21 09:29 Est GFR (CKD-EPI)NonAf 78 (>60 ml/min/1.73 sqM) 09/04/21 09:29 Glucose 96 mg/dL (74-99) 09/04/21 09:[address] Glu mg/dL 104 09/04/21 09:29 Hemoglobin A1c 5.2 % (0.0-6.0) 09/04/21 09: Calcium 10.8 mg/dL (8.4-10.2) H 09/04/21 09:29 Total Bilirubin 0.5 mg/dL (0.2-1.3) 09/04/21 09:29 AST 24 U/L (14-36) 09/04/21 09:29 ALT 22 U/L (4-34) 09/04/21 09:29 Alkaline Phosphatase 70 U/L (38-126) 09/04/21 09:29 Total Protein 7.3 g/dL (6.3-8.2) 09/04/21 09:29 Albumin 4.5 g/dL (3.5-5.0) 09/04/21 09:29 Triglycerides 211.00 mg/dL (0.00-149.00) H 09/04/21 09:29 Cholesterol 268.00 mg/dL (0.00-200.00) H 09/04/21 09:29 LDL Cholesterol, Calc 184.8 mg/dL (0.0-131.0) H 09/04/21 09:29 VLDL Cholesterol, Calc 42.20 mg/dL (5.00-40.00) H 09/04/21 09:29 HDL Cholesterol 41.00 mg/dL (40.00-60.00) 09/04/21 09:29 Cholesterol/HDL Ratio 6.54 Ratio 09/04/21 09:29 TSH 13.100 mIU/L (0.465-4.680) H 09/04/21 09:29 Urine Opiates Screen Not Detected (NotDetected) 09/04/21 09:29 Ur Oxycodone Screen Not Detected (NotDetected) 09/04/21 09:29 Urine Methadone Screen Not Detected (NotDetected) 09/04/21 09:29 Ur Propoxyphene Screen Not Detected (NotDetected) 09/04/21 09:29 Ur Barbiturates Screen Not Detected (NotDetected) 09/04/21 09:29 U Tricyclic Antidepress Not Detected (NotDetected) 09/04/21 09:29 Ur Phencyclidine Scrn Not Detected (NotDetected) 09/04/21 09:29 Ur Amphetamines Screen Not Detected (NotDetected) 09/04/21 09:29 U Methamphetamines Scrn Not Detected (NotDetected) 09/04/21 09:29 U Benzodiazepines Scrn Not Detected (NotDetected) 09/04/21 09:29 [place] 1.0 mmol/L 09/04/21 09:29 Urine Cocaine Screen Not Detected (NotDetected) 09/04/21 09:29 U Marijuana (THC) Screen Not Detected (NotDetected) 09/04/21 09:29 Coronavirus (PCR) Not Detected (Not Detectd) 09/04/21 09:29 09/05/21 10:37 IDENTIFYING DATA: This patient is a 56-year-old female with a history of depression and anxiety and multiple suicide attempts, currently lives alone in a house is single as 3 kids currently collects disability. HISTORY OF PRESENT ILLNESS: The patient presented to the hospital yesterday and was complaining in the ER of hearing voices and having suicidal thoughts at home. She was stating that she was not feeling safe to go home yesterday. She was admitted voluntarily to the mental health unit. Her lithium level is 1.0 on admission. Patient's UDS was negative. Patient was recently discharged from the mental health unit about one week ago on Zyprexa, Cymbalta and lithium. Patient was seen today wandering the hallways and agreeable to speak to tag writer. She was cooperative during the interview and answered questions appropriately. She denies any recent stressors in her life or triggers with her family. She claims that she has been taking her medications. She states that she is feeling depressed and anxious at home. She claims that 1 day before coming in the hospital she began hearing voices during the day telling her to hurt herself. She states that the voices have been mildly improving since being on the unit. She states that she got upset and called the ambulance to come in to the hospital. She states that she is still having some suicidal thoughts however no intent or plan today. Patient denies any visual hallucinations. Patients admits to using no recreational drugs or cigarettes PAST PSYCHIATRIC HISTORY: Patient has a a history of bipolar, anxiety. Patient was previously on lithium, Zyprexa and Cymbalta. She has been admitted psychiatrically several times in the past the last admission to the mental health unit was one week ago. She claims that she has been following up at [facility] in [place] with Khalida Judd. last seen in june 2021. She claims that she has had multiple overdoses and suicide attempts in the past. PAST MEDICAL HISTORY: Hyperlipidemia, Thyroid Disorder ALLERGIES: as per EMR. CHEMICAL DEPENDENCY HISTORY: as per HPI. FAMILY PSYCHIATRIC/SUBSTANCE USE HISTORY: denies SOCIAL HISTORY: Patient was born and raised in [facility]. She states that she played high school. She denies any legal history. 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 She currently lives alone is single and a house. She has 3 kids. She collects Social Security disability MENTAL STATUS EXAM: General Appearance: Patient appears to be overweight, short in stature, stated age is alert, anxious today, directable. Patient appears to have poor hygiene and grooming wearing hospital gown with poor eye contact. Behavior: Patient is sitting in chair, appears anxious and in mild distress today. Directable. Speech: Patient's speech is fluent and nonpressured. [place] Mood/Affect: Patient reports their mood is "depressed and anxious", affect is congruent Suicidality/Homicidality: Patient denies having any homicidal ideation intent or plan. Endorsing suicidal thoughts, however no intent or plan. Perceptions: Patient denies any visual hallucinations and endorsing auditory hallucinations telling her to kill herself. Though content/process: There is no evidence of any delusional thought content and thought process is linear and goal-directed. Focused on her symptoms. [place]. Memory and concentration: AOX3, grossly intact for the purposes of this session. Can spell "WORLD" backwards Judgment and insight: poor STRENGTHS/WEAKNESSES: strength is that patient is resilient. Weakness is that patient has poor judgment and is impulsive INTELLECT: average IMPRESSIONS: Major depressive disorder, severe, recurrent with psychotic features borderline personality disorder Generalized anxiety disorder Hypothyroidism PLAN: -Patient is admitted under voluntary status to MHU for stabilization of psychiatric symptoms and safety. Patient has signed adult voluntary form and medication consent and is placed in patient's chart. -Medications : Will increase cymbalta 90 mg daily for mood/anxiety. continue with lithium 450 mg bid for mood stabilization/suicidal thoughts. Increase zyprexa to 10 mg qhs for mood stabilization/psychosis. -Ativan and Haldol PRN for agitation/aggression -Continue with synthroid 125 mcg daily. -Patient was informed of the risks, benefits and side effects of the medication and patient verbally consented to taking the medications. Patient signed med consent form and was placed in chart. -Internal Medicine consult to perform medical evaluation and physical. -NRT - not needed as patient does not smoke. -SW on board for discharge planning. Encourage patient to participate in groups to work on coping skills.
[2021-09-05] MEDS: LORazepam 1 MG TAB PO PRN (14:30)
[2021-09-05] MEDS: OLANZapine 10 MG TAB PO SCH (21:14)
[2021-09-06] MEDS: LEVOTHYROXINE 125 MCG TAB PO SCH ×2 (06:32→08:48)
[2021-09-06] MEDS: LORazepam 1 MG TAB PO PRN (08:47)
[2021-09-06] MEDS: DULoxetine HCL 30 MG CAPSULE.DR PO SCH (08:48)
[2021-09-06] MEDS: ASPIRIN 81 MG PO SCH (08:48)
[2021-09-06] MEDS: MULTIVITAMINS, THERA 1 EACH TAB PO SCH (08:48)
[2021-09-06] MEDS: LITHIUM CARBONATE ER 450 MG TABLET.ER PO SCH ×2 (08:48→20:36)
[2021-09-06] MEDS: GABAPENTIN 300 MG CAP PO SCH ×4 (08:48→20:36)
--- NOTE | 2021-09-06 09:34 | P.PN ---
Progress Note - Text Progress Note Date: 09/06/21 Interval History: Patient was seen wandering the hallways and was directable and agreeable to [place] with physician underwriter in the office. Patient continues to claim that she has anxiety during the day. She states that she has taken Vistaril the past and is willing to take it again and took an Ativan earlier which helped. She states that her mood has been improving. She claims that she is not feeling suicidal today. She states that she still hearing voices at times during the day however this has been improving mildly. She states that she had a difficult time sleeping last night due to frequent awakenings going to the bathroom. She was claiming that she is not feeling any dysuria however is having urgency. She states that she has been going to groups. At this time patient denies any suicidal or homical ideations, intent or plan. Patient denies any visual hallucinations and denies any paranoia or delusions. Patient denies any side effects from the medications and has been compliant with meds. Mental Status Exam: General Appearance: Patient appears to be overweight, short in stature, stated age is alert, anxious today, directable. Patient appears to have improving hygiene and grooming wearing hospital gown Behavior: Patient is sitting in chair, appears anxious and in mild distress today. Directable. Speech: Patient's speech is fluent and nonpressured. [place] Mood/Affect: Patient reports their mood is "anxious", affect is congruent Suicidality/Homicidality: Patient denies having any homicidal ideation intent or plan. Endorsing suicidal thoughts, however no intent or plan. Perceptions: Patient denies any visual hallucinations and endorsing auditory hallucinations telling her to kill herself. Though content/process: There is no evidence of any delusional thought content and thought process is linear and goal-directed. [place]. Memory and concentration: AOX3, grossly intact for the purposes of this session Judgment and insight: poor, improving mildly Assessment Major depressive disorder, severe, recurrent with psychotic features borderline personality disorder Generalized anxiety disorder Hypothyroidism Plan: -Patient continues to meet criteria for inpatient psychiatric admission for symptom stabilization and safety. Patient has signed adult voluntary form and medication consent and was placed in patient's chart. -Medications: Continue Cymbalta 90 mg daily for mood/anxiety, lithium 450 mg twice a day for mood stabilization/suicidal thoughts. Zyprexa 10 mg daily at bedtime for mood stabilization/psychosis. Added Vistaril 25 mg twice a day for anxiety. -When necessary Ativan and Haldol for agitation/aggression. -NRT - not needed as patient does not smoke. -SW on board for discharge planning. Encouraged the patient to participate in milieu.
[2021-09-06] MEDS: hydrOXYzine pamoate 25 MG CAP PO SCH ×2 (13:44→20:36)
[2021-09-06] MEDS: OLANZapine 10 MG TAB PO SCH (20:36)
[2021-09-07] MEDS: LORazepam 1 MG TAB PO PRN (03:44)
[2021-09-07] MEDS: DULoxetine HCL 30 MG CAPSULE.DR PO SCH (08:26)
[2021-09-07] MEDS: MULTIVITAMINS, THERA 1 EACH TAB PO SCH (08:26)
[2021-09-07] MEDS: LITHIUM CARBONATE ER 450 MG TABLET.ER PO SCH (08:26)
[2021-09-07] MEDS: ASPIRIN 81 MG PO SCH (08:26)
[2021-09-07] MEDS: GABAPENTIN 300 MG CAP PO SCH (08:26)
[2021-09-07] MEDS: hydrOXYzine pamoate 25 MG CAP PO SCH (08:27)
[2021-09-07 10:00] VITALS: BP 93/53; PULSE 110; RESP 16; TEMP 98.1
--- NOTE | 2021-09-07 11:39 | P.DS ---
Providers Date of admission: 09/04/21 16:33 Expected date of discharge: 09/07/21 Attending physician: Sang Ricci MD Consults: 09/04/21 16:40 Consult Physician Routine Consulting Provider: Sanna Good Consult Reason/Comments: H&P and medical Do you want consulting provider notified?: Yes Primary care physician: Stated None - Discharge Diagnosis(es) (1) Major depressive disorder, recurrent, severe with psychotic features Current Visit: Yes Status: Acute Priority: High (2) Borderline personality disorder Current Visit: Yes Status: Acute Priority: Medium (3) Generalized anxiety disorder Current Visit: Yes Status: Acute Priority: Medium (4) Hypothyroidism Current Visit: Yes Status: Acute Priority: Medium Hospital Course: Admission HPI: Admission note was completed by machine sign writer "This patient is a 56-year-old female with a history of depression and anxiety and multiple suicide attempts, currently lives alone in a house is single as 3 kids currently collects disability. The patient presented to the hospital yesterday and was complaining in the ER of hearing voices and having suicidal thoughts at home. She was stating that she was not feeling safe to go home yesterday. She was admitted voluntarily to the mental health unit. Her lithium level is 1.0 on admission. Patient's UDS was negative. Patient was recently discharged from the mental health unit about one week ago on Zyprexa, Cymbalta and lithium. Patient was seen today wandering the hallways and agreeable to speak to machine sign writer. She was cooperative during the interview and answered questions appropriately. She denies any recent stressors in her life or triggers with her family. She claims that she has been taking her medications. She states that she is feeling depressed and anxious at home. She claims that 1 day before coming in the hospital she began hearing voices during the day telling her to hurt herself. She states that the voices have been mildly improving since being on the unit. She states that she got upset and called the ambulance to come in to the hospital. She states that she is still having some suicidal thoughts however no intent or plan today. Patient denies any visual hallucinations. Patients admits to using no recreational drugs or cigarettes." Hospital course: Upon admission to the unit patient was directable and agreeable to commence treatment and signed adult voluntary form. Patient got along well with other patients on the unit and followed unit protocol. Patient was compliant with the medications and denied any side effects throughout hospital course. Patient was started on Zyprexa and titrated up to dose of 50 mg daily at bedtime for mood stabilization/psychosis. Patient was also started on Cymbalta however increased to a dose of 90 mg per day for mood/anxiety and also restarted back on her lithium 450 mg twice a day for mood stabilization/suicidal thoughts. Added on Vistaril 25 mg twice a day for anxiety. Patient spoke of her stressors and engaged in therapy both group and individual. Patient was also seen by medical team for history and physical exam. Throughout the course of the hospitalization patient gradually improved with regards to mood, anxiety, sleep and became more future oriented with improved insight and judgment. On the day of discharge patient denied any suicidal or homicidal ideations intent or plan denied any auditory or visual hallucinations. Patient endorsed wanting to live for her health and her future. The patient denied any access to guns or weapons. Patient denied any paranoia and did not endorse any delusions. Patient does not have a significant history of substance abuse was counseled on abstaining from all substances including alcohol and marijuana. Patient was also counseled on the medications and need for regular compliance and was encouraged to follow-up with their outpatient appointment for mental health and also for primary care. Prior to discharge a family meeting will be arranged by social media marketing analyst to answer any questions and ensure safety upon discharge. Mental status exam: General Appearance: Patient appears to be short in stature, stated age is alert, pleasant, and cooperative. Patient is in no acute distress and has improved hygiene and grooming Behavior: Patient is calmly seated without any agitated behavior. Speech: Patient's speech is fluent and nonpressured. Mood/Affect: Patient reports their mood is "good", affect is congruent and euthymic. Suicidality/Homicidality: Patient denies having any suicidal or homicidal ideation intent or plan. Perceptions: Patient denies any auditory or visual hallucinations. Though content/process: There is no evidence of any delusional thought content and thought process is linear and goal-directed. more future oriented Memory and concentration: AOX3, grossly intact for the purposes of this session. Can spell "WORLD" backwards correctly. Judgment and insight: chronically poor, however has improved with guarded prognosis Impression: Major depressive disorder, severe, recurrent with psychotic features Generalized anxiety disorder Hypothyroidism Borderline personality disorder [Nicotine dependence] Plan: -Continue with discharge today as patient has improved and stabilized psychiatrically and is not currently an imminent threat to [himself] and/or others. [Patient will remain at chronically elevated risk for harm to self and/or others due to her impulsivity.] -Continue medications: Vistaril 25 mg twice a day when necessary for anxiety, lithium 450 mg twice a day for mood stabilization/suicidal thoughts, Zyprexa 15 mg daily at bedtime for mood stabilization/psychosis/insomnia, Cymbalta 90 mg daily for mood/anxiety -Patient was counseled on the need for medication compliance and appropriate follow-up at mental health and also primary care for medical issues. Patient verbalized understanding and agreed. -Social work to [arrange for and conduct family meeting to ensure safety upon discharge and answer any questions/concerns.] Social work also to arrange for patients follow up appointments [with [facility]] for psychiatric care along with follow up with primary care provider. -Patient counseled on abstaining from recreational drugs and marijuana and alcohol. Was informed/educated on the adverse effects on their physical and mental health. [Patient verbally agreed and understood]. -Patient was instructed to return to the hospital or seek immediate medical care if their psychiatric or medical symptoms do worsen or reoccur. Allergies Allergy/AdvReac Type Severity Reaction Status Date / Time ibuprofen [From Motrin] Allergy Intermediate Rash/Hives Verified 08/22/21 08:52 tramadol HCl [From Ultram] Allergy Intermediate Itching Verified 08/22/21 08:52 Laboratory Results WBC 10.6 k/uL (3.8-10.6) 09/04/21 09:29 RBC 3.93 m/uL (3.80-5.40) 09/04/21 09:29 Hgb 13.0 gm/dL (11.4-16.0) 09/04/21 09: Hct 39.5 % (34.0-46.0) 09/04/21 09: MCV 100.6 fL (80.0-100.0) H 09/04/21 09:29 MCH 33.0 pg (25.0-35.0) 09/04/21 09: MCHC 32.8 g/dL (31.0-37.0) 09/04/21 09:29 RDW 13.4 % (11.5-15.5) 09/04/21 09:29 Plt Count 296 k/uL (150-450) 09/04/21 09:29 MPV 9.2 09/04/21 09:29 Neutrophils % 76 % 09/04/21 09:29 Lymphocytes % 16 % 09/04/21 09:29 Monocytes % 6 % 09/04/21 09: Eosinophils % 1 % 09/04/21 09: Basophils % 0 % 09/04/21 09:29 Neutrophils # 8.0 k/uL (1.3-7.7) H 09/04/21 09:29 Lymphocytes # 1.7 k/uL (1.0-4.8) 09/04/21 09:29 Monocytes # 0.6 k/uL (0-1.0) 09/04/21 09:29 Eosinophils # 0.1 k/uL (0-0.7) 09/04/21 09: Basophils # 0.0 k/uL (0-0.2) 09/04/21 09:29 Macrocytosis Slight 09/04/21 09:29 Sodium 139 mmol/L (137-145) 09/04/21 09:29 Potassium 3.7 mmol/L (3.5-5.1) 09/04/21 09:29 Chloride 109 mmol/L (98-107) H 09/04/21 09:29 Carbon Dioxide 21 mmol/L (22-30) L 09/04/21 09:29 Anion Gap 9 mmol/L 09/04/21 09:29 BUN 9 mg/dL (7-17) 09/04/21 09:29 Creatinine 0.83 mg/dL (0.52-1.04) 09/04/21 09:29 Est GFR (CKD-EPI)AfAm >90 (>60 ml/min/1.73 sqM) 09/04/21 09:29 Est GFR (CKD-EPI)NonAf 78 (>60 ml/min/1.73 sqM) 09/04/21 09:29 Glucose 96 mg/dL (74-99) 09/04/21 09:[address] Glu mg/dL 104 09/04/21 09:29 Hemoglobin A1c 5.2 % (0.0-6.0) 09/04/21 09: Calcium 10.8 mg/dL (8.4-10.2) H 09/04/21 09: Total Bilirubin 0.5 mg/dL (0.2-1.3) 09/04/21 09:29 AST 24 U/L (14-36) 09/04/21: ALT 22 U/L (4-34) 09/04/21: Alkaline Phosphatase 70 U/L (38-126) 09/04/21: Total Protein 7.3 g/dL (6.3-8.2) 09/04/21: Albumin 4.5 g/dL (3.5-5.0) 09/04/21: Triglycerides 211.00 mg/dL (0.00-149.00) H 09/04/21: Cholesterol 268.00 mg/dL (0.00-200.00) H 09/04/21: LDL Cholesterol, Calc 184.8 mg/dL (0.0-131.0) H 09/04/21: VLDL Cholesterol, Calc 42.20 mg/dL (5.00-40.00) H 09/04/21: HDL Cholesterol 41.00 mg/dL (40.00-60.00) 09/04/21: Cholesterol/HDL Ratio 6.54 Ratio 09/04/21: TSH 13.100 mIU/L (0.465-4.680) H 09/04/21: Free T4 1.520 ng/dL (0.800-1.800) 09/04/21 09:29 Urine Opiates Screen Not Detected (NotDetected) 09/04/21 09:29 Ur Oxycodone Screen Not Detected (NotDetected) 09/04/21 09: Urine Methadone Screen Not Detected (NotDetected) 09/04/21: Ur Propoxyphene Screen Not Detected (NotDetected) 09/04/21 09: Ur Barbiturates Screen Not Detected (NotDetected) 09/04/21 09: U Tricyclic Antidepress Not Detected (NotDetected) 09/04/21 09: Ur Phencyclidine Scrn Not Detected (NotDetected) 01/31/22 09:29 Ur Amphetamines Screen Not Detected (NotDetected) 09/04/21 09:29 U Methamphetamines Scrn Not Detected (NotDetected) 09/04/21 09:29 U Benzodiazepines Scrn Not Detected (NotDetected) 09/04/21 09:29 [place] 1.0 mmol/L 09/04/21 09:29 Urine Cocaine Screen Not Detected (NotDetected) 09/04/21 09:29 U Marijuana (THC) Screen Not Detected (NotDetected) 09/04/21 09:29 Coronavirus (PCR) Not Detected (Not Detectd) 09/04/21 09:29 Vital Signs Temp 98.1 F 09/07/21 09:59 Pulse 110 H 09/07/21 09:59 Resp 16 09/07/21 09:59 BP 93/53 09/07/21 09:59 Pulse Ox 98 09/07/21 09:59 Patient Condition at Discharge: Stable Plan - Discharge Summary Discharge Rx Participant: No New Discharge Prescriptions: New hydrOXYzine pamoate [Vistaril] 25 mg PO BID PRN 30 Days cap PRN Reason: Anxiety OLANZapine [ZyPREXA] 15 mg PO HS 30 Days tablet DULoxetine HCL [Cymbalta] 90 mg PO DAILY 30 Days [place] Carbonate ER [Lithobid] 450 mg PO BID 30 Days tablet Continue Gabapentin [Neurontin] 300 mg PO QID Multivitamins, Thera [Multivitamin (formulary)] 1 tab PO DAILY Aspirin 81 mg PO DAILY tab Levothyroxine Sodium [Synthroid] 125 mcg PO DAILY 30 Days tab Discontinued [place] Carbonate 450 mg PO DIRECTED DULoxetine HCL [Cymbalta] 60 mg PO DAILY 30 Days capsule OLANZapine [ZyPREXA] 7.5 mg PO HS 30 Days tab Discharge Medication List Gabapentin [Neurontin] 300 mg PO QID 04/30/17 [History] Multivitamins, Thera [Multivitamin (formulary)] 1 tab PO DAILY 08/22/21 [History] Aspirin 81 mg PO DAILY tab 08/25/21 [Rx] Levothyroxine Sodium [Synthroid] 125 mcg PO DAILY 30 Days tab 08/25/21 [Rx] DULoxetine HCL [Cymbalta] 90 mg PO DAILY 30 Days 09/07/21 [Rx] [place] Carbonate ER [Lithobid] 450 mg PO BID 30 Days tablet 09/07/21 [Rx] OLANZapine [ZyPREXA] 15 mg PO HS 30 Days tablet 09/07/21 [Rx] hydrOXYzine pamoate [Vistaril] 25 mg PO BID PRN 30 Days cap 09/07/21 [Rx] Follow up Appointment(s)/Referral(s): [facility] [Outside] - 09/13/21 1:00 pm (09/13 at 1 pm with Mary Domínguez at [facility] 09/20 at 10 am with Khalida Judd NP at the [place] office) None,Stated [Primary Care Provider] - 1-2 days Activity/Diet/Wound Care/Special Instructions: Activity and diet as tolerated. Avoid the use of street drugs and alcohol. Take all medications as prescribed. When you are in need of refills on your medications please contact your medical provider and/or outpatient psychiatrist to have this done. Please go to scheduled outpatient appointment for aftercare treatment. If symptoms return or become worse, call the crisis line at and/or go to the nearest emergency room for evaluation Discharge Disposition: HOME SELF-CARE
== END 2021-09-07 14:13 | disposition home or self-care (01) | DRG 885 ==
LOC: EC 06:54 → 3MHU 16:33
PROVIDERS: ADMIT Psychiatry & Neurology Psychiatry; ATTEND Psychiatry & Neurology Psychiatry
DX: F33.3 Major depressive disorder, recurrent, severe with psychotic symptoms (principal); R45.851 Suicidal ideations; F60.3 Borderline personality disorder; E03.9 Hypothyroidism, unspecified; Z20.822 Contact with and (suspected) exposure to COVID-19; F41.1 Generalized anxiety disorder; E78.5 Hyperlipidemia, unspecified; G47.00 Insomnia, unspecified; E66.3 Overweight; Z68.26 Body mass index [BMI] 26.0-26.9, adult; Z79.82 Long term (current) use of aspirin; Z79.890 Hormone replacement therapy; Z79.899 Other long term (current) drug therapy; Z91.51 Personal history of suicidal behavior; Z87.891 Personal history of nicotine dependence; Z60.2 Problems related to living alone; Z98.891 History of uterine scar from previous surgery; Z90.710 Acquired absence of both cervix and uterus; Z87.42 Personal history of other diseases of the female genital tract; Z98.890 Other specified postprocedural states; Z88.6 Allergy status to analgesic agent; Z88.5 Allergy status to narcotic agent; Z80.0 Family history of malignant neoplasm of digestive organs; Z82.0 Family history of epilepsy and other diseases of the nervous system; Z82.49 Family history of ischemic heart disease and other diseases of the circulatory system
CPT/HCPCS: 36415; 80053; 80061; 80178; 80306; 82075; 83036; 84439; 84443; 85025; 87635; 99285

== ENCOUNTER 2021-11-09 08:18 | Inpatient (IN) | payer OTHER ==
[2021-11-09] MEDS ORDERED: SODIUM CHLORIDE 0.9% 1,000 ML IV STA (08:34)
[2021-11-09] MEDS ORDERED: ONDANSETRON 4 MG/2 ML VIAL IVP STA (09:26)
[2021-11-09 09:31] LABS: Basophils % (A) 0 %; Eosinophils % (A) 0 %; HGB 12.4 gm/dL (11.4-16.0); Lymphocytes # (A) 1.3 k/uL (1.0-4.8); Lymphocytes % (A) 17 %; MCH 32.8 pg (25.0-35.0); MCHC 33.5 g/dL (31.0-37.0); MCV 97.8 fL (80.0-100.0); Mean Platelet Volume 7.6; Monocytes # (A) 0.5 k/uL (0-1.0); Monocytes % (A) 6 %; Neutrophils # (A) 5.6 k/uL (1.3-7.7); Neutrophils % (A) 74 %; Platelet Count 314 k/uL (150-450); RBC 3.79 m/uL (3.80-5.40); RDW 12.2 % (11.5-15.5); WBC 7.6 k/uL (3.8-10.6)
[2021-11-09 09:33] LABS: Appearance,Urine Clear (Clear); Bilirubin,Urine Negative (Negative); Blood,Urine Negative (Negative); Color,Urine Light Yellow; Glucose,Urine (UA) Negative (Negative); Ketones,Urine Negative (Negative); Leukocyte Esterase,Urine Trace (Negative); Nitrite,Urine Negative (Negative); Protein,Urine Negative (Negative); Specific Gravity,Urine 1.005 (1.001-1.035); Squamous Epithelial Cell,Urine 2 /hpf (0-4); Urobilinogen,Urine <2.0 mg/dL (<2.0); WBC,Urine 1 /hpf (0-5)
[2021-11-09 09:45] LABS: Amphetamine Screen,Urine Not Detected (NotDetected); Barbiturate Screen,Urine Not Detected (NotDetected); Benzodiazepines Screen,Urine Not Detected (NotDetected); Cocaine Screen,Urine Not Detected (NotDetected); Methadone Screen, Urine Not Detected (NotDetected); Opiate Screen,Urine Detected (NotDetected); Oxycodone Screen, Urine Not Detected (NotDetected); Phencyclidine Screen,Urine Not Detected (NotDetected); Tricyclic Antidepressant,Urine Not Detected (NotDetected); Urn Cannabinoid Scrn Not Detected (NotDetected)
[2021-11-09 09:47] LABS: ALT 29 U/L (4-34); AST 25 U/L (14-36); Acetaminophen <10.0 ug/mL; African American GFR (CKD) >90 (>60 ml/min/1.73 sqM); Albumin 3.8 g/dL (3.5-5.0); Alcohol <10 mg/dL; Alkaline Phosphatase 73 U/L (38-126); Amylase 241 U/L (30-110); Anion Gap 7 mmol/L; Blood Urea Nitrogen 7 mg/dL (7-17); Calcium 10.2 mg/dL (8.4-10.2); Carbon Dioxide 23 mmol/L (22-30); Chloride 110 mmol/L (98-107); Glucose 105 mg/dL (74-99); Lipase 527 U/L (23-300); Magnesium 1.8 mg/dL (1.6-2.3); Non-African American GFR(CKD) >90 (>60 ml/min/1.73 sqM); Potassium 3.6 mmol/L (3.5-5.1); Salicylate <1.0 mg/dL; Sodium 140 mmol/L (137-145); Total Bilirubin 0.5 mg/dL (0.2-1.3); Total Protein 6.3 g/dL (6.3-8.2)
[2021-11-09 10:32] LABS: Lithium 0.7 mmol/L
[2021-11-09 10:40] LABS: T4, Free (Free Thyroxine) 2.13 ng/dL (0.78-2.19)
[2021-11-09] MEDS ORDERED: NALOXONE 0.4 MG/ML 1 ML VIAL IV PRN ×2 (10:52→15:40)
[2021-11-09] MEDS ORDERED: ONDANSETRON 4 MG/2 ML VIAL IVP PRN (10:52)
[2021-11-09] MEDS ORDERED: ACETAMINOPHEN TAB 500 MG TAB PO PRN (10:58)
[2021-11-09] MEDS ORDERED: LORazepam 2 MG/ML INJ IV STA (10:59)
--- NOTE | 2021-11-09 11:17 | ED ---
General Adult HPI - General Chief complaint: Psychiatric Symptoms Stated complaint: overdose Time Seen by Provider: 11/09/21 08:35 Source: patient, EMS, RN notes reviewed, old records reviewed Mode of arrival: EMS Limitations: no limitations - History of Present Illness Initial comments: Patient is a 56-year-old female with past medical history remarkable for psychiatric illness, pancreatitis, depression, hypothyroidism, who presents emergency Department complaining of nausea, vomiting as well as a suspected overdose. Patient brings with her her Cymbalta as well as lithium that she is supposed be taking. Also dated to have been completed about 20 days ago. However she states she took handfuls of both medications this morning. Is uncertain how many. Is uncertain at what time. She believes it was anywhere from 5:30 and 7:30 AM. Patient was evaluated at approximately 9 AM. She is no acute complaints at this time. States she has minimal discomfort in epigastric region. Presents over concern for the overdose. States she has been feeling more depressed lately. Denies any homicidal ideations, attempts, plans. Denies any visual or auditory hallucinations. - Related Data Home Medications Medication Instructions Recorded Confirmed Gabapentin [Neurontin] 300 mg PO QID 04/30/17 11/09/21 Multivitamins, Thera [Multivitamin 1 tab PO DAILY 08/22/21 11/09/21 (formulary)] Calcium Carbonate [Calcium] 600 mg PO DAILY 11/08/21 11/09/21 DULoxetine HCL [Cymbalta] 30 mg PO DAILY 11/08/21 11/09/21 DULoxetine HCL [Cymbalta] 60 mg PO DAILY 11/08/21 11/09/21 risperiDONE [RisperDAL] 1 mg PO HS 11/08/21 11/09/21 Previous Rx's Medication Instructions Recorded Aspirin 81 mg PO DAILY tab 08/25/21 Levothyroxine Sodium [Synthroid] 125 mcg PO DAILY 30 Days tab 08/25/21 [place] Carbonate ER [Lithobid] 450 mg PO BID 30 Days tablet 09/07/21 hydrOXYzine pamoate [Vistaril] 25 mg PO BID PRN 30 Days cap 09/07/21 Allergies Allergy/AdvReac Type Severity Reaction Status Date / Time peanut Allergy Severe Anaphylaxis Verified 11/09/21 08:52 ibuprofen [From Motrin] Allergy Intermediate Rash/Hives Verified 11/09/21 08:52 tramadol HCl [From Ultram] Allergy Intermediate Itching Verified 11/09/21 08:52 Review of Systems ROS Statement: Those systems with pertinent positive or pertinent negative responses have been documented in the HPI. Review of Systems: CONST: Denies fever EYES: Denies blurry vision . History of anisocoria, left pupil greater than right. ENT: Denies nasal congestion C/V: Denies Chest pain RESP: Denies shortness of breath GI: Endorses slight abdominal pain : Denies dysuria SKIN: Denies rash. MSK: Denies joint pain. NEURO: Denies headache PSYCH: Denies homicidal ideations/plans/attempts. Denies visual or auditory hallucinations. Endorses suicide attempt via overdose. ROS Other: All systems not noted in ROS Statement are negative. Past Medical History Past Medical History: Chest Pain / Angina, Hyperlipidemia, Thyroid Disorder Additional Past Medical History / Comment(s): suicide attempt History of Any Multi-Drug Resistant Organisms: None Reported Past Surgical History: Section, Hysterectomy Additional Past Surgical History / Comment(s): x 2, colonoscopy Past Anesthesia/Blood Transfusion Reactions: No Reported Reaction Additional Past Anesthesia/Blood Transfusion Reaction / Comment(s): no previous blood transfusion Past Psychological History: Anxiety, Bipolar, Depression Smoking Status: Never smoker Past Alcohol Use History: None Reported Past Drug Use History: None Reported - Past Family History Father Family Medical History: Cancer, Neurologic Disorder Additional Family Medical History / Comment(s): Pt's. father had colon cancer and Parkinson's. Father at the age of 80yrs. Mother Family Medical History: Congestive Heart Failure (CHF) Additional Family Medical History / Comment(s): states "weak heart" Mother at the age of 90yrs. Sister(s) Family Medical History: Coronary Artery Disease (CAD), Myocardial Infarction (ME) Additional Family Medical History / Comment(s): 1 sister with hx of 2 cardiac stents, 1 other sister from heart related issues General Exam - General Exam Comments Initial Comments: General: Appears in no acute distress. HEAD: Normal with no signs of head trauma. EYES: On my. Pupils are round and reactive to light. Left pupil approximate 4 mm, right pupil approximately 2 mm. This is chronic finding of anisocoria, known to patient. ENT: Hearing grossly intact, normal oropharynx. RESPIRATORY: Clear breath sounds bilaterally. No wheezes, rales, or rhonchi. C/V: The cardiac with regular rhythm. S1 and S2 auscultated. No peripheral edema. Peripheral pulses are 2+ and intact throughout. ABD: Abdomen is soft, nondistended. Mild tenderness palpation epigastric region. No rebound tenderness, guarding, peritoneal signs. EXT: Normal range of motion, no obvious deformity SKIN: No rashes or lesions observed on exposed skin. NEURO: Alert and oriented 4. No focal sensory strength deficits. GCS of 15. NIH is 0. Limitations: no limitations Course Vital Signs 11/09/21 11/09/21 11/09/21 08:23 09:52 11:24 Temperature 98.7 F 98.6 F Pulse Rate 117 H 110 H 118 H Respiratory 16 16 16 Rate Blood Pressure 154/78 143/71 142/75 O2 Sat by Pulse 100 99 99 Oximetry 11/09/21 14:38 Temperature Pulse Rate 102 H Respiratory 20 Rate Blood Pressure 135/67 O2 Sat by Pulse 100 Oximetry Medical Decision Making - Medical Decision Making The patient's presentation and physical exam, I'm concerned for possible overdose for the patient. Patient percents with Cymbalta and lithium bottles which are empty, however are deviated to have been completed on 10/17/2021. Unknown number of pills. Taken within the last 4-5 hours. Only complaint is some mild epigastric discomfort and nausea. We will obtain overdose labs, BAT 0.00. UDS will be obtained as well. She does require psychiatric evaluation following laboratory studies. She'll be given a 1 L fluid bolus as well as IV Zofran at this time. Declines analgesic medications at this time. EKG shows no signs of acute ischemia. Patient does have sinus tachycardia. Laboratory studies are remarkable for an amylase that is elevated to 241 and lipase is elevated 527. She does have a history from a few months ago of an elevated lipase to 415. Urine studies are remarkable for positive opiate screen. [place] level is therapeutic at 0.7. Thyroid studies show normal free T4. Patient is on levothyroxine at home. Remainder the labs are within normal limits. On reevaluation, patient remains stable. Vital signs remained within normal limits except for very mild tachycardia, and when I speak with her does run 100. I did discuss with her the results for laboratory studies and imaging. I would like to admitted to the hospital. She was in agreement this plan. Toxicology was called when they agreed with this workup and plan for observation. Recommended a 6 hour lithium level which was ordered by myself as well as observation for signs of agitation from the Cymbalta including tachycardia that is worse, hypertension which can be treated with benzo's. I spoke with the admitting team, city call Dr. marquez who accepted the patient. Patient will be admitted in stable condition at this time. Psychiatry was consulted for evaluation. Suicide precautions, sitter, green scrubs replaced on palpation. Per primary team's request, CT abdomen and pelvis will be ordered for evaluation of the patient's elevated pancreatic enzymes. She was in agreement with this plan.CT imaging showed signs of mild pancreatitis. - Lab Data Result diagrams: 11/09/21 09:04 11/09/21 09:04 Lab Results 11/09/21 11/09/21 11/09/21 Range/Units 09:04 09:04 09:04 WBC 7.6 (3.8-10.6) k/uL RBC 3.79 L (3.80-5.40) m/uL Hgb 12.4 (11.4-16.0) gm/dL Hct 37.0 (34.0-46.0) % MCV 97.8 (80.0-100.0) fL MCH 32.8 (25.0-35.0) pg MCHC 33.5 (31.0-37.0) g/dL RDW 12.2 (11.5-15.5) % Plt Count 314 (150-450) k/uL MPV 7.6 Neutrophils % 74 % Lymphocytes % 17 % Monocytes % 6 % Eosinophils % 0 % Basophils % 0 % Neutrophils # 5.6 (1.3-7.7) k/uL Lymphocytes # 1.3 (1.0-4.8) k/uL Monocytes # 0.5 (0-1.0) k/uL Eosinophils # 0.0 (0-0.7) k/uL Basophils # 0.0 (0-0.2) k/uL Sodium (137-145) mmol/L Potassium (3.5-5.1) mmol/L Chloride (98-107) mmol/L Carbon Dioxide (22-30) mmol/L Anion Gap mmol/L BUN (7-17) mg/dL Creatinine (0.52-1.04) mg/dL Est GFR (CKD-EPI)AfAm (>60 ml/min/1.73 sqM) Est GFR (CKD-EPI)NonAf (>60 ml/min/1.73 sqM) Glucose (74-99) mg/dL Plasma Lactic Acid Guille (0.7-2.0) mmol/L Calcium (8.4-10.2) mg/dL Magnesium (1.6-2.3) mg/dL Total Bilirubin (0.2-1.3) mg/dL AST (14-36) U/L ALT (4-34) U/L Alkaline Phosphatase (38-126) U/L Total Protein (6.3-8.2) g/dL Albumin (3.5-5.0) g/dL Amylase (30-110) U/L Lipase (23-300) U/L TSH (0.465-4.680) mIU/L Free T4 (0.78-2.19) ng/dL Urine Color Light Yellow Urine Appearance Clear (Clear) Urine pH 7.0 (5.0-8.0) Ur Specific [place] 1.005 (1.001-1.035) Urine Protein Negative (Negative) Urine Glucose (UA) Negative (Negative) Urine Ketones Negative (Negative) Urine Blood Negative (Negative) Urine Nitrite Negative (Negative) Urine Bilirubin Negative (Negative) Urine Urobilinogen <2.0 (<2.0) mg/dL Ur Leukocyte Esterase Trace H (Negative) Urine WBC 1 (0-5) /hpf Ur Squamous Epith Cells 2 (0-4) /hpf Urine HCG, Qual Not Detected (Not Detectd) Salicylates mg/dL Urine Opiates Screen Detected H (NotDetected) Ur Oxycodone Screen Not Detected (NotDetected) Urine Methadone Screen Not Detected (NotDetected) Ur Propoxyphene Screen Not Detected (NotDetected) Acetaminophen ug/mL Ur Barbiturates Screen Not Detected (NotDetected) U Tricyclic Antidepress Not Detected (NotDetected) Ur Phencyclidine Scrn Not Detected (NotDetected) Ur Amphetamines Screen Not Detected (NotDetected) U Methamphetamines Scrn Not Detected (NotDetected) U Benzodiazepines Scrn Not Detected (NotDetected) [place] mmol/L Urine Cocaine Screen Not Detected (NotDetected) U Marijuana (THC) Screen Not Detected (NotDetected) Serum Alcohol mg/dL 11/09/21 11/09/21 Range/Units 09:04 09:04 WBC (3.8-10.6) k/uL RBC (3.80-5.40) m/uL Hgb (11.4-16.0) gm/dL Hct (34.0-46.0) % MCV (80.0-100.0) fL MCH (25.0-35.0) pg MCHC (31.0-37.0) g/dL RDW (11.5-15.5) % Plt Count (150-450) k/uL MPV Neutrophils % % Lymphocytes % % Monocytes % % Eosinophils % % Basophils % % Neutrophils # (1.3-7.7) k/uL Lymphocytes # (1.0-4.8) k/uL Monocytes # (0-1.0) k/uL Eosinophils # (0-0.7) k/uL Basophils # (0-0.2) k/uL Sodium 140 (137-145) mmol/L Potassium 3.6 (3.5-5.1) mmol/L Chloride 110 H (98-107) mmol/L Carbon Dioxide 23 (22-30) mmol/L Anion Gap 7 mmol/L BUN 7 (7-17) mg/dL Creatinine 0.66 (0.52-1.04) mg/dL Est GFR (CKD-EPI)AfAm >90 (>60 ml/min/1.73 sqM) Est GFR (CKD-EPI)NonAf >90 (>60 ml/min/1.73 sqM) Glucose 105 H (74-99) mg/dL Plasma Lactic Acid Guille 1.2 (0.7-2.0) mmol/L Calcium 10.2 (8.4-10.2) mg/dL Magnesium 1.8 (1.6-2.3) mg/dL Total Bilirubin 0.5 (0.2-1.3) mg/dL AST 25 (14-36) U/L ALT 29 (4-34) U/L Alkaline Phosphatase 73 (38-126) U/L Total Protein 6.3 (6.3-8.2) g/dL Albumin 3.8 (3.5-5.0) g/dL Amylase 241 H (30-110) U/L Lipase 527 H (23-300) U/L TSH <0.015 L (0.465-4.680) mIU/L Free T4 2.13 (0.78-2.19) ng/dL Urine Color Urine Appearance (Clear) Urine pH (5.0-8.0) Ur Specific [place] (1.001-1.035) Urine Protein (Negative) Urine Glucose (UA) (Negative) Urine Ketones (Negative) Urine Blood (Negative) Urine Nitrite (Negative) Urine Bilirubin (Negative) Urine Urobilinogen (<2.0) mg/dL Ur Leukocyte Esterase (Negative) Urine WBC (0-5) /hpf Ur Squamous Epith Cells (0-4) /hpf Urine HCG, Qual (Not Detectd) Salicylates <1.0 mg/dL Urine Opiates Screen (NotDetected) Ur Oxycodone Screen (NotDetected) Urine Methadone Screen (NotDetected) Ur Propoxyphene Screen (NotDetected) Acetaminophen <10.0 ug/mL Ur Barbiturates Screen (NotDetected) U Tricyclic Antidepress (NotDetected) Ur Phencyclidine Scrn (NotDetected) Ur Amphetamines Screen (NotDetected) U Methamphetamines Scrn (NotDetected) U Benzodiazepines Scrn (NotDetected) [place] 0.7 mmol/L Urine Cocaine Screen (NotDetected) U Marijuana (THC) Screen (NotDetected) Serum Alcohol <10 mg/dL - EKG Data -: EKG Interpreted by Me EKG Comments: 12-lead Electrocardiogram Interpretation Note EKG was reviewed and interpreted by myself. 12-lead ECG performed at 0848 is interpreted by me as revealing sinus tachycardia at a rate of 111 beats per minute. Johnson is normal. NV interval is 172 ms, QRS duration 74 ms, QTc is 403 ms.. There were no ST or T wave abnormalities to suggest myocardial ischemia or injury. R wave progression across the precordium was satisfactory. By my interpretation this EKG is non-diagnostic for acute ischemia. Disposition Clinical Impression: Overdose, Suicide attempt, Pancreatitis, acute, Nausea & vomiting Disposition: ADMITTED IP TO THIS HOSP Condition: Stable Decision to Admit Reason: Admit from EC Decision Date: 11/09/21 Decision Time: 10:50
--- NOTE | 2021-11-09 12:11 | CT ---
EXAMINATION TYPE: CT abdomen pelvis w con DATE OF EXAM: 11/09/2021 COMPARISON: 09/01/2016 HISTORY: pancreatitis CT DLP: 759.3 mGycm Automated exposure control for dose reduction was used. CONTRAST: CT scan of the abdomen pelvis is performed with IV Contrast, patient injected with 100 mL of Isovue 3 00. FINDINGS- LUNG BASES-subsegmental changes involving bilateral lung bases most typical of atelectasis. Heart siz e normal. Shotty pericardiophrenic lymph nodes noted. Small hiatal hernia.. LIVER/GB- No gross abnormality is appreciated. PANCREAS-there is minimal induration of the fat adjacent to the pancreas which could be partial volum e averaging.. SPLEEN- No gross abnormality is seen. ADRENALS- No gross abnormality is seen. KIDNEYS/BLADDER- no hydronephrosis nephrolithiasis or renal mass. BOWEL-bowel gas pattern nonspecific obstruction. Mild wall fullness of the gastroduodenal junction. LYMPH NODES- No greater than 1cm abdominal or pelvic lymph nodes areappreciated. OSSEOUS STRUCTURES-hypertrophic and degenerative changes spine. OTHER- no free fluid or free air. Correlate for previous hysterectomy. Small periumbilical hernia. IMPRESSION- 1. Minimal induration of the fat around the pancreatic tail could be on the basis of partial volume a veraging correlate with serum pancreatic enzymes to exclude a very mild pancreatitis. 2. Mild fullness to the gastroduodenal junction may be related to incomplete distention correlate cli nically to exclude peptic ulcer disease.
--- NOTE | 2021-11-09 14:07 | P.CN ---
Psychiatric Consult - . Consult date: 11/09/21 Consult:: 11/09/21 14:06 IDENTIFYING DATA: This patient is a single, 56-year-old female with significant history of depression, anxiety, and multiple suicide attempts, who presented to the emergency department after an intentional overdose in an attempt at suicide. HISTORY OF PRESENT ILLNESS: The patient presented to the hospital on 11/09/2021, brought into the emergency department by EMS due to overdose. Is uncertain at this time with the patient overdosed on. She does state that she overdosed on Wellbutrin and lithium. However review the patient's medications revealed that she was piercing prescribed lithium back in September however is currently on a home regimen of Risperdal, Cymbalta, and gabapentin. The patient reports that she is been feeling increasingly depressed however is unable to clearly identify any acute stressors. She just reports that she is not getting along with her family. She endorses numerous depressive symptoms including low mood, poor sleep, decreased appetite, and suicidal ideation. She has had multiple suicide attempts in the past. In regards to psychotic symptoms, the patient does report that she does experience auditory hallucinations. She reports that she hears voices often telling her that she needs to kill herself. She denies any visual hallucinations at this time. PAST PSYCHIATRIC HISTORY: Patient has a history of bipolar disorder, anxiety, and depression. The patient was previously on a regimen of lithium, Zyprexa, and Cymbalta and this has been changed numerous times. She is currently on a regimen of Risperdal, Vistaril, Cymbalta, Alupent, and lithium at home. The patient was last admitted to our psychiatric unit in September 05, 2021 and was discharged on September 07, 2021. She is open with [facility]. She has had numerous suicide attempts in the past. PAST MEDICAL HISTORY: Past Medical History: Chest Pain / Angina, Hyperlipidemia, Thyroid Disorder Additional Past Medical History / Comment(s): suicide attempt History of Any Multi-Drug Resistant Organisms: None Reported Past Surgical History: Section, Hysterectomy Additional Past Surgical History / Comment(s): x 2, colonoscopy Past Anesthesia/Blood Transfusion Reactions: No Reported Reaction Additional Past Anesthesia/Blood Transfusion Reaction / Comment(s): no previous blood transfusion Past Psychological History: Anxiety, Bipolar, Depression Smoking Status: Never smoker Past Alcohol Use History: None Reported Past Drug Use History: None Reported ALLERGIES: Peanut, ibuprofen, tramadol CHEMICAL DEPENDENCY HISTORY: No reported substance use history FAMILY PSYCHIATRIC/SUBSTANCE USE HISTORY: No reported history SOCIAL HISTORY: Patient was born and raised in in a [place], [place]. She graduated high school. She currently lives in a home by herself. She has 3 kids. She collects Social Security disability.. MENTAL STATUS EXAM: General Appearance: Patient appears to be stated age is alert, pleasant, and cooperative. Patient appears to have fair hygiene and grooming wearing hospital gown with intermittent eye contact. Behavior: Patient is calmly lying in bed without any agitated behavior. Speech: Patient's speech is fluent and nonpressured. Minimal in conversation. Mood/Affect: Patient reports their mood is "depressed", affect is incongruent and appears to be nonchalant. Suicidality/Homicidality: Patient endorses suicidal ideation however denies any homicidal ideation. Perceptions: Patient denies any visual hallucinations however endorses auditory hallucinations. Though content/process: There is no evidence of any delusional thought content and thought process is linear and goal-directed. Memory and concentration: AOX3, grossly intact for the purposes of this session. Can spell "WORLD" backwards Judgment and insight: poor Vital Signs Temp 98.6 F 11/09/21 11:24 Pulse 118 H 11/09/21 11:24 Resp 16 11/09/21 11:24 BP 142/75 11/09/21 11:24 Pulse Ox 99 11/09/21 11:24 Intake & Output 11/08/21 11/09/21 11/09/21 18:59 06:59 18:59 Weight 63.049 kg Laboratory Results - Last 24 Hours 11/09/21 11/09/21 11/09/21 09:04 09:04 09:04 WBC 7.6 RBC 3.79 L Hgb 12.4 Hct 37.0 MCV 97.8 MCH 32.8 MCHC 33.5 RDW 12.2 Plt Count 314 MPV 7.6 Neutrophils % 74 Lymphocytes % 17 Monocytes % 6 Eosinophils % 0 Basophils % 0 Neutrophils # 5.6 Lymphocytes # 1.3 Monocytes # 0.5 Eosinophils # 0.0 Basophils # 0.0 Sodium Potassium Chloride Carbon Dioxide Anion Gap BUN Creatinine Est GFR (CKD-EPI)AfAm Est GFR (CKD-EPI)NonAf Glucose Plasma Lactic Acid Guille Calcium Magnesium Total Bilirubin AST ALT Alkaline Phosphatase Total Protein Albumin Amylase Lipase TSH Free T4 Urine Color Light Yellow Urine Appearance Clear Urine pH 7.[address] 1.005 Urine Protein Negative Urine Glucose (UA) Negative Urine Ketones Negative Urine Blood Negative Urine Nitrite Negative Urine Bilirubin Negative Urine Urobilinogen <2.0 Ur Leukocyte Esterase Trace H Urine WBC 1 Ur Squamous Epith Cells 2 Urine HCG, Qual Not Detected Salicylates Urine Opiates Screen Detected H Ur Oxycodone Screen Not Detected Urine Methadone Screen Not Detected Ur Propoxyphene Screen Not Detected Acetaminophen Ur Barbiturates Screen Not Detected U Tricyclic Antidepress Not Detected Ur Phencyclidine Scrn Not Detected Ur Amphetamines Screen Not Detected U Methamphetamines Scrn Not Detected U Benzodiazepines Scrn Not Detected [place] Urine Cocaine Screen Not Detected U Marijuana (THC) Screen Not Detected Serum Alcohol 11/09/21 11/09/21 09:04 09:04 WBC RBC Hgb Hct MCV MCH MCHC RDW Plt Count MPV Neutrophils % Lymphocytes % Monocytes % Eosinophils % Basophils % Neutrophils # Lymphocytes # Monocytes # Eosinophils # Basophils # Sodium 140 Potassium 3.6 Chloride 110 H Carbon Dioxide 23 Anion Gap 7 BUN 7 Creatinine 0.66 Est GFR (CKD-EPI)AfAm >90 Est GFR (CKD-EPI)NonAf >90 Glucose 105 H Plasma Lactic Acid Guille 1.2 Calcium 10.2 Magnesium 1.8 Total Bilirubin 0.5 AST 25 ALT 29 Alkaline Phosphatase 73 Total Protein 6.3 Albumin 3.8 Amylase 241 H Lipase 527 H TSH <0.015 L Free T4 2.13 Urine Color Urine Appearance Urine pH Ur Specific [address] Urine Protein Urine Glucose (UA) Urine Ketones Urine Blood Urine Nitrite Urine Bilirubin Urine Urobilinogen Ur Leukocyte Esterase Urine WBC Ur Squamous Epith Cells Urine HCG, Qual Salicylates <1.0 Urine Opiates Screen Ur Oxycodone Screen Urine Methadone Screen Ur Propoxyphene Screen Acetaminophen <10.0 Ur Barbiturates Screen U Tricyclic Antidepress Ur Phencyclidine Scrn Ur Amphetamines Screen U Methamphetamines Scrn U Benzodiazepines Scrn [place] 0.7 Urine Cocaine Screen U Marijuana (THC) Screen Serum Alcohol <10 IMPRESSIONS: Major depressive disorder, recurrent, severe, with psychotic features Borderline personality disorder Generalized anxiety disorder Hypothyroidism PLAN: -Continue your medical management. -At this time patient DOES meet criteria for inpatient psychiatric admission. -Would recommend the following medication changes/additions: We will not start any psychotropic medications at this time. Once patient is medically cleared, and transferred to our psychiatric unit, we will look at the reinitiation of psychotropic medications. We will likely start the patient on a medication that can be transitioned to a long-acting injectable due to her history of overdose. -Continue 1:1 sitter for safety -Cannot leave AMA at this time. Patient will need a petition and certification if attempting to leave AMA. -When medically stable, patient is eligible for transfer to a psych bed when available. -Psychiatry will sign off at this point, please contact with any questions. 11/09/21 14:06
[2021-11-09] MEDS: SODIUM CHLORIDE 0.9% 1,000 ML IV SCH ×2 (14:34→22:19)
[2021-11-09] MEDS ORDERED: bisacodyL 5 MG TABLET.DR PO PRN (15:40)
[2021-11-09] MEDS ORDERED: MAGNESIUM HYDROXIDE 2,400 MG/10 ML CUP PO PRN (15:40)
--- NOTE | 2021-11-09 16:02 | P.HPIM ---
History of Present Illness H&P Date: 11/09/21 Chief Complaint: Intentional overdose Patient is a 56-year-old female with past medical history remarkable for bipolar disorder and depression, hypothyroidism, who presents emergency Department complaining of nausea, vomiting as well as a suspected overdose. Patient brings with her her Cymbalta as well as lithium that she is supposed be taking. Also dated to have been completed about 20 days ago. However she states she took handfuls of both medications this morning. Is uncertain how many. Is uncertain at what time. She believes it was anywhere from 5:30 and 7:30 AM. Patient was evaluated at approximately 9 AM. She is no acute complaints at this time. States she has minimal discomfort in epigastric region. Presents over concern for the overdose. States she has been feeling more depressed lately. Denies any homicidal ideations, attempts, plans. Denies any visual or auditory hallucinations. Review of Systems All 14 review of systems evaluated and all negative except for above. Past Medical History Past Medical History: Chest Pain / Angina, Hyperlipidemia, Thyroid Disorder Additional Past Medical History / Comment(s): suicide attempt History of Any Multi-Drug Resistant Organisms: None Reported Past Surgical History: Section, Hysterectomy Additional Past Surgical History / Comment(s): x 2, colonoscopy Past Anesthesia/Blood Transfusion Reactions: No Reported Reaction Additional Past Anesthesia/Blood Transfusion Reaction / Comment(s): no previous blood transfusion Past Psychological History: Anxiety, Bipolar, Depression Smoking Status: Never smoker Past Alcohol Use History: None Reported Past Drug Use History: None Reported - Past Family History Father Family Medical History: Cancer, Neurologic Disorder Additional Family Medical History / Comment(s): Pt's. father had colon cancer and Parkinson's. Father at the age of 80yrs. Mother Family Medical History: Congestive Heart Failure (CHF) Additional Family Medical History / Comment(s): states "weak heart" Mother at the age of 90yrs. Sister(s) Family Medical History: Coronary Artery Disease (CAD), Myocardial Infarction ([place]) Additional Family Medical History / Comment(s): 1 sister with hx of 2 cardiac stents, 1 other sister from heart related issues Medications and Allergies Home Medications Medication Instructions Recorded Confirmed Type Gabapentin [Neurontin] 300 mg PO QID 04/30/17 11/09/21 History Multivitamins, Thera [Multivitamin 1 tab PO DAILY 08/22/21 11/09/21 History (formulary)] Aspirin 81 mg PO DAILY tab 08/25/21 11/09/21 Rx Levothyroxine Sodium [Synthroid] 125 mcg PO DAILY 30 Days tab 08/25/21 11/09/21 Rx [place] Carbonate ER [Lithobid] 450 mg PO BID 30 Days tablet 09/07/21 11/09/21 Rx hydrOXYzine pamoate [Vistaril] 25 mg PO BID PRN 30 Days cap 09/07/21 11/09/21 Rx Calcium Carbonate [Calcium] 600 mg PO DAILY 11/08/21 11/09/21 History DULoxetine HCL [Cymbalta] 30 mg PO DAILY 11/08/21 11/09/21 History DULoxetine HCL [Cymbalta] 60 mg PO DAILY 11/08/21 11/09/21 History risperiDONE [RisperDAL] 1 mg PO HS 11/08/21 11/09/21 History Allergies Allergy/AdvReac Type Severity Reaction Status Date / Time peanut Allergy Severe Anaphylaxis Verified 11/09/21 08:52 ibuprofen [From Motrin] Allergy Intermediate Rash/Hives Verified 11/09/21 08:52 tramadol HCl [From Ultram] Allergy Intermediate Itching Verified 11/09/21 08:52 Physical Exam Vitals: Vital Signs Temp Pulse Resp BP Pulse Ox 11/09/21 14:38 102 H 20 135/67 100 11/09/21 11:24 98.6 F 118 H 16 142/75 99 11/09/21 09:52 110 H 16 143/71 99 11/09/21 08:23 98.7 F 117 H 16 154/78 100 Intake and Output 11/09/21 11/09/21 11/09/21 06:59 14:59 22:59 Other: Weight 63.049 kg General: non toxic, no distress, appears at stated age Derm: warm, dry Head: atraumatic, normocephalic, symmetric Eyes: EOMI, no lid lag, anicteric sclera Mouth: no lip lesion, mucus membranes moist Cardiovascular: S1S2 reg, no murmur, positive posterior tibial pulse bilateral, Lungs: CTA bilateral, no rhonchi, no rales , no accessory muscle use Abdominal: soft, mild epigastric tenderness with deep palpation but no rebound tenderness or rigidity , no guarding, no appreciable organomegaly Ext: no gross muscle atrophy, no edema, no contractures Neuro: CN II-XI grossly intact, no focal neuro deficits Psych: Alert, oriented, appropriate affect Results CBC & Chem 7: 11/09/21 09:04 11/09/21 09:04 Labs: Abnormal Lab Results - Last 24 Hours (Table) 11/09/21 11/09/21 11/09/21 Range/Units 09:04 09:04 09:04 RBC 3.79 L (3.80-5.40) m/uL Chloride 110 H (98-107) mmol/L Glucose 105 H (74-99) mg/dL Amylase 241 H (30-110) U/L Lipase 527 H (23-300) U/L TSH <0.015 L (0.465-4.680) mIU/L Ur Leukocyte Esterase Trace H (Negative) Urine Opiates Screen Detected H (NotDetected) Assessment and Plan Assessment: Assessment and plan: #Intentional overdose with Cymbalta and lithium #Major depressive disorder #Borderline personality disorder -Monitor lithium level -Psychiatry following -Bedside sitter #Mild acute pancreatitis -Clear liquid diet -IV fluids -Trend lipase level #Epigastric pain possibly secondary to acute pancreatitis -computed tomography scan showed evidence of possible peptic ulcer disease we'll consult general surgery for possible EGD -Protonix 40 mg IV push twice daily #Hypothyroidism -Resume levothyroxine #
[2021-11-09] MEDS: LORazepam 0.5 MG TAB PO PRN (18:30)
[2021-11-09] MEDS: HYDROcodone/APAP 5-325MG 1 EACH TAB PO PRN (18:30)
[2021-11-09] MEDS: GABAPENTIN 300 MG CAP PO SCH ×2 (18:31→22:18)
[2021-11-09] MEDS: PANTOPRAZOLE 40 MG/10 ML VIAL IVP SCH (22:18)
[2021-11-09] MEDS: hydrOXYzine pamoate 25 MG CAP PO PRN (22:18)
[2021-11-09] MEDS: risperiDONE 1 MG TAB PO SCH (22:40)
[2021-11-10] MEDS: LORazepam 0.5 MG TAB PO PRN ×3 (01:05→16:05)
[2021-11-10] MEDS: LEVOTHYROXINE 125 MCG TAB PO SCH (06:16)
[2021-11-10] MEDS: CALCIUM CARBONATE 500 MG CHEWABLE PO SCH (08:23)
[2021-11-10] MEDS: MULTIVITAMINS, THERA 1 EACH TAB PO SCH (08:23)
[2021-11-10] MEDS: ASPIRIN 81 MG PO SCH (08:23)
[2021-11-10] MEDS: PANTOPRAZOLE 40 MG/10 ML VIAL IVP SCH ×2 (08:23→23:21)
[2021-11-10] MEDS: GABAPENTIN 300 MG CAP PO SCH ×4 (08:23→22:12)
[2021-11-10] MEDS: ENOXAPARIN 40 MG/0.4 ML SYRINGE SQ SCH (08:23)
[2021-11-10] MEDS: SODIUM CHLORIDE 0.9% 1,000 ML IV SCH ×3 (08:24→17:50)
[2021-11-10 09:43] LABS: Basophils # (A) 0.02 X 10*3/uL (0.00-0.10); Basophils % (A) 0.3 %; Eosinophils % (A) 4.7 %; HCT 33.2 % (37.2-46.3); HGB 10.1 g/dL (12.0-15.0); Immature Grans, Automated 0 %; Lymphocytes # (A) 3.19 X 10*3/uL (0.90-5.00); Lymphocytes % (A) 50.1 %; MCH 30.8 pg (27.0-32.0); MCHC 30.4 g/dL (32.0-37.0); MCV 101.2 fL (80.0-97.0); Mean Platelet Volume 10.3 fL (9.5-12.2); Monocytes # (A) 0.52 X 10*3/uL (0.20-1.00); Monocytes % (A) 8.2 %; NRBC Per 100 WBC 0 /100 WBCS (0.0-0.0); Neutrophils # (A) 2.34 X 10*3/uL (1.80-7.70); Neutrophils % (A) 36.7 %; Platelet Count 262 X 10*3/uL (140-440); RBC 3.28 X 10*6/uL (4.10-5.20); RDW 12.1 % (11.5-14.5); WBC 6.37 X 10*3/uL (4.50-10.00)
[2021-11-10 09:57] LABS: African American GFR (CKD) 110.7 (60.0-200.0); Anion Gap 8.2 mmol/L (10.00-18.00); Blood Urea Nitrogen 4.9 mg/dL (9.0-27.0); Calcium 9.1 mg/dL (8.7-10.3); Carbon Dioxide 23.8 mmol/L (20.0-27.5); Non-African American GFR(CKD) 95.5 (60.0-200.0); Potassium 3.5 mmol/L (3.5-5.5)
--- NOTE | 2021-11-10 11:02 | P.PN ---
Subjective Progress Note Date: 11/10/21 Patient was seen and examined at the bedside. She denies any chest pain or shortness of breath. Still complaining of epigastric pain. She is also hungry and wants to eat. Otherwise no acute changes overnight Objective - Vital Signs Vital signs: Vital Signs Temp 98.7 F 11/10/21 07:50 Pulse 87 11/10/21 07:50 Resp 16 11/10/21 07:50 BP 125/77 11/10/21 07:50 Pulse Ox 96 11/10/21 07:50 Intake & Output 11/09/21 11/10/21 11/10/21 18:59 06:59 18:59 Weight 63.049 kg 63.049 kg Other: # Voids 2 - Exam General: non toxic, no distress, appears at stated age Derm: warm, dry Head: atraumatic, normocephalic, symmetric Eyes: EOMI, no lid lag, anicteric sclera Mouth: no lip lesion, mucus membranes moist Cardiovascular: S1S2 reg, no murmur, positive posterior tibial pulse bilateral, Lungs: CTA bilateral, no rhonchi, no rales , no accessory muscle use Abdominal: soft, mild tenderness epigastric area, no guarding, no appreciable organomegaly Ext: no gross muscle atrophy, no edema, no contractures Neuro: CN II-XI grossly intact, no focal neuro deficits Psych: Alert, oriented, appropriate affect - Labs CBC & Chem 7: 11/10/21 04:34 11/10/21 04:34 Labs: Abnormal Lab Results - Last 24 Hours (Table) 11/10/21 11/10/21 Range/Units 04:34 04:34 RBC 3.28 L (4.10-5.20) X 10*6/uL Hgb 10.1 L (12.0-15.0) g/dL Hct 33.2 L (37.2-46.3) % MCV 101.2 H (80.0-97.0) fL MCHC 30.4 L (32.0-37.0) g/dL Chloride 112 H (96-109) mmol/L Anion Gap 8.20 L (10.00-18.00) mmol/L BUN 4.9 L (9.0-27.0) mg/dL BUN/Creatinine Ratio 7.00 L (12.00-20.00) Ratio Lipase 141 H (14-63) U/L Assessment and Plan Assessment: Assessment and plan: #Intentional overdose with Cymbalta and lithium #Major depressive disorder #Borderline personality disorder -Monitor lithium level -Psychiatry following -Bedside sitter #Mild acute pancreatitis -Lipase level is trending down -IV fluids -Check gallbladder ultrasound and triglyceride levels -Advance diet to full liquid #Epigastric pain possibly secondary to acute pancreatitis -computed tomography scan showed evidence of possible peptic ulcer disease we'll consult general surgery for possible EGD -Protonix 40 mg IV push twice daily #Hypothyroidism -Resume levothyroxine #
--- NOTE | 2021-11-10 12:13 | US ---
EXAMINATION TYPE: US abdomen limited DATE OF EXAM: 11/10/2021 COMPARISON: CT from yesterday. CLINICAL HISTORY: Acute pancreatitis rule out gallstone. Pancreatitis, pain EXAM MEASUREMENTS: Liver Length: 15.6 cm Gallbladder Wall: 0.1 cm CBD: 0.9 cm Right Kidney: 8.4 x 3.8 x 4.1 cm Pancreas: 3mm panc duct visualized, tail obscured by overlying bowel gas Liver: wnl Gallbladder: wnl Evidence for sonographic Whyte's sign: No CBD: Dilated Right Kidney: small in size, lower pole gassed out Pancreas appears within normal limits. Pancreatic duct measures upper limits of normal in size. Visua lized liver heterogeneously hyperechoic. No intrahepatic ductal dilatation. Gallbladder appears withi n normal limits. No right-sided hydronephrosis. Common bile duct is mildly dilated near the alyce hep atis. This is new from recent CT. IMPRESSION: New Mild extrahepatic biliary dilatation.
[2021-11-10] MEDS: hydrOXYzine pamoate 25 MG CAP PO PRN (12:59)
--- NOTE | 2021-11-10 14:48 | P.GSCN ---
History of Present Illness Consult date: 11/10/21 History of present illness: CHIEF COMPLAINT: Abdominal pain HISTORY OF PRESENT ILLNESS: This is a 56-year-old female with known history of bipolar and anxiety. Patient presented to the hospital after an intentional overdose on Cymbalta and lithium. She currently has a bedside sitter. She is being evaluated by psychiatry service. Patient is complaining of epigastric right upper quadrant pain. She reports that the pain started yesterday. The pain has been intermittent didn't. She was found have evidence of a mild pancreatitis. He reports no prior history of pancreatitis. She denies any alcohol use. She had a computed tomography scan of the abdomen and pelvis showing minimal induration of the fat around the pancreatic tail could be on the basis of partial volume averaging correlate with serum pancreatic enzymes to exclude a very mild pancreatitis. Mild fullness to the gastroduodenal junction may be related to incomplete distention correlate clinically to exclude peptic ulcer disease. Patient denies any prior history of EGD or any history of peptic ulcer disease. She denies any nausea or vomiting. Denies any fever chills or sweats. Past surgical history includes 2 C-sections and hysterectomy. PAST MEDICAL HISTORY: See list. PAST SURGICAL HISTORY: See list. MEDICATIONS: See list. ALLERGIES: See list. SOCIAL HISTORY: No illicit drug use. REVIEW OF SYSTEMS: CONSTITUTIONAL: Denies fever or chills. HEENT: Denies blurred vision, vision changes, or eye pain. Denies hemoptysis CARDIOVASCULAR: Denies chest pain or pressure. RESPIRATORY: No shortness of breath. GASTROINTESTINAL: See HPI for pertinent findings HEMATOLOGIC: Denies bleeding disorders. GENITOURINARY: Denies any blood in urine or increased urinary frequency. SKIN: Denies pruitis. Denies rash. PHYSICAL EXAM: VITAL SIGNS: Reviewed GENERAL: Well-developed in no acute distress. HEENT: No sclera icterus. Extraocular movements grossly intact. Moist buccal mucosa. Head is atraumatic, normocephalic. No nasal drainage. ABDOMEN: Soft. Nondistended. Epigastric tenderness and right upper quadrant tenderness with palpation NEUROLOGIC: Alert and oriented. Cranial nerves II through XII grossly intact. LABORATORY DATA: WBC is 6.37 hemoglobin 10.1 platelets 262 Sodium 144 potassium 3.5 creatinine 0.7 LFTs normal lipase 527 down to 141 Amylase 241 Drug screen positive for opiates Alcohol level less than 10 IMAGING: Computed tomography scan findings as stated above Abdominal ultrasound new mild extrahepatic biliary dilatation. Mildly dilated common bile duct. Gallbladder appears within normal limits. ASSESSMENT: 1. Epigastric and right upper quadrant abdominal pain 2. Mild fullness at the gastroduodenal junction. Cannot exclude peptic ulcer disease on CAT scan 3. Mild pancreatitis 4. Overdose with lithium and Cymbalta PLAN: -Patient scheduled for EGD on Saturday with Dr. Villasenor -Agree with full liquid diet -Continue IV fluids -Continue supportive care -Continue Protonix Thank you for this consultation Physician Team [employer] note has been reviewed by physician. Signing provider agrees with the documented findings, assessment, and plan of care. Past Medical History Past Medical History: Chest Pain / Angina, Hyperlipidemia, Thyroid Disorder Additional Past Medical History / Comment(s): suicide attempt History of Any Multi-Drug Resistant Organisms: None Reported Past Surgical History: Section, Hysterectomy Additional Past Surgical History / Comment(s): x 2, colonoscopy Past Anesthesia/Blood Transfusion Reactions: No Reported Reaction Additional Past Anesthesia/Blood Transfusion Reaction / Comm: no previous blood transfusion Past Psychological History: Anxiety, Bipolar, Depression Additional Psychological History / Comment(s): pt reports that she lives by herself at home. pt states that she is afraid to be at home alone right now as she is concerned that she may act on suicidal thoughts. pt reports auditory hallucinations that are also command in nature telling her to harm herself. Smoking Status: Never smoker Past Alcohol Use History: None Reported Additional Past Alcohol Use History / Comment(s): pt states that she used to drink, but has not had alcohol in almost 5 years. 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 - Past Family History Father Family Medical History: Cancer, Neurologic Disorder Additional Family Medical History / Comment(s): Pt's. father had colon cancer and Parkinson's. Father at the age of 80yrs. Mother Family Medical History: Congestive Heart Failure (CHF) Additional Family Medical History / Comment(s): states "weak heart" Mother at the age of 90yrs. Sister(s) Family Medical History: Coronary Artery Disease (CAD), Myocardial Infarction ([place]) Additional Family Medical History / Comment(s): 1 sister with hx of 2 cardiac stents, 1 other sister from heart related issues Medications and Allergies Home Medications Medication Instructions Recorded Confirmed Type Gabapentin [Neurontin] 300 mg PO QID 04/30/17 11/09/21 History Multivitamins, Thera [Multivitamin 1 tab PO DAILY 08/22/21 11/09/21 History (formulary)] Aspirin 81 mg PO DAILY tab 08/25/21 11/09/21 Rx Levothyroxine Sodium [Synthroid] 125 mcg PO DAILY 30 Days tab 08/25/21 11/09/21 Rx [place] Carbonate ER [Lithobid] 450 mg PO BID 30 Days tablet 09/07/21 11/09/21 Rx hydrOXYzine pamoate [Vistaril] 25 mg PO BID PRN 30 Days cap 09/07/21 11/09/21 Rx Calcium Carbonate [Calcium] 600 mg PO DAILY 11/08/21 11/09/21 History DULoxetine HCL [Cymbalta] 30 mg PO DAILY 11/08/21 11/09/21 History DULoxetine HCL [Cymbalta] 60 mg PO DAILY 11/08/21 11/09/21 History risperiDONE [RisperDAL] 1 mg PO HS 11/08/21 11/09/21 History Allergies Allergy/AdvReac Type Severity Reaction Status Date / Time peanut Allergy Severe Anaphylaxis Verified 11/09/21 08:52 ibuprofen [From Motrin] Allergy Intermediate Rash/Hives Verified 11/09/21 08:52 tramadol HCl [From Ultram] Allergy Intermediate Itching Verified 11/09/21 08:52 Surgical - Exam Vital Signs Temp Pulse Resp BP Pulse Ox 98.7 F 117 H 16 154/78 100 11/09/21 08:23 11/09/21 08:23 11/09/21 08:23 11/09/21 08:23 11/09/21 08:23 Results - Labs 11/10/21 04:34 11/10/21 04:34 Abnormal Lab Results - Last 24 Hours (Table) 11/10/21 11/10/21 Range/Units 04:34 04:34 RBC 3.28 L (4.10-5.20) X 10*6/uL Hgb 10.1 L (12.0-15.0) g/dL Hct 33.2 L (37.2-46.3) % MCV 101.2 H (80.0-97.0) fL MCHC 30.4 L (32.0-37.0) g/dL Chloride 112 H (96-109) mmol/L Anion Gap 8.20 L (10.00-18.00) mmol/L BUN 4.9 L (9.0-27.0) mg/dL BUN/Creatinine Ratio 7.00 L (12.00-20.00) Ratio Lipase 141 H (14-63) U/L Diabetes panel 11/10/21 Range/Units 04:34 Sodium 144 (135-145) mmol/L Potassium 3.5 (3.5-5.5) mmol/L Chloride 112 H (96-109) mmol/L Carbon Dioxide 23.8 (20.0-27.5) mmol/L BUN 4.9 L (9.0-27.0) mg/dL Creatinine 0.7 (0.6-1.5) mg/dL Glucose 88 (70-110) mg/dL Calcium 9.1 (8.7-10.3) mg/dL Calcium panel 11/10/21 Range/Units 04:34 Calcium 9.1 (8.7-10.3) mg/dL Pituitary panel 11/10/21 Range/Units 04:34 Sodium 144 (135-145) mmol/L Potassium 3.5 (3.5-5.5) mmol/L Chloride 112 H (96-109) mmol/L Carbon Dioxide 23.8 (20.0-27.5) mmol/L BUN 4.9 L (9.0-27.0) mg/dL Creatinine 0.7 (0.6-1.5) mg/dL Glucose 88 (70-110) mg/dL Calcium 9.1 (8.7-10.3) mg/dL Adrenal panel 11/10/21 Range/Units 04:34 Sodium 144 (135-145) mmol/L Potassium 3.5 (3.5-5.5) mmol/L Chloride 112 H (96-109) mmol/L Carbon Dioxide 23.8 (20.0-27.5) mmol/L BUN 4.9 L (9.0-27.0) mg/dL Creatinine 0.7 (0.6-1.5) mg/dL Glucose 88 (70-110) mg/dL Calcium 9.1 (8.7-10.3) mg/dL
[2021-11-10 15:58] LABS: Chol/HDL Ratio 3.58 Ratio; LDL Cholesterol,Calculated 96.3 mg/dL (0.0-131.0)
[2021-11-10] MEDS: risperiDONE 1 MG TAB PO SCH (23:21)
[2021-11-11] MEDS: LORazepam 0.5 MG TAB PO PRN ×2 (04:08→17:21)
[2021-11-11] MEDS: LEVOTHYROXINE 125 MCG TAB PO SCH (05:31)
[2021-11-11] MEDS: ENOXAPARIN 40 MG/0.4 ML SYRINGE SQ SCH (08:53)
[2021-11-11] MEDS: GABAPENTIN 300 MG CAP PO SCH ×3 (08:53→17:21)
[2021-11-11] MEDS: PANTOPRAZOLE 40 MG/10 ML VIAL IVP SCH (08:53)
[2021-11-11] MEDS: ASPIRIN 81 MG PO SCH (08:53)
[2021-11-11] MEDS: MULTIVITAMINS, THERA 1 EACH TAB PO SCH (08:53)
[2021-11-11] MEDS: CALCIUM CARBONATE 500 MG CHEWABLE PO SCH (08:53)
[2021-11-11 09:01] VITALS: TEMP 97.4
--- NOTE | 2021-11-11 09:10 | P.PN ---
Subjective Progress Note Date: 11/11/21 Principal diagnosis: Epigastric pain Patient says her pain is slightly improved today. Remains in the upper abdomen. Ultrasound showed mild common bile duct dilation. CAT scan shows pancreatitis. Patient's lipase improved today. Objective - Vital Signs Vital signs: Vital Signs Temp 97.4 F L 11/11/21 07:25 Pulse 75 11/11/21 07:25 Resp 17 11/11/21 07:25 BP 123/63 11/11/21 07:25 Pulse Ox 100 11/11/21 07:25 Intake & Output 11/10/21 11/11/21 11/11/21 18:59 06:59 18:59 Intake Total 1080 1200 Balance 1080 1200 Intake: Intake, IV Titration 1200 Amount Sodium Chloride 0.9% 1, 1200 000 ml @ 100 mls/hr IV . Q10H MIAN Rx#:[id number] Oral 1080 Other: # Voids 3 5 - Exam Abdomen: Soft, nondistended, mild epigastric tenderness - Labs CBC & Chem 7: 11/10/21 04:34 11/10/21 04:34 Labs: Abnormal Lab Results - Last 24 Hours (Table) 11/10/21 11/10/21 11/11/21 Range/Units 04:34 04:34 04:20 RBC 3.28 L (4.10-5.20) X 10*6/uL Hgb 10.1 L (12.0-15.0) g/dL Hct 33.2 L (37.2-46.3) % MCV 101.2 H (80.0-97.0) fL MCHC 30.4 L (32.0-37.0) g/dL Chloride 112 H (96-109) mmol/L Anion Gap 8.20 L (10.00-18.00) mmol/L BUN 4.9 L (9.0-27.0) mg/dL BUN/Creatinine Ratio 7.00 L (12.00-20.00) Ratio Lipase 141 H 110 H (14-63) U/L Assessment and Plan (1) Pancreatitis, acute Narrative/Plan: Patient with epigastric pain likely on the basis of pancreatitis. Tentative plans for EGD on Saturday to evaluate for possible ulcer disease given the CAT scan findings. Continue clear liquids. Current Visit: Yes Status: Acute Code(s): K85.90 - ACUTE PANCREATITIS WITHOUT NECROSIS OR INFECTION, [facility] SNOMED Code(s): 161674210
[2021-11-11] MEDS: HYDROcodone/APAP 5-325MG 1 EACH TAB PO PRN (09:42)
[2021-11-11] MEDS: SODIUM CHLORIDE 0.9% 1,000 ML IV SCH (13:06)
--- NOTE | 2021-11-11 13:28 | P.DS ---
Providers Date of admission: 11/09/21 15:40 Expected date of discharge: 11/11/21 Attending physician: Licha Shelby MD Consults: 11/09/21 10:56 Consult Physician Routine Consulting Provider: Sang Ricci Consult Reason/Comments: suicide attempt, overdose Do you want consulting provider notified?: Yes 11/09/21 15:45 Consult Physician Routine Consulting Provider: Kendall Villasenor Consult Reason/Comments: epigastric pain possible PUD on CT abdomen Do you want consulting provider notified?: Yes Primary care physician: Stated None Hospital Course: History of Present Illness H&P Date: 11/09/21 Chief Complaint: Intentional overdose Patient is a 56-year-old female with past medical history remarkable for bipolar disorder and depression, hypothyroidism, who presents emergency Department complaining of nausea, vomiting as well as a suspected overdose. Patient brings with her her Cymbalta as well as lithium that she is supposed be taking. Also dated to have been completed about 20 days ago. However she states she took handfuls of both medications this morning. Is uncertain how many. Is uncertain at what time. She believes it was anywhere from 5:30 and 7:30 AM. Patient was evaluated at approximately 9 AM. She is no acute complaints at this time. States she has minimal discomfort in epigastric region. Presents over concern for the overdose. States she has been feeling more depressed lately. Denies any homicidal ideations, attempts, plans. Denies any visual or auditory hallucinations. Detailed problem list: #Intentional overdose with Cymbalta and lithium #Major depressive disorder #Borderline personality disorder -Normal lithium level -Psychiatry following -Bedside sitter -Patient be transferred to inpatient psych #Mild acute pancreatitis -Improving -Lipase level is trending down -IV fluids -Ultrasound of the gallbladder negative for gallstones. Normal triglyceride level -Diet was advanced to regular diet and was tolerated by the patient #Epigastric pain possibly secondary to acute pancreatitis -computed tomography scan showed evidence of possible peptic ulcer disease we'll consult general surgery for possible EGD -Protonix 40 mg IV push twice daily -Change proton pump inhibitor to 40 mg by mouth daily -Abdominal pain resolved -Stable hemoglobin -Discussed with general surgery Dr. reddy patient will benefit from outpatient EGD #Hypothyroidism -Resume levothyroxine # Patient Condition at Discharge: Stable Plan - Discharge Summary Discharge Rx Participant: No New Discharge Prescriptions: New Pantoprazole Sodium [Protonix] 40 mg PO DAILY 30 Days #30 tab Continue Gabapentin [Neurontin] 300 mg PO QID Multivitamins, Thera [Multivitamin (formulary)] 1 tab PO DAILY hydrOXYzine pamoate [Vistaril] 25 mg PO BID PRN 30 Days cap PRN Reason: Anxiety Aspirin 81 mg PO DAILY tab Levothyroxine Sodium [Synthroid] 125 mcg PO DAILY 30 Days tab risperiDONE [RisperDAL] 1 mg PO HS DULoxetine HCL [Cymbalta] 60 mg PO DAILY [place] Carbonate [Calcium] 600 mg PO DAILY Discontinued DULoxetine HCL [Cymbalta] 30 mg PO DAILY [place] Carbonate ER [Lithobid] 450 mg PO BID 30 Days tablet Discharge Medication List Gabapentin [Neurontin] 300 mg PO QID 04/30/17 [History] Multivitamins, Thera [Multivitamin (formulary)] 1 tab PO DAILY 08/22/21 [History] Aspirin 81 mg PO DAILY tab 08/25/21 [Rx] Levothyroxine Sodium [Synthroid] 125 mcg PO DAILY 30 Days tab 08/25/21 [Rx] hydrOXYzine pamoate [Vistaril] 25 mg PO BID PRN 30 Days cap 09/07/21 [Rx] Calcium Carbonate [Calcium] 600 mg PO DAILY 11/08/21 [History] DULoxetine HCL [Cymbalta] 60 mg PO DAILY 11/08/21 [History] risperiDONE [RisperDAL] 1 mg PO HS 11/08/21 [History] Pantoprazole Sodium [Protonix] 40 mg PO DAILY 30 Days #30 tab 11/11/21 [Rx] Follow up Appointment(s)/Referral(s): None,Stated [Primary Care Provider] - 1-2 days Discharge Disposition: TRANSFER TO PSYCH HOSP/UNIT
[2021-11-11 15:53] VITALS: BP 149/72; PULSE 81; RESP 18
== END 2021-11-11 18:34 | DRG 917 ==
LOC: EC 08:18 → 4SSUR 10:52 → OBSVTOIN 15:40 → 4SSUR 20:52
PROVIDERS: ADMIT Hospitalist; ATTEND Hospitalist
DX: T43.212A Poisoning by selective serotonin and norepinephrine reuptake inhibitors, intentional self-harm, initial encounter (principal); K85.90 Acute pancreatitis without necrosis or infection, unspecified; F31.30 Bipolar disorder, current episode depressed, mild or moderate severity, unspecified; T43.592A Poisoning by other antipsychotics and neuroleptics, intentional self-harm, initial encounter; F60.3 Borderline personality disorder; E03.9 Hypothyroidism, unspecified; E78.5 Hyperlipidemia, unspecified; F41.9 Anxiety disorder, unspecified; Z79.82 Long term (current) use of aspirin; Z79.890 Hormone replacement therapy; Z79.899 Other long term (current) drug therapy; Z90.710 Acquired absence of both cervix and uterus; Z98.891 History of uterine scar from previous surgery; Z87.42 Personal history of other diseases of the female genital tract; Z91.51 Personal history of suicidal behavior; Z98.890 Other specified postprocedural states; Z91.010 Allergy to peanuts; Z88.6 Allergy status to analgesic agent; Z88.5 Allergy status to narcotic agent; Z80.0 Family history of malignant neoplasm of digestive organs; Z82.0 Family history of epilepsy and other diseases of the nervous system; Z82.49 Family history of ischemic heart disease and other diseases of the circulatory system
CPT/HCPCS: 36415; 74177; 76705; 80048; 80053; 80061; 80143; 80178; 80179; 80306; 80320; 81001; 81025; 82150; 83605; 83690; 83735; 84439; 84443; 85025; 93005; 96361; 96374; 96375; 96376; 99285

== ENCOUNTER 2021-11-11 17:29 | Inpatient (IN) | payer MEDICAID ==
[2021-11-11] MEDS ORDERED: ACETAMINOPHEN TAB 325 MG TAB PO PRN (17:40)
[2021-11-11] MEDS ORDERED: HALOPERIDOL LACTATE 5 MG/ML 1 ML VIAL IM PRN (17:40)
[2021-11-11] MEDS ORDERED: MAGNESIUM HYDROXIDE 2,400 MG/10 ML CUP PO PRN (17:40)
[2021-11-11] MEDS ORDERED: hydrOXYzine pamoate 25 MG CAP PO PRN (18:00)
[2021-11-11] MEDS ORDERED: haloperidoL 5 MG TAB PO PRN (18:07)
[2021-11-11] MEDS ORDERED: LORazepam 2 MG/ML INJ IM PRN (18:07)
[2021-11-11] MEDS: GABAPENTIN 300 MG CAP PO SCH (20:31)
[2021-11-11] MEDS ORDERED: risperiDONE 1 MG TAB PO SCH (21:00)
[2021-11-11] MEDS: LORazepam 1 MG TAB PO PRN (22:50)
[2021-11-12] MEDS: MAG HYDROX/AL HYDROX/SIMETH 30 ML CUP PO PRN ×2 (03:08→18:16)
[2021-11-12] MEDS: LORazepam 1 MG TAB PO PRN ×2 (06:22→14:27)
[2021-11-12] MEDS: LEVOTHYROXINE 125 MCG TAB PO SCH (06:22)
[2021-11-12] MEDS: ASPIRIN 81 MG PO SCH (07:59)
[2021-11-12] MEDS: MULTIVITAMINS, THERA 1 EACH TAB PO SCH (07:59)
[2021-11-12] MEDS: PANTOPRAZOLE 40 MG TABLET PO SCH (07:59)
[2021-11-12] MEDS: GABAPENTIN 300 MG CAP PO SCH ×4 (07:59→21:10)
[2021-11-12] MEDS: CALCIUM CARBONATE 500 MG CHEWABLE PO SCH (07:59)
[2021-11-12 08:35] LABS: Basophils % (A) 0 %; Eosinophils # (A) 0.2 k/uL (0-0.7); Eosinophils % (A) 3 %; HCT 37.5 % (34.0-46.0); Lymphocytes # (A) 1.7 k/uL (1.0-4.8); Lymphocytes % (A) 23 %; MCH 31.5 pg (25.0-35.0); MCV 98.4 fL (80.0-100.0); Mean Platelet Volume 7.8; Monocytes # (A) 0.4 k/uL (0-1.0); Monocytes % (A) 5 %; Neutrophils # (A) 4.9 k/uL (1.3-7.7); Neutrophils % (A) 66 %; Platelet Count 314 k/uL (150-450); RBC 3.81 m/uL (3.80-5.40); RDW 11.5 % (11.5-15.5); WBC 7.4 k/uL (3.8-10.6)
[2021-11-12 08:47] LABS: ALT 31 U/L (4-34); AST 31 U/L (14-36); African American GFR (CKD) >90 (>60 ml/min/1.73 sqM); Albumin 4.1 g/dL (3.5-5.0); Alkaline Phosphatase 67 U/L (38-126); Anion Gap 7 mmol/L; Blood Urea Nitrogen 9 mg/dL (7-17); Calcium 9.7 mg/dL (8.4-10.2); Carbon Dioxide 28 mmol/L (22-30); Chloride 107 mmol/L (98-107); Glucose 101 mg/dL (74-99); Non-African American GFR(CKD) 79 (>60 ml/min/1.73 sqM); Sodium 142 mmol/L (137-145); Total Bilirubin 0.4 mg/dL (0.2-1.3); Total Protein 6.7 g/dL (6.3-8.2)
[2021-11-12] MEDS: NICOTINE 14MG/24HR PATCH TRANSDERM SCH (08:57)
--- NOTE | 2021-11-12 09:01 | P.HP ---
Psychiatric H&P - . H&P Date: 11/12/21 History & Physical: Allergies Allergy/AdvReac Type Severity Reaction Status Date / Time peanut Allergy Severe Anaphylaxis Verified 11/11/21 20:12 ibuprofen [From Motrin] Allergy Intermediate Rash/Hives Verified 11/11/21 20:12 tramadol HCl [From Ultram] Allergy Intermediate Itching Verified 11/11/21 20:12 Vital Signs Temp 97.9 F 11/12/21 06:15 Pulse 101 H 11/12/21 06:15 Resp 16 11/12/21 06:15 BP 159/84 11/12/21 06:15 Pulse Ox 96 11/12/21 06:15 Intake & Output 11/11/21 11/12/21 11/12/21 18:59 06:59 18:59 Weight 66.361 kg Laboratory Last Values WBC 7.4 k/uL (3.8-10.6) 11/12/21 07:53 RBC 3.81 m/uL (3.80-5.40) 11/12/21 07:53 Hgb 12.0 gm/dL (11.4-16.0) 11/12/21 07:53 Hct 37.5 % (34.0-46.0) 11/12/21 07:53 MCV 98.4 fL (80.0-100.0) 11/12/21 07:53 MCH 31.5 pg (25.0-35.0) 11/12/21 07:53 MCHC 32.0 g/dL (31.0-37.0) 11/12/21 07:53 RDW 11.5 % (11.5-15.5) 11/12/21 07:53 Plt Count 314 k/uL (150-450) 11/12/21 07:53 MPV 7.8 11/12/21 07:53 Neutrophils % 66 % 11/12/21 07:53 Lymphocytes % 23 % 11/12/21 07:53 Monocytes % 5 % 11/12/21 07:53 Eosinophils % 3 % 11/12/21 07:53 Basophils % 0 % 11/12/21 07:53 Neutrophils # 4.9 k/uL (1.3-7.7) 11/12/21 07:53 Lymphocytes # 1.7 k/uL (1.0-4.8) 11/12/21 07:53 Monocytes # 0.4 k/uL (0-1.0) 11/12/21 07:53 Eosinophils # 0.2 k/uL (0-0.7) 11/12/21 07:53 Basophils # 0.0 k/uL (0-0.2) 11/12/21 07:53 Sodium 142 mmol/L (137-145) 11/12/21 07:53 Potassium 4.0 mmol/L (3.5-5.1) 11/12/21 07:53 Chloride 107 mmol/L (98-107) 11/12/21 07:53 Carbon Dioxide 28 mmol/L (22-30) 11/12/21 07:53 Anion Gap 7 mmol/L 11/12/21 07:53 BUN 9 mg/dL (7-17) 11/12/21 07:53 Creatinine 0.82 mg/dL (0.52-1.04) 11/12/21 07:53 Est GFR (CKD-EPI)AfAm >90 (>60 ml/min/1.73 sqM) 11/12/21 07:53 Est GFR (CKD-EPI)NonAf 79 (>60 ml/min/1.73 sqM) 11/12/21 07:53 Glucose 101 mg/dL (74-99) H 11/12/21 07:53 Calcium 9.7 mg/dL (8.4-10.2) 11/12/21 07:53 Total Bilirubin 0.4 mg/dL (0.2-1.3) 11/12/21 07:53 AST 31 U/L (14-36) 11/12/21 07:53 ALT 31 U/L (4-34) 11/12/21 07:53 Alkaline Phosphatase 67 U/L (38-126) 11/12/21 07:53 Total Protein 6.7 g/dL (6.3-8.2) 11/12/21 07:53 Albumin 4.1 g/dL (3.5-5.0) 11/12/21 07:53 11/12/21 08:52 Psychiatric evaluation: This is a psychiatry assessment on Marly Parson who is a 56-year-old female with a history of bipolar disorder Patient states that she was experiencing auditory hallucinations and command hallucinations which told her to overdose Patient states that she took an overdose of lithium and Wellbutrin She stated that she had also seen her nurse practitioner that morning Patient stated that she was in ICU for a day or so over the [facility] for observation and then she was transferred here. Patient states that she has bipolar disorder and sometimes the symptoms get worse for no apparent reason She was unable to give any specific triggering events for her recent overdose but states that she had started to feel depressed more so in the last few weeks She states that her nurse practitioner supposed to make some changes with her medications Patient does not know her current medications Patient's current list of medications includes Risperdal and gabapentin Patient also reports that she was on lithium and Wellbutrin before Past history personal and social history: Patient reports that she was to a local [facility] for outpatient follow-up and care Patient reports that she has high school education Patient reports that she was before and has 3 children were in their 30s now Patient currently lives alone next door to her sister Patient states that she has good relation with her children She states that she had worked for [employer] for over 21 years until she decided to give up working about 15 years ago when her one of her sons was having problems with behaviors Patient denies any alcohol or substance use Mental status examination: Reveals a elderly female who looks much older for age Patient appears to be edentulous She appears to be neatly dressed and groomed Affect at this time remains flat Speech is clear and coherent and relevant Thought processes are goal-directed sequential and logical Patient denies any suicidal ideations or plans at this time Self-esteem and confidence are low Patient reports that she intermittently hears voices A Keven formal and operational judgment appears to be impaired Patient does seem to have some insight into her problem Cognitively she appears to be intact Diagnostic impression: Bipolar disorder mixed type Rule out schizoaffective disorder unspecified Plan: The patient meets the criteria for psychiatric hospitalization to improve her coping skills, safety precautions after a suicide attempt and assertiveness training Patient will also participate in on the valladares activities individual milieu group OT RT PT and pharmacotherapy Patient is already on Risperdal and we will adjust the dosage to the response We will also add Depakote 500 mg at nighttime and 250 mg in the morning to start with and titrate to response Approximately the stay would [facility]12/[facility]
[2021-11-12] MEDS ORDERED: risperiDONE 2 MG TAB PO SCH (21:00)
[2021-11-12] MEDS: DIVALPROEX 500 MG TABLET.DR PO SCH (21:10)
--- NOTE | 2021-11-13 00:39 | P.PN ---
Progress Note - Text Progress Note Date: 11/13/21 The patient refused to be seen or evaluated.
[2021-11-13] MEDS: LORazepam 1 MG TAB PO PRN ×3 (04:23→21:02)
[2021-11-13] MEDS: LEVOTHYROXINE 125 MCG TAB PO SCH (06:20)
[2021-11-13 06:57] VITALS: RESP 16
[2021-11-13] MEDS: CALCIUM CARBONATE 500 MG CHEWABLE PO SCH (08:21)
[2021-11-13] MEDS: ASPIRIN 81 MG PO SCH (08:23)
[2021-11-13] MEDS: PANTOPRAZOLE 40 MG TABLET PO SCH (08:23)
[2021-11-13] MEDS: MULTIVITAMINS, THERA 1 EACH TAB PO SCH (08:23)
[2021-11-13] MEDS: DIVALPROEX 500 MG TABLET.DR PO SCH (08:23)
[2021-11-13] MEDS: GABAPENTIN 300 MG CAP PO SCH ×4 (08:23→21:02)
[2021-11-13] MEDS: NICOTINE 14MG/24HR PATCH TRANSDERM SCH (08:24)
[2021-11-13] MEDS: MAG HYDROX/AL HYDROX/SIMETH 30 ML CUP PO PRN (10:50)
[2021-11-13] MEDS: LITHIUM CARBONATE 300 MG CAP PO SCH ×2 (12:40→21:02)
[2021-11-13] MEDS: DULoxetine HCL 30 MG CAPSULE.DR PO SCH (12:40)
--- NOTE | 2021-11-13 13:12 | P.PN ---
Progress Note - Text Progress Note Date: 11/13/21 Interval History: Patient was seen lying in her bed today and was agreeable to inspector automatic typewriter. She spoke briefly about why she came to the hospital and states that she is feeling depressed and suicidal. She was also endorsing significant auditory hallucinations. She states that the voices were telling her to overdose and she did in fact overdose. She states that the voices have improved somewhat however she still hearing them. She was fairly tearful when speaking about her mood and depression. She states that she still feels that she wants to "". She states that she is feeling anxious at times during the day. We spoke briefly about her medications and answered questions. She states that she did not sleep well last night due to her anxiety. She states that she has been going to groups. At this time patient denies any homical ideations, intent or plan. Patient denies any visual hallucinations and denies any paranoia or delusions. Patient denies any side effects from the medications and has been compliant with meds. Mental Status Exam: General Appearance: Patient appears to be overweight, short in stature, stated age is alert, depressed, directable. Patient appears to have improving hygiene and grooming wearing hospital gown Behavior: Patient is sitting in chair, appears anxious and in mild distress today. Directable. Speech: Patient's speech is fluent and nonpressured. [place] Mood/Affect: Patient reports their mood is "depressed", affect is congruent Suicidality/Homicidality: Patient denies having any homicidal ideation intent or plan. Endorsing suicidal thoughts, however no intent or plan. Perceptions: Patient denies any visual hallucinations and endorsing auditory hallucinations telling her to kill herself. Though content/process: There is no evidence of any delusional thought content and thought process is linear and goal-directed. [place]. Memory and concentration: AOX3, grossly intact for the purposes of this session Judgment and insight: poor, improving mildly Assessment Schizoaffective disorder, depressive type borderline personality disorder Generalized anxiety disorder Nicotine dependence Plan: -Patient continues to meet criteria for inpatient psychiatric admission for symptom stabilization and safety. Patient has signed adult voluntary form and medication consent and was placed in patient's chart. -Medications: Start Cymbalta 30 mg daily for mood/anxiety, start lithium 300 mg twice a day for mood stabilization/suicidal thoughts. Paliperidone by mouth 60 mg daily at bedtime for psychosis/mood stabilization. Vistaril prn for anxiety. -When necessary Ativan and Haldol for agitation/aggression. -NRT - not needed as patient does not smoke. -SW on board for discharge planning. Encouraged the patient to participate in milieu.
[2021-11-13] MEDS: PALIPERIDONE 6 MG TAB.ER.24 PO SCH (21:02)
[2021-11-14] MEDS: LEVOTHYROXINE 125 MCG TAB PO SCH (06:30)
[2021-11-14] MEDS: ASPIRIN 81 MG PO SCH (08:03)
[2021-11-14] MEDS: CALCIUM CARBONATE 500 MG CHEWABLE PO SCH (08:03)
[2021-11-14] MEDS: NICOTINE 14MG/24HR PATCH TRANSDERM SCH (08:03)
[2021-11-14] MEDS: DULoxetine HCL 30 MG CAPSULE.DR PO SCH ×2 (08:03→21:34)
[2021-11-14] MEDS: LITHIUM CARBONATE 300 MG CAP PO SCH (08:04)
[2021-11-14] MEDS: GABAPENTIN 300 MG CAP PO SCH ×4 (08:04→21:35)
[2021-11-14] MEDS: MULTIVITAMINS, THERA 1 EACH TAB PO SCH (08:04)
[2021-11-14] MEDS: PANTOPRAZOLE 40 MG TABLET PO SCH (08:04)
[2021-11-14] MEDS: LORazepam 1 MG TAB PO PRN ×2 (08:06→15:32)
--- NOTE | 2021-11-14 09:41 | P.PN ---
Progress Note - Text Progress Note Date: 11/14/21 Interval History: Patient was seen lying in her bed today and was agreeable to writer editor. Patient continues to have a constricted affect. She does state that she is doing a bit better today in terms of her mood and anxiety. She did complain of getting poor rest last night and was "pacing the hallways" "the whole night". She states that she has done well at all with trazodone in the past and was agreeable to try that today. Steam Plant Operator spoke with patient about her medications as well. She states that she is still having suicidal thoughts this morning and was having nightmares last night about "myself dying". He states that she has been trying to go to groups and participate. She states that her appetite has been gradually improving. At this time patient denies any homical ideations, intent or plan. Patient denies any visual hallucinations and denies any paranoia or delusions. Patient denies any side effects from the medications and has been compliant with meds. She states that she is still hearing voices however these have been improving mildly. Admits to ongoing suicidal thoughts however no intent or plan. Mental Status Exam: General Appearance: Patient appears to be overweight, short in stature, stated age is alert, constricted, directable. Patient appears to have improving hygiene and grooming wearing hospital gown Behavior: Patient is sitting in chair, appears anxious and in mild distress today. Directable. Speech: Patient's speech is fluent and nonpressured. [place] Mood/Affect: Patient reports their mood is "a bit better", affect is congruent and constricted Suicidality/Homicidality: Patient denies having any homicidal ideation intent or plan. Endorsing suicidal thoughts, however no intent or plan. Perceptions: Patient denies any visual hallucinations and endorsing auditory hallucinations telling her to kill herself, improving Though content/process: There is no evidence of any delusional thought content and thought process is linear. [place]. Memory and concentration: AOX3, grossly intact for the purposes of this session Judgment and insight: poor, improving mildly Assessment Schizoaffective disorder, depressive type borderline personality disorder Generalized anxiety disorder Nicotine dependence Plan: -Patient continues to meet criteria for inpatient psychiatric admission for symptom stabilization and safety. Patient has signed adult voluntary form and medication consent and was placed in patient's chart. -Medications: Increase Cymbalta 30 mg bid for mood/anxiety, increase lithium 450 mg twice a day for mood stabilization/suicidal thoughts. Paliperidone by mouth 6 mg daily at bedtime for psychosis/mood stabilization. Vistaril prn for anxiety. Trazodone 50 mg daily at bedtime for insomnia/mood. -When necessary Ativan and Haldol for agitation/aggression. -NRT - not needed as patient does not smoke. -SW on board for discharge planning. Encouraged the patient to participate in milieu. Likely discharge in 2-3 days.
[2021-11-14] MEDS ORDERED: traZODone HCL 50 MG TAB PO SCH (21:00)
[2021-11-14] MEDS: PALIPERIDONE 6 MG TAB.ER.24 PO SCH (21:34)
[2021-11-14] MEDS: LITHIUM CARBONATE 150 MG CAP PO SCH (21:34)
[2021-11-15] MEDS: LEVOTHYROXINE 125 MCG TAB PO SCH (06:23)
[2021-11-15] MEDS: ASPIRIN 81 MG PO SCH (08:14)
[2021-11-15] MEDS: MULTIVITAMINS, THERA 1 EACH TAB PO SCH (08:14)
[2021-11-15] MEDS: GABAPENTIN 300 MG CAP PO SCH ×4 (08:14→20:44)
[2021-11-15] MEDS: DULoxetine HCL 30 MG CAPSULE.DR PO SCH ×2 (08:14→20:44)
[2021-11-15] MEDS: PANTOPRAZOLE 40 MG TABLET PO SCH (08:14)
[2021-11-15] MEDS: LITHIUM CARBONATE 150 MG CAP PO SCH ×2 (08:14→20:44)
[2021-11-15] MEDS: CALCIUM CARBONATE 500 MG CHEWABLE PO SCH (08:14)
[2021-11-15] MEDS: LORazepam 1 MG TAB PO PRN ×2 (08:15→14:43)
--- NOTE | 2021-11-15 09:21 | P.PN ---
Progress Note - Text Progress Note Date: 11/15/21 Interval History: Patient was seen wandering the hallways today after group and was agreeable to assembly instructions writer. Patient continues to have a constricted affect. She continues to speak about her depression and anxiety. She states that her anxiety is "through the roof". She states that she is still hearing some voices at times however they are not telling her to "harm myself". She states that they are still distressing. She claims that her mood has been gradually improving with medication and was okay with having the Cymbalta increased. She states that she slept about 2-3 hours last night and was woken up by hearing voices. She states that she is trying to go to groups and participate as best she can. She was not tearful today but not responding to internal stimuli. She continues to endorse suicidal thoughts however no intent or plan. At this time patient denies any homical ideations, intent or plan. Patient denies any visual hallucinations and denies any paranoia or delusions. Patient denies any side effects from the medications and has been compliant with meds. She states that she is still hearing voices however these have been improving mildly. Mental Status Exam: General Appearance: Patient appears to be overweight, short in stature, stated age is alert, constricted, directable. Patient appears to have improving hygiene and grooming wearing hospital gown Behavior: Patient is sitting in chair, appears less anxious and in mild distress today. Directable. Speech: Patient's speech is fluent and nonpressured. [place] Mood/Affect: Patient reports their mood is "depressed and anxious", affect is congruent and constricted Suicidality/Homicidality: Patient denies having any homicidal ideation intent or plan. Endorsing suicidal thoughts, however no intent or plan. Perceptions: Patient denies any visual hallucinations and endorsing auditory hallucinations, improving mildly. Though content/process: There is no evidence of any delusional thought content and thought process is linear. [place]. Memory and concentration: AOX3, grossly intact for the purposes of this session Judgment and insight: poor, improving mildly Assessment Schizoaffective disorder, depressive type borderline personality disorder Generalized anxiety disorder Nicotine dependence Plan: -Patient continues to meet criteria for inpatient psychiatric admission for symptom stabilization and safety. Patient has signed adult voluntary form and medication consent and was placed in patient's chart. -Medications: Increase Cymbalta 30 mg daily + 60 mg qhs for mood/anxiety, lithium 450 mg twice a day for mood stabilization/suicidal thoughts. increase Paliperidone by mouth 9 mg daily at bedtime for psychosis/mood stabilization. Vistaril prn for anxiety. increase Trazodone 100 mg daily at bedtime for insomnia/mood. -When necessary Ativan and Haldol for agitation/aggression. -NRT - not needed as patient does not smoke. -SW on board for discharge planning. Encouraged the patient to participate in milieu. Likely discharge in 2-3 days.
[2021-11-15] MEDS: NICOTINE 14MG/24HR PATCH TRANSDERM SCH (13:42)
[2021-11-15] MEDS ORDERED: DULoxetine HCL 30 MG CAPSULE.DR PO SCH (21:00)
[2021-11-15] MEDS ORDERED: PALIPERIDONE 3 MG TAB.ER.24 PO SCH (21:00)
[2021-11-15] MEDS ORDERED: traZODone HCL 100 MG TAB PO SCH (21:00)
--- NOTE | 2021-11-15 22:03 | P.CONS ---
History of Present Illness - Reason for Consult Consult date: 11/15/21 - History of Present Illness The patient is a 56 yo F with a PMH of hypothyroidism, bipolar disorder, and depression who had presented to the emergency room with complaints of nausea, vomiting, and an intentional overdose of her psychiatric medications including Cymbalta and lithium. The patient was initially admitted to the medical unit for monitoring due to her overdose as well as acute pancreatitis. The patient was subsequently cleared and discharged to the mental health unit where she was seen and evaluated. The patient reported feeling at her baseline. She denied any physical complaints at the time of interview. Denied experiencing chest discomfort, shortness of breath, fever, chills, cough, nausea, vomiting, abdominal pain, diarrhea. Review of systems: Pertinent positives and negatives as discussed in HPI, a complete review of systems was performed and all other systems are negative. Physical examination: General: non toxic, no distress, appears at stated age, normal weight Derm: no unusual rashes/lesions no unusual ecchymoses, warm, dry Head: atraumatic, normocephalic, symmetric Eyes: EOMI, no lid lag, anicteric sclera, pupils equal round reactive to light ENT: Nose and ears atraumatic, no thrush, no pharyngeal erythema Neck: No thyromegaly, no cervical lymphadenopathy, trachea midline, supple Mouth: no lip lesion, mucus membranes moist Cardiovascular: S1S2 reg, no murmur, positive posterior tibial pulse bilateral, no edema, capillary refill less than 2 seconds Lungs: CTA bilateral, no rhonchi, no rales , no accessory muscle use Abdominal: soft, nontender to palpation, no guarding, no appreciable organomegaly, normal bowel sounds Ext: no gross muscle atrophy, muscle strength 5 out of 5 in all 4 extremities grossly, no contractures, Neuro: CN II-XI grossly intact, light touch intact all 4 extremities, finger to nose within normal limits, Psych: Alert, oriented, appropriate affect Assessment/plan Hypothyroidism -C/w home meds Depression and suicidal ideation -As per psychiatry Thank you for allowing us to participate in the care of this patient. We will follow peripherally. Do not hesitate to contact us with questions. Someone can be reached from the [facility] hospitalist group at all hours of the day at [phone]. Past Medical History Past Medical History: Chest Pain / Angina, Hyperlipidemia, Thyroid Disorder Additional Past Medical History / Comment(s): suicide attempt History of Any Multi-Drug Resistant Organisms: None Reported Past Surgical History: Section, Hysterectomy Additional Past Surgical History / Comment(s): x 2, colonoscopy Past Anesthesia/Blood Transfusion Reactions: No Reported Reaction Additional Past Anesthesia/Blood Transfusion Reaction / Comm: no previous blood transfusion Smoking Status: Never smoker - Past Family History Father Family Medical History: Cancer, Neurologic Disorder Additional Family Medical History / Comment(s): Pt's. father had colon cancer and Parkinson's. Father at the age of 80yrs. Mother Family Medical History: Congestive Heart Failure (CHF) Additional Family Medical History / Comment(s): states "weak heart" Mother at the age of 90yrs. Sister(s) Family Medical History: Coronary Artery Disease (CAD), Myocardial Infarction (RI) Additional Family Medical History / Comment(s): 1 sister with hx of 2 cardiac stents, 1 other sister from heart related issues Medications and Allergies Home Medications Medication Instructions Recorded Confirmed Type Gabapentin [Neurontin] 300 mg PO QID 04/30/17 11/11/21 History Multivitamins, Thera [Multivitamin 1 tab PO DAILY 08/22/21 11/11/21 History (formulary)] Aspirin 81 mg PO DAILY tab 08/25/21 11/11/21 Rx Levothyroxine Sodium [Synthroid] 125 mcg PO DAILY 30 Days tab 08/25/21 11/11/21 Rx hydrOXYzine pamoate [Vistaril] 25 mg PO BID PRN 30 Days cap 09/07/21 11/11/21 Rx Calcium Carbonate [Calcium] 600 mg PO DAILY 11/08/21 11/11/21 History DULoxetine HCL [Cymbalta] 60 mg PO DAILY 11/08/21 11/11/21 History risperiDONE [RisperDAL] 1 mg PO HS 11/08/21 11/11/21 History Pantoprazole Sodium [Protonix] 40 mg PO DAILY 30 Days #30 tab 11/11/21 11/11/21 Rx Allergies Allergy/AdvReac Type Severity Reaction Status Date / Time peanut Allergy Severe Anaphylaxis Verified 11/11/21 20:12 ibuprofen [From Motrin] Allergy Intermediate Rash/Hives Verified 11/11/21 20:12 tramadol HCl [From Ultram] Allergy Intermediate Itching Verified 11/11/21 20:12 Physical Exam Vitals: Vital Signs Temp Pulse Resp BP 11/15/21 06:54 98 F 91 16 140/63 Results CBC & Chem 7: 11/12/21 07:53 11/12/21 07:53
[2021-11-16] MEDS: LEVOTHYROXINE 125 MCG TAB PO SCH (06:34)
[2021-11-16] MEDS: NICOTINE 14MG/24HR PATCH TRANSDERM SCH (08:06)
[2021-11-16] MEDS: CALCIUM CARBONATE 500 MG CHEWABLE PO SCH (08:06)
[2021-11-16] MEDS: LITHIUM CARBONATE 150 MG CAP PO SCH ×2 (08:06→20:48)
[2021-11-16] MEDS: LORazepam 1 MG TAB PO PRN (08:06)
[2021-11-16] MEDS: MULTIVITAMINS, THERA 1 EACH TAB PO SCH (08:06)
[2021-11-16] MEDS: DULoxetine HCL 30 MG CAPSULE.DR PO SCH (08:06)
[2021-11-16] MEDS: GABAPENTIN 300 MG CAP PO SCH ×4 (08:06→20:48)
[2021-11-16] MEDS: ASPIRIN 81 MG PO SCH (08:06)
[2021-11-16] MEDS: PANTOPRAZOLE 40 MG TABLET PO SCH (08:06)
--- NOTE | 2021-11-16 13:10 | P.PN ---
Progress Note - Text Progress Note Date: 11/16/21 Interval History: Patient was seen wandering the hallways today after group and was agreeable to law writer. Patient appeared to have an improvement in her affect today. She continues to speak about her medications and states that "nothing is getting better". Her affect was incongruent to this and she appeared to be showing improvement. She is also noted to be interacting well with more with others on the unit. Continues to be concrete and display poor insight. She continues to state that she is having suicidal thoughts however was vague about them and did not describe any plan. She is also stating that she is still hearing voices. She states that she is trying to go to groups and participate as best she can. She was not tearful today, not responding to internal stimuli. She continues to endorse suicidal thoughts however no intent or plan. At this time patient denies any homical ideations, intent or plan. Patient denies any visual hallucinations. Patient denies any side effects from the medications and has been compliant with meds. He states that she only slept about 2 hours last night. Mental Status Exam: General Appearance: Patient appears to be overweight, short in stature, stated age is alert, constricted, directable. Patient appears to have improving hygiene and grooming wearing hospital gown Behavior: Patient is sitting in chair, appears less anxious and in mild distress today. Directable. vague/evasive Speech: Patient's speech is fluent and nonpressured. [place] Mood/Affect: Patient reports their mood is "depressed", affect is congruent and constricted Suicidality/Homicidality: Patient denies having any homicidal ideation intent or plan. Endorsing suicidal thoughts, however no intent or plan. Perceptions: Patient denies any visual hallucinations and endorsing auditory hallucinations, improving mildly. Though content/process: There is no evidence of any delusional thought content and thought process is linear. [place]. Memory and concentration: AOX3, grossly intact for the purposes of this session Judgment and insight: poor, improving mildly Assessment Schizoaffective disorder, depressive type borderline personality disorder Generalized anxiety disorder Nicotine dependence Plan: -Patient continues to meet criteria for inpatient psychiatric admission for symptom stabilization and safety. Patient has signed adult voluntary form and medication consent and was placed in patient's chart. -Medications: Increase Cymbalta 60 mg bid for mood/anxiety, lithium 450 mg twice a day for mood stabilization/suicidal thoughts. increase Paliperidone by mouth 12 mg daily at bedtime for psychosis/mood stabilization. Vistaril prn for anxiety. increase Trazodone 200 mg daily at bedtime for insomnia/mood. -When necessary Ativan and Haldol for agitation/aggression. -NRT - not needed as patient does not smoke. -SW on board for discharge planning. Encouraged the patient to participate in milieu. Likely discharge in 1-2 days bacl home.
[2021-11-16] MEDS: DULoxetine HCL 60 MG CAPSULE.DR PO SCH (20:48)
[2021-11-16] MEDS: PALIPERIDONE 6 MG TAB.ER.24 PO SCH (20:51)
[2021-11-16] MEDS ORDERED: traZODone HCL 100 MG TAB PO SCH (21:00)
[2021-11-17] MEDS: LEVOTHYROXINE 125 MCG TAB PO SCH (06:52)
[2021-11-17] MEDS: NICOTINE 14MG/24HR PATCH TRANSDERM SCH (08:06)
[2021-11-17] MEDS: CALCIUM CARBONATE 500 MG CHEWABLE PO SCH (08:07)
[2021-11-17] MEDS: DULoxetine HCL 60 MG CAPSULE.DR PO SCH ×2 (08:07→20:37)
[2021-11-17] MEDS: PANTOPRAZOLE 40 MG TABLET PO SCH (08:07)
[2021-11-17] MEDS: ASPIRIN 81 MG PO SCH (08:07)
[2021-11-17] MEDS: GABAPENTIN 300 MG CAP PO SCH ×4 (08:07→20:37)
[2021-11-17] MEDS: MULTIVITAMINS, THERA 1 EACH TAB PO SCH (08:07)
[2021-11-17] MEDS: LITHIUM CARBONATE 150 MG CAP PO SCH ×2 (08:08→20:36)
--- NOTE | 2021-11-17 09:40 | P.PN ---
Progress Note - Text Progress Note Date: 11/17/21 Interval History: Patient was seen wandering the hallways today after group and was agreeable to commercial insurance underwriter. Patient appeared to have an improvement in her affect today however continues to be fairly constricted. She continues to state that she does not feel comfortable going home. She states that she is still having suicidal thoughts and claims that the "voices woke me up from my sleep last night". She states that her mood is gradually improving. she is trying to go to some groups and participate. She continues to speak about her medications. Continues to be concrete and display poor insight. She was not tearful today, not responding to internal stimuli. She continues to endorse suicidal thoughts however no intent or plan. At this time patient denies any homical ideations, intent or plan. Patient denies any visual hallucinations. Patient denies any side effects from the medications and has been compliant with meds. He states that she slept about 5 hrs last night. Mental Status Exam: General Appearance: Patient appears to be overweight, short in stature, stated age is alert, constricted, directable. Patient appears to have improving hygiene and grooming wearing hospital gown Behavior: Patient is sitting in chair, appears less anxious and in mild distress today. Directable. vague/evasive, improving mildly Speech: Patient's speech is fluent and nonpressured. Clemons Mood/Affect: Patient reports their mood is "a bit better", affect is congruent and constricted Suicidality/Homicidality: Patient denies having any homicidal ideation intent or plan. Endorsing suicidal thoughts, however no intent or plan. Perceptions: Patient denies any visual hallucinations and endorsing auditory hallucinations, improving mildly. Though content/process: There is no evidence of any delusional thought content and thought process is linear. Clemons. Memory and concentration: AOX3, grossly intact for the purposes of this session Judgment and insight: poor, improving mildly Assessment Schizoaffective disorder, depressive type borderline personality disorder Generalized anxiety disorder Nicotine dependence Plan: -Patient continues to meet criteria for inpatient psychiatric admission for symptom stabilization and safety. Patient has signed adult voluntary form and medication consent and was placed in patient's chart. -Medications: Cymbalta 60 mg bid for mood/anxiety, lithium 450 mg twice a day for mood stabilization/suicidal thoughts. Paliperidone by mouth 12 mg daily at bedtime for psychosis/mood stabilization. Vistaril prn for anxiety. increase Trazodone 300 mg daily at bedtime for insomnia/mood. -When necessary Ativan and Haldol for agitation/aggression. -NRT - not needed as patient does not smoke. -SW on board for discharge planning. Encouraged the patient to participate in milieu. Likely discharge home saturday.
[2021-11-17] MEDS: PALIPERIDONE 6 MG TAB.ER.24 PO SCH (20:36)
[2021-11-17] MEDS: traZODone HCL 100 MG TAB PO SCH (20:36)
[2021-11-18] MEDS: LEVOTHYROXINE 125 MCG TAB PO SCH (06:30)
[2021-11-18] MEDS: NICOTINE 14MG/24HR PATCH TRANSDERM SCH (08:02)
[2021-11-18] MEDS: DULoxetine HCL 60 MG CAPSULE.DR PO SCH ×2 (08:03→21:17)
[2021-11-18] MEDS: PANTOPRAZOLE 40 MG TABLET PO SCH (08:03)
[2021-11-18] MEDS: MULTIVITAMINS, THERA 1 EACH TAB PO SCH (08:03)
[2021-11-18] MEDS: GABAPENTIN 300 MG CAP PO SCH ×4 (08:03→23:00)
[2021-11-18] MEDS: CALCIUM CARBONATE 500 MG CHEWABLE PO SCH (08:03)
[2021-11-18] MEDS: LITHIUM CARBONATE 150 MG CAP PO SCH ×2 (08:03→21:16)
[2021-11-18] MEDS: ASPIRIN 81 MG PO SCH (08:03)
[2021-11-18] MEDS: LORazepam 1 MG TAB PO PRN ×2 (08:04→15:41)
--- NOTE | 2021-11-18 13:30 | P.PN ---
Progress Note - Text Interval history: Patient was seen in her room and was directable and agreeable to speak with script writer. States that she is doing "all right". At this time patient denies any suicidal or homicidal ideations intent or plan. Denies any Auditory or visual hallucinations. Patient denies any side effects from the medications and has been compliant with meds. Mental status exam: General Appearance: [Patient appears to be stated age is alert, directable, and cooperative.] Behavior: [No agitated behavior. Patient is calm and directable] Speech: Patient's speech is fluent and nonpressured. Mood/Affect: Mood is "alright", affect is constricted. Suicidality/Homicidality: Patient denies having any suicidal or homicidal ideation intent or plan. Perceptions: Patient denies any auditory or visual hallucinations. Though content/process: [There is no evidence of any delusional thought content and thought process is linear and goal-directed.] Memory and concentration: AOX3, grossly intact for the purposes of this session Judgment and insight: improving mildly Assessment/Plan: Continue with current diagnosis. Patient continues to meet criteria for inpatient psychiatric admission for symptom stabilization and safety.[Patient will be maintained on current psychotropic medication regimen.] Monitor for medication compliance and for any psychotropic medication side effects. Will continue to monitor ongoing response to treatment. Encouraged participation in milieu.
[2021-11-18] MEDS: PALIPERIDONE 6 MG TAB.ER.24 PO SCH (21:16)
[2021-11-18] MEDS: traZODone HCL 100 MG TAB PO SCH (21:17)
[2021-11-19] MEDS: LEVOTHYROXINE 125 MCG TAB PO SCH (06:35)
[2021-11-19 06:37] VITALS: TEMP 98.2
[2021-11-19] MEDS: NICOTINE 14MG/24HR PATCH TRANSDERM SCH (07:55)
[2021-11-19] MEDS: PANTOPRAZOLE 40 MG TABLET PO SCH (07:55)
[2021-11-19] MEDS: DULoxetine HCL 60 MG CAPSULE.DR PO SCH ×2 (07:55→20:17)
[2021-11-19] MEDS: CALCIUM CARBONATE 500 MG CHEWABLE PO SCH (07:55)
[2021-11-19] MEDS: MULTIVITAMINS, THERA 1 EACH TAB PO SCH (07:55)
[2021-11-19] MEDS: ASPIRIN 81 MG PO SCH (07:55)
[2021-11-19] MEDS: GABAPENTIN 300 MG CAP PO SCH ×4 (07:56→20:17)
[2021-11-19] MEDS: LITHIUM CARBONATE 150 MG CAP PO SCH ×2 (08:17→20:17)
[2021-11-19 08:20] VITALS: BP 114/62; PULSE 101
[2021-11-19] MEDS: LORazepam 1 MG TAB PO PRN (12:20)
--- NOTE | 2021-11-19 14:36 | P.PN ---
Progress Note - Text Interval history: Patient was seen in her room and was directable and agreeable to speak with underwriter mortgage loan. []. At this time patient denies any suicidal or homicidal ideations intent or plan. Denies any Auditory or visual hallucinations. Patient denies any side effects from the medications and has been compliant with meds. Mental status exam: General Appearance: [alert, directable, and cooperative.] Behavior: [No agitated behavior. Patient is calm and directable] Speech: Patient's speech is fluent and nonpressured. Mood/Affect: Mood is "alright", affect is congruent and full range Suicidality/Homicidality: Patient denies having any suicidal or homicidal ideation intent or plan. Perceptions: Patient denies any auditory or visual hallucinations. Though content/process: [There is no evidence of any delusional thought content and thought process is linear and goal-directed.] Memory and concentration: AOX3, grossly intact for the purposes of this session Judgment and insight: improving mildly Assessment/Plan: Continue with current diagnosis. Patient continues to meet criteria for inpatient psychiatric admission for symptom stabilization and safety.[Patient will be maintained on current psychotropic medication regimen.] Monitor for medication compliance and for any psychotropic medication side e ffects. Will continue to monitor ongoing response to treatment. Encouraged participation in milieu.
[2021-11-19] MEDS: traZODone HCL 100 MG TAB PO SCH (20:17)
[2021-11-19] MEDS: PALIPERIDONE 6 MG TAB.ER.24 PO SCH (20:17)
[2021-11-20] MEDS: LEVOTHYROXINE 125 MCG TAB PO SCH (06:28)
[2021-11-20] MEDS: CALCIUM CARBONATE 500 MG CHEWABLE PO SCH (08:02)
[2021-11-20] MEDS: NICOTINE 14MG/24HR PATCH TRANSDERM SCH (08:03)
[2021-11-20] MEDS: PANTOPRAZOLE 40 MG TABLET PO SCH (08:03)
[2021-11-20] MEDS: MULTIVITAMINS, THERA 1 EACH TAB PO SCH (08:03)
[2021-11-20] MEDS: DULoxetine HCL 60 MG CAPSULE.DR PO SCH (08:03)
[2021-11-20] MEDS: LITHIUM CARBONATE 150 MG CAP PO SCH (08:03)
[2021-11-20] MEDS: GABAPENTIN 300 MG CAP PO SCH (08:03)
[2021-11-20] MEDS: ASPIRIN 81 MG PO SCH (08:03)
--- NOTE | 2021-11-20 09:27 | P.DS ---
Providers Date of admission: 11/11/21 18:56 Expected date of discharge: 11/20/21 Attending physician: Sang Ricci MD Consults: 11/11/21 17:40 Consult Physician Routine Consulting Provider: Sanna Good Consult Reason/Comments: Medical H&P Do you want consulting provider notified?: Yes Primary care physician: Stated None - Discharge Diagnosis(es) (1) Schizoaffective disorder, depressive type Current Visit: Yes Status: Acute Priority: High (2) Borderline personality disorder Current Visit: Yes Status: Acute Priority: Medium (3) Generalized anxiety disorder Current Visit: Yes Status: Acute Priority: Medium (4) Nicotine dependence Current Visit: Yes Status: Acute Priority: Low Hospital Course: Admission HPI: Admission note was completed by Dr Ross "This is a psychiatry assessment on Marly Parson who is a 56-year-old female with a history of bipolar disorder. Patient states that she was experiencing auditory hallucinations and command hallucinations which told her to overdose. Patient states that she took an overdose of lithium and Wellbutrin. She stated that she had also seen her nurse practitioner that morning. Patient stated that she was in ICU for a day or so over the [facility] for observation and then she was transferred here. Patient states that she has bipolar disorder and sometimes the symptoms get worse for no apparent reason. She was unable to give any specific triggering events for her recent overdose but states that she had started to feel depressed more so in the last few weeks. She states that her nurse practitioner supposed to make some changes with her medications. Patient does not know her current medications. Patient's current list of medications includes Risperdal and gabapentin. Patient also reports that she was on lithium and Wellbutrin before." Hospital course: Upon admission to the unit patient was directable and agreeable to commence treatment and signed adult voluntary form. Patient got along well with other patients on the unit and followed unit protocol. Patient was compliant with the medications and denied any side effects throughout hospital course. Patient was started on Cymbalta titrated up to dose of 60 mg twice a day for mood/anxiety, lithium increased to dose of 450 mg twice a day for mood stabilization/suicidal thoughts, paliperidone by mouth 12 milligrams daily at bedtime for psychosis/mood stabilization, trazodone 300 mg daily at bedtime for insomnia/mood. Patient spoke of her stressors and engaged in therapy both group and individual. Patient was also seen by medical team for history and physical exam. Throughout the course of the hospitalization patient gradually improved with regards to mood, anxiety, sleep and returned back to their baseline level of functioning. On the day of discharge patient denied any suicidal or homicidal ideations intent or plan denied any auditory or visual hallucinations. Patient endorsed wanting to live for her health and her future. The patient denied any access to guns or weapons. Patient denied any paranoia and did not endorse any delusions. Patient does not have a significant history of substance abuse however was counseled on abstaining from all substances including alcohol and marijuana. Patient was also counseled on the medications and need for regular compliance and was encouraged to follow-up with their outpatient appointment for mental health and also for primary care. Prior to discharge a family meeting will be arranged by neonatal social worker to answer any questions and ensure safety upon discharge. Mental status exam: General Appearance: Patient appears to be stated age is alert, pleasant, and cooperative. Patient is in no acute distress and has improved hygiene and grooming Behavior: Patient is calmly seated without any agitated behavior. Speech: Patient's speech is fluent and nonpressured. Mood/Affect: Patient reports their mood is "better", affect is congruent and euthymic. Suicidality/Homicidality: Patient denies having any suicidal or homicidal ideation intent or plan. Perceptions: Patient denies any auditory or visual hallucinations. Though content/process: There is no evidence of any delusional thought content and thought process is linear and goal-directed. Memory and concentration: AOX3, grossly intact for the purposes of this session. Can spell "WORLD" backwards correctly. Judgment and insight: chronically poor, however has improved with guarded prognosis Impression: Schizoaffective disorder, depressive type Borderline personality disorder Generalized anxiety disorder Nicotine dependence Plan: -Continue with discharge today as patient has improved and stabilized psychiatrically and is not currently an imminent threat to herself and/or others. Patient will remain at chronically elevated risk for harm to self and/or others due to her impulsivity and chronic mental illness. -Continue medications: Cymbalta 60 mg twice a day for mood/anxiety, lithium 450 mg twice a day for mood stabilization/suicidal thoughts, paliperidone by mouth 12 mg daily at bedtime for psychosis/mood stabilization, trazodone 300 mg daily at bedtime for insomnia/mood. -Patient was counseled on the need for medication compliance and appropriate follow-up at mental health and also primary care for medical issues. Patient verbalized understanding and agreed. -Social work to arrange for and conduct family meeting to ensure safety upon discharge and answer any questions/concerns. Social work also to arrange for patients follow up appointments with [facility] for psychiatric care along with follow up with primary care provider. -Patient counseled on abstaining from recreational drugs and marijuana and alcohol. Was informed/educated on the adverse effects on their physical and mental health. Patient verbally agreed and understood. -Patient was instructed to return to the hospital or seek immediate medical care if their psychiatric or medical symptoms do worsen or reoccur. Allergies Allergy/AdvReac Type Severity Reaction Status Date / Time peanut Allergy Severe Anaphylaxis Verified 11/11/21 20:12 ibuprofen [From Motrin] Allergy Intermediate Rash/Hives Verified 11/11/21 20:12 tramadol HCl [From Ultram] Allergy Intermediate Itching Verified 11/11/21 20:12 Laboratory Results WBC 7.4 k/uL (3.8-10.6) 11/12/21 07:53 RBC 3.81 m/uL (3.80-5.40) 11/12/21 07:53 Hgb 12.0 gm/dL (11.4-16.0) 11/12/21 07:53 Hct 37.5 % (34.0-46.0) 11/12/21 07:53 MCV 98.4 fL (80.0-100.0) 11/12/21 07:53 MCH 31.5 pg (25.0-35.0) 11/12/21 07:53 MCHC 32.0 g/dL (31.0-37.0) 11/12/21 07:53 RDW 11.5 % (11.5-15.5) 11/12/21 07:53 Plt Count 314 k/uL (150-450) 11/12/21 07:53 MPV 7.8 11/12/21 07:53 Neutrophils % 66 % 11/12/21 07:53 Lymphocytes % 23 % 11/12/21 07:53 Monocytes % 5 % 11/12/21 07:53 Eosinophils % 3 % 11/12/21 07:53 Basophils % 0 % 11/12/21 07:53 Neutrophils # 4.9 k/uL (1.3-7.7) 11/12/21 07:53 Lymphocytes # 1.7 k/uL (1.0-4.8) 11/12/21 07:53 Monocytes # 0.4 k/uL (0-1.0) 11/12/21 07:53 Eosinophils # 0.2 k/uL (0-0.7) 11/12/21 07:53 Basophils # 0.0 k/uL (0-0.2) 11/12/21 07:53 Sodium 142 mmol/L (137-145) 11/12/21 07:53 Potassium 4.0 mmol/L (3.5-5.1) 11/12/21 07:53 Chloride 107 mmol/L (98-107) 11/12/21 07:53 Carbon Dioxide 28 mmol/L (22-30) 11/12/21 07:53 Anion Gap 7 mmol/L 11/12/21 07:53 BUN 9 mg/dL (7-17) 11/12/21 07:53 Creatinine 0.82 mg/dL (0.52-1.04) 11/12/21 07:53 Est GFR (CKD-EPI)AfAm >90 (>60 ml/min/1.73 sqM) 11/12/21 07:53 Est GFR (CKD-EPI)NonAf 79 (>60 ml/min/1.73 sqM) 11/12/21 07:53 Glucose 101 mg/dL (74-99) H 11/12/21 07:53 Calcium 9.7 mg/dL (8.4-10.2) 11/12/21 07:53 Total Bilirubin 0.4 mg/dL (0.2-1.3) 11/12/21 07:53 AST 31 U/L (14-36) 11/12/21 07:53 ALT 31 U/L (4-34) 11/12/21 07:53 Alkaline Phosphatase 67 U/L (38-126) 11/12/21 07:53 Total Protein 6.7 g/dL (6.3-8.2) 11/12/21 07:53 Albumin 4.1 g/dL (3.5-5.0) 11/12/21 07:53 Embarrass 1.1 mmol/L 11/19/21 07:06 Vital Signs Temp 98.2 F 11/19/21 06:37 Pulse 101 H 11/19/21 08:19 Resp 16 11/19/21 06:37 BP 114/62 11/19/21 08:19 Pulse Ox 97 11/19/21 06:37 Intake & Output 11/19/21 11/20/21 11/20/21 18:59 06:59 18:59 Weight 64.5 kg Patient Condition at Discharge: Stable Plan - Discharge Summary Discharge Rx Participant: Yes New Discharge Prescriptions: New DULoxetine HCL [Cymbalta] 60 mg PO BID 30 Days traZODone HCL [Desyrel] 300 mg PO HS 30 Days tab Nicotine 14Mg/24Hr Patch [Habitrol] 1 patch TRANSDERM DAILY 14 Days patch Embarrass Carbonate 450 mg PO BID 30 Days cap Paliperidone [Invega] 12 mg PO HS 30 Days Continue Gabapentin [Neurontin] 300 mg PO QID Multivitamins, Thera [Multivitamin (formulary)] 1 tab PO DAILY Aspirin 81 mg PO DAILY tab Calcium Carbonate [Calcium] 600 mg PO DAILY Pantoprazole Sodium [Protonix] 40 mg PO DAILY 30 Days #30 tab Levothyroxine Sodium [Synthroid] 125 mcg PO DAILY 30 Days tab Discontinued hydrOXYzine pamoate [Vistaril] 25 mg PO BID PRN 30 Days cap PRN Reason: Anxiety risperiDONE [RisperDAL] 1 mg PO HS DULoxetine HCL [Cymbalta] 60 mg PO DAILY Discharge Medication List Gabapentin [Neurontin] 300 mg PO QID 04/30/17 [History] Multivitamins, Thera [Multivitamin (formulary)] 1 tab PO DAILY 08/22/21 [History] Aspirin 81 mg PO DAILY tab 08/25/21 [Rx] Calcium Carbonate [Calcium] 600 mg PO DAILY 11/08/21 [History] DULoxetine HCL [Cymbalta] 60 mg PO BID 30 Days 11/20/21 [Rx] Levothyroxine Sodium [Synthroid] 125 mcg PO DAILY 30 Days tab 11/20/21 [Rx] Embarrass Carbonate 450 mg PO BID 30 Days cap 11/20/21 [Rx] Nicotine 14Mg/24Hr Patch [Habitrol] 1 patch TRANSDERM DAILY 14 Days patch 11/20/21 [Rx] Paliperidone [Invega] 12 mg PO HS 30 Days 11/20/21 [Rx] Pantoprazole Sodium [Protonix] 40 mg PO DAILY 30 Days #30 tab 11/20/21 [Rx] traZODone HCL [Desyrel] 300 mg PO HS 30 Days tab 11/20/21 [Rx] Follow up Appointment(s)/Referral(s): [facility] [place] [Outside] - 11/17/21 3:00 pm (11-17-21 @ 3:00 with Jose De La O by phone 11-20-21 @ 12:00 with Jose De La O at [facility] office (Bunny to provide transportation) 11-22-21 @ 1:00 with SHERRON Judd at [facility] office) [facility] [Outside] - 11/20/21 11:30 am (Rosa De La O) Activity/Diet/Wound Care/Special Instructions: Activity and diet as tolerated. Avoid the use of street drugs and alcohol. Take all medications as prescribed. When you are in need of refills on your medications please contact your medical provider and/or outpatient psychiatrist to have this done. Please go to scheduled outpatient appointment for aftercare treatment. If symptoms return or become worse, call the crisis line at and/or go to the nearest emergency room for evaluation Discharge Disposition: HOME SELF-CARE
== END 2021-11-20 11:23 | disposition home or self-care (01) | DRG 885 ==
LOC: 3MHU 18:56
PROVIDERS: ADMIT Psychiatry & Neurology Psychiatry; ATTEND Psychiatry & Neurology Psychiatry
DX: F25.1 Schizoaffective disorder, depressive type (principal); E03.9 Hypothyroidism, unspecified; E78.5 Hyperlipidemia, unspecified; F17.210 Nicotine dependence, cigarettes, uncomplicated; F41.1 Generalized anxiety disorder; F60.3 Borderline personality disorder; G47.00 Insomnia, unspecified; T43.212D Poisoning by selective serotonin and norepinephrine reuptake inhibitors, intentional self-harm, subsequent encounter; T43.592D Poisoning by other antipsychotics and neuroleptics, intentional self-harm, subsequent encounter; Z79.82 Long term (current) use of aspirin; Z79.890 Hormone replacement therapy; Z79.899 Other long term (current) drug therapy; Z80.0 Family history of malignant neoplasm of digestive organs; Z82.0 Family history of epilepsy and other diseases of the nervous system; Z82.49 Family history of ischemic heart disease and other diseases of the circulatory system; Z90.710 Acquired absence of both cervix and uterus; Z98.890 Other specified postprocedural states; Z88.6 Allergy status to analgesic agent; Z88.5 Allergy status to narcotic agent; Z91.010 Allergy to peanuts; Z71.89 Other specified counseling
CPT/HCPCS: 80053; 80178; 85025

== ENCOUNTER 2021-12-15 15:00 | Observation (INO) | payer OTHER ==
--- NOTE | 2021-12-15 15:41 | ED ---
General Adult HPI - General Chief complaint: Weakness Stated complaint: Dizziness Time Seen by Provider: 12/15/21 15:13 Source: patient, EMS Mode of arrival: EMS - History of Present Illness Initial comments: Dictation was produced using [employer] dictation software. please excuse any grammatical, word or spelling errors. Chief Complaint: 56-year-old female past medical history of schizoaffective disorder, dyslipidemia and thyroid disease presents to the ER for 2 weeks dizziness History of Present Illness: She is a 48-year-old female she has past medical hi story of psychiatric disease, dyslipidemia and thyroid disorder. Patient takes multiple psychiatric medications. Patient states she's been dizzy for the last 2 weeks. She was recently admitted to the hospital to inpatient psychiatry and was discharge on November 20. Patient's sister who called over the phone states that patient has been having dizziness since her menses been adjusted. Sister also reports that she is worried that patient might have tick bites. Patient states that she feels lightheaded. She denies that she has a sensation of the room spinning. No numbness any paresthesias to the arms or legs. Patient fell at a store today which is partly the reason how she ended up in the emergency department today. Patient has no pain complaints except for her knees from when she fell. She states she feels really lightheaded whenever she tries to ambulate. At rest she does not have any complaints. The ROS documented in this emergency department record has been reviewed and co nfirmed by me. Those systems with pertinent positive or negative responses have been documented in the HPI. All other systems are other negative and/or noncontributory. PHYSICAL EXAM: General Impression: Alert and oriented x3, not in acute distress HEENT: Normocephalic atraumatic, extra-ocular movements intact, pupils equal and reactive to light bilaterally, mucous membranes moist. Cardiovascular: Heart regular rate and rhythm Chest: Able to complete full sentences, no retractions, no tachypnea Abdomen: abdomen soft, non-tender, non-distended, no organomegaly Musculoskeletal: Pulses present and equal in all extremities, no peripheral edema Motor: no focal deficits noted Neurological: CN II-XII grossly intact, no focal motor or sensory deficits noted, no nystagmus Skin: Intact with no visualized rashes Psych: Normal affect and mood ED course:56-year-old well-appearing female presents to the emergency department for dizziness. Patient reports symptoms for 2 weeks. Sr. reports symptoms for approximately one month. Chart review shows the patient was discharged from the hospital inpatient psych unit on November 20. Vital signs upon arrival are within acceptable limits. EKG interpretation: Ventricular rate 99, sinus rhythm,. Interval 184, care is 81, QTc 380. No AK prolongation, no QTC prolongation, no ST or T-wave changes noted. EKG compared to 11/09/2021 showing no changes. Overall, this EKG is unremarkable Lab evaluation obtained. CBC, coag panel is unremarkable. Metabolic panel shows no acidosis but she does have a lactic acid level II.7. Urinalysis shows urinary tract infection. [place] level is 1.5. She does have symptoms that may suggest toxicity to lithium. Patient reevaluated at bedside at 7:34 PM found to be in stable medical condition. Patient given antibiotics for urinary tract infection. She given IV fluids. She'll be admitted for observation for medical monitoring - Related Data Home Medications Medication Instructions Recorded Confirmed Gabapentin [Neurontin] 300 mg PO QID 04/30/17 12/15/21 Multivitamins, Thera [Multivitamin 1 tab PO DAILY 08/22/21 12/15/21 (formulary)] Calcium Carbonate [Calcium] 600 mg PO DAILY 11/08/21 12/15/21 Nicotine 14Mg/24Hr Patch [Habitrol] 1 patch TRANSDERM DAILY PRN 12/15/21 12/15/21 traZODone HCL 300 mg PO HS 12/15/21 12/15/21 Previous Rx's Medication Instructions Recorded Aspirin 81 mg PO DAILY tab 08/25/21 DULoxetine HCL [Cymbalta] 60 mg PO BID 30 Days 11/20/21 Levothyroxine Sodium [Synthroid] 125 mcg PO DAILY 30 Days tab 11/20/21 [place] Carbonate 450 mg PO BID 30 Days cap 11/20/21 Paliperidone [Invega] 12 mg PO HS 30 Days 11/20/21 Pantoprazole Sodium [Protonix] 40 mg PO DAILY 30 Days #30 tab 11/20/21 Allergies Allergy/AdvReac Type Severity Reaction Status Date / Time peanut Allergy Severe Anaphylaxis Verified 12/15/21 17:30 ibuprofen [From Motrin] Allergy Intermediate Rash/Hives Verified 12/15/21 17:30 tramadol HCl [From Ultram] Allergy Intermediate Itching Verified 12/15/21 17:30 Review of Systems ROS Statement: Those systems with pertinent positive or pertinent negative responses have been documented in the HPI. ROS Other: All systems not noted in ROS Statement are negative. Past Medical History Past Medical History: Chest Pain / Angina, Hyperlipidemia, Thyroid Disorder Additional Past Medical History / Comment(s): suicide attempt History of Any Multi-Drug Resistant Organisms: None Reported Past Surgical History: Section, Hysterectomy Additional Past Surgical History / Comment(s): x 2, colonoscopy Past Anesthesia/Blood Transfusion Reactions: No Reported Reaction Additional Past Anesthesia/Blood Transfusion Reaction / Comment(s): no previous blood transfusion Past Psychological History: Anxiety, Bipolar, Depression Smoking Status: Former smoker Past Alcohol Use History: None Reported Past Drug Use History: None Reported - Past Family History Father Family Medical History: Cancer, Neurologic Disorder Additional Family Medical History / Comment(s): Pt's. father had colon cancer and Parkinson's. Father at the age of 80yrs. Mother Family Medical History: Congestive Heart Failure (CHF) Additional Family Medical History / Comment(s): states "weak heart" Mother at the age of 90yrs. Sister(s) Family Medical History: Coronary Artery Disease (CAD), Myocardial Infarction ([place]) Additional Family Medical History / Comment(s): 1 sister with hx of 2 cardiac stents, 1 other sister from heart related issues Course Vital Signs 12/15/21 15:12 Temperature 98.9 F Pulse Rate 91 Respiratory 18 Rate Blood Pressure 102/56 O2 Sat by Pulse 94 L Oximetry Medical Decision Making - Lab Data Result diagrams: 12/15/21 15:37 12/15/21 15:37 Lab Results 12/15/21 12/15/21 12/15/21 Range/Units 15:37 15:37 15:37 WBC 5.5 (3.8-10.6) k/uL RBC 4.40 (3.80-5.40) m/uL Hgb 13.3 (11.4-16.0) gm/dL Hct 42.2 (34.0-46.0) % MCV 96.0 (80.0-100.0) fL MCH 30.2 (25.0-35.0) pg MCHC 31.4 (31.0-37.0) g/dL RDW 12.6 (11.5-15.5) % Plt Count 315 (150-450) k/uL MPV 8.8 Neutrophils % 64 % Lymphocytes % 20 % Monocytes % 11 % Eosinophils % 2 % Basophils % 0 % Neutrophils # 3.5 (1.3-7.7) k/uL Lymphocytes # 1.1 (1.0-4.8) k/uL Monocytes # 0.6 (0-1.0) k/uL Eosinophils # 0.1 (0-0.7) k/uL Basophils # 0.0 (0-0.2) k/uL PT (9.0-12.0) sec INR (<1.2) APTT (22.0-30.0) sec Sodium 138 (137-145) mmol/L Potassium 4.7 (3.5-5.1) mmol/L Chloride 106 (98-107) mmol/L Carbon Dioxide 25 (22-30) mmol/L Anion Gap 7 mmol/L BUN <2 L (7-17) mg/dL Creatinine 0.92 (0.52-1.04) mg/dL Est GFR (CKD-EPI)AfAm 80 (>60 ml/min/1.73 sqM) Est GFR (CKD-EPI)NonAf 69 (>60 ml/min/1.73 sqM) Glucose 126 H (74-99) mg/dL Lactic Ac Sepsis Rflx Plasma Lactic Acid Guille 3.7 H* (0.7-2.0) mmol/L Calcium 10.2 (8.4-10.2) mg/dL Magnesium 1.7 (1.6-2.3) mg/dL Urine Color Urine Appearance (Clear) Urine pH (5.0-8.0) Ur Specific [place] (1.001-1.035) Urine Protein (Negative) Urine Glucose (UA) (Negative) Urine Ketones (Negative) Urine Blood (Negative) Urine Nitrite (Negative) Urine Bilirubin (Negative) Urine Urobilinogen (<2.0) mg/dL Ur Leukocyte Esterase (Negative) Urine RBC (0-5) /hpf Urine WBC (0-5) /hpf Ur Squamous Epith Cells (0-4) /hpf Urine Bacteria (None) /hpf [place] 1.5 mmol/L Coronavirus (PCR) (Not Detectd) Influenza Type A RNA (Not Detectd) Influenza Type B (PCR) (Not Detectd) 12/15/21 12/15/21 12/15/21 Range/Units 15:46 15:46 16:11 WBC (3.8-10.6) k/uL RBC (3.80-5.40) m/uL Hgb (11.4-16.0) gm/dL Hct (34.0-46.0) % MCV (80.0-100.0) fL MCH (25.0-35.0) pg MCHC (31.0-37.0) g/dL RDW (11.5-15.5) % Plt Count (150-450) k/uL MPV Neutrophils % % Lymphocytes % % Monocytes % % Eosinophils % % Basophils % % Neutrophils # (1.3-7.7) k/uL Lymphocytes # (1.0-4.8) k/uL Monocytes # (0-1.0) k/uL Eosinophils # (0-0.7) k/uL Basophils # (0-0.2) k/uL PT (9.0-12.0) sec INR (<1.2) APTT (22.0-30.0) sec Sodium (137-145) mmol/L Potassium (3.5-5.1) mmol/L Chloride (98-107) mmol/L Carbon Dioxide (22-30) mmol/L Anion Gap mmol/L BUN (7-17) mg/dL Creatinine (0.52-1.04) mg/dL Est GFR (CKD-EPI)AfAm (>60 ml/min/1.73 sqM) Est GFR (CKD-EPI)NonAf (>60 ml/min/1.73 sqM) Glucose (74-99) mg/dL Lactic Ac Sepsis Rflx Y Plasma Lactic Acid [place] (0.7-2.0) mmol/L Calcium (8.4-10.2) mg/dL Magnesium (1.6-2.3) mg/dL Urine Color Urine Appearance (Clear) Urine pH (5.0-8.0) Ur Specific [place] (1.001-1.035) Urine Protein (Negative) Urine Glucose (UA) (Negative) Urine Ketones (Negative) Urine Blood (Negative) Urine Nitrite (Negative) Urine Bilirubin (Negative) Urine Urobilinogen (<2.0) mg/dL Ur Leukocyte Esterase (Negative) Urine RBC (0-5) /hpf Urine WBC (0-5) /hpf Ur Squamous Epith Cells (0-4) /hpf Urine Bacteria (None) /hpf [place] mmol/L Coronavirus (PCR) Not Detected (Not Detectd) Influenza Type A RNA Not Detected (Not Detectd) Influenza Type B (PCR) Not Detected (Not Detectd) 12/15/21 12/15/21 Range/Units 16:45 17:50 WBC (3.8-10.6) k/uL RBC (3.80-5.40) m/uL Hgb (11.4-16.0) gm/dL Hct (34.0-46.0) % MCV (80.0-100.0) fL MCH (25.0-35.0) pg MCHC (31.0-37.0) g/dL RDW (11.5-15.5) % Plt Count (150-450) k/uL MPV Neutrophils % % Lymphocytes % % Monocytes % % Eosinophils % % Basophils % % Neutrophils # (1.3-7.7) k/uL Lymphocytes # (1.0-4.8) k/uL Monocytes # (0-1.0) k/uL Eosinophils # (0-0.7) k/uL Basophils # (0-0.2) k/uL PT 11.4 (9.0-12.0) sec INR 1.1 (<1.2) APTT 22.6 (22.0-30.0) sec Sodium (137-145) mmol/L Potassium (3.5-5.1) mmol/L Chloride (98-107) mmol/L Carbon Dioxide (22-30) mmol/L Anion Gap mmol/L BUN (7-17) mg/dL Creatinine (0.52-1.04) mg/dL Est GFR (CKD-EPI)AfAm (>60 ml/min/1.73 sqM) Est GFR (CKD-EPI)NonAf (>60 ml/min/1.73 sqM) Glucose (74-99) mg/dL Lactic Ac Sepsis Rflx Plasma Lactic Acid [place] (0.7-2.0) mmol/L Calcium (8.4-10.2) mg/dL Magnesium (1.6-2.3) mg/dL Urine Color Light Yellow Urine Appearance Clear (Clear) Urine pH 7.5 (5.0-8.0) Ur Specific [place] 1.004 (1.001-1.035) Urine Protein 1+ H (Negative) Urine Glucose (UA) Negative (Negative) Urine Ketones Negative (Negative) Urine Blood Negative (Negative) Urine Nitrite Negative (Negative) Urine Bilirubin Negative (Negative) Urine Urobilinogen <2.0 (<2.0) mg/dL Ur Leukocyte Esterase Large H (Negative) Urine RBC 2 (0-5) /hpf Urine WBC 47 H (0-5) /hpf Ur Squamous Epith Cells 2 (0-4) /hpf Urine Bacteria Rare H (None) /hpf [place] mmol/L Coronavirus (PCR) (Not Detectd) Influenza Type A RNA (Not Detectd) Influenza Type B (PCR) (Not Detectd) Disposition Clinical Impression: [place] toxicity Disposition: ADMITTED IP TO THIS HOSP Condition: Fair Referrals: Chiqui Viramontes MD [Primary Care Provider] - 1-2 days
[2021-12-15 15:54] LABS: Basophils % (A) 0 %; Eosinophils # (A) 0.1 k/uL (0-0.7); Eosinophils % (A) 2 %; HCT 42.2 % (34.0-46.0); HGB 13.3 gm/dL (11.4-16.0); Lymphocytes # (A) 1.1 k/uL (1.0-4.8); Lymphocytes % (A) 20 %; MCH 30.2 pg (25.0-35.0); MCHC 31.4 g/dL (31.0-37.0); Mean Platelet Volume 8.8; Monocytes # (A) 0.6 k/uL (0-1.0); Monocytes % (A) 11 %; Neutrophils # (A) 3.5 k/uL (1.3-7.7); Neutrophils % (A) 64 %; Platelet Count 315 k/uL (150-450); RDW 12.6 % (11.5-15.5); WBC 5.5 k/uL (3.8-10.6)
[2021-12-15 16:04] LABS: African American GFR (CKD) 80 (>60 ml/min/1.73 sqM); Anion Gap 7 mmol/L; Blood Urea Nitrogen <2 mg/dL (7-17); Calcium 10.2 mg/dL (8.4-10.2); Carbon Dioxide 25 mmol/L (22-30); Chloride 106 mmol/L (98-107); Glucose 126 mg/dL (74-99); Lithium 1.5 mmol/L; Magnesium 1.7 mg/dL (1.6-2.3); Non-African American GFR(CKD) 69 (>60 ml/min/1.73 sqM); Sodium 138 mmol/L (137-145)
[2021-12-15 16:09] LABS: Potassium 4.7 mmol/L (3.5-5.1)
--- NOTE | 2021-12-15 16:17 | CT ---
EXAMINATION TYPE: CT brain cspine wo con DATE OF EXAM: 12/15/2021 COMPARISON: CT brain dated 12/23/2014 HISTORY: Fall CT DLP: 1290.9 mGycm Automated exposure control for dose reduction was used. TECHNIQUE: CT scan of the head and cervical spine are performed without contrast. FINDINGS: There is no acute intracranial hemorrhage, mass effect, or midline shift identified. The ventricles and sulci are within normal limits in size. The globes are intact and the visualized sin uses are clear. Cervical spine is visualized in its entirety from C1 through upper thoracic levels and demonstrates s atisfactory alignment without evidence of acute fracture or dislocation. There is moderate degenerati ve disc disease at the C5-6 and C6-7 levels and moderate osteoarthritic change of the facet joints an d uncovertebral joints in the mid lower cervical spine. Prevertebral soft tissue appears within rajiv l limits. The C1-C2 articulation is unremarkable. IMPRESSION: 1. There is no acute fracture or dislocation evident in the cervical spine. Moderate osteoarthritic c hange degenerative disc disease in the mid lower cervical spine. 2. No acute intracranial hemorrhage, mass effect, or midline shift is seen.
--- NOTE | 2021-12-15 16:25 | XR ---
Bilateral knees. HISTORY: Pain following trauma. COMPARISON: None. TECHNIQUE: 2 views of both the right and left knee were obtained FINDINGS: The knees are normal and symmetric bilaterally without fracture, dislocation, intraosseous or intra-a rticular abnormality. There is no radiopaque foreign body or abnormal soft tissue calcification. Ther e is no joint effusion. IMPRESSION: No significant abnormality of the knees. No evidence of acute trauma.
[2021-12-15 17:15] LABS: INR 1.1 (<1.2); Partial Thromboplastin Time 22.6 sec (22.0-30.0); Prothrombin Time 11.4 sec (9.0-12.0)
[2021-12-15 18:13] LABS: Appearance,Urine Clear (Clear); Bacteria,Urine Rare /hpf; Bilirubin,Urine Negative (Negative); Blood,Urine Negative (Negative); Color,Urine Light Yellow; Glucose,Urine (UA) Negative (Negative); Ketones,Urine Negative (Negative); Leukocyte Esterase,Urine Large (Negative); Nitrite,Urine Negative (Negative); PH, Urine 7.5 (5.0-8.0); Protein,Urine 1+ (Negative); RBC,Urine 2 /hpf (0-5); Specific Gravity,Urine 1.004 (1.001-1.035); Squamous Epithelial Cell,Urine 2 /hpf (0-4); Urobilinogen,Urine <2.0 mg/dL (<2.0); WBC,Urine 47 /hpf (0-5)
[2021-12-15] MEDS ORDERED: SODIUM CHLORIDE 0.9% 1,000 ML IV STA (18:16)
[2021-12-15] MEDS ORDERED: cefTRIAXone IN SWFI 1,000 MG/10 ML SYRINGE IVP STA (19:27)
[2021-12-15] MEDS ORDERED: NALOXONE 0.4 MG/ML 1 ML VIAL IV PRN (19:48)
[2021-12-15] MEDS: SODIUM CHLORIDE 0.9% 1,000 ML IV SCH (21:58)
--- NOTE | 2021-12-16 00:59 | P.HPIM ---
History of Present Illness H&P Date: 12/15/21 Chief Complaint: Dizziness/fall 56-year-old female schizoaffective disorder hypothyroid Patient did not participate in the interview she did not follow commands not making eye contact and did not speak any words. As verified with the nurse she was able to obtain some information from the patient upon during her admission, however she did notice bizarre behavior and avoiding eye contact Per ED note patient came in after sustaining a fall while shopping, patient and performed the ED that she's been dizzy for the past 2 weeks, sister informed the ED doctor that patient has has been adjusted recently. ED doctor noted that patient was admitted to the inpatient psychiatry around mid November. Upon initial workup in the ED she was noted to have borderline elevated lesion level otherwise her blood work was unremarkable respiratory viral illness screening was negative vital signs stable Review of Systems ROS unobtainable: due to mental status Past Medical History Past Medical History: Chest Pain / Angina, Hyperlipidemia, Thyroid Disorder Additional Past Medical History / Comment(s): suicide attempt History of Any Multi-Drug Resistant Organisms: None Reported Past Surgical History: Section, Hysterectomy Additional Past Surgical History / Comment(s): x 2, colonoscopy Past Anesthesia/Blood Transfusion Reactions: No Reported Reaction Additional Past Anesthesia/Blood Transfusion Reaction / Comment(s): no previous blood transfusion Past Psychological History: Anxiety, Bipolar, Depression Additional Psychological History / Comment(s): pt reports that she lives by herself at home. pt states that she is afraid to be at home alone right now as she is concerned that she may act on suicidal thoughts. pt reports auditory hallucinations that are also command in nature telling her to harm herself. Smoking Status: Former smoker Past Alcohol Use History: None Reported Additional Past Alcohol Use History / Comment(s): pt states that she used to drink, but has not had alcohol in almost 5 years. 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 - Past Family History Father Family Medical History: Cancer, Neurologic Disorder Additional Family Medical History / Comment(s): Pt's. father had colon cancer and Parkinson's. Father at the age of 80yrs. Mother Family Medical History: Congestive Heart Failure (CHF) Additional Family Medical History / Comment(s): states "weak heart" Mother at the age of 90yrs. Sister(s) Family Medical History: Coronary Artery Disease (CAD), Myocardial Infarction ([place]) Additional Family Medical History / Comment(s): 1 sister with hx of 2 cardiac stents, 1 other sister from heart related issues Medications and Allergies Home Medications Medication Instructions Recorded Confirmed Type Gabapentin [Neurontin] 300 mg PO QID 04/30/17 12/15/21 History Multivitamins, Thera [Multivitamin 1 tab PO DAILY 08/22/21 12/15/21 History (formulary)] Aspirin 81 mg PO DAILY tab 08/25/21 12/15/21 Rx Calcium Carbonate [Calcium] 600 mg PO DAILY 11/08/21 12/15/21 History DULoxetine HCL [Cymbalta] 60 mg PO BID 30 Days 11/20/21 12/15/21 Rx Levothyroxine Sodium [Synthroid] 125 mcg PO DAILY 30 Days tab 11/20/21 12/15/21 Rx [place] Carbonate 450 mg PO BID 30 Days cap 11/20/21 12/15/21 Rx Paliperidone [Invega] 12 mg PO HS 30 Days 11/20/21 12/15/21 Rx Pantoprazole Sodium [Protonix] 40 mg PO DAILY 30 Days #30 tab 11/20/21 12/15/21 Rx Nicotine 14Mg/24Hr Patch [Habitrol] 1 patch TRANSDERM DAILY PRN 12/15/2112/03 History traZODone HCL 300 mg PO HS 12/15/21 12/15/21 History Allergies Allergy/AdvReac Type Severity Reaction Status Date / Time peanut Allergy Severe Anaphylaxis Verified 12/15/21 17:30 ibuprofen [From Motrin] Allergy Intermediate Rash/Hives Verified 12/15/21 17:30 tramadol HCl [From Ultram] Allergy Intermediate Itching Verified 12/15/21 17:30 Physical Exam Vitals: Vital Signs Temp Pulse Pulse Resp BP BP Pulse Ox 12/15/21 21:23 98.4 F 101 H 16 138/80 100 12/15/21 20:59 98.4 F 102 H 18 111/64 96 12/15/21 17:17 98.7 F 90 18 109/62 99 12/15/21 15:12 98.9 F 91 18 102/56 94 L Intake and Output 12/15/21 12/15/21 12/16/21 14:59 22:59 06:59 Other: # Voids 1 Weight 63.503 kg Patient declines physical exam Upon introducing myself, patient did not acknowledge me back, she was not making eye contact she was not saying any words out following any commands when attempted to reassure her and asking to perform physical exam she was tugging and clinching on the sheets covering herself refusing physical exam. However when I backed off she looked at me and smiles without saying anything I was unable to perform physical exam at this time Results CBC & Chem 7: 12/15/21 15:37 12/15/21 15:37 Labs: Abnormal Lab Results - Last 24 Hours (Table) 12/15/21 12/15/21 12/15/21 Range/Units 15:37 15:37 17:50 BUN <2 L (7-17) mg/dL Glucose 126 H (74-99) mg/dL Plasma Lactic Acid Guille 3.7 H* (0.7-2.0) mmol/L Urine Protein 1+ H (Negative) Ur Leukocyte Esterase Large H (Negative) Urine WBC 47 H (0-5) /hpf Urine Bacteria Rare H (None) /hpf Microbiology - Last 24 Hours (Table) 12/15/21 17:50 Urine Culture - Preliminary Urine,Voided Assessment and Plan Assessment: Dizziness, one episode of falling, suspected to be due to borderline elevated lithium level Hold lithium Continue with neuro checks Fall precautions Recheck lithium level in a.m. History of schizoaffective disorder Resume other psych medications Patient full code Anticipated length of stay less than 2 midnights DVT prophylaxis heparin subcutaneous
[2021-12-16] MEDS: LEVOTHYROXINE 125 MCG TAB PO SCH (05:50)
[2021-12-16] MEDS: PANTOPRAZOLE 40 MG TABLET PO SCH (08:40)
[2021-12-16] MEDS: ASPIRIN 81 MG PO SCH (08:40)
[2021-12-16] MEDS: DULoxetine HCL 60 MG CAPSULE.DR PO SCH ×2 (08:40→20:20)
[2021-12-16] MEDS: HEPARIN SODIUM,PORCINE/PF 5,000 UNIT/0.5 ML SYRINGE SQ SCH ×2 (08:40→16:22)
[2021-12-16] MEDS: GABAPENTIN 300 MG CAP PO SCH ×4 (08:42→20:20)
--- NOTE | 2021-12-16 11:25 | P.PN ---
Subjective Progress Note Date: 12/16/21 Principal diagnosis: Falls Patient felt dizzy again today and fell in the bathroom. She held HERSELF ONTO HER KNEES, NO HEAD TRAUMA. CURRENTLY SHE IS SITTING BACK IN BED. STILL COMPLAINING OF DIZZINESS ESPECIALLY WHEN SHE GETS UP. She denied chest pain, shortness of breath. No nausea or vomiting. No fevers or chills. Objective - Vital Signs Vital signs: Vital Signs Temp 97.9 F 12/16/21 07:00 Pulse 92 12/16/21 07:00 Resp 18 12/16/21 07:00 BP 104/58 12/16/21 07:00 Pulse Ox 96 12/16/21 07:00 Intake & Output 12/15/21 12/16/21 12/16/21 18:59 06:59 18:59 Intake Total 180 Balance 180 Weight 63.503 kg 63.503 kg Intake: Oral 180 Other: # Voids 1 - Exam Constitutional: No acute distress, conversant, pleasant Eyes:Anicteric sclerae, moist conjunctiva, no lid-lag, PERRLA, ENMT: Oropharynx clear, no erythema, exudates Neck: Supple, FROM, no masses, or JVD, No carotid bruits, No thyromegaly Lungs: Clear to auscultation, Clear to percussion, Normal respiratory effort, no accessory muscle use Cardiovascular: Heart regular in rate and rhythm, No murmurs, gallops, or rubs, No peripheral edema Abdominal: Soft, Nontender, no guarding, rebound or rigidity, Normoactive bowel sounds, No hepatomegaly, No splenomegaly, No palpable mass Skin: Normal temperature, tone, texture, turgor, no induration, No subcutaneous nodules, No rash, lesions, No ulcers Extremities: No digital cyanosis, No clubbing, Pedal pulses intact and symmetrical, Radial pulses intact and symmetrical, No calf tenderness Psychiatric: Alert and oriented to person, place and time, appropriate affect, intact judgement Neuro: Muscles Strength 5/5 in all 4 extremities, Sensation to light touch grossly present throughout, Cranial nerves II-XII grossly intact, no focal sensory deficits - Labs CBC & Chem 7: 12/15/21 15:37 12/15/21 15:37 Labs: Abnormal Lab Results - Last 24 Hours (Table) 05/13/22 05/13/22 05/13/22 Range/Units 15:37 15:37 17:50 BUN <2 L (7-17) mg/dL Glucose 126 H (74-99) mg/dL Plasma Lactic Acid Gu[place] 3.7 H* (0.7-2.0) mmol/L Urine Protein 1+ H (Negative) Ur Leukocyte Esterase Large H (Negative) Urine WBC 47 H (0-5) /hpf Urine Bacteria Rare H (None) /hpf Microbiology - Last 24 Hours (Table) 12/15/21 17:50 Urine Culture - Preliminary Urine,Voided Assessment and Plan Plan: Dizziness, frequent falls, suspected to be due to lithium toxicity vs. UTI Hold lithium Continue with neuro checks Fall precautions Recheck lithium level in a.m. UTI Ceftriaxone daily Urine cx History of schizoaffective disorder Resume other psych medications Patient full code DVT prophylaxis heparin subcutaneous
[2021-12-16] MEDS: PALIPERIDONE 6 MG TAB.ER.24 PO SCH (20:20)
[2021-12-16] MEDS: traZODone HCL 100 MG TAB PO SCH (20:20)
[2021-12-16] MEDS: SODIUM CHLORIDE 0.9% 1,000 ML IV SCH (20:21)
[2021-12-17] MEDS: HEPARIN SODIUM,PORCINE/PF 5,000 UNIT/0.5 ML SYRINGE SQ SCH ×3 (00:08→17:14)
[2021-12-17] MEDS: LEVOTHYROXINE 125 MCG TAB PO SCH (05:41)
[2021-12-17] MEDS: DULoxetine HCL 60 MG CAPSULE.DR PO SCH ×2 (08:12→21:08)
[2021-12-17] MEDS: PANTOPRAZOLE 40 MG TABLET PO SCH (08:12)
[2021-12-17] MEDS: ASPIRIN 81 MG PO SCH (08:13)
[2021-12-17] MEDS: GABAPENTIN 300 MG CAP PO SCH ×4 (08:21→21:08)
[2021-12-17 09:15] LABS: HGB 11.2 g/dL (12.0-15.0); MCH 30.3 pg (27.0-32.0); MCHC 31.1 g/dL (32.0-37.0); MCV 97.3 fL (80.0-97.0); Mean Platelet Volume 11.6 fL (9.5-12.2); NRBC Per 100 WBC 0 /100 WBCS (0.0-0.0); Platelet Count 277 X 10*3/uL (140-440); RDW 12.4 % (11.5-14.5); WBC 6.64 X 10*3/uL (4.50-10.00)
[2021-12-17 10:15] LABS: African American GFR (CKD) 81.7 (60.0-200.0); Anion Gap 6.1 mmol/L (10.00-18.00); BUN/Creat Ratio 9.44 Ratio (12.00-20.00); Blood Urea Nitrogen 8.5 mg/dL (9.0-27.0); Calcium 9.6 mg/dL (8.7-10.3); Carbon Dioxide 26.9 mmol/L (20.0-27.5); Non-African American GFR(CKD) 70.5 (60.0-200.0)
[2021-12-17 12:42] LABS: Glucose,Whole Blood 88 mg/dL (75-99)
--- NOTE | 2021-12-17 16:07 | P.PN ---
Subjective Progress Note Date: 12/17/21 Principal diagnosis: Falls Patient has been getting up with assistance, she does well with that. She told me today that she has been having urinary urgency and frequency over the past several days. Denied having chest pain or shortness of breath. No nausea or vomiting. No fevers. Objective - Vital Signs Vital signs: Vital Signs Temp 97.6 F 12/17/21 15:00 Pulse 82 12/17/21 15:00 Resp 18 12/17/21 15:00 BP 94/61 12/17/21 15:00 Pulse Ox 95 12/17/21 15:00 Intake & Output 12/16/21 12/17/21 12/17/21 18:59 06:59 18:59 Intake Total 540 240 Balance 540 240 Intake: Oral 540 240 Other: # Voids 2 3 2 - Exam Constitutional: No acute distress, conversant, pleasant Eyes:Anicteric sclerae, moist conjunctiva, no lid-lag, PERRLA, ENMT: Oropharynx clear, no erythema, exudates Neck: Supple, FROM, no masses, or JVD, No carotid bruits, No thyromegaly Lungs: Clear to auscultation, Clear to percussion, Normal respiratory effort, no accessory muscle use Cardiovascular: Heart regular in rate and rhythm, No murmurs, gallops, or rubs, No peripheral edema Abdominal: Soft, Nontender, no guarding, rebound or rigidity, Normoactive bowel sounds, No hepatomegaly, No splenomegaly, No palpable mass Skin: Normal temperature, tone, texture, turgor, no induration, No subcutaneous nodules, No rash, lesions, No ulcers Extremities: No digital cyanosis, No clubbing, Pedal pulses intact and symmetrical, Radial pulses intact and symmetrical, No calf tenderness Psychiatric: Alert and oriented to person, place and time, appropriate affect, intact judgement Neuro: Muscles Strength 5/5 in all 4 extremities, Sensation to light touch grossly present throughout, Cranial nerves II-XII grossly intact, no focal sensory deficits - Labs CBC & Chem 7: 12/17/21 04:56 12/17/21 04:56 Labs: Abnormal Lab Results - Last 24 Hours (Table) 12/17/21 12/17/21 Range/Units 04:56 04:56 RBC 3.70 L (4.10-5.20) X 10*6/uL Hgb 11.2 L (12.0-15.0) g/dL Hct 36.0 L (37.2-46.3) % MCV 97.3 H (80.0-97.0) fL MCHC 31.1 L (32.0-37.0) g/dL Chloride 110 H (96-109) mmol/L Anion Gap 6.10 L (10.00-18.00) mmol/L BUN 8.5 L (9.0-27.0) mg/dL BUN/Creatinine Ratio 9.44 L (12.00-20.00) Ratio Microbiology - Last 24 Hours (Table) 12/15/21 17:50 Urine Culture - Final Urine,Voided Assessment and Plan Plan: Dizziness, frequent falls, suspected to be due to lithium toxicity vs. UTI Hold lithium Continue with neuro checks Fall precautions Physical therapy evaluation and treatment Repeat lithium level normalized within the therapeutic range. Would possibly resume tomorrow at a lower dose. UTI Ceftriaxone daily Urine cx History of schizoaffective disorder Resume other psych medications Patient full code DVT prophylaxis heparin subcutaneous Anticipated discharge: in am Anticipated disposition: Home with home care
[2021-12-17] MEDS: SODIUM CHLORIDE 0.9% 1,000 ML IV SCH ×2 (18:52→23:51)
[2021-12-17] MEDS: traZODone HCL 100 MG TAB PO SCH (21:08)
[2021-12-17] MEDS: PALIPERIDONE 6 MG TAB.ER.24 PO SCH (21:08)
[2021-12-17 21:41] VITALS: RESP 16
[2021-12-18] MEDS: HEPARIN SODIUM,PORCINE/PF 5,000 UNIT/0.5 ML SYRINGE SQ SCH ×3 (00:04→17:28)
[2021-12-18] MEDS: LEVOTHYROXINE 125 MCG TAB PO SCH (05:44)
[2021-12-18] MEDS: DULoxetine HCL 60 MG CAPSULE.DR PO SCH (07:35)
[2021-12-18] MEDS: GABAPENTIN 300 MG CAP PO SCH ×3 (07:35→18:00)
[2021-12-18] MEDS: PANTOPRAZOLE 40 MG TABLET PO SCH (07:35)
[2021-12-18] MEDS: ASPIRIN 81 MG PO SCH (07:35)
[2021-12-18 10:18] LABS: Basophils # (A) 0.1 k/uL (0-0.2); Basophils % (A) 1 %; Eosinophils # (A) 0.4 k/uL (0-0.7); Eosinophils % (A) 5 %; HCT 38.2 % (34.0-46.0); HGB 12.1 gm/dL (11.4-16.0); Lymphocytes # (A) 2.2 k/uL (1.0-4.8); Lymphocytes % (A) 33 %; MCHC 31.8 g/dL (31.0-37.0); MCV 97.7 fL (80.0-100.0); Mean Platelet Volume 8.5; Monocytes # (A) 0.4 k/uL (0-1.0); Monocytes % (A) 6 %; Neutrophils # (A) 3.5 k/uL (1.3-7.7); Neutrophils % (A) 53 %; Platelet Count 268 k/uL (150-450); RBC 3.91 m/uL (3.80-5.40); RDW 12.1 % (11.5-15.5); WBC 6.6 k/uL (3.8-10.6)
[2021-12-18 10:41] LABS: ALT 17 U/L (4-34); AST 21 U/L (14-36); African American GFR (CKD) >90 (>60 ml/min/1.73 sqM); Albumin 3.4 g/dL (3.5-5.0); Albumin/Globulin Ratio 1.6; Alkaline Phosphatase 66 U/L (38-126); Anion Gap 2 mmol/L; Blood Urea Nitrogen 6 mg/dL (7-17); Calcium 9.2 mg/dL (8.4-10.2); Carbon Dioxide 27 mmol/L (22-30); Chloride 109 mmol/L (98-107); Globulin 2.1 g/dL; Glucose 106 mg/dL (74-99); Lithium 0.3 mmol/L; Magnesium 1.7 mg/dL (1.6-2.3); Non-African American GFR(CKD) 78 (>60 ml/min/1.73 sqM); Potassium 3.8 mmol/L (3.5-5.1); Sodium 138 mmol/L (137-145); Total Bilirubin 0.2 mg/dL (0.2-1.3); Total Protein 5.5 g/dL (6.3-8.2)
[2021-12-18] MEDS: SODIUM CHLORIDE 0.9% 1,000 ML IV SCH (13:06)
[2021-12-18 14:21] VITALS: BP 151/80; PULSE 97; TEMP 98.3
--- NOTE | 2021-12-18 16:34 | P.DS ---
Providers Date of admission: 12/15/21 19:48 Expected date of discharge: 12/18/21 Attending physician: Elena Hudson MD Primary care physician: Chiqui Viramontes [facility] Course: Discharge Diagnosis: [place] toxicity with complaints of Dizziness/lightheadedness resulting in one episode of falling, suspected to be secondary to borderline elevation of lithium levels (lithium levels were supratherapeutic at 1.5). [place] was held levels decreased to 0.3. [place] was decreased to 300 mg twice daily from previous 450 mg twice daily and patient instructed that she will need to follow up within the next 2 weeks with [facility] for continued monitoring and management of these medications. Schizoaffective disorder, patient instructed she will need to follow up outpatient with [facility] as scheduled for follow-up and long-term monitoring/management of her medications Hypomagnesemia, replace Hypothyroidism UTI ruled out, culture negative Hospital Course: Patient is a 56-year-old female with a past medical history of schizoaffective disorder, hypothyroidism, and hyperlipidemia. She follows outpatient with [facility] for her mental health. She presented to the emergency department status post fall onto her knees resulting from intermittent dizziness/lightheadedness. Patient states she has been experiencing dizziness/lightheadedness since her medications were adjusted by psychiatry back in November. Upon evaluation in the emergency department patient was seen and fully evaluated. A CT head and cervical spine was completed negative for acute process. X-ray bilateral knees negative for acute process showing no evidence of acute trauma or injury. EKG was completed showing normal sinus rhythm and 99 bpm with no noted T-wave or ST abnormalities. CBC and CMP showing no significant abnormalities. Urinalysis was positive for 47 WBCs. Covid, influenza a, and influenza B PCR's were all negative. Patient was found to have concerns of lithium toxicity with lithium level of 1.5. [place] was held and patient was admitted under our services, provided with IV fluid hydration and monitored closely. [place] levels did decrease and back down to 0.3. Patient's dizziness/lightheadedness significantly improved. Orthostatic vitals negative. Patient medically stable for discharge at this time. [place] was decreased to 300 mg twice daily from previous 450 mg twice daily and patient to follow up outpatient with [facility] within the next 2 weeks for continued monitoring and management of these medications. Physical examination: Patient seen and examined at bedside. Vital signs reviewed and stable. General: Nontoxic, no distress and appears stated age. Derm: Skin warm and dry, normal coloration for ethnicity. Head: Atraumatic, normocephalic and symmetric. Eyes: EOMs intact, no lid lag, and anicteric sclera Mouth: no lip lesions, mucus membranes moist Cardiovascular: regular rate and rhythm with normal S1S2, no murmur, positive posterior tibial pulses bilaterally, and cap refill < 2 seconds. Lungs: Respirations even, regular, and unlabored on room air. Lungs CTA bilaterally, no rhonchi, no rales, no wheezing, and no accessory muscle usage. Abdominal: soft, nontender to palpation, no guarding, no appreciable organomegaly Ext: ROM intact. No gross muscle atrophy, no edema, no contractures Neuro: Speech clear, face symmetrical and CN II-XII grossly intact with no noted focal neuro deficits Psych: Alert and oriented to person, place, time, and situation. Appropriate and pleasant affect. A total of 36 minutes of time were spent preparing this complex discharge summary. Pt was discharged on 12/18/21 at 4:29 PM. Patient Condition at Discharge: Stable Plan - Discharge Summary Discharge Rx Participant: No New Discharge Prescriptions: Continue Gabapentin [Neurontin] 300 mg PO QID Multivitamins, Thera [Multivitamin (formulary)] 1 tab PO DAILY DULoxetine HCL [Cymbalta] 60 mg PO BID 30 Days Nicotine 14Mg/24Hr Patch [Habitrol] 1 patch TRANSDERM DAILY PRN PRN Reason: Nicotine Cravings Aspirin 81 mg PO DAILY tab Calcium Carbonate [Calcium] 600 mg PO DAILY Paliperidone [Invega] 12 mg PO HS 30 Days Pantoprazole Sodium [Protonix] 40 mg PO DAILY 30 Days #30 tab Levothyroxine Sodium [Synthroid] 125 mcg PO DAILY 30 Days tab traZODone HCL 300 mg PO HS Changed [place] Carbonate 300 mg PO BID 30 Days cap Discharge Medication List Gabapentin [Neurontin] 300 mg PO QID 04/30/17 [History] Multivitamins, Thera [Multivitamin (formulary)] 1 tab PO DAILY 08/22/21 [History] Aspirin 81 mg PO DAILY tab 08/25/21 [Rx] Calcium Carbonate [Calcium] 600 mg PO DAILY 11/08/21 [History] DULoxetine HCL [Cymbalta] 60 mg PO BID 30 Days 11/20/21 [Rx] Levothyroxine Sodium [Synthroid] 125 mcg PO DAILY 30 Days tab 11/20/21 [Rx] Paliperidone [Invega] 12 mg PO HS 30 Days 11/20/21 [Rx] Pantoprazole Sodium [Protonix] 40 mg PO DAILY 30 Days #30 tab 11/20/21 [Rx] Nicotine 14Mg/24Hr Patch [Habitrol] 1 patch TRANSDERM DAILY PRN 12/15/21 [History] traZODone HCL 300 mg PO HS 12/15/21 [History] [place] Carbonate 300 mg PO BID 30 Days cap 12/18/21 [Rx] Follow up Appointment(s)/Referral(s): Chiqui Viramontes MD [Primary Care Provider] - 1-2 days Activity/Diet/Wound Care/Special Instructions: Activity: As tolerated. Take breaks as needed. Diet: Heart healthy and carb consistent diet. Avoid salts, or foods with hidden salts such as canned or boxed foods and frozen dinners. Extra salt makes your heart work harder and traps the fluid in your body for longer. Special Instructions: Take all of your medications as directed and remember to keep all of your doctor's appointments and follow-up as needed. You will need to follow up with [facility] as scheduled for continued mental health services and management of your medications. It is important to follow-up with them within the next 2 weeks as we decreased your lithium to 300 mg twice daily from previous 450 mg twice daily and he will need to have monitoring over these changes therefore they are able to make appropriate changes as needed. Thank you for allowing us to participate in your care, it was truly a pleasure having you for our patient!!! Discharge Disposition: HOME SELF-CARE Pending Studies Pending Results: This documentation was completed by the Nurse Practitioner. History, physical examination including assessment and plan were only completed by Nurse Practitioner and was NOT evaluated by myself the attending physician including all plan of care including discharge planning and documentation. I did NOT participate or have any communication regarding the patient, including orders, imaging, diagnostic work up, consultations, communication with registered RN/mechatronics technician and discharge planning/instructions. I will be co-signing this documentation as this is a requirement per [facility] and agreement.
[2021-12-18] MEDS ORDERED: MAGNESIUM OXIDE 400 MG TAB PO STA (16:42)
== END 2021-12-18 18:26 | disposition home or self-care (01) ==
LOC: EC 15:00 → 6NMEDSUR 19:48
PROVIDERS: ADMIT Internal Medicine; ATTEND Internal Medicine
DX: T43.595A Adverse effect of other antipsychotics and neuroleptics, initial encounter (principal); F25.9 Schizoaffective disorder, unspecified; E83.42 Hypomagnesemia; E03.9 Hypothyroidism, unspecified; E78.5 Hyperlipidemia, unspecified; R39.15 Urgency of urination; R35.0 Frequency of micturition; F31.9 Bipolar disorder, unspecified; F41.9 Anxiety disorder, unspecified; R53.1 Weakness; R45.851 Suicidal ideations; Z20.822 Contact with and (suspected) exposure to COVID-19; W19.XXXA Unspecified fall, initial encounter; Y92.512 Supermarket, store or market as the place of occurrence of the external cause; R29.6 Repeated falls; Z87.891 Personal history of nicotine dependence; Z91.51 Personal history of suicidal behavior; Z90.710 Acquired absence of both cervix and uterus; Z79.82 Long term (current) use of aspirin; Z79.899 Other long term (current) drug therapy; Z79.890 Hormone replacement therapy; Z88.8 Allergy status to other drugs, medicaments and biological substances; Z88.5 Allergy status to narcotic agent; Z91.010 Allergy to peanuts; Z80.0 Family history of malignant neoplasm of digestive organs; Z82.0 Family history of epilepsy and other diseases of the nervous system; Z81.8 Family history of other mental and behavioral disorders; Z82.49 Family history of ischemic heart disease and other diseases of the circulatory system
CPT/HCPCS: 96365; 96366; 96372 ×3; 96376; 96361; 99285; 36415; 93005; 97162; 80053; 80048 ×2; 83605; 80178 ×3; 83735 ×3; 85025 ×2; 85027; 85610; 85730; 81001; 87086; 87502; 87635; 73562; 72125; 70450; G0378 ×4; J0696 ×4; J1644 ×3

== ENCOUNTER 2022-01-12 06:20 | Emergency (ER) | payer OTHER ==
[2022-01-12 06:28] VITALS: RESP 18
--- NOTE | 2022-01-12 07:28 | ED ---
General Adult HPI - General Chief complaint: Abdominal Pain Stated complaint: Abdominal Pain Time Seen by Provider: 01/12/22 06:59 Source: patient, EMS Mode of arrival: EMS Limitations: no limitations - History of Present Illness Initial comments: Dictation was produced using e-SENS dictation software. please excuse any grammatical, word or spelling errors. Chief Complaint: 56-year-old female presents emergency department for right lower quadrant pain since this morning. History of Present Illness: This 56-year-old female presents to the emergency department for right lower quadrant abdominal pain. Patient states that the pain woke her up from sleep earlier this morning. She states it's in her right lower quadrant area. Denies any constitutional symptoms. She had had a couple episodes of nonbilious nonbloody vomiting and nonbilious nonbloody diarrhea. Patient has any history of appendectomy. Denies any vaginal discharge. She has history of hysterectomy. Patient states the pain is nonradiating. The ROS documented in this emergency department record has been reviewed and confirmed by me. Those systems with pertinent positive or negative responses have been documented in the HPI. All other systems are other negative and/or noncontributory. PHYSICAL EXAM: General Impression: Alert and oriented x3, not in acute distress HEENT: Normocephalic atraumatic, extra-ocular movements intact, pupils equal and reactive to light bilaterally, mucous membranes moist. Cardiovascular: Heart regular rate and rhythm Chest: Able to complete full sentences, no retractions, no tachypnea Abdomen: abdomen soft, palpatory tenderness to the right lower quadrant that patient reports is worse with release suggesting rebound tenderness, non- distended, no organomegaly Musculoskeletal: Pulses present and equal in all extremities, no peripheral edema Motor: no focal deficits noted Neurological: CN II-XII grossly intact, no focal motor or sensory deficits noted Skin: Intact with no visualized rashes Psych: Normal affect and mood ED course: 56-year-old female presents to the emergency department for right lower quadrant pain. Vital signs upon arrival are within acceptable limits. Laboratory evaluation obtained. CBC, metabolic panel is unremarkable. Computed tomography scan of abdomen and pelvis shows normal appendix without any evidence for acute appendicitis. There is however appear to be some thickening around the cecum and lower sending: Which may be secondary to focal breast also this or mild localized colitis. Laboratory evaluation obtained. CBC unremarkable. Metabolic panel is negative. Urinalysis negative. [place] level is therapeutic. Computed tomography scan abdomen and pelvis shows perhaps focal inflammation in the right lower quadrant suspicious for focal peristalsis or colitis. Patient observed in emergency department for approximately 3 hours per reevaluated at bedside at 945 and found to be in stable medical condition. CT does not suggest any acute appendicitis o r surgical abdomen. Patient's well-appearing patient will be discharged. - Related Data Home Medications Medication Instructions Recorded Confirmed Gabapentin [Neurontin] 300 mg PO QID 04/30/17 12/15/21 Multivitamins, Thera [Multivitamin 1 tab PO DAILY 08/22/21 12/15/21 (formulary)] Calcium Carbonate [Calcium] 600 mg PO DAILY 11/08/21 12/15/21 Nicotine 14Mg/24Hr Patch [Habitrol] 1 patch TRANSDERM DAILY PRN 12/15/21 12/15/21 traZODone HCL 300 mg PO HS 12/15/21 12/15/21 Previous Rx's Medication Instructions Recorded Aspirin 81 mg PO DAILY tab 08/25/21 DULoxetine HCL [Cymbalta] 60 mg PO BID 30 Days 11/20/21 Levothyroxine Sodium [Synthroid] 125 mcg PO DAILY 30 Days tab 11/20/21 Paliperidone [Invega] 12 mg PO HS 30 Days 11/20/21 Pantoprazole Sodium [Protonix] 40 mg PO DAILY 30 Days #30 tab 11/20/21 [place] Carbonate 300 mg PO BID 30 Days cap 12/18/21 Allergies Allergy/AdvReac Type Severity Reaction Status Date / Time peanut Allergy Severe Anaphylaxis Verified 01/12/22 06:28 ibuprofen [From Motrin] Allergy Intermediate Rash/Hives Verified 01/12/22 06:28 tramadol HCl [From Ultram] Allergy Intermediate Itching Verified 01/12/22 06:28 Review of Systems ROS Statement: Those systems with pertinent positive or pertinent negative responses have been documented in the HPI. ROS Other: All systems not noted in ROS Statement are negative. Past Medical History Past Medical History: Chest Pain / Angina, Hyperlipidemia, Thyroid Disorder Additional Past Medical History / Comment(s): suicide attempt History of Any Multi-Drug Resistant Organisms: None Reported Past Surgical History: Section, Hysterectomy Additional Past Surgical History / Comment(s): x 2, colonoscopy Past Anesthesia/Blood Transfusion Reactions: No Reported Reaction Additional Past Anesthesia/Blood Transfusion Reaction / Comment(s): no previous blood transfusion Past Psychological History: Anxiety, Bipolar, Depression Smoking Status: Former smoker Past Alcohol Use History: None Reported Past Drug Use History: None Reported - Past Family History Father Family Medical History: Cancer, Neurologic Disorder Additional Family Medical History / Comment(s): Pt's. father had colon cancer and Parkinson's. Father at the age of 80yrs. Mother Family Medical History: Congestive Heart Failure (CHF) Additional Family Medical History / Comment(s): states "weak heart" Mother at the age of 90yrs. Sister(s) Family Medical History: Coronary Artery Disease (CAD), Myocardial Infarction (AL) Additional Family Medical History / Comment(s): 1 sister with hx of 2 cardiac stents, 1 other sister from heart related issues General Exam Limitations: no limitations Course Vital Signs 01/12/22 06:25 Temperature 98.5 F Pulse Rate 101 H Respiratory 18 Rate Blood Pressure 151/87 O2 Sat by Pulse 98 Oximetry Medical Decision Making - Lab Data Result diagrams: 01/12/22 07:48 01/12/22 07:48 Lab Results 01/12/22 01/12/22 01/12/22 Range/Units 07:48 07:48 07:48 WBC 6.6 (3.8-10.6) k/uL RBC 4.36 (3.80-5.40) m/uL Hgb 12.9 (11.4-16.0) gm/dL Hct 41.1 (34.0-46.0) % MCV 94.2 (80.0-100.0) fL MCH 29.6 (25.0-35.0) pg MCHC 31.5 (31.0-37.0) g/dL RDW 12.5 (11.5-15.5) % Plt Count 319 (150-450) k/uL MPV 7.7 Neutrophils % 63 % Lymphocytes % 24 % Monocytes % 9 % Eosinophils % 2 % Basophils % 1 % Neutrophils # 4.2 (1.3-7.7) k/uL Lymphocytes # 1.6 (1.0-4.8) k/uL Monocytes # 0.6 (0-1.0) k/uL Eosinophils # 0.1 (0-0.7) k/uL Basophils # 0.0 (0-0.2) k/uL Sodium 140 (137-145) mmol/L Potassium 3.8 (3.5-5.1) mmol/L Chloride 107 (98-107) mmol/L Carbon Dioxide 25 (22-30) mmol/L Anion Gap 8 mmol/L BUN 4 L (7-17) mg/dL Creatinine 0.69 (0.52-1.04) mg/dL Est GFR (CKD-EPI)AfAm >90 (>60 ml/min/1.73 sqM) Est GFR (CKD-EPI)NonAf >90 (>60 ml/min/1.73 sqM) Glucose 105 H (74-99) mg/dL Calcium 10.2 (8.4-10.2) mg/dL Total Bilirubin 0.5 (0.2-1.3) mg/dL AST 25 (14-36) U/L ALT 21 (4-34) U/L Alkaline Phosphatase 63 (38-126) U/L Total Protein 6.6 (6.3-8.2) g/dL Albumin 4.3 (3.5-5.0) g/dL Urine Color Urine Appearance (Clear) Urine pH (5.0-8.0) Ur Specific [place] (1.001-1.035) Urine Protein (Negative) Urine Glucose (UA) (Negative) Urine Ketones (Negative) Urine Blood (Negative) Urine Nitrite (Negative) Urine Bilirubin (Negative) Urine Urobilinogen (<2.0) mg/dL Ur Leukocyte Esterase (Negative) Urine RBC (0-5) /hpf Urine WBC (0-5) /hpf Ur Squamous Epith Cells (0-4) /hpf [place] 0.5 mmol/L 01/12/22 Range/Units 08:47 WBC (3.8-10.6) k/uL RBC (3.80-5.40) m/uL Hgb (11.4-16.0) gm/dL Hct (34.0-46.0) % MCV (80.0-100.0) fL MCH (25.0-35.0) pg MCHC (31.0-37.0) g/dL RDW (11.5-15.5) % Plt Count (150-450) k/uL MPV Neutrophils % % Lymphocytes % % Monocytes % % Eosinophils % % Basophils % % Neutrophils # (1.3-7.7) k/uL Lymphocytes # (1.0-4.8) k/uL Monocytes # (0-1.0) k/uL Eosinophils # (0-0.7) k/uL Basophils # (0-0.2) k/uL Sodium (137-145) mmol/L Potassium (3.5-5.1) mmol/L Chloride (98-107) mmol/L Carbon Dioxide (22-30) mmol/L Anion Gap mmol/L BUN (7-17) mg/dL Creatinine (0.52-1.04) mg/dL Est GFR (CKD-EPI)AfAm (>60 ml/min/1.73 sqM) Est GFR (CKD-EPI)NonAf (>60 ml/min/1.73 sqM) Glucose (74-99) mg/dL Calcium (8.4-10.2) mg/dL Total Bilirubin (0.2-1.3) mg/dL AST (14-36) U/L ALT (4-34) U/L Alkaline Phosphatase (38-126) U/L Total Protein (6.3-8.2) g/dL Albumin (3.5-5.0) g/dL Urine Color Colorless Urine Appearance Clear (Clear) Urine pH 7.0 (5.0-8.0) Ur Specific [place] 1.042 H (1.001-1.035) Urine Protein Negative (Negative) Urine Glucose (UA) Negative (Negative) Urine Ketones Negative (Negative) Urine Blood Negative (Negative) Urine Nitrite Negative (Negative) Urine Bilirubin Negative (Negative) Urine Urobilinogen <2.0 (<2.0) mg/dL Ur Leukocyte Esterase Trace H (Negative) Urine RBC <1 (0-5) /hpf Urine WBC 1 (0-5) /hpf Ur Squamous Epith Cells <1 (0-4) /hpf [place] mmol/L Disposition Clinical Impression: Abdominal pain Disposition: HOME SELF-CARE Condition: Good Instructions (If sedation given, give patient instructions): Abdominal Pain (ED) Is patient prescribed a controlled substance at d/c from ED?: No Referrals: Chiqui Viramontes MD [Primary Care Provider] - 1-2 days Time of Disposition: 09:43
[2022-01-12 07:59] LABS: Basophils % (A) 1 %; Eosinophils # (A) 0.1 k/uL (0-0.7); Eosinophils % (A) 2 %; HCT 41.1 % (34.0-46.0); HGB 12.9 gm/dL (11.4-16.0); Lymphocytes # (A) 1.6 k/uL (1.0-4.8); Lymphocytes % (A) 24 %; MCH 29.6 pg (25.0-35.0); MCHC 31.5 g/dL (31.0-37.0); MCV 94.2 fL (80.0-100.0); Mean Platelet Volume 7.7; Monocytes # (A) 0.6 k/uL (0-1.0); Monocytes % (A) 9 %; Neutrophils # (A) 4.2 k/uL (1.3-7.7); Neutrophils % (A) 63 %; Platelet Count 319 k/uL (150-450); RBC 4.36 m/uL (3.80-5.40); RDW 12.5 % (11.5-15.5); WBC 6.6 k/uL (3.8-10.6)
[2022-01-12] MEDS ORDERED: MORPHINE SULFATE 4 MG/ML SYRINGE IV STA (08:20)
[2022-01-12] MEDS ORDERED: ONDANSETRON 4 MG/2 ML VIAL IVP STA (08:20)
[2022-01-12 08:21] LABS: ALT 21 U/L (4-34); AST 25 U/L (14-36); African American GFR (CKD) >90 (>60 ml/min/1.73 sqM); Albumin 4.3 g/dL (3.5-5.0); Alkaline Phosphatase 63 U/L (38-126); Anion Gap 8 mmol/L; Blood Urea Nitrogen 4 mg/dL (7-17); Calcium 10.2 mg/dL (8.4-10.2); Carbon Dioxide 25 mmol/L (22-30); Chloride 107 mmol/L (98-107); Glucose 105 mg/dL (74-99); Non-African American GFR(CKD) >90 (>60 ml/min/1.73 sqM); Potassium 3.8 mmol/L (3.5-5.1); Sodium 140 mmol/L (137-145); Total Bilirubin 0.5 mg/dL (0.2-1.3); Total Protein 6.6 g/dL (6.3-8.2)
--- NOTE | 2022-01-12 08:27 | CT ---
EXAMINATION TYPE: CT abdomen pelvis w con DATE OF EXAM: 01/12/2022 COMPARISON: 11/09/2021 HISTORY: 56 year-old female right lower quadrant pain, suspect appendicitis. TECHNIQUE: Contiguous axial scanning of the abdomen and pelvis following administration of 100 ml Iso consuelo 300 IV contrast. Delayed images through the kidneys and coronal/sagittal reconstructions perform ed. CT DLP: 645.5 mGycm Automated exposure control for dose reduction was used. FINDINGS: Heart normal size without pericardial effusion. Tiny hiatal hernia. [place] atelectasis of the lower lungs. No focal liver lesion. Portal venous system is patent. Bile duct measures 4 mm, within normal limits. Gallbladder, adrenal glands, kidneys, spleen, and pancreas within normal limits. No dilated small bowel, free fluid, or free air. Some small clustered lymph nodes throughout the mese ntery suspicion of the right lower quadrant. Suspect a tiny caliber normal appendix, axial image 54. No acute inflammation here. There appears to be some mild mural-based thickening along the cecum, coronal image 58 and axial imag e 51 as well as coronal image 64 and axial image 41. Scattered mild stool. No pericolic inflammatory change. Bladder nondistended. Mild circumferential wall thickening may be due to incomplete distention. Uteru s surgically absent. Left ovary visualized. Right ovary not clearly a delineated from adjacent bowel loops. No abnormal fluid collection in the pelvis or pelvic lymphadenopathy. Bones: Mild degenerative change at the hips. Moderate degenerative disc disease L5-S1 with facet arth ropathy. IMPRESSION: 1. NORMAL, SMALL CALIBER APPENDIX. NO EVIDENCE FOR ACUTE APPENDICITIS. 2. SOME MILD MURAL BASED THICKENING ALONG THE CECUM AND LOWER ASCENDING COLON. FINDINGS MAY BE DUE TO FOCAL PERISTALSIS OR NONSPECIFIC MILD LOCALIZED COLITIS. WHEN PATIENT ABLE, RECOMMEND DIRECT VISUALI ZATION TO EXCLUDE NEOPLASM IF ROUTINE SCREENING COLONOSCOPY IS NOT BEING PERFORMED. 3. MILD BLADDER WALL THICKENING. CORRELATE TO EXCLUDE CYSTITIS.
[2022-01-12 09:22] LABS: Appearance,Urine Clear (Clear); Bilirubin,Urine Negative (Negative); Blood,Urine Negative (Negative); Color,Urine Colorless; Glucose,Urine (UA) Negative (Negative); Ketones,Urine Negative (Negative); Leukocyte Esterase,Urine Trace (Negative); Nitrite,Urine Negative (Negative); Protein,Urine Negative (Negative); RBC,Urine <1 /hpf (0-5); Specific Gravity,Urine 1.042 (1.001-1.035); Squamous Epithelial Cell,Urine <1 /hpf (0-4); Urobilinogen,Urine <2.0 mg/dL (<2.0); WBC,Urine 1 /hpf (0-5)
[2022-01-12 10:05] VITALS: BP 135/74; PULSE 93; TEMP 98.1
== END 2022-01-12 10:05 | disposition home or self-care (01) ==
LOC: EC 06:20
DX: R10.31 Right lower quadrant pain (principal); E78.5 Hyperlipidemia, unspecified; F41.9 Anxiety disorder, unspecified; F31.9 Bipolar disorder, unspecified; Z87.891 Personal history of nicotine dependence; Z79.899 Other long term (current) drug therapy; Z88.6 Allergy status to analgesic agent; Z91.010 Allergy to peanuts; Z88.5 Allergy status to narcotic agent
CPT/HCPCS: 36415; 80053; 80178; 85025; 81001; 74177; 99284; 96374; 96375; J2270; J2405; Q9967

== ENCOUNTER 2022-01-15 00:59 | Emergency (ER) | payer OTHER ==
[2022-01-15 01:07] VITALS: RESP 18; TEMP 97.5
[2022-01-15] MEDS ORDERED: HYDROmorphone 0.5 MG/0.5 ML SYRINGE IVP STA (01:41)
[2022-01-15] MEDS ORDERED: ONDANSETRON 4 MG/2 ML VIAL IVP STA (01:41)
[2022-01-15] MEDS ORDERED: SODIUM CHLORIDE 0.9% 1,000 ML IV STA (01:41)
[2022-01-15] MEDS ORDERED: PANTOPRAZOLE 40 MG/10 ML VIAL IVP STA (01:42)
[2022-01-15] MEDS ORDERED: MORPHINE SULFATE 4 MG/ML SYRINGE IVP STA (01:43)
[2022-01-15 02:42] LABS: Appearance,Urine Cloudy (Clear); Bacteria,Urine Rare /hpf; Bilirubin,Urine Negative (Negative); Blood,Urine Negative (Negative); Color,Urine Yellow; Glucose,Urine (UA) Negative (Negative); Hyaline Casts,Urine 4 /lpf (0-2); Ketones,Urine 1+ (Negative); Leukocyte Esterase,Urine Large (Negative); Mucus,Urine Rare /hpf; Nitrite,Urine Negative (Negative); Protein,Urine 1+ (Negative); RBC,Urine 2 /hpf (0-5); Specific Gravity,Urine 1.022 (1.001-1.035); Squamous Epithelial Cell,Urine 2 /hpf (0-4); WBC,Urine 52 /hpf (0-5)
--- NOTE | 2022-01-15 03:01 | ED ---
General Adult HPI - General Chief complaint: GI Bleed Stated complaint: GI Bleed, Abdominal Pain Time Seen by Provider: 01/15/22 01:03 Source: patient, EMS, RN notes reviewed Mode of arrival: EMS Limitations: no limitations - History of Present Illness Initial comments: 56-year-old female presents to the emergency department for evaluation of persistent right lower quadrant abdominal pain, accompanied by nausea, vomiting, and diarrhea. States she had several episodes of hematemesis and one episode of hematochezia earlier today. Was seen at this facility for the same complaint. Did have a CT scan done at that time that was not concerning for appendicitis. States she did not take anything prior to arrival to treat her symptoms. Denies fever, chills, headache, dizziness, chest pain, difficulty breathing, dysuria, or hematuria. - Related Data Home Medications Medication Instructions Recorded Confirmed Gabapentin [Neurontin] 300 mg PO QID 04/30/17 12/15/21 Multivitamins, Thera [Multivitamin 1 tab PO DAILY 08/22/21 12/15/21 (formulary)] Calcium Carbonate [Calcium] 600 mg PO DAILY 11/08/21 12/15/21 Nicotine 14Mg/24Hr Patch [Habitrol] 1 patch TRANSDERM DAILY PRN 12/15/21 12/15/21 traZODone HCL 300 mg PO HS 12/15/21 12/15/21 Previous Rx's Medication Instructions Recorded Aspirin 81 mg PO DAILY tab 08/25/21 DULoxetine HCL [Cymbalta] 60 mg PO BID 30 Days 11/20/21 Levothyroxine Sodium [Synthroid] 125 mcg PO DAILY 30 Days tab 11/20/21 Paliperidone [Invega] 12 mg PO HS 30 Days 11/20/21 Pantoprazole Sodium [Protonix] 40 mg PO DAILY 30 Days #30 tab 11/20/21 [place] Carbonate 300 mg PO BID 30 Days cap 12/18/21 Cephalexin [Keflex] 500 mg PO BID 7 Days #14 cap 01/15/22 Ondansetron Odt [Zofran Odt] 4 mg PO Q8HR PRN #10 tab 01/15/22 Allergies Allergy/AdvReac Type Severity Reaction Status Date / Time peanut Allergy Severe Anaphylaxis Verified 01/15/22 01:07 ibuprofen [From Motrin] Allergy Intermediate Rash/Hives Verified 01/15/22 01:07 tramadol HCl [From [facility]] Allergy Intermediate Itching Verified 01/15/22 01:07 Review of Systems ROS Statement: Those systems with pertinent positive or pertinent negative responses have been documented in the HPI. ROS Other: All systems not noted in ROS Statement are negative. Past Medical History Past Medical History: Chest Pain / Angina, Hyperlipidemia, Thyroid Disorder Additional Past Medical History / Comment(s): suicide attempt History of Any Multi-Drug Resistant Organisms: None Reported Past Surgical History: Section, Hysterectomy Additional Past Surgical History / Comment(s): x 2, colonoscopy Past Anesthesia/Blood Transfusion Reactions: No Reported Reaction Additional Past Anesthesia/Blood Transfusion Reaction / Comment(s): no previous blood transfusion Past Psychological History: Anxiety, Bipolar, Depression Smoking Status: Former smoker Past Alcohol Use History: None Reported Past Drug Use History: None Reported - Past Family History Father Family Medical History: Cancer, Neurologic Disorder Additional Family Medical History / Comment(s): Pt's. father had colon cancer and Parkinson's. Father at the age of 80yrs. Mother Family Medical History: Congestive Heart Failure (CHF) Additional Family Medical History / Comment(s): states "weak heart" Mother at the age of 90yrs. Sister(s) Family Medical History: Coronary Artery Disease (CAD), Myocardial Infarction ([place]) Additional Family Medical History / Comment(s): 1 sister with hx of 2 cardiac stents, 1 other sister from heart related issues General Exam Limitations: no limitations (Well-developed, well-nourished female in no acute distress. Initial temperature 97.5, pulse 95, respirations 18, blood pressure 157/72, pulse ox 98% on room air.) General appearance: alert, in no apparent distress Eye exam: Present: normal appearance, PERRL, EOMI. Absent: scleral icterus, conjunctival injection, periorbital swelling, periorbital tenderness ENT exam: Present: normal exam, normal oropharynx, mucous membranes moist Neck exam: Present: normal inspection, full ROM. Absent: lymphadenopathy Respiratory exam: Present: normal lung sounds bilaterally. Absent: respiratory distress, wheezes, rales, rhonchi, stridor, chest wall tenderness Cardiovascular Exam: Present: regular rate, normal rhythm, normal heart sounds. Absent: systolic murmur, diastolic murmur, rubs, gallop, clicks GI/Abdominal exam: Present: soft, tenderness (Tenderness upon palpation of the entire right lower abdomen extending to the suprapubic region), normal bowel sounds. Absent: distended, guarding, rebound, rigid Extremities exam: Present: normal inspection, normal capillary refill. Absent: pedal edema Back exam: Absent: CVA tenderness (R), CVA tenderness (L) Neurological exam: Present: alert, oriented X3 Psychiatric exam: Present: flat affect Skin exam: Present: warm, dry, intact, normal color Course Vital Signs 01/15/22 01:03 Temperature 97.5 F L Pulse Rate 95 Respiratory 18 Rate Blood Pressure 157/72 O2 Sat by Pulse 98 Oximetry - Reevaluation(s) Reevaluation #1: 01/15/22 03:15 Laboratory studies were reviewed showing a stable hemoglobin and hematocrit. Potassium was 3.1 and will be supplemented orally. Urinalysis is concerning for UTI, especially when compared to yesterday's. 01/15/22 03:54 Upon reevaluation, patient is resting comfortably. Has had no episodes of vomiting while present in the emergency department. She is tolerating oral inta ke without difficulty and will be discharged home to follow up with her PCP. She is prescribed Zofran for nausea and an antibiotic for her UTI. Medical Decision Making - Medical Decision Making This is a 56-year-old female with a history of mental illness who presents to the emergency department via EMS from home with complaints of abdominal pain and hematemesis. Upon exam, patient is well-appearing and in no acute distress. Signs are stable. She has right lower quadrant abdominal tenderness that extends to the suprapubic region. She did have a CT 2 days ago when she was here that was negative for appendicitis. Laboratory studies were reviewed. No leukocytosis noted. Patient has a stable hemoglobin and hematocrit. Stool for occult blood was negative. Patient's potassium was 3.1 therefore was supplemented orally. Urinalysis was concerning for early UTI. Patient will be treated with an antibiotic and encouraged to follow up with her PCP. Suggested electrolyte solution for hydration. Zofran prescribed for nausea and vomiting. Return parameters were discussed in detail. Patient verbalizes understanding and agrees with this plan. Attending: Mckenna. - Lab Data Result diagrams: 01/15/22 02:50 01/15/22 02:50 Lab Results 01/15/22 01/15/22 01/15/22 Range/Units 02:04 02:50 02:50 WBC 5.5 (3.8-10.6) k/uL RBC 3.92 (3.80-5.40) m/uL Hgb 12.4 (11.4-16.0) gm/dL Hct 36.4 (34.0-46.0) % MCV 92.8 (80.0-100.0) fL MCH 31.5 (25.0-35.0) pg MCHC 34.0 (31.0-37.0) g/dL RDW 13.0 (11.5-15.5) % Plt Count 299 (150-450) k/uL MPV 7.9 Neutrophils % 59 % Lymphocytes % 28 % Monocytes % 8 % Eosinophils % 2 % Basophils % 1 % Neutrophils # 3.3 (1.3-7.7) k/uL Lymphocytes # 1.6 (1.0-4.8) k/uL Monocytes # 0.4 (0-1.0) k/uL Eosinophils # 0.1 (0-0.7) k/uL Basophils # 0.0 (0-0.2) k/uL PT 11.5 (9.0-12.0) sec INR 1.1 (<1.2) APTT 22.5 (22.0-30.0) sec Sodium (137-145) mmol/L Potassium (3.5-5.1) mmol/L Chloride (98-107) mmol/L Carbon Dioxide (22-30) mmol/L Anion Gap mmol/L BUN (7-17) mg/dL Creatinine (0.52-1.04) mg/dL Est GFR (CKD-EPI)AfAm (>60 ml/min/1.73 sqM) Est GFR (CKD-EPI)NonAf (>60 ml/min/1.73 sqM) Glucose (74-99) mg/dL Plasma Lactic Acid [place] (0.7-2.0) mmol/L Calcium (8.4-10.2) mg/dL Magnesium (1.6-2.3) mg/dL Total Bilirubin (0.2-1.3) mg/dL AST (14-36) U/L ALT (4-34) U/L Alkaline Phosphatase (38-126) U/L Total Protein (6.3-8.2) g/dL Albumin (3.5-5.0) g/dL Lipase (23-300) U/L Urine Color Yellow Urine Appearance Cloudy H (Clear) Urine pH 6.0 (5.0-8.0) Ur Specific [place] 1.022 (1.001-1.035) Urine Protein 1+ H (Negative) Urine Glucose (UA) Negative (Negative) Urine Ketones 1+ H (Negative) Urine Blood Negative (Negative) Urine Nitrite Negative (Negative) Urine Bilirubin Negative (Negative) Urine Urobilinogen 2.0 (<2.0) mg/dL Ur Leukocyte Esterase Large H (Negative) Urine RBC 2 (0-5) /hpf Urine WBC 52 H (0-5) /hpf Ur Squamous Epith Cells 2 (0-4) /hpf Urine Bacteria Rare H (None) /hpf Hyaline Casts 4 H (0-2) /lpf Urine Mucus Rare H (None) /hpf Stool Occult Blood (Negative) [place] mmol/L 01/15/22 01/15/22 01/15/22 Range/Units 02:50 02:50 03:20 WBC (3.8-10.6) k/uL RBC (3.80-5.40) m/uL Hgb (11.4-16.0) gm/dL Hct (34.0-46.0) % MCV (80.0-100.0) fL MCH (25.0-35.0) pg MCHC (31.0-37.0) g/dL RDW (11.5-15.5) % Plt Count (150-450) k/uL MPV Neutrophils % % Lymphocytes % % Monocytes % % Eosinophils % % Basophils % % Neutrophils # (1.3-7.7) k/uL Lymphocytes # (1.0-4.8) k/uL Monocytes # (0-1.0) k/uL Eosinophils # (0-0.7) k/uL Basophils # (0-0.2) k/uL PT (9.0-12.0) sec INR (<1.2) APTT (22.0-30.0) sec Sodium 137 (137-145) mmol/L Potassium 3.1 L (3.5-5.1) mmol/L Chloride 107 (98-107) mmol/L Carbon Dioxide 26 (22-30) mmol/L Anion Gap 4 mmol/L BUN 7 (7-17) mg/dL Creatinine 0.76 (0.52-1.04) mg/dL Est GFR (CKD-EPI)AfAm >90 (>60 ml/min/1.73 sqM) Est GFR (CKD-EPI)NonAf 87 (>60 ml/min/1.73 sqM) Glucose 95 (74-99) mg/dL Plasma Lactic Acid [place] 0.8 (0.7-2.0) mmol/L Calcium 9.1 (8.4-10.2) mg/dL Magnesium 1.6 (1.6-2.3) mg/dL Total Bilirubin 0.4 (0.2-1.3) mg/dL AST 32 (14-36) U/L ALT 20 (4-34) U/L Alkaline Phosphatase 57 (38-126) U/L Total Protein 5.6 L (6.3-8.2) g/dL Albumin 3.7 (3.5-5.0) g/dL Lipase 125 (23-300) U/L Urine Color Urine Appearance (Clear) Urine pH (5.0-8.0) Ur Specific [place] (1.001-1.035) Urine Protein (Negative) Urine Glucose (UA) (Negative) Urine Ketones (Negative) Urine Blood (Negative) Urine Nitrite (Negative) Urine Bilirubin (Negative) Urine Urobilinogen (<2.0) mg/dL Ur Leukocyte Esterase (Negative) Urine RBC (0-5) /hpf Urine WBC (0-5) /hpf Ur Squamous Epith Cells (0-4) /hpf Urine Bacteria (None) /hpf Hyaline Casts (0-2) /lpf Urine Mucus (None) /hpf Stool Occult Blood Negative (Negative) [place] <0.2 mmol/L Disposition Clinical Impression: Abdominal pain, UTI (urinary tract infection), Nausea & vomiting, Hypokalemia Disposition: HOME SELF-CARE Condition: Stable Instructions (If sedation given, give patient instructions): Urinary Tract Infection in Women (ED), Abdominal Pain (ED) Additional Instructions: You are being prescribed an antibiotic called Keflex for a Urinary Tract Infection. Take this antibiotic until it is gone even if you feel better. You stool does not show any evidence of blood. Your Potassium was low therefore you were given a one time dose to supplement. Consider an electrolyte replacement solution such as Gatorade or Pedialyte. Zofran is prescribed for nausea. Take this if you feel sick to your stomach. Make sure that you are taking your home medications exactly as prescribed. Follow up with your PCP if symptoms persist. Return to the emergency department with any new, worsening, or concerning symptoms. Prescriptions: Cephalexin [Keflex] 500 mg PO BID 7 Days #14 cap Ondansetron Odt [Zofran Odt] 4 mg PO Q8HR PRN #10 tab PRN Reason: Nausea Is patient prescribed a controlled substance at d/c from ED?: No Referrals: Chiqui Viramontes MD [Primary Care Provider] - 1-2 days Time of Disposition: 03:48
[2022-01-15 03:07] LABS: Basophils % (A) 1 %; Eosinophils # (A) 0.1 k/uL (0-0.7); Eosinophils % (A) 2 %; HCT 36.4 % (34.0-46.0); HGB 12.4 gm/dL (11.4-16.0); Lymphocytes # (A) 1.6 k/uL (1.0-4.8); Lymphocytes % (A) 28 %; MCH 31.5 pg (25.0-35.0); MCV 92.8 fL (80.0-100.0); Mean Platelet Volume 7.9; Monocytes # (A) 0.4 k/uL (0-1.0); Monocytes % (A) 8 %; Neutrophils # (A) 3.3 k/uL (1.3-7.7); Neutrophils % (A) 59 %; Platelet Count 299 k/uL (150-450); RBC 3.92 m/uL (3.80-5.40); WBC 5.5 k/uL (3.8-10.6)
[2022-01-15 03:18] LABS: INR 1.1 (<1.2); Partial Thromboplastin Time 22.5 sec (22.0-30.0); Prothrombin Time 11.5 sec (9.0-12.0)
[2022-01-15 03:21] LABS: ALT 20 U/L (4-34); AST 32 U/L (14-36); African American GFR (CKD) >90 (>60 ml/min/1.73 sqM); Albumin 3.7 g/dL (3.5-5.0); Alkaline Phosphatase 57 U/L (38-126); Anion Gap 4 mmol/L; Blood Urea Nitrogen 7 mg/dL (7-17); Calcium 9.1 mg/dL (8.4-10.2); Carbon Dioxide 26 mmol/L (22-30); Chloride 107 mmol/L (98-107); Glucose 95 mg/dL (74-99); Lipase 125 U/L (23-300); Lithium <0.2 mmol/L; Magnesium 1.6 mg/dL (1.6-2.3); Non-African American GFR(CKD) 87 (>60 ml/min/1.73 sqM); Potassium 3.1 mmol/L (3.5-5.1); Sodium 137 mmol/L (137-145); Total Bilirubin 0.4 mg/dL (0.2-1.3); Total Protein 5.6 g/dL (6.3-8.2)
[2022-01-15] MEDS ORDERED: CEPHALEXIN 500 MG CAP PO STA (03:23)
[2022-01-15] MEDS ORDERED: POTASSIUM CHLORIDE ER 20 MEQ TAB.ER PO STA (03:23)
[2022-01-15] MEDS ORDERED: ONDANSETRON 4 MG ODT STARTER PACK 2 TAB BTL PO STA (03:52)
[2022-01-15 04:16] VITALS: BP 173/96; PULSE 110
== END 2022-01-15 04:16 | disposition home or self-care (01) ==
LOC: EC 00:59
DX: N39.0 Urinary tract infection, site not specified (principal); E87.6 Hypokalemia; Z87.891 Personal history of nicotine dependence; Z88.6 Allergy status to analgesic agent; Z91.010 Allergy to peanuts
CPT/HCPCS: 36415; 86900; 86901; 80053; 83605; 83690; 80178; 83735; 85025; 85610; 85730; 86850; 82272; 81001; 87086; 99284; 96374; 96375; 96361; J2270; J2405; S0119; C9113

== ENCOUNTER 2022-01-16 05:53 | Inpatient (IN) | payer MEDICAID, OTHER ==
--- NOTE | 2022-01-16 06:43 | ED ---
General Adult HPI - General Stated complaint: Mental Health Time Seen by Provider: 01/16/22 05:58 Source: patient, EMS, RN notes reviewed Mode of arrival: EMS Limitations: no limitations - History of Present Illness Initial comments: This a 56-year-old female presents emergency Department with chief complaint depression, suicidal ideation. Patient states is her primary overnight. Patient states there is no event to cause cold she states she started hearing voices. She does admit that she ran out of her lithium in which her lithium level was checked yesterday. Patient denies any plan this time harm herself. Patient has a long history of schizophrenia. Patient denies any alcohol or drug abuse no physical complaints currently. - Related Data Home Medications Medication Instructions Recorded Confirmed Gabapentin [Neurontin] 300 mg PO QID 04/30/17 12/15/21 Multivitamins, Thera [Multivitamin 1 tab PO DAILY 08/22/21 12/15/21 (formulary)] Calcium Carbonate [Calcium] 600 mg PO DAILY 11/08/21 12/15/21 Nicotine 14Mg/24Hr Patch [Habitrol] 1 patch TRANSDERM DAILY PRN 12/15/21 12/15/21 traZODone HCL 300 mg PO HS 12/15/21 12/15/21 Previous Rx's Medication Instructions Recorded Aspirin 81 mg PO DAILY tab 08/25/21 DULoxetine HCL [Cymbalta] 60 mg PO BID 30 Days 11/20/21 Levothyroxine Sodium [Synthroid] 125 mcg PO DAILY 30 Days tab 11/20/21 Paliperidone [Invega] 12 mg PO HS 30 Days 11/20/21 Pantoprazole Sodium [Protonix] 40 mg PO DAILY 30 Days #30 tab 11/20/21 [place] Carbonate 300 mg PO BID 30 Days cap 12/18/21 Cephalexin [Keflex] 500 mg PO BID 7 Days #14 cap 01/15/22 Ondansetron Odt [Zofran Odt] 4 mg PO Q8HR PRN #10 tab 01/15/22 Allergies Allergy/AdvReac Type Severity Reaction Status Date / Time peanut Allergy Severe Anaphylaxis Verified 01/16/22 06:07 ibuprofen [From Motrin] Allergy Intermediate Rash/Hives Verified 01/16/22 06:07 tramadol HCl [From Ultram] Allergy Intermediate Itching Verified 01/16/22 06:07 Review of Systems ROS Statement: Those systems with pertinent positive or pertinent negative responses have been documented in the HPI. ROS Other: All systems not noted in ROS Statement are negative. Past Medical History Past Medical History: Chest Pain / Angina, Hyperlipidemia, Thyroid Disorder Additional Past Medical History / Comment(s): suicide attempt History of Any Multi-Drug Resistant Organisms: None Reported Past Surgical History: Section, Hysterectomy Additional Past Surgical History / Comment(s): x 2, colonoscopy Past Anesthesia/Blood Transfusion Reactions: No Reported Reaction Additional Past Anesthesia/Blood Transfusion Reaction / Comment(s): no previous blood transfusion Past Psychological History: Anxiety, Bipolar, Depression Smoking Status: Former smoker Past Alcohol Use History: None Reported Past Drug Use History: None Reported - Past Family History Father Family Medical History: Cancer, Neurologic Disorder Additional Family Medical History / Comment(s): Pt's. father had colon cancer and Parkinson's. Father at the age of 80yrs. Mother Family Medical History: Congestive Heart Failure (CHF) Additional Family Medical History / Comment(s): states "weak heart" Mother at the age of 90yrs. Sister(s) Family Medical History: Coronary Artery Disease (CAD), Myocardial Infarction ([place]) Additional Family Medical History / Comment(s): 1 sister with hx of 2 cardiac stents, 1 other sister from heart related issues General Exam Limitations: no limitations General appearance: alert, in no apparent distress Head exam: Present: atraumatic, normocephalic, normal inspection Eye exam: Present: normal appearance, PERRL, EOMI. Absent: scleral icterus, conjunctival injection, periorbital swelling ENT exam: Present: mucous membranes moist, TM's normal bilaterally. Absent: normal exam (Edentulous), normal oropharynx Neck exam: Present: normal inspection, full ROM. Absent: tenderness, meningismus, lymphadenopathy Respiratory exam: Present: normal lung sounds bilaterally. Absent: respiratory distress, wheezes, rales, rhonchi, stridor Cardiovascular Exam: Present: regular rate, normal rhythm, normal heart sounds. Absent: systolic murmur, diastolic murmur, rubs, gallop, clicks GI/Abdominal exam: Present: soft, normal bowel sounds. Absent: distended, tenderness, guarding, rebound, rigid Neurological exam: Present: alert, oriented X3, CN II-XII intact Psychiatric exam: Present: depressed, flat affect Skin exam: Present: warm, dry, intact, normal color. Absent: rash Course Vital Signs 01/16/22 06:02 Temperature 97.6 F Pulse Rate 107 H Respiratory 18 Rate Blood Pressure 165/81 O2 Sat by Pulse 98 Oximetry Medical Decision Making - Medical Decision Making Patient was evaluated by EPS patient be admitted for psychiatric treatment. - Lab Data Lab Results 01/16/22 Range/Units 06:06 Urine Opiates Screen Detected H (NotDetected) Ur Oxycodone Screen Not Detected (NotDetected) Urine Methadone Screen Not Detected (NotDetected) Ur Propoxyphene Screen Not Detected (NotDetected) Ur Barbiturates Screen Not Detected (NotDetected) U Tricyclic Antidepress Not Detected (NotDetected) Ur Phencyclidine Scrn Not Detected (NotDetected) Ur Amphetamines Screen Not Detected (NotDetected) U Methamphetamines Scrn Not Detected (NotDetected) U Benzodiazepines Scrn Not Detected (NotDetected) Urine Cocaine Screen Not Detected (NotDetected) U Marijuana (THC) Screen Not Detected (NotDetected) Disposition Clinical Impression: Depression, Suicidal ideation Disposition: TRANSFER TO PSYCH HOSP/UNIT Condition: Fair Referrals: Chiqui Viramontes MD [Primary Care Provider] - 1-2 days Time of Disposition: 08:40
[2022-01-16 07:29] LABS: Amphetamine Screen,Urine Not Detected (NotDetected); Barbiturate Screen,Urine Not Detected (NotDetected); Benzodiazepines Screen,Urine Not Detected (NotDetected); Cocaine Screen,Urine Not Detected (NotDetected); Methadone Screen, Urine Not Detected (NotDetected); Opiate Screen,Urine Detected (NotDetected); Oxycodone Screen, Urine Not Detected (NotDetected); Phencyclidine Screen,Urine Not Detected (NotDetected); Tricyclic Antidepressant,Urine Not Detected (NotDetected); Urn Cannabinoid Scrn Not Detected (NotDetected)
[2022-01-16] MEDS ORDERED: MAG HYDROX/AL HYDROX/SIMETH 30 ML CUP PO PRN (08:54)
[2022-01-16] MEDS ORDERED: hydrOXYzine HCL 50 MG/ML 1 ML VIAL IM PRN (08:54)
[2022-01-16] MEDS ORDERED: HALOPERIDOL LACTATE 5 MG/ML 1 ML VIAL IM PRN (08:54)
[2022-01-16] MEDS ORDERED: MAGNESIUM HYDROXIDE 2,400 MG/10 ML CUP PO PRN (08:54)
[2022-01-16] MEDS ORDERED: NICOTINE 14MG/24HR PATCH TRANSDERM SCH (09:00)
[2022-01-16 09:11] LABS: Appearance,Urine Clear (Clear); Bilirubin,Urine Negative (Negative); Blood,Urine Negative (Negative); Color,Urine Light Yellow; Glucose,Urine (UA) Negative (Negative); Ketones,Urine 4+ (Negative); Leukocyte Esterase,Urine Moderate (Negative); Mucus,Urine Rare /hpf; Nitrite,Urine Negative (Negative); PH, Urine 5.5 (5.0-8.0); Protein,Urine Negative (Negative); RBC,Urine 1 /hpf (0-5); Specific Gravity,Urine 1.011 (1.001-1.035); Squamous Epithelial Cell,Urine <1 /hpf (0-4); Urobilinogen,Urine <2.0 mg/dL (<2.0); WBC,Urine 5 /hpf (0-5)
[2022-01-16] MEDS: hydrOXYzine pamoate 25 MG CAP PO PRN ×2 (10:25→18:20)
[2022-01-16] MEDS: haloperidoL 5 MG TAB PO PRN ×2 (11:54→18:20)
[2022-01-16] MEDS ORDERED: PROPRANOLOL 10 MG TAB PO STA (13:11)
--- NOTE | 2022-01-16 14:00 | P.HP ---
Psychiatric H&P - . H&P Date: 01/16/22 History & Physical: Allergies Allergy/AdvReac Type Severity Reaction Status Date / Time peanut Allergy Severe Anaphylaxis Verified 01/16/22 09:00 ibuprofen [From Motrin] Allergy Intermediate Rash/Hives Verified 01/16/22 09:00 tramadol HCl [From Ultram] Allergy Intermediate Itching Verified 01/16/22 09:00 Vital Signs Temp 98.3 F 01/16/22 10:04 Pulse 106 H 01/16/22 10:04 Resp 16 01/16/22 10:04 BP 138/49 01/16/22 10:04 Pulse Ox 97 01/16/22 10:04 FiO2 Intake & Output 01/15/22 01/16/22 01/16/22 18:59 06:59 18:59 Weight 60.328 kg 58.967 kg Laboratory Last Values Urine Color Light Yellow 01/16/22 06:06 Urine Appearance Clear (Clear) 01/16/22 06:06 Urine pH 5.5 (5.0-8.0) 01/16/22 06:06 Ur Specific [place] 1.011 (1.001-1.035) 01/16/22 06:06 Urine Protein Negative (Negative) 01/16/22 06:06 Urine Glucose (UA) Negative (Negative) 01/16/22 06:06 Urine Ketones 4+ (Negative) H 01/16/22 06:06 Urine Blood Negative (Negative) 01/16/22 06:06 Urine Nitrite Negative (Negative) 01/16/22 06:06 Urine Bilirubin Negative (Negative) 01/16/22 06:06 Urine Urobilinogen <2.0 mg/dL (<2.0) 01/16/22 06:06 Ur Leukocyte Esterase Moderate (Negative) H 01/16/22 06:06 Urine RBC 1 /hpf (0-5) 01/16/22 06:06 Urine WBC 5 /hpf (0-5) 01/16/22 06:06 Ur Squamous Epith Cells <1 /hpf (0-4) 01/16/22 06:06 Urine Mucus Rare /hpf (None) H 01/16/22 06:06 Urine Opiates Screen Detected (NotDetected) H 01/16/22 06:06 Ur Oxycodone Screen Not Detected (NotDetected) 01/16/22 06:06 Urine Methadone Screen Not Detected (NotDetected) 01/16/22 06:06 Ur Propoxyphene Screen Not Detected (NotDetected) 01/16/22 06:06 Ur Barbiturates Screen Not Detected (NotDetected) 01/16/22 06:06 U Tricyclic Antidepress Not Detected (NotDetected) 01/16/22 06:06 Ur Phencyclidine Scrn Not Detected (NotDetected) 01/16/22 06:06 Ur Amphetamines Screen Not Detected (NotDetected) 01/16/22 06:06 U Methamphetamines Scrn Not Detected (NotDetected) 01/16/22 06:06 U Benzodiazepines Scrn Not Detected (NotDetected) 01/16/22 06:06 [place] <0.2 mmol/L 01/16/22 11:33 Urine Cocaine Screen Not Detected (NotDetected) 01/16/22 06:06 U Marijuana (THC) Screen Not Detected (NotDetected) 01/16/22 06:06 Coronavirus (PCR) Not Detected (Not Detectd) 01/16/22 08:22 01/16/22 13:59 IDENTIFYING DATA: Patient is a , unemployed on disability, 56-year-old female with significant history of major depressive disorder with psychotic features who presented to the hospital for suicidal ideation. HPI: Patient presented to the hospital by EMS after notifying 911 that she had a plan to kill herself by stabbing herself. The patient reportedly had a knife in her hand. The patient states that she has not been taking her medication over the past few days. When asked why, the patient states "I forgot." She reports that she has been increasingly depressed over the past week. She is unable to identify any particular stressors or precipitating factors. The patient also reports that along with the suicidal thoughts, she has not been sleeping for the past 2-3 days. She is also reported a decrease in her hygiene and grooming as well as a decrease in her appetite. The patient reports that she has been expressing auditory hallucinations are commanding her to "kill herself. She is denying any visual hallucinations. She reports no significant paranoia or other delusions. The patient is not reporting any overt symptoms of raheem. The patient has had numerous inpatient psychiatric admissions. She does follow with [facility] however is nonadherent with her medications by her own admission. She was unable to appropriately safety plan express concerns about discharge from the emergency department. She is subsequently admitted to the psychiatric unit. She is agreeable to transition to Invega Sustenna due to her history of nonadherence with medication. The patient does express that she has been having "extremely shaky legs." She reports has been worse even since being off her antipsychotic medication. PAST PSYCHIATRIC HISTORY: Patient has a previous diagnosis of major depressive disorder with psychotic features as well as borderline personality disorder. The patient has had numerous inpatient psychiatric admissions including 3 in this past year. She has trialed numerous medications with her last and most recent regimen including Cymbalta, lithium, and Invega. She has tried Zyprexa in the past. Patient is open with [facility]. Patient reports multiple prior attempts at suicide including multiple overdose attempts. PMH: Past Medical History: Chest Pain / Angina, Hyperlipidemia, Thyroid Disorder Additional Past Medical History / Comment(s): suicide attempt History of Any Multi-Drug Resistant Organisms: None Reported Past Surgical History: Section, Hysterectomy Additional Past Surgical History / Comment(s): x 2, colonoscopy Past Anesthesia/Blood Transfusion Reactions: No Reported Reaction Additional Past Anesthesia/Blood Transfusion Reaction / Comment(s): no previous blood transfusion Past Psychological History: Anxiety, Bipolar, Depression Smoking Status: Former smoker Past Alcohol Use History: None Reported Past Drug Use History: None Reported ALLERGIES: Peanut, ibuprofen, tramadol CHEMICAL DEPENDENCY HISTORY: Patient denies any tobacco use, alcohol use, marijuana, or illicit drug use. FAMILY PSYCHIATRIC/SUBSTANCE USE HISTORY: No reported history. SOCIAL HISTORY: Patient was born and raised in [place], [place]. She graduated high school. 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 She currently lives alone. She reports that she has 3 children. She collects Social Security. MENTAL STATUS EXAM: General Appearance: Patient appears to be stated age is alert, directable, and attempts to cooperate. Patient appears to have slightly disheveled hygiene and grooming. Behavior: Patient is seated without any agitated behavior. She is tearful throughout the interview. Speech: Patient's speech is fluent and nonpressured. Mood/Affect: Patient reports their mood is depressed, affect is congruent and tearful. Suicidality/Homicidality: Patient denies having any homicidal ideation intent or plan. Patient endorses suicidal ideation. Perceptions: Patient denies any visual hallucinations patient endorses mood congruent auditory hallucinations. Though content/process: There is no evidence of any delusional thought content and thought process is linear and goal-directed. Memory and concentration: AOX3, grossly intact for the purposes of this session. Can spell "WORLD" backwards Judgment and insight: Very poor. STRENGTHS/WEAKNESSES: Unable to identify patient's strengths at this time. Weakness is that the patient is nonadherent with treatment and has severe mental illness. INTELLECT: below average to average IMPRESSIONS: Major depressive disorder, recurrent, severe, with psychotic features vs schizoaffective disorder, depressed type Borderline personality disorder Generalized anxiety disorder PLAN: -Patient is admitted under voluntary status to MHU for stabilization of psychiatric symptoms and safety. Patient signed adult voluntary form and medication consent and is placed in patient's chart. -Medications : Will start patient on Invega 9 mg by mouth at bedtime for psychotic features [place] 450 mg by mouth twice a day for mood stabilization/suicidal ideation Start propranolol 20 mg by mouth twice a day for possible akathisia -Vistaril and Haldol PRN for agitation/aggression -Patient was informed of the risks, benefits and side effects of the medication and patient verbally consented to taking the medications. Patient signed med consent form and was placed in chart. -Internal Medicine consult to perform medical evaluation and physical. -SW on board for discharge planning. Encourage patient to participate in groups to work on coping skills. 01/16/22 13:59
--- NOTE | 2022-01-16 15:35 | P.MDCNMH ---
History of Present Illness H&P Date: 01/16/22 Chief Complaint: Medical management/clearance 56-year-old woman with medical history of hypothyroidism, bipolar disorder, depression who presented for mental health evaluation. Medicine consulted for medical management. Patient at this time denies any symptoms, including fevers, chills, nausea, vomiting, chest pain, palpitations, syncopal, presyncope, cough, dyspnea, abdominal pain, constipation, diarrhea, dysuria, dyschezia, hematuria, hematochezia, melena, numbness/weakness of extremities. Upon my evaluation, patient is afebrile, hemodynamically stable. UA shows 4+ ketones, moderate leukocyte esterase, rare mucus. Urine tox screen shows positive opiates lithium level is less than 0.2. Covid was negative. No imaging to review. All Systems reviewed and pertinent positives and negatives noted in HPI, all other symptoms are negative Gen: in no apparent distress, resting comfortably in bed Eyes: PERRL, no scleral injection or icterus HENT: normocephalic, atraumatic, good hearing acuity, moist mucous membranes Neck: no tracheal deviation, full range of motion Resp: good air exchange, breathing comfortably with no accessory muscle use, no tactile fremitus, clear to auscultation bilaterally CVS: good distal perfusion x 4, no pitting edema, regular rate and rhythm GI: soft, tenderness to palpation in the epigastrium, periumbilical area, ND, no hepatosplenomegaly : no suprapubic tenderness, left-sided CVAT, bustamante catheter not present MSK: no clubbing, no cyanosis, no noted contractures of extremities Skin: no noted rashes, petechiae; temperature of skin is appropriate Neuro: moving all extremities without signs of weakness, CN II-XII intact Psych: cooperative, euthymic mood, insight and judgment intact Labs and imaging as above Assessment/plan: Hypothyroidism -C/w home meds Depression and bipolar disorder -As per psychiatry Thank you for allowing us to participate in the care of this patient. We will follow peripherally. Do not hesitate to contact us with questions. Someone can be reached from the [facility] hospitalist group at all hours of the day at [phone]. Past Medical History Past Medical History: Chest Pain / Angina, Hyperlipidemia, Thyroid Disorder Additional Past Medical History / Comment(s): suicide attempt History of Any Multi-Drug Resistant Organisms: None Reported Past Surgical History: Section, Hysterectomy Additional Past Surgical History / Comment(s): x 2, colonoscopy Past Anesthesia/Blood Transfusion Reactions: No Reported Reaction Additional Past Anesthesia/Blood Transfusion Reaction / Comment(s): no previous blood transfusion Smoking Status: Current every day smoker - Past Family History Father Family Medical History: Cancer, Neurologic Disorder Additional Family Medical History / Comment(s): Pt's. father had colon cancer and Parkinson's. Father at the age of 80yrs. Mother Family Medical History: Congestive Heart Failure (CHF) Additional Family Medical History / Comment(s): states "weak heart" Mother at the age of 90yrs. Sister(s) Family Medical History: Coronary Artery Disease (CAD), Myocardial Infarction (PA) Additional Family Medical History / Comment(s): 1 sister with hx of 2 cardiac stents, 1 other sister from heart related issues Medications and Allergies Home Medications Medication Instructions Recorded Confirmed Type Gabapentin [Neurontin] 300 mg PO QID 04/30/17 01/16/22 History Multivitamins, Thera [Multivitamin 1 tab PO DAILY 08/22/21 01/16/22 History (formulary)] Aspirin 81 mg PO DAILY tab 08/25/21 01/16/22 Rx DULoxetine HCL [Cymbalta] 60 mg PO BID 30 Days 11/20/21 01/16/22 Rx Levothyroxine Sodium [Synthroid] 125 mcg PO DAILY 30 Days tab 11/20/21 01/16/22 Rx Cephalexin [Keflex] 500 mg PO BID 7 Days #14 cap 01/15/22 01/16/22 Rx [place] Carbonate [[place] 450 mg PO HS 01/16/22 01/16/22 History Carbonate ER] Paliperidone [Invega] 9 mg PO HS 01/16/22 01/16/22 History traZODone HCL 300 mg PO HS 01/16/22 01/16/22 History Allergies Allergy/AdvReac Type Severity Reaction Status Date / Time peanut Allergy Severe Anaphylaxis Verified 01/16/22 09:00 ibuprofen [From Motrin] Allergy Intermediate Rash/Hives Verified 01/16/22 09:00 tramadol HCl [From Ultram] Allergy Intermediate Itching Verified 01/16/22 09:00 Physical Exam Osteopathic Statement: *. No significant issues noted on an osteopathic structural exam other than those noted in the History and Physical/Consult. Vitals: Vital Signs Temp Pulse Pulse Resp BP BP Pulse Ox 01/16/22 10:04 98.3 F 106 H 16 138/49 97 01/16/22 09:39 98 18 147/87 95 01/16/22 06:02 97.6 F 107 H 18 165/81 98 Intake and Output 01/16/22 01/16/22 01/16/22 06:59 14:59 22:59 Other: Weight 60.328 kg 58.967 kg Cranial Nerve Examination - Cranial Nerves Cranial Nerve II- Optic: Intact Cranial Nerve III- Oculomotor: Intact Cranial Nerve IV- Trochlear: Intact Cranial Nerve V- Trigeminal: Intact Cranial Nerve - Abducens: Intact Cranial Nerve VII- Facial: Intact Cranial Nerve VIII- Auditory: Intact Cranial Nerve IX- Glossopharyngeal: Intact Cranial Nerve X- Vagus: Intact Cranial Nerve XI- Accessory: Intact Cranial Nerve XII- Hypoglossal: Intact Results Labs: Abnormal Lab Results - Last 24 Hours (Table) 01/16/22 01/16/22 Range/Units 06:06 06:06 Urine Ketones 4+ H (Negative) Ur Leukocyte Esterase Moderate H (Negative) Urine Mucus Rare H (None) /hpf Urine Opiates Screen Detected H (NotDetected)
[2022-01-16] MEDS: PROPRANOLOL 20 MG TAB PO SCH (20:14)
[2022-01-16] MEDS: LITHIUM CARBONATE 150 MG CAP PO SCH (20:14)
[2022-01-16] MEDS: PALIPERIDONE 3 MG TAB.ER.24 PO SCH (20:15)
[2022-01-17] MEDS: LEVOTHYROXINE 125 MCG TAB PO SCH (06:27)
[2022-01-17] MEDS: ACETAMINOPHEN TAB 325 MG TAB PO PRN ×4 (06:48→20:54)
[2022-01-17] MEDS: PROPRANOLOL 20 MG TAB PO SCH ×2 (07:54→20:39)
[2022-01-17] MEDS: LITHIUM CARBONATE 150 MG CAP PO SCH ×2 (07:54→20:40)
[2022-01-17 10:23] LABS: Basophils % (A) 1 %; Eosinophils # (A) 0.2 k/uL (0-0.7); Eosinophils % (A) 3 %; HCT 36.7 % (34.0-46.0); Lymphocytes # (A) 1.9 k/uL (1.0-4.8); Lymphocytes % (A) 31 %; MCH 30.5 pg (25.0-35.0); MCHC 32.6 g/dL (31.0-37.0); MCV 93.4 fL (80.0-100.0); Mean Platelet Volume 8.5; Monocytes # (A) 0.5 k/uL (0-1.0); Monocytes % (A) 8 %; Neutrophils # (A) 3.5 k/uL (1.3-7.7); Neutrophils % (A) 56 %; Platelet Count 323 k/uL (150-450); RBC 3.93 m/uL (3.80-5.40); RDW 12.7 % (11.5-15.5); WBC 6.3 k/uL (3.8-10.6)
[2022-01-17 10:40] LABS: ALT 28 U/L (4-34); AST 55 U/L (14-36); African American GFR (CKD) >90 (>60 ml/min/1.73 sqM); Albumin 3.9 g/dL (3.5-5.0); Alkaline Phosphatase 59 U/L (38-126); Anion Gap 10 mmol/L; Bilirubin, Delta 0.2 mg/dL (0.0-0.2); Bilirubin,Unconjugated 0.3 mg/dL (0.0-1.1); Blood Urea Nitrogen 6 mg/dL (7-17); Calcium 9.8 mg/dL (8.4-10.2); Carbon Dioxide 21 mmol/L (22-30); Chloride 106 mmol/L (98-107); Glucose 99 mg/dL (74-99); Non-African American GFR(CKD) 78 (>60 ml/min/1.73 sqM); Potassium 3.6 mmol/L (3.5-5.1); Sodium 137 mmol/L (137-145); Total Bilirubin 0.5 mg/dL (0.2-1.3); Total Protein 5.9 g/dL (6.3-8.2)
--- NOTE | 2022-01-17 10:41 | P.PN ---
Progress Note - Text Progress Note Date: 01/17/22 Interval History: Patient was seen wandering the hallways and was directable and agreeable to speak with publicity writer in the office. Currently, the patient continues to endorse suicidal ideation and auditory hallucinations. The patient expresses extreme guilt for how she has treated her family. She would not go into specifics but states that she and her youngest daughter do not get along as "a mother and daughter should." She is currently adherent with her medication and is not reporting any significant side effects. It was determined by [facility] that the patient has not been in adherent with her medications since January 10, 2022. The patient is in agreement to transition to the long-acting injectable Invega Sustenna. The patient continues endorse restless legs however has not displayed so when observed on the unit. Mental Status Exam: General Appearance: Patient appears to be stated age is alert, directable, and cooperative. Behavior: Patient is calmly seated without any agitated behavior. Patient is tearful throughout the interview. Speech: Patient's speech is fluent and nonpressured. Mood/Affect: Mood is depressed. Affect is congruent and tearful. Suicidality/Homicidality: Patient denies reports suicidal ideation and no homicidal ideation, intention, and/or plan. Perceptions: Patient denies any visual hallucinations but endorses auditory hallucinations. Though content/process: There is no evidence of any delusional thought content and thought process is linear and goal-directed. Fixated on guilt. Memory and concentration: AOX3, grossly intact for the purposes of this session Judgment and insight: Poor Vital Signs Temp 97.7 F 01/17/22 06:35 Pulse 76 01/17/22 07:56 Resp 16 01/17/22 06:35 BP 128/58 01/17/22 07:56 Pulse Ox 97 01/16/22 10:04 FiO2 Intake & Output 01/16/22 01/17/22 01/17/22 18:59 06:59 18:59 Weight 58.967 kg Laboratory Results - Last 24 Hours 01/16/22 01/17/22 01/17/22 11:33 09:54 09:54 WBC 6.3 RBC 3.93 Hgb 12.0 Hct 36.7 MCV 93.4 MCH 30.5 MCHC 32.6 RDW 12.7 Plt Count 323 MPV 8.5 Neutrophils % 56 Lymphocytes % 31 Monocytes % 8 Eosinophils % 3 Basophils % 1 Neutrophils # 3.5 Lymphocytes # 1.9 Monocytes # 0.5 Eosinophils # 0.2 Basophils # 0.0 Sodium 137 Potassium 3.6 Chloride 106 Carbon Dioxide 21 L Anion Gap 10 BUN 6 L Creatinine 0.83 Est GFR (CKD-EPI)AfAm >90 Est GFR (CKD-EPI)NonAf 78 Glucose 99 Calcium 9.8 Total Bilirubin 0.5 Conjugated Bilirubin 0.0 Unconjugated Bilirubin 0.3 Delta Bilirubin 0.2 AST 55 H ALT 28 Alkaline Phosphatase 59 Total Protein 5.9 L Albumin 3.9 [place] <0.2 Assessment Major depressive disorder, recurrent, severe, with psychotic features vs schizoaffective disorder, depressed type Borderline personality disorder Generalized anxiety disorder Plan: -Patient continues to meet criteria for inpatient psychiatric admission for symptom stabilization and safety. Patient has signed adult voluntary form and medication consent and was placed in patient's chart. -Medications: Continue Invega 9 mg by mouth at bedtime for psychotic features. We will transition to Invega Sustenna tomorrow. Continue lithium 450 mg by mouth twice a day for mood stabilization/suicidal ideation Propanolol 20 mg by mouth twice a day for akathisia/anxiety -When necessary Vistaril and Haldol for agitation/aggression. -SW on board for discharge planning. Encouraged the patient to participate in milieu.
[2022-01-17] MEDS: hydrOXYzine pamoate 25 MG CAP PO PRN ×2 (12:00→18:17)
[2022-01-17 18:32] LABS: LDL Cholesterol,Calculated 113.6 mg/dL (0.0-131.0)
[2022-01-17] MEDS: PALIPERIDONE 3 MG TAB.ER.24 PO SCH (20:39)
[2022-01-18] MEDS: haloperidoL 5 MG TAB PO PRN ×2 (00:18→14:44)
[2022-01-18] MEDS: ACETAMINOPHEN TAB 325 MG TAB PO PRN ×6 (00:59→23:54)
[2022-01-18] MEDS: LEVOTHYROXINE 125 MCG TAB PO SCH (06:32)
[2022-01-18] MEDS: PROPRANOLOL 20 MG TAB PO SCH ×2 (08:15→20:06)
[2022-01-18] MEDS: LITHIUM CARBONATE 150 MG CAP PO SCH ×2 (08:15→20:06)
[2022-01-18] MEDS: NICOTINE 14MG/24HR PATCH TRANSDERM PRN (08:17)
[2022-01-18] MEDS: hydrOXYzine pamoate 25 MG CAP PO PRN ×2 (09:20→22:25)
[2022-01-18] MEDS ORDERED: PALIPERIDONE IM 234 MG/1.5 ML SYG IM STA (09:35)
--- NOTE | 2022-01-18 11:41 | P.PN ---
Progress Note - Text Progress Note Date: 01/18/22 Interval History: Patient was seen wandering the hallways and was directable and agreeable to speak with service writer in the office. Patient continues to be very tearful and sad. She discusses that she continues to express auditory hallucinations that are commanding her to kill herself. She continues endorse suicidal ideation. She denies homicidal ideation. She reports no visual hallucinations. She denies any paranoia or other delusions. The patient has been adherent with her med ications and is not endorsing any significant side effects at this time. She is agreeable to transitioning to long-acting Invega Sustenna due to her history of nonadherence with treatment. Mental Status Exam: Grossly unchanged from yesterday. General Appearance: Patient appears to be stated age is alert, directable, and cooperative. Behavior: Patient is calmly seated without any agitated behavior. Patient is tearful throughout the interview. Speech: Patient's speech is fluent and nonpressured. Mood/Affect: Mood is depressed. Affect is congruent and tearful. Suicidality/Homicidality: Patient denies reports suicidal ideation and no homicidal ideation, intention, and/or plan. Perceptions: Patient denies any visual hallucinations but endorses auditory hallucinations. Though content/process: There is no evidence of any delusional thought content and thought process is linear and goal-directed. Fixated on guilt. Memory and concentration: AOX3, grossly intact for the purposes of this session Judgment and insight: Poor Vital Signs Temp 97.3 F L 01/18/22 00:20 Pulse 66 01/18/22 00:20 Resp 14 01/18/22 00:20 BP 125/57 01/18/22 00:20 Pulse Ox 97 01/16/22 10:04 FiO2 Laboratory Results - Last 24 Hours 01/17/22 01/17/22 01/18/22 09:54 09:54 10:[address] Glu mg/dL 91 Hemoglobin A1c 4.8 Triglycerides 124.00 Cholesterol 196.00 LDL Cholesterol, Calc 113.6 VLDL Cholesterol, Calc 24.80 HDL Cholesterol 57.60 Cholesterol/HDL Ratio 3.40 [place] 1.4 Assessment Major depressive disorder, recurrent, severe, with psychotic features vs schizoaffective disorder, depressed type Borderline personality disorder Generalized anxiety disorder Plan: -Patient continues to meet criteria for inpatient psychiatric admission for symptom stabilization and safety. Patient has signed adult voluntary form and medication consent and was placed in patient's chart. -Medications: We will initiate Invega Sustenna 234 mg IM today. We will discontinue oral Invega. Decrease lithium to 300 mg by mouth every morning and 450 mg by mouth at bedtime as the patient's lithium level is 1.4. Propanolol 20 mg by mouth twice a day for akathisia/anxiety -When necessary Vistaril and Haldol for agitation/aggression. -SW on board for discharge planning. Encouraged the patient to participate in milieu.
[2022-01-18] MEDS: traZODone HCL 50 MG TAB PO SCH (20:06)
[2022-01-19] MEDS: ACETAMINOPHEN TAB 325 MG TAB PO PRN ×5 (05:29→23:51)
[2022-01-19] MEDS: LEVOTHYROXINE 125 MCG TAB PO SCH (08:24)
[2022-01-19] MEDS: LITHIUM CARBONATE 300 MG CAP PO SCH (08:24)
[2022-01-19] MEDS: PROPRANOLOL 20 MG TAB PO SCH ×2 (08:24→20:26)
[2022-01-19] MEDS: NICOTINE 14MG/24HR PATCH TRANSDERM PRN (08:26)
[2022-01-19] MEDS: hydrOXYzine pamoate 25 MG CAP PO PRN ×3 (11:09→23:50)
--- NOTE | 2022-01-19 12:04 | P.PN ---
Progress Note - Text Progress Note Date: 01/19/22 Interval History: Patient was seen wandering the hallways and was directable and agreeable to speak with instructional writer in the office. Patient states that she is not feeling ready to leave yet. She reports that she experienced visual hallucinations of men chasing her with tools. She states that this happened yesterday. She reports auditory hallucinations that are also telling her to kill herself. She expresses concerns for her safety. She does report suicidal ideation however denies any homicidal ideation, intention, and/or plan. The patient reports no issues regarding her sleep or her appetite. She has been in adherent with her medications and is not reporting any significant side effects at this time. Mental Status Exam: General Appearance: Patient appears to be stated age is alert, directable, and cooperative. Behavior: Patient is calmly seated without any agitated behavior. Patient is tearful throughout the interview. Speech: Patient's speech is fluent and nonpressured. Mood/Affect: Mood is depressed. Affect is congruent and tearful. Suicidality/Homicidality: Patient denies reports suicidal ideation and no homicidal ideation, intention, and/or plan. Perceptions: Patient endorses both auditory and visual hallucinations. Though content/process: There is no evidence of any delusional thought content and thought process is linear and goal-directed. Fixated on guilt. Memory and concentration: AOX3, grossly intact for the purposes of this session Judgment and insight: Poor Vital Signs Temp 97.4 F L 01/19/22 06:39 Pulse 63 01/19/22 06:39 Resp 16 01/19/22 06:39 BP 113/58 01/19/22 06:39 Pulse Ox 97 01/16/22 10:04 FiO2 Assessment Major depressive disorder, recurrent, severe, with psychotic features vs schizoaffective disorder, depressed type Borderline personality disorder Generalized anxiety disorder Plan: -Patient continues to meet criteria for inpatient psychiatric admission for symptom stabilization and safety. Patient has signed adult voluntary form and medication consent and was placed in patient's chart. -Medications: Invega Sustenna 234 mg IM was administered on 01/18/2022. Continue lithium 300 mg by mouth every morning and 450 mg by mouth at bedtime - (cut down from 450 bid due to lithium level being 1.4) Propanolol 20 mg by mouth twice a day for akathisia/anxiety -When necessary Vistaril and Haldol for agitation/aggression. -SW on board for discharge planning. Encouraged the patient to participate in milieu.
[2022-01-19] MEDS: traZODone HCL 50 MG TAB PO SCH (20:26)
[2022-01-19] MEDS: LITHIUM CARBONATE 150 MG CAP PO SCH (20:26)
[2022-01-20] MEDS: ACETAMINOPHEN TAB 325 MG TAB PO PRN ×5 (04:07→20:43)
[2022-01-20] MEDS: LEVOTHYROXINE 125 MCG TAB PO SCH (06:18)
[2022-01-20] MEDS: NICOTINE 14MG/24HR PATCH TRANSDERM PRN (08:02)
[2022-01-20] MEDS: LITHIUM CARBONATE 300 MG CAP PO SCH (08:03)
[2022-01-20] MEDS: PROPRANOLOL 20 MG TAB PO SCH ×2 (08:03→20:42)
[2022-01-20] MEDS: hydrOXYzine pamoate 25 MG CAP PO PRN ×2 (08:05→16:37)
--- NOTE | 2022-01-20 11:57 | P.PN ---
Subjective Progress Note Date: 01/20/22 Principal diagnosis: Major depression recurrent severe with psychotic features Patient was seen wandering the hallways and was directable and agreeable to speak with automobile service writer in the office. Patient states that she is not feeling ready to leave yet. She reports that she experienced visual hallucinations of men chasing her, voices also tell her to kill herself. She expresses concerns for her safety. She does report suicidal ideation however denies any homicidal ideation, intention, and/or plan. The patient reports no issues regarding her sleep or her appetite. She has been in adherent with her medications and is not reporting any significant side effects at this time. She noted that one of the medicine she takes at home Cymbalta has not in the mix. They shows that she is pretty in tune with her medications. However I explained to her that Cymbalta can agitated psychosis and spastic for her to stay off of that at this time. Mental Status Exam: She came readily and was willing to General Appearance: Patient appears to be stated age is alert, directable, and cooperative. She walks hunched over with some kyphosis and self-care is minimal Behavior: Patient is calmly seated without any agitated behavior. Speech: Patient's speech is fluent and nonpressured. Mood/Affect: Mood is depressed. Affect is serious Suicidality/Homicidality: Patient denies suicidal ideation or homicidal ideation, intention, and/or plan. Though content/process: There is no evidence of any delusional thought content and thought process is linear and goal-directed. Memory and concentration: AOX3, grossly intact for the purposes of this session Judgment and insight: Poor Assessment Major depressive disorder, recurrent, severe, with psychotic features vs schizoaffective disorder, depressed type Borderline personality disorder Generalized anxiety disorder Plan: -Patient continues to meet criteria for inpatient psychiatric admission for symptom stabilization and safety due to the ongoing threatening commanding hallucinations.. Patient has signed adult voluntary form and medication consent and was placed in patient's chart. -Medications: I don't think we need to change his medicines at this time and I did explain to her why the Cymbalta would not be a good idea Invega Sustenna 234 mg IM was administered on 01/18/2022. Continue lithium 300 mg by mouth every morning and 450 mg by mouth at bedtime - (cut down from 450 bid due to lithium level being 1.4) Propanolol 20 mg by mouth twice a day for akathisia/anxiety -When necessary Vistaril and Haldol for agitation/aggression. -SW on board for discharge planning. Encouraged the patient to participate in milieu. Objective - Vital Signs Vital signs: Vital Signs Temp 97.4 F L 01/19/22 06:39 Pulse 63 01/19/22 06:39 Resp 16 01/19/22 06:39 BP 113/58 01/19/22 06:39 Pulse Ox 97 01/16/22 10:04 FiO2 - Labs CBC & Chem 7: 01/17/22 09:54 01/17/22 09:54
[2022-01-20] MEDS: traZODone HCL 50 MG TAB PO SCH (20:42)
[2022-01-20] MEDS: LITHIUM CARBONATE 150 MG CAP PO SCH (20:42)
[2022-01-21] MEDS: hydrOXYzine pamoate 25 MG CAP PO PRN ×3 (02:09→20:45)
[2022-01-21] MEDS: ACETAMINOPHEN TAB 325 MG TAB PO PRN ×5 (02:09→22:29)
[2022-01-21] MEDS: LEVOTHYROXINE 125 MCG TAB PO SCH (07:01)
[2022-01-21] MEDS: PROPRANOLOL 20 MG TAB PO SCH ×2 (08:23→20:04)
[2022-01-21] MEDS: LITHIUM CARBONATE 300 MG CAP PO SCH (08:23)
--- NOTE | 2022-01-21 11:31 | P.PN ---
Subjective Progress Note Date: 01/21/22 Principal diagnosis: Major depression recurrent severe with psychotic features Patient was sleeping in her room at 11:30 in the morning and was dark and was directable and she was agreeable to speak with financial writer in the office. Patient states that she feels she'll be ready to leave tomorrow but was a little vague on her plan for doing well after discharge she says that the hallucinations and fears have cleared up She denies suicidal ideation however denies any homicidal ideation, intention, and/or plan. The patient reports no issues regarding her sleep or her appetite except that she never feels like eating a breakfast. She has been in adherent with her medications and is not reporting any significant side effects at this time. Mental Status Exam: She came readily and was willing to General Appearance: Patient appears to be stated age is alert, directable, and cooperative. She walks hunched over with some kyphosis and self-care is minimal Behavior: Patient is calmly seated without any agitated behavior. Speech: Patient's speech is fluent and nonpressured. However her content shows poverty of ideas Mood/Affect: Mood is depressed. Affect is flat Suicidality/Homicidality: Patient denies suicidal ideation or homicidal ideation, intention, and/or plan. Though content/process: There is no evidence of any delusional thought content and thought process is linear and goal-directed. Memory and concentration: AOX3, grossly intact for the purposes of this session Judgment and insight: Poor Assessment she has she seems a little more positive today Major depressive disorder, recurrent, severe, with psychotic features vs schizoaffective disorder, depressed type Borderline personality disorder Generalized anxiety disorder Plan: -Patient continues to meet criteria for inpatient psychiatric admission for symptom stabilization and safety due to the ongoing threatening commanding hallucinations.. Patient has signed adult voluntary form and medication consent and was placed in patient's chart. She really needs to work on a more detailed discharge plan -Medications: I don't think we need to change his medicines at this time and I did explain to her why the Cymbalta would not be a good idea Invega Sustenna 234 mg IM was administered on 01/18/2022. Continue lithium 300 mg by mouth every morning and 450 mg by mouth at bedtime - (cut down from 450 bid due to lithium level being 1.4) Propanolol 20 mg by mouth twice a day for akathisia/anxiety -When necessary Vistaril and Haldol for agitation/aggression. -SW on board for discharge planning. Encouraged the patient to participate in milieu. Objective - Vital Signs Vital signs: Vital Signs Temp 98.9 F 01/21/22 02:14 Pulse 75 01/21/22 02:14 Resp 14 01/21/22 02:14 BP 120/56 01/21/22 02:14 Pulse Ox 97 01/16/22 10:04 FiO2 Intake & Output 01/20/22 01/21/22 01/21/22 18:59 06:59 18:59 Weight 58.1 kg - Labs CBC & Chem 7: 01/17/22 09:54 01/17/22 09:54
[2022-01-21] MEDS: traZODone HCL 50 MG TAB PO SCH (20:04)
[2022-01-21] MEDS: LITHIUM CARBONATE 150 MG CAP PO SCH (20:04)
[2022-01-22] MEDS: hydrOXYzine pamoate 25 MG CAP PO PRN (03:52)
[2022-01-22] MEDS: ACETAMINOPHEN TAB 325 MG TAB PO PRN (03:52)
[2022-01-22] MEDS: LEVOTHYROXINE 125 MCG TAB PO SCH (06:30)
[2022-01-22 06:38] VITALS: RESP 16; TEMP 97.3
[2022-01-22] MEDS: PROPRANOLOL 20 MG TAB PO SCH (08:22)
[2022-01-22] MEDS: LITHIUM CARBONATE 300 MG CAP PO SCH (08:22)
[2022-01-22 08:24] VITALS: BP 117/63; PULSE 95
--- NOTE | 2022-01-22 13:17 | P.DS ---
Providers Date of admission: 01/16/22 08:49 Expected date of discharge: 01/22/22 Attending physician: Rico Magaña MD Consults: 01/16/22 08:54 Consult Physician Routine Consulting Provider: Sanna Physician Consult Reason/Comments: H & P Do you want consulting provider notified?: Yes Primary care physician: Stated None - Discharge Diagnosis(es) (1) Major depressive disorder, recurrent, severe with psychotic features Status: Acute Priority: High (2) Borderline personality disorder Status: Chronic Priority: Medium (3) Generalized anxiety disorder Status: Chronic Priority: Medium Hospital Course: Admission HPI: Patient is a , unemployed on disability, 56-year-old female with significant history of major depressive disorder with psychotic features who presented to the hospital for suicidal ideation. Patient presented to the hospital by EMS after notifying 911 that she had a plan to kill herself by stabbing herself. The patient reportedly had a knife in her hand. The patient states that she has not been taking her medication over the past few days. When asked why, the patient states "I forgot." She reports that she has been increasingly depressed over the past week. She is unable to identify any particular stressors or precipitating factors. The patient also reports that along with the suicidal thoughts, she has not been sleeping for the past 2-3 days. She is also reported a decrease in her hygiene and grooming as well as a decrease in her appetite. The patient reports that she has been expressing auditory hallucinations are commanding her to "kill herself. She is denying any visual hallucinations. She reports no significant paranoia or other delusions. The patient is not reporti ng any overt symptoms of raheem. The patient has had numerous inpatient psychiatric admissions. She does follow with [facility] however is nonadherent with her medications by her own admission. She was unable to appropriately safety plan express concerns about discharge from the emergency department. She is subsequently admitted to the psychiatric unit. She is agreeable to transition to [facility] due to her history of nonadherence with medication. The patient does express that she has been having "extremely shaky legs." She reports has been worse even since being off her antipsychotic medication. Patient has a previous diagnosis of major depressive disorder with psychotic features as well as borderline personality disorder. The patient has had numerous inpatient psychiatric admissions including 3 in this past year. She has trialed numerous medications with her last and most recent regimen including Cymbalta, lithium, and Invega. She has tried Zyprexa in the past. Patient is o pen with [facility]. Patient reports multiple prior attempts at suicide including multiple overdose attempts. Hospital course: Upon admission to the unit patient was initially presenting with auditory shirley ucinations are command in nature that were telling her to kill herself. Furthermore, patient endorsed suicidal ideation. This occurs in the context of medication nonadherence. Patient was however directable and agreeable to commence treatment. Patient got along well with other patients on the unit and followed unit protocol. Patient was compliant with the medications and denied any side effects throughout hospital course. Patient was started on Invega for psychosis, lithium for mood stabilization/suicidal ideation, and propranolol for akathisia. Patient spoke of her stressors and engaged in therapy both group and individual. Patient was also seen by medical team for history and physical exam. Over the course the hospital physician, the patient initially expressed worsening in her psychotic symptoms. She reported that she began expressing visual hallucinations was was inconsistent with her medication regimen. The patient was continued on her regimen of Inderal, trazodone, and lithium. She is eventually transition to Invega Sustenna. On the day of discharge, the patient reported a significant improvement in regards to her acute psychotic symptoms. She reported no suicidal or homicidal ideation, intention, and/or plan. She reported no auditory or visual hallucinations per she denied any paranoia or other delusions. The patient was counseled at length on the points medication adherence and appropriate outpatient follow-up. The patient received her Invega Sustenna injectable and reported no significant side effects. The patient was counseled length and the importance of abstaining from all substances including alcohol and marijuana. Prior to discharge, family meeting was arranged by secondary social studies teacher to answer any questions and ensure safety. The patient's lithium was cut down from 450 mg twice a day to 300 mg in the morning and 4050 mg at bedtime due to an elevated lithium level of 1.4. Despite this, the patient reported no significant side effects of her medications. She denied any medical issues or concerns on the day of discharge. She reported no chest pain, shortness of breath, issues urinating, headache, nausea, or lightheadedness. Mental status exam: General Appearance: Patient appears to be stated age is alert, pleasant, and cooperative. Patient is in no acute distress and has fair hygiene and grooming Behavior: Patient is calmly seated without any agitated behavior. Speech: Patient's speech is fluent and nonpressured. Mood/Affect: Patient reports their mood is "much better", affect is congruent and euthymic to bright. Suicidality/Homicidality: Patient denies having any suicidal or homicidal ideation intent or plan. Perceptions: Patient denies any auditory or visual hallucinations. Though content/process: There is no evidence of any delusional thought content and thought process is linear and goal-directed. Memory and concentration: AOX3, grossly intact for the purposes of this session. Can spell "WORLD" backwards correctly. Judgment and insight: Improved with guarded prognosis Laboratory Results WBC 6.3 k/uL (3.8-10.6) 01/17/22 09:54 RBC 3.93 m/uL (3.80-5.40) 01/17/22 09:54 Hgb 12.0 gm/dL (11.4-16.0) 01/17/22 09:54 Hct 36.7 % (34.0-46.0) 01/17/22 09:54 MCV 93.4 fL (80.0-100.0) 01/17/22 09:54 MCH 30.5 pg (25.0-35.0) 01/17/22 09:54 MCHC 32.6 g/dL (31.0-37.0) 01/17/22 09:54 RDW 12.7 % (11.5-15.5) 01/17/22 09:54 Plt Count 323 k/uL (150-450) 01/17/22 09:54 MPV 8.5 01/17/22 09:54 Neutrophils % 56 % 01/17/22 09:54 Lymphocytes % 31 % 01/17/22 09:54 Monocytes % 8 % 01/17/22 09:54 Eosinophils % 3 % 01/17/22 09:54 Basophils % 1 % 01/17/22 09:54 Neutrophils # 3.5 k/uL (1.3-7.7) 01/17/22 09:54 Lymphocytes # 1.9 k/uL (1.0-4.8) 01/17/22 09:54 Monocytes # 0.5 k/uL (0-1.0) 01/17/22 09:54 Eosinophils # 0.2 k/uL (0-0.7) 01/17/22 09:54 Basophils # 0.0 k/uL (0-0.2) 01/17/22 09:54 Sodium 137 mmol/L (137-145) 01/17/22 09:54 Potassium 3.6 mmol/L (3.5-5.1) 01/17/22 09:54 Chloride 106 mmol/L (98-107) 01/17/22 09:54 Carbon Dioxide 21 mmol/L (22-30) L 01/17/22 09:54 Anion Gap 10 mmol/L 01/17/22 09:54 BUN 6 mg/dL (7-17) L 01/17/22 09:54 Creatinine 0.83 mg/dL (0.52-1.04) 01/17/22 09:54 Est GFR (CKD-EPI)AfAm >90 (>60 ml/min/1.73 sqM) 01/17/22 09:54 Est GFR (CKD-EPI)NonAf 78 (>60 ml/min/1.73 sqM) 01/17/22 09:54 Glucose 99 mg/dL (74-99) 01/17/22 09:[address] Glu mg/dL 91 01/17/22 09:54 Hemoglobin A1c 4.8 % (0.0-6.0) 01/17/22 09:54 Calcium 9.8 mg/dL (8.4-10.2) 01/17/22 09:54 Total Bilirubin 0.5 mg/dL (0.2-1.3) 01/17/22 09:54 Conjugated Bilirubin 0.0 mg/dL (0.0-0.3) 01/17/22 09:54 Unconjugated Bilirubin 0.3 mg/dL (0.0-1.1) 01/17/22 09:54 Delta Bilirubin 0.2 mg/dL (0.0-0.2) 01/17/22 09:54 AST 55 U/L (14-36) H 01/17/22 09:54 ALT 28 U/L (4-34) 01/17/22 09:54 Alkaline Phosphatase 59 U/L (38-126) 01/17/22 09:54 Total Protein 5.9 g/dL (6.3-8.2) L 01/17/22 09:54 Albumin 3.9 g/dL (3.5-5.0) 01/17/22 09:54 Triglycerides 124.00 mg/dL (0.00-149.00) 01/17/22 09:54 Cholesterol 196.00 mg/dL (0.00-200.00) 01/17/22 09:54 LDL Cholesterol, Calc 113.6 mg/dL (0.0-131.0) 01/17/22 09:54 VLDL Cholesterol, Calc 24.80 mg/dL (5.00-40.00) 01/17/22 09:54 HDL Cholesterol 57.60 mg/dL (40.00-60.00) 01/17/22 09:54 Cholesterol/HDL Ratio 3.40 Ratio 01/17/22 09:54 TSH <0.015 mIU/L (0.465-4.680) L 01/17/22 09:54 Urine Color Light Yellow 01/16/22 06:06 Urine Appearance Clear (Clear) 01/16/22 06:06 Urine pH 5.5 (5.0-8.0) 01/16/22 06:06 Ur Specific [place] 1.011 (1.001-1.035) 01/16/22 06:06 Urine Protein Negative (Negative) 01/16/22 06:06 Urine Glucose (UA) Negative (Negative) 01/16/22 06:06 Urine Ketones 4+ (Negative) H 01/16/22 06:06 Urine Blood Negative (Negative) 01/16/22 06:06 Urine Nitrite Negative (Negative) 01/16/22 06:06 Urine Bilirubin Negative (Negative) 01/16/22 06:06 Urine Urobilinogen <2.0 mg/dL (<2.0) 01/16/22 06:06 Ur Leukocyte Esterase Moderate (Negative) H 01/16/22 06:06 Urine RBC 1 /hpf (0-5) 01/16/22 06:06 Urine WBC 5 /hpf (0-5) 01/16/22 06:06 Ur Squamous Epith Cells <1 /hpf (0-4) 01/16/22 06:06 Urine Mucus Rare /hpf (None) H 01/16/22 06:06 Urine Opiates Screen Detected (NotDetected) H 01/16/22 06:06 Ur Oxycodone Screen Not Detected (NotDetected) 01/16/22 06:06 Urine Methadone Screen Not Detected (NotDetected) 01/16/22 06:06 Ur Propoxyphene Screen Not Detected (NotDetected) 01/16/22 06:06 Ur Barbiturates Screen Not Detected (NotDetected) 01/16/22 06:06 U Tricyclic Antidepress Not Detected (NotDetected) 01/16/22 06:06 Ur Phencyclidine Scrn Not Detected (NotDetected) 01/16/22 06:06 Ur Amphetamines Screen Not Detected (NotDetected) 01/16/22 06:06 U Methamphetamines Scrn Not Detected (NotDetected) 01/16/22 06:06 U Benzodiazepines Scrn Not Detected (NotDetected) 01/16/22 06:06 [place] 1.4 mmol/L 01/18/22 10:14 Urine Cocaine Screen Not Detected (NotDetected) 01/16/22 06:06 U Marijuana (THC) Screen Not Detected (NotDetected) 01/16/22 06:06 Coronavirus (PCR) Not Detected (Not Detectd) 01/16/22 08:22 Vital Signs Temp 97.3 F L 01/22/22 03:45 Pulse 95 01/22/22 08:23 Resp 16 01/22/22 08:23 BP 117/63 01/22/22 08:23 Pulse Ox 97 01/16/22 10:04 FiO2 Intake & Output 01/21/22 01/22/22 01/22/22 18:59 06:59 18:59 Weight 58.1 kg Allergies Allergy/AdvReac Type Severity Reaction Status Date / Time peanut Allergy Severe Anaphylaxis Verified 01/16/22 09:00 ibuprofen [From Motrin] Allergy Intermediate Rash/Hives Verified 01/16/22 09:00 tramadol HCl [From Ultram] Allergy Intermediate Itching Verified 01/16/22 09:00 Impression: Major depressive disorder, recurrent, severe, with psychotic features Borderline personality disorder Generalized anxiety disorder Plan: -Continue with discharge today as patient has improved and stabilized psychiatrically and is not currently an imminent threat to self and/or others. Patient will remain at chronically elevated risk for harm to self and/or others due to her severity of mental illness and her nonadherence with treatment. -Continue medications: Invega Sustenna 234 mg IM was administered on 01/18/2022. Psychomotor and dose of 156 mg IM to be administered on 01/25/2022. [place] 300 mg by mouth every morning and 4 and 50 mg by mouth daily at bedtime for mood stabilization Propranolol 20 mg by mouth twice a day for akathisia/anxiety Trazodone 150 mg by mouth at bedtime for insomnia -Patient was counseled on the need for medication compliance and appropriate follow-up at mental health and also primary care for medical issues. Patient verbalized understanding and agreed. -Social work to arrange for and conduct family meeting to ensure safety upon discharge and answer any questions/concerns. Social work also to arrange for patients follow up appointments with [facility] for psychiatric care along with follow up with primary care provider. -Patient counseled on abstaining from recreational drugs and marijuana and alcohol. Was informed/educated on the adverse effects on their physical and mental health. Patient verbally agreed and understood. -Patient was instructed to return to the hospital or seek immediate medical care if their psychiatric or medical symptoms do worsen or reoccur. -Psychoeducation and supportive therapy provided to patient. Risks and benefits of pharmacological treatment versus the risks and benefits of nontreatment weight and discussed. Informed consent discussion held. Common side effects of psychotropics discussed such as, but not limited to headache, GI disturbance, sexual dysfunction, movement disorders, sedation, and orthostatic hypotension. Life threatening and blackbox warnings of prescribed medications also discussed. Potential risks of operating a vehicle or heavy machinery discussed with patient at length. Advised on importance of compliance and a reliable and responsible manner. Patient advised to review FDA consumer labeling of all medications prior to taking. Patient verbalized understanding of potential risks, and agrees with current treatment plan. Patient advised to medically contact physician/emergency personnel if any acute changes in condition occur. Patient Condition at Discharge: Stable Plan - Discharge Summary Discharge Rx Participant: No New Discharge Prescriptions: New Propranolol [Inderal] 20 mg PO BID 30 Days tab traZODone HCL [Desyrel] 150 mg PO HS 30 Days tab [place] Carbonate 450 mg PO HS 30 Days cap [place] Carbonate 300 mg PO DAILY 30 Days cap Levothyroxine Sodium [Synthroid] 125 mcg PO DAILY@0630 30 Days tab Paliperidone IM [Invega Sustenna] 156 mg IM QMONTHLY #1 each Continue Aspirin 81 mg PO DAILY tab Discontinued Gabapentin [Neurontin] 300 mg PO QID Multivitamins, Thera [Multivitamin (formulary)] 1 tab PO DAILY DULoxetine HCL [Cymbalta] 60 mg PO BID 30 Days Cephalexin [Keflex] 500 mg PO BID 7 Days #14 cap Paliperidone [Invega] 9 mg PO HS [place] Carbonate [[place] Carbonate ER] 450 mg PO HS Levothyroxine Sodium [Synthroid] 125 mcg PO DAILY 30 Days tab traZODone HCL 300 mg PO HS Discharge Medication List Aspirin 81 mg PO DAILY tab 08/25/21 [Rx] Levothyroxine Sodium [Synthroid] 125 mcg PO DAILY@0630 30 Days tab 01/22/22 [Rx] [place] Carbonate 300 mg PO DAILY 30 Days cap 01/22/22 [Rx] [place] Carbonate 450 mg PO HS 30 Days cap 01/22/22 [Rx] Paliperidone IM [Invega Sustenna] 156 mg IM QMONTHLY #1 each 01/22/22 [Rx] Propranolol [Inderal] 20 mg PO BID 30 Days tab 01/22/22 [Rx] traZODone HCL [Desyrel] 150 mg PO HS 30 Days tab 01/22/22 [Rx] Follow up Appointment(s)/Referral(s): [facility] [Outside] - 01/23/22 12:00 pm (01-23-22 at 12:00 with Jose De La O 01-24-21 at 11:30 with SHERRON Judd Both at [facility]) Chiqui Viramontes MD [STAFF PHYSICIAN] - 1-2 days Patient Instructions/Handouts: How to Stop Smoking (DC), Depression (DC) Activity/Diet/Wound Care/Special Instructions: Activity and diet as tolerated. Avoid the use of street drugs and alcohol. Take all medications as prescribed. When you are in need of refills on your medications please contact your medical provider and/or outpatient psychiatrist to have this done. Please go to scheduled outpatient appointment for aftercare treatment. If symptoms return or become worse, call the crisis line at and/or go to the nearest emergency room for evaluation Discharge Disposition: HOME SELF-CARE
== END 2022-01-22 11:45 | disposition home or self-care (01) | DRG 885 ==
LOC: EC 05:53 → 3MHU 08:49
PROVIDERS: ADMIT Psychiatry & Neurology Psychiatry; ATTEND Psychiatry & Neurology Psychiatry
DX: F33.3 Major depressive disorder, recurrent, severe with psychotic symptoms (principal); R45.851 Suicidal ideations; E78.5 Hyperlipidemia, unspecified; F41.1 Generalized anxiety disorder; F60.3 Borderline personality disorder; G25.81 Restless legs syndrome; G47.00 Insomnia, unspecified; Z56.0 Unemployment, unspecified; Z79.82 Long term (current) use of aspirin; Z79.890 Hormone replacement therapy; Z79.899 Other long term (current) drug therapy; Z80.0 Family history of malignant neoplasm of digestive organs; Z82.0 Family history of epilepsy and other diseases of the nervous system; Z82.49 Family history of ischemic heart disease and other diseases of the circulatory system; Z87.891 Personal history of nicotine dependence; Z90.710 Acquired absence of both cervix and uterus; Z91.14 Patient's other noncompliance with medication regimen; Z20.822 Contact with and (suspected) exposure to COVID-19; Z98.890 Other specified postprocedural states; Z88.6 Allergy status to analgesic agent; Z88.5 Allergy status to narcotic agent; Z91.010 Allergy to peanuts; Z28.21 Immunization not carried out because of patient refusal
CPT/HCPCS: 80053; 80061; 80178; 80306; 81001; 82075; 82248; 83036; 84443; 85025; 87635; 99285